=== PATIENT | female | born 1990 | race Caucasian/White ===

== ENCOUNTER → 2018-06-30 16:50 | Outpatient (CLI) | payer SELFPAY | PROVIDERS: Family Provider Family Medicine; PCP Family Medicine; Visit Provider Family Medicine | DX: Z01.419 Encounter for gynecological examination (general) (routine) without abnormal findings (principal) ==

== ENCOUNTER → 2019-04-01 08:29 | Outpatient (CLI) | payer OTHER, SELFPAY ==
[2019-04-01 08:40] LABS: Bacteria 0 SEEN /hpf (None Seen); Mucous, Urine 0 SEEN /hpf (<or=2+); Red Blood Cells-Urine 0 SEEN /hpf (0-5)
[2019-04-01 12:20] LABS: Absolute Lymphocyte Count 1.77 X10^3/uL (0.83-4.51); Absolute Neutrophil Count 7.3 X10^3/uL (2.0-7.7); Basophil# 0.05 X10^3/uL; Basophil% 0.5 % (0-1); Eosinophil# 0.12 X10^3/uL; Eosinophils% 1.2 % (0-5); Hematocrit 40.1 % (37-47); Hemoglobin 12.5 g/dL (12.0-15.0); Lymphocyte # 1.77 X10^3/ul (4.0); Mean Corp Hgb Conc 31.2 g/dL (32-36); Mean Corpuscular Hgb 22.5 pg (27.0-32.0); Mean Corpuscular Volume 72.1 fL (81-99); Mean Platelet Vol. 9.5 fl (6.2-12.0); Monocyte# 0.52 X10^3/uL; Monocyte% 5.3 % (0-10); NRBC Flagged by Analyzer 0 % (0-5); Neutrophil # 7.33 X10^3/uL (2.7-7.7); Neutrophil % 74.6 % (47-70); Platelet Count 555 K/mm3 (150-450); RBC Distribution Width CV 15.1 % (11.6-14.6); RBC Distribution Width SD 38.5 fl (35.1-43.9); Red Blood Count 5.56 M/mm3 (4.2-5.4); White Blood Count 9.8 K/mm3 (4.4-11.0)
[2019-04-01 13:34] LABS: Color, Urine Yellow (Yellow); Glucose, Dipstick Normal (Normal); Ketone-Dipstick Negative (Negative); Leukocyte Esterase-Dipstick 25 /ul (Negative); Nitrite-Dipstick Negative (Negative); Occult Blood-Urine 10 /ul (Negative); Protein-Dipstick Negative (Negative); Urine Bilirubin Dipstick Negative (Negative); Urine Clarity Clear (Clear); Urine Urobilinogen Normal (Normal)
[2019-04-01 13:39] LABS: Internal QC Validated? YES +Cl - CLEAR BKGD; Pregnancy, Urine Negative Negative; Squamous Epithelial Cells - UA 0-5 SEEN /hpf (5-10); White Blood Cells 0-5 SEEN /hpf (0-5)
== END ==
PROVIDERS: Family Provider Family Medicine; PCP Family Medicine; Visit Provider Family Medicine
DX: N93.9 Abnormal uterine and vaginal bleeding, unspecified (principal); R10.31 Right lower quadrant pain
CPT/HCPCS: 36415; 81001; 81025; 85025

== ENCOUNTER → 2020-06-27 08:46 | Outpatient (CLI) | payer BC, SELFPAY ==
[2020-06-27 13:05] LABS: ALB/GLOB Ratio 0.6 RATIO (0.9-2.4); AST(SGOT) 14 U/L (15-37); Alanine Aminotransfer ALT/SGPT 22 U/L (13-56); Albumin, Serum 3.1 g/dL (3.2-5.0); Alkaline Phosphatase 99 U/L (45-117); Anion Gap 7 (5-15); BUN 11 mg/dL (7-18); BUN/Creat Ratio 13.9 RATIO (10-20); Calcium,Total 8.8 mg/dL (8.5-10.1); Chloride 108 mmol/L (98-107); Cholesterol 195 mg/dL (200); Creatinine, Serum 0.79 mg/dL (0.55-1.02); EST Glomerular Filtration Rate 90 mL/min (>60); Est Glom Filt Rate - Afr Amer 109 mL/min (>60); Globulin 4.9 g/dL (2.2-4.2); Glucose 77 mg/dL (74-106); High Density Lipoprotein 46 mg/dL; Potassium 3.7 mmol/L (3.5-5.1); Sodium Level 139 mmol/L (136-145); Triglycerides 134 mg/dL; Very Low Density Lipoprotein 27 mg/dL (5-40)
[2020-06-27 13:18] LABS: Vitamin D,25 Hydroxy 30.5 ng/mL
== END ==
PROVIDERS: PCP Family Medicine; Visit Provider Family Medicine
DX: Z00.00 Encounter for general adult medical examination without abnormal findings (principal); E55.9 Vitamin D deficiency, unspecified
CPT/HCPCS: 36415; 80053; 80061; 82306

== ENCOUNTER → 2021-01-31 16:02 | Outpatient (CLI) | payer BC, SELFPAY | PROVIDERS: PCP Family Medicine; Referring Provider Family Medicine; Visit Provider Family Medicine | DX: Z20.828 Contact with and (suspected) exposure to other viral communicable diseases (principal) | CPT/HCPCS: 87635; U0005; U0003 ==

== ENCOUNTER → 2023-05-27 | Outpatient (CLI) | payer OTHER, SELFPAY ==
[2023-05-27 12:19] LABS: Absolute Lymphocyte Count 2.38 X10^3/uL (0.83-4.51); Absolute Neutrophil Count 5.7 X10^3/uL (2.0-7.7); Basophil# 0.05 X10^3/uL; Basophil% 0.6 % (0-1); Eosinophil# 0.09 X10^3/uL; Hematocrit 41.2 % (37-47); Hemoglobin 13.3 g/dL (12.0-15.0); Lymphocyte # 2.38 X10^3/ul (0.83-4.51); Lymphocyte % 26.4 % (19-41); Mean Corp Hgb Conc 32.3 g/dL (32-36); Mean Corpuscular Hgb 25.8 pg (27.0-32.0); Mean Platelet Vol. 8.9 fl (6.2-12.0); Monocyte% 7.8 % (0-10); NRBC Flagged by Analyzer 0 % (0-5); Neutrophil # 5.74 X10^3/uL (2.7-7.7); Neutrophil % 63.8 % (47-70); Platelet Count 464 K/mm3 (150-450); RBC Distribution Width CV 13.2 % (11.6-14.6); RBC Distribution Width SD 38.1 fl (35.1-43.9); Red Blood Count 5.15 M/mm3 (4.2-5.4)
[2023-05-27 12:56] LABS: ALB/GLOB Ratio 0.7 RATIO (0.9-2.4); AST(SGOT) 27 U/L (15-37); Alanine Aminotransfer ALT/SGPT 40 U/L (13-56); Albumin, Serum 3.3 g/dL (3.2-5.0); Alkaline Phosphatase 118 U/L (45-117); Anion Gap 7 (5-15); BUN 9 mg/dL (7-18); BUN/Creat Ratio 13.7 RATIO (10-20); Calcium,Total 9.2 mg/dL (8.5-10.1); Chloride 106 mmol/L (98-107); Creatinine, Serum 0.66 mg/dL (0.55-1.02); EST Glomerular Filtration Rate 110 mL/min (>60); Est Glom Filt Rate - Afr Amer 133 mL/min (>60); Globulin 4.7 g/dL (2.2-4.2); Glucose 86 mg/dL (74-106); Sodium Level 138 mmol/L (136-145)
== END | disposition home or self-care (01) ==
PROVIDERS: PCP Family Medicine; Visit Provider Family Medicine
DX: R19.7 Diarrhea, unspecified (principal); R10.9 Unspecified abdominal pain
CPT/HCPCS: 36415; 80053; 85025; 86140

== ENCOUNTER → 2023-05-28 | Outpatient (CLI) | payer OTHER, SELFPAY ==
--- OUTSIDE RECORDS SUMMARY | 2023-05-28 09:52 | XMS RPT_ITS | CCD ---
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 Name Role Phone Nicole Espino Primary Care Provider DARRON RAY Referring Unavailable NICOLE ESPINO Primary Care Unavailable NICOLE ESPINO Primary Care Unavailable DARRON RAY Attending Unavailable Nicole Espino DO Primary Care Provider NCIOLE ESPINO Primary Care Unavailable NICOLE ESPINO Primary Care Unavailable Allergies Allergy Classification Reported Allergen(s) Allergy Type Date of Onset Reaction(s) Facility (1 source) Peanut-Containi ng Drug Products Propensity to adverse reactions to drug 9 [place], [place] (5 sources) Adhesive Tape; Translations: [ADHESIVE TAPE (ROSINS)] Allergy to substance 3 Rash [facility] (5 sources) walnut allergenic extract; Translations: [WALNUT] Drug Allergy 2 Other: See Comments [facility] Work Phone: Medications Current Medications Medication Drug Class(es) Dates Sig (Normalized) Sig (Original) amoxicillin 500 mg oral capsule (3 sources) Penicillin-class Antibacterial Start: 06-06-2022 End: 06-16-2022 take 1 capsule by mouth twice daily amoxicillin (POLYMOX, AMOXIL) 500 mg capsule Indications: Strep throat Take 1 capsule by mouth twice daily for 10 days. 20 capsule 0 06/06/2022 06/16/2022 Active Completed/Discontinued Medications Medication Drug Class(es) Dates Sig (Normalized) Sig (Original) 21 day ethinyl estradiol 0.692220 mg/hr / etonogestrel 0.005 mg/hr vaginal system (8 sources) Progestin, Estrogen Etonogestrel -Ethinyl Estradiol 0.12-0.015 mg/24 hr vaginal ring Use 1 Each vaginally as directed. Insert vaginally and leave in place for 3 consecutive weeks, then remove for 1 week. 0 Active Problems Active Problems Problem Classification Problem Date Documented Date Episodic/Chronic Inflammation; infection of eye (except that caused by tuberculosis or sexually transmitteddisease) (1 source) Conjunctivitis of right eye; Translations: [Unspecified conjunctivitis] Episodic Nausea and vomiting (1 source) Diarrhea and vomiting; Translations: [Vomiting, unspecified] 05-18-2023 Episodic Other injuries and conditions due to external causes (2 sources) Injury of head; Translations: [Unspecified injury of head, initial encounter] Episodic Other injuries and conditions due to external causes (2 sources) Unspecified injury of head, initial encounter; Translations: [Unspecified injury of head, initial encounter] Onset: 08-15-2022 Episodic Other skin disorders (1 source) Eruption; Translations: [Rash and other nonspecific skin eruption] 05-18-2023 Episodic Other upper respiratory infections (2 sources) Streptococcal sore throat; Translations: [Streptococcal pharyngitis] Episodic Sprains and strains (1 source) Strain of muscle and/or tendon of lower leg; Translations: [Strain of adductor julien muscle, right, initial encounter] Episodic Past or Other Problems Problem Classification Problem Date Documented Da te Episodic/Chronic Other non-traumatic joint disorders (4 sources) Pain in lower limb; Translations: [Pain in unspecified knee] Onset: 08-28-2011 08-28-2011 Episodic Results Test Name Value Interpretation Reference Range Facil ity Vital Signs Date Time Vital Sign Value Performing Clinician Facility 05-18-2023 12:00-0500 Body height 175.3 cm Leidy Dee PA-C Work Phone: [facility] 05-18-2023 12:00-0500 Body temperature 98.29 [degF] Liedy Dee PA-C Work Phone: [facility] 05-18-2023 12:00-0500 Body weight 135.8 kg Leidy Dee PA-C Work Phone: [facility] 05-18-2023 12:00-0500 Diastolic blood pressure 104 mm[Hg] Leidy Dee PA-C Work Phone: [facility] 05-18-2023 12:00-0500 Heart rate 113 /min Leidy Dee PA-C Work Phone: [facility] 05-18-2023 12:00-0500 Respiratory rate 18 /min Leidy Dee PA-C Work Phone: [facility] 05-18-2023 12:00-0500 SaO2% (BldA) [Mass fraction] 98 % Leidy Dee PA-C Work Phone: [facility] 05-18-2023 12:00-0500 Systolic blood pressure 141 mm[Hg] Leidy Dee PA-C Work Phone: [facility] 08-15-2022 20:27-0400 Diastolic blood pressure 94 mm[Hg] Darron Ray MD Work Phone: [facility] 08-15-2022 20:27-0400 Heart rate 79 /min Darron Ray MD Work Phone: [facility] 08-15-2022 20:27-0400 Respiratory rate 15 /min Darron Ray MD Work Phone: [facility] 08-15-2022 20:27-0400 SaO2% (BldA) [Mass fraction] 100 % Darron Ray MD Work Phone: [facility] 08-15-2022 20:27-0400 Systolic blood pressure 147 mm[Hg] Darron Ray MD Work Phone: [facility] 08-15-2022 18:51-0400 Body height 175.3 cm Darron Ray MD Work Phone: [facility] 08-15-2022 18:51-0400 Body mass index (BMI) [Ratio] 40.02 kg/m2 Darron Ray MD Work Phone: [facility] 08-15-2022 18:51-0400 Body temperature 98.4 [degF] Darron Ray MD Work Phone: [facility] 08-15-2022 18:51-0400 Body weight 122.92 kg Darron Ray MD Work Phone: [facility] 06-06-2022 17:59-0500 Body temperature 100.4 [degF] Chery Ball BANK CONSULTANT.LABORATORY ANIMAL FACILITY SUPERVISOR Work Phone: [facility] 06-06-2022 17:59-0500 Body weight 132 kg Chery Ball BANK CONSULTANT.LABORATORY ANIMAL FACILITY SUPERVISOR Work Phone: [facility] 06-06-2022 17:59-0500 Diastolic blood pressure 94 mm[Hg] Chery Ball BANK CONSULTANT.LABORATORY ANIMAL FACILITY SUPERVISOR Work Phone: [facility] 06-06-2022 17:59-0500 Heart rate 122 /min Chery Ball BANK CONSULTANT.LABORATORY ANIMAL FACILITY SUPERVISOR Work Phone: [facility] 06-06-2022 17:59-0500 SaO2% (BldA) [Mass fraction] 98 % Chery Ball BANK CONSULTANT.LABORATORY ANIMAL FACILITY SUPERVISOR Work Phone: [facility] 06-06-2022 17:59-0500 Systolic blood pressure 159 mm[Hg] Chery Ball BANK CONSULTANT.LABORATORY ANIMAL FACILITY SUPERVISOR Work Phone: [facility] 04-07-2022 09:29-0500 Body height 175.3 cm Soledad Syed BANK CONSULTANT.LABORATORY ANIMAL FACILITY SUPERVISOR Work Phone: [facility] 04-07-2022 09:29-0500 Body temperature 97.7 [degF] Soledad Syed BANK CONSULTANT.LABORATORY ANIMAL FACILITY SUPERVISOR Work Phone: [facility] 04-07-2022 09:29-0500 Body weight 138.8 kg Soledad Syed BANK CONSULTANT.LABORATORY ANIMAL FACILITY SUPERVISOR Work Phone: [facility] 04-07-2022 09:29-0500 Diastolic blood pressure 76 mm[Hg] Soledad Syed BANK CONSULTANT.LABORATORY ANIMAL FACILITY SUPERVISOR Work Phone: [facility] 04-07-2022 09:29-0500 Heart rate 114 /min Soledad Syed BANK CONSULTANT.LABORATORY ANIMAL FACILITY SUPERVISOR Work Phone: [facility] 04-07-2022 09:29-0500 Respiratory rate 18 /min Soledad Seyd BANK CONSULTANT.LABORATORY ANIMAL FACILITY SUPERVISOR Work Phone: [facility] 04-07-2022 09:29-0500 SaO2% (BldA) [Mass fraction] 100 % Soledad Syed BANK CONSULTANT.LABORATORY ANIMAL FACILITY SUPERVISOR Work Phone: [facility] 04-07-2022 09:29-0500 Systolic blood pressure 129 mm[Hg] Soledad Seyd BANK CONSULTANT.LABORATORY ANIMAL FACILITY SUPERVISOR Work Phone: [facility] 02-06-2022 18:11-0400 Body height 175.3 cm Dasha Slabaugh PA-C Work Phone: [facility] 02-06-2022 18:11-0400 Body weight 138.8 kg Dasha Slabaugh PA-C Work Phone: [facility] 02-06-2022 18:11-0400 Diastolic blood pressure 101 mm[Hg] Dasha Slabaugh PA-C Work Phone: [facility] 02-06-2022 18:11-0400 Heart rate 101 /min Dasha Slabaugh PA-C Work Phone: [facility] 02-06-2022 18:11-0400 Respiratory rate 16 /min Dasha Slabaugh PA-C Work Phone: [facility] 02-06-2022 18:11-0400 SaO2% (BldA) [Mass fraction] 99 % Dasha Slabaugh PA-C Work Phone: [facility] 02-06-2022 18:11-0400 Systolic blood pressure 123 mm[Hg] Dasha Slabaugh PA-C Work Phone: [facility] 01-18-2019 16:52-0400 BP Diastolic 80 mm[Hg] [facility] [place] 01-18-2019 16:52-0400 BP Systolic 117 mm[Hg] [facility] [place] 01-18-2019 16:52-0400 Pulse (Heart Rate) 68 /min [facility] [place] 09-15-2019 16:52-0400 [facility] 16:52-0400 Respiratory Rate 14 /[facility] 01-18-2019 15:48-0400 Body Temperature 97.9 [degF] [facility] 01-18-2019 15:48-0400 Body weight 127.91 [facility] Encounters Encounter Date Encounter Type Care Provider Facility Start: 05-18-2023 End: 05-18-2023 ambulatory [facility] Facility:[facility] Start: 05-18-2023 End: 05-18-2023 Patient encounter procedure Leidy Dee PA-C Work Phone: [facility] Procedures Date Procedure Procedure Detail Performing Clinician Start: 08-15-2022 Ct head/brain w/o contrast material Darron Ray MD Work Phone: Start: 06-06-2022 STREP A MOLECULAR (POC) [facility] Provider Start: 04-07-2022 STREP A MOLECULAR (POC) [facility] Provider Start: 01-18-2019 Radex hip unilateral with pelvis 2-3 views [facility] Carlos Alberto Work Phone: Plan of Treatment Date Care Activity Detail Author Start: 2039 Zoster Vaccines (1 of 2) Zoste r Vaccines (1 of 2) [facility] Start: 05-06-2023 Depression Assessment Depression Ass essment [facility] Start: 01-04-2023 Covid-19 Vaccine ( season) Covid-19 Vaccine ( season) [facility] Start: 01-04-2023 Influenza vaccination [facility] Start: 05-06-2022 DEPRESSION ASSESSMENT DEPRESSION ASS ESSMENT [facility] Start: 01-04-2022 Influenza vaccination INFLUENZA (#1) [facility] Start: 05-06-2021 DEPRESSION ASSESSMENT DEPRESSION ASS ESSMENT [facility] Start: 03-24-2021 COVID-19 VACCINE (3 - Booster for Pfizer series) COVID-19 VACCINE (3 - Booster for Pfizer series) [facility] Start: 2019 HPV TESTING HPV TESTING [facility] Start: 2019 Screening for malign ant neoplasm of cervix [facility] Start: 01-04-2019 Influenza vaccination Flu vaccine (# 1) [place], [place] Start: 07-29-2015 PAP TESTING PAP TESTING [facility] Start: 07-29-2015 Screening for malign ant neoplasm of cervix Pap Testing [facility] Start: 2010 Screening for malign ant neoplasm of cervix Pap Smear [facility] Start: 2008 Urine microalbumin profile DTAP,TDAP,TD (1 - Tdap) [facility] Start: 2007 HEPATITIS C SCREENING HEPATITIS C [facility] Start: 2007 Hepatitis C screening Hepatitis C [facility] Start: 2007 HIV SCREENING HIV SCREENING [facility] Start: 2007 HIV screening HIV Screening [facility] Start: 02-06-2002 Varicella vaccination Varicell a Vaccines (1 of 2 - 2-dose childhood series) [facility] Start: 2000 DTaP/Tdap/Td Vaccine s (5 - Tdap) DTaP/Tdap/Td Vaccines (5 - Tdap) [facility] Start: 2000 Urine microalbumin profile DTaP,Tdap,Td Vaccine (5 - Tdap) [facility] Start: 1989 HEPATITIS B (1 of 3 - 3-dose series) HEPATITIS B (1 of 3 - 3-dose series) [facility] Start: 1989 Hepatitis B Vaccine (1 of 3 - 3-dose series) Hepatitis B Vaccine (1 of 3 - 3-dose series) [facility] Start: 1989 Hepatitis B Vaccines (1 of 3 - 3-dose series) Hepatitis B Vaccines (1 of 3 - 3-dose series) [facility] Start: 1989 HIV screening HIV Screening [facility]usto Payers Date Payer Category Payer Unknown [id number] 2022 Worker's Compensation LATOYA STODDARD [employer] [id number] 2022-[place] [address] Worker's Comp [id number] 2021 Unknown [id number] 2021 Unknown [id number] Social History Date Type Detail Facility Start: 03-16-2011 End: 01-18-2019 Tobacco smoking status NHIS Never smoker [facility] Work Phone: Start: 01-18-2019 End: 04-13-2020 Alcohol intake Not Currently [facility] Start: 1990 Sex Assigned At Not on file [facility] Start: 03-16-2011 Tobacco use and exposure Smokeless tobacco non-user [facility] Work Phone: Start: 03-03-2019 End: 05-18-2023 Alcohol intake Current drinker of alcohol (finding) [facility] Start: 09-30-2012 History SDOH Alcohol Comment rare [facility] Start: 01-27-2022 End: 08-15-2022 Exposure to SARS-CoV-2 (event) Not sure [facility] Start: 08-15-2022 Alcohol intake Ex-drinker (finding) [facility] Start: 04-13-2020 End: 05-18-2023 History of Social function [facility] National Score (1-100), lower number is lower risk Not on file [facility] Clinical Notes 08-28-2011 to 05-18-2023 Leidy Dee PA-C - 05/18/2023 11:59 AM Lorrie Stephens RN - 08/15/2022 8:27 PM Evita Stephens RN - 08/15/2022 8:27 PM Facundo Ray MD - 08/15/2022 6:43 PM EDTPatient Instructions Note Date & Type Note Facility 05-18-2023 Note HNO ID: [id number] Author: LEIDY DEE PA-C Service: ? Author Type: Physician Escalator Installer Type: Progress Notes Filed: 05/18/2023 12:23 Note Text: Nahed Holloway is a 32 year old female with a complaint of rash on abdomen x 4 days. Red bumps, last a few days, then resolve on their own. Getting new spots. One on back of left thigh and two on back. Was in hot tub 2-3 days before rash began. Not itchy. Painful when she touches the lesions. Notes epigastric pain that began about 4 days ago as well. Was coming and going, worse after eating. Yesterday had vomiting and diarrhea. Epigastric pain resolved. Last episode of vomiting 1 am today, last episode of diarrhea 8 am today. No longer nauseated. Feels fine otherwise. Denies fever, chills, body aches, sore throat, cough. Doesn't feel sick. REVIEW OF SYSTEMS See HPI, otherwise unremarkable. No past medical history on file. PAST SURGICAL HISTORY Procedure Laterality Date APPENDECTOMY 2011 APPENDECTOMY HX PAST SURGICAL HISTORY OF joshua eye surgery for lazy eye FAMILY HISTORY Problem Relation Age of Onset Hypertension Mother Hypertension Father Social History Tobacco Use Smoking status: Never Smokeless tobacco: Never Substance Use Topics Alcohol use: Yes Comment: rare Drug use: No PHYSICAL EXAMINATION: Vitals: BP 141/104 (BP Site: Left Arm, BP Position: Sitting, BP Cuff Size: Large Adult) Pulse 113 Temp 36.8 ?C (98.3 ?F) (Left Tympanic) Resp 18 Ht 175.3 cm (5' 9 ) Wt 135.8 kg (299 lb 6.2 oz) LMP 10/01/2018 (Exact Date) SpO2 98% BMI 44.21 kg/m? General Appearance: Well appearing, alert, in no acute distress, well-hydrated, well nourished.. Skin: few erythematous papules on trunk, one on back of left leg, appears to be folliculitis. Oropharynx: Lips, mucosa, and tongue normal, teeth and gums normal, oropharynx normal. Neck: Supple, no adenopathy Lungs: Lungs clear to auscultation. No wheezing, rhonchi, rales.. Heart: RRR without murmur, gallop, or rubs. No ectopy. Abdomen: Abdomen soft, non-tender. No masses, organomegaly. ASSESSMENT: DIAGNOSIS: (R21) Skin rash (primary encounter diagnosis) (R11.10, R19.7) Vomiting and diarrhea PLAN: ASSESSMENT/PLAN: 1. Skin rash - ICD9: 782.1, ICD10: R21 (primary diagnosis) ?hot tub folliculitis, mupirocin. Follow up if rash persists. 2. Vomiting and diarrhea - ICD9: 787.03, 787.91, ICD10: R11.10, R19.7 Resolved. Pt states goes not feel sick. Follow up for new, worsening or persistent sx. Pt in agreement with the plan and verbalized understanding. Leidy Dee PA-C [facility] 05-18-2023 History of Presen t illness Narrative Nahed Holloway is a 32 year old female with a complaint of rash on abdomen x 4 days. Red bumps, last a few days, then resolve on their own. Getting new spots. One on back of left thigh and two on back. Was in hot tub 2-3 days before rash began. Not itchy. Painful when she touches the lesions. Notes epigastric pain that began about 4 days ago as well. Was coming and going, worse after eating. Yesterday had vomiting and diarrhea. Epigastric pain resolved. Last episode of vomiting 1 am today, last episode of diarrhea 8 am today. No longer nauseated. Feels fine otherwise. Denies fever, chills, body aches, sore throat, cough. Doesn't feel sick. REVIEW OF SYSTEMS See HPI, otherwise unremarkable. No past medical history on file. PAST SURGICAL HISTORY Procedure Laterality Date APPENDECTOMY 2011 APPENDECTOMY HX PAST SURGICAL HISTORY OF joshua eye surgery for lazy eye FAMILY HISTORY Problem Relation Age of Onset Hypertension Mother Hypertension Father Social History Tobacco Use Smoking status: Never Smokeless tobacco: Never Substance Use Topics Alcohol use: Yes Comment: rare Drug use: No PHYSICAL EXAMINATION: Vitals: BP 141/104 (BP Site: Left Arm, BP Position: Sitting, BP Cuff Size: Large Adult) Pulse 113 Temp 36.8 C (98.3 F) (Left Tympanic) Resp 18 Ht 175.3 cm (5' 9 ) Wt 135.8 kg (299 lb 6.2 oz) LMP 10/01/2018 (Exact Date) SpO2 98% BMI 44.21 kg/m General Appearance: Well appearing, alert, in no acute distress, well-hydrated, well nourished.. Skin: few erythematous papules on trunk, one on back of left leg, appears to be folliculitis. Oropharynx: Lips, mucosa, and tongue normal, teeth and gums normal, oropharynx normal. Neck: Supple, no adenopathy Lungs: Lungs clear to auscultation. No wheezing, rhonchi, rales.. Heart: RRR without murmur, gallop, or rubs. No ectopy. Abdomen: Abdomen soft, non-tender. No masses, organomegaly. ASSESSMENT: DIAGNOSIS: (R21) Skin rash (primary encounter diagnosis) (R11.10, R19.7) Vomiting and diarrhea PLAN: ASSESSMENT/PLAN: 1. Skin rash - ICD9: 782.1, ICD10: R21 (primary diagnosis) ?hot tub folliculitis, mupirocin. Follow up if rash persists. 2. Vomiting and diarrhea - ICD9: 787.03, 787.91, ICD10: R11.10, R19.7 Resolved. Pt states goes not feel sick. Follow up for new, worsening or persistent sx. Pt in agreement with the plan and verbalized understanding. Leidy Dee PA-C documented in this encounter [facility] 08-15-2022 Emergency department Note Discharge instructions, follow up care, and pain management discussed with patient. All questions answered, there are no further questions at this time. RN reviewed concussion signs and symptoms with patient and friend bedside. Patient ambulated off the unit independently at discharge. Kizzy Stephens RN 08/15/222026 [facility] 08-15-2022 Emergency department Note Discharge instructions, follow up care, and pain management discussed with patient. All questions answered, there are no further questions at this time. RN reviewed concussion signs and symptoms with patient and friend bedside. Patient ambulated off the unit independently at discharge. Kizzy Stephens RN 08/15/222026 EMERGENCY DEPARTMENT ENCOUNTER Pt Name: Nahed Holloway Birthdate 1990 Date of evaluation: 08/15/2022 ED Provider: Darron Ray MD CHIEF COMPLAINT Chief Complaint Patient presents with Head Injury HISTORY OF PRESENT ILLNESS (Location/Symptom, Timing/Onset, Context/Setting, Quality, Duration, Modifying Factors, Severity) Note limiting factors. I wore appropriate PPE for the entirety of this encounter. HPI Nahed Holloway is a 32 y.o. female who presents to the emergency department with chief complaint of head injury. 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 She did not pass out or fall. Not on thinners. Denies any focal weakness numbness tingling. Her significant other reports that her speech has been slurred and not making sense and she states she is very fatigued and has a severe diffuse headache. No vomiting no seizures. No reported gait disturbance. Nursing Notes were reviewed. Limitations to history: None Outside historians: None REVIEW OF SYSTEMS Review of Systems Constitutional: Negative for chills and fever. HENT: Negative for ear pain and sore throat. Eyes: Negative for pain and visual disturbance. Respiratory: Negative for cough and shortness of breath. Cardiovascular: Negative for chest pain and palpitations. Gastrointestinal: Negative for abdominal pain and vomiting. Genitourinary: Negative for dysuria and hematuria. Musculoskeletal: Negative for arthralgias and back pain. Skin: Negative for color change and rash. Neurological: Positive for speech difficulty and headaches. Negative for seizures and syncope. All other systems reviewed and are negative. Pertinent positives and negatives as per HPI. PAST MEDICAL HISTORY History reviewed. No pertinent past medical history. SURGICAL HISTORY Past Surgical History: Procedure Laterality Date APPENDECTOMY EYE SURGERY CURRENT MEDICATIONS Previous Medications ETONOGESTREL-ETHINYL ESTRADIOL (NUVARING) 0.12-0.015 MG/24HR VAGINAL RING Insert 1 Ring into the vagina every 28 (twenty-eight) days. Insert vaginally and leave in place for 3 consecutive weeks, then remove for 1 week. ALLERGIES Patient has no known allergies. FAMILY HISTORY No family history on file. SOCIAL HISTORY Social History Socioeconomic History Marital status: Single Tobacco Use Smoking status: Never Substance and Sexual Activity Alcohol use: Not Currently Drug use: Never SCREENINGS PHYSICAL EXAM ED Triage Vitals [08/15/22 1851] Temp Heart Rate Resp BP 36.9 C (98.4 F) 78 14 (!) 156/100 SpO2 Temp Source Heart Rate Source Patient Position 100 % Oral -- -- BP Location FiO2 (%) -- -- Physical Exam Vitals and nursing note reviewed. Constitutional: General: She is not in acute distress. Appearance: She is well-developed. She is not ill-appearing, toxic-appearing or diaphoretic. HENT: Head: Normocephalic and atraumatic. Nose: No septal deviation. Right Nostril: No septal hematoma. Left Nostril: No septal hematoma. Mouth/Throat: Mouth: Mucous membranes are moist. Pharynx: Oropharynx is clear. Eyes: General: No visual field deficit or scleral icterus. Extraocular Movements: Extraocular movements intact. Conjunctiva/sclera: Conjunctivae normal. Pupils: Pupils are equal, round, and reactive to light. Cardiovascular: Rate and Rhythm: Normal rate and regular rhythm. Heart sounds: No murmur heard. Pulmonary: Effort: Pulmonary effort is normal. No respiratory distress. Breath sounds: Normal breath sounds. Abdominal: Palpations: Abdomen is soft. Tenderness: There is no abdominal tenderness. Musculoskeletal: General: No swelling. Cervical back: Normal range of motion and neck supple. No rigidity. Skin: General: Skin is warm and dry. Capillary Refill: Capillary refill takes less than 2 seconds. Neurological: General: No focal deficit present. Mental Status: She is alert and oriented to person, place, and time. GCS: GCS eye subscore is 4. GCS verbal subscore is 5. GCS motor subscore is 6. Cranial Nerves: No cranial nerve deficit, dysarthria or facial asymmetry. Sensory: Sensation is intact. No sensory deficit. Motor: No weakness. Coordination: Jbqovv-[id number]-Ewodia Test normal. Gait: Gait normal. Psychiatric: Mood and Affect: Mood normal. DIAGNOSTIC RESULTS Procedures/EKG: EKG was reviewed by myself. Physician EKG interpretation can be found in [facility] RADIOLOGY (Per Emergency Physician): Interpretation per the Radiologist below, if available at the time of this note: CT head wo IV contrast Final Result 1. No acute intracranial findings. Report Dictated on Electronically Signed By: You Rodriguez Electronically Signed Date/Time: 08/15/2022 7:55 PM EDT ED BEDSIDE ULTRASOUND: Performed by ED Physician - none LABS: Labs Reviewed - No data to display All other labs were within normal range or not returned as of this dictation. EMERGENCY DEPARTMENT COURSE and DIFFERENTIAL DIAGNOSIS/MDM: Vitals: Vitals: 08/15/22 1851 BP: (!) 156/100 Pulse: 78 Resp: 14 Temp: 36.9 C (98.4 F) TempSrc: Oral SpO2: 100% Weight: 123 kg (271 lb) Height: 1.753 m (5' 9 ) 32-year-old female here after head injury without loss of consciousness complaining of severe headache and reported slurred speech per the . Vitals show mild hypertension. Not on blood thinners. Differential includes head injury, concussion, intracranial bleed. Discussed low likelihood of intracranial bleed with the patient and the significant other however their main concern is her trouble with speech. Do not believe this is an acute stroke. She has normal speech in the room. Discussed I believe it is not necessary to obtain a CT of the head but they would like this to be done. Diagnoses as of 08/15/22 2017 Head injury, initial encounter The patient presented with chief complaint of head injury. The differential diagnosis associated with this patient's presentation includes as above. Our workup consisted of ordering/reviewing: Above. Patient is in agreement with this plan. Medications - No data to display REVAL: CT brain negative. Patient updated and discharge instructions provided stable for discharge Worker's Compensation paperwork filled out. Return precautions given. CRITICAL CARE TIME None CONSULTS: None PROCEDURES: Unless otherwise noted below, none Procedures Patients symptoms are consistent with sepsis, severe sepsis, or septic shock (If yes use .sepsiscoremeasure ): no FINAL IMPRESSION 1. Head injury, initial encounter DISPOSITION Discharge 08/15/2022 08:13:39 PM PATIENT REFERRED TO: Nicole Espino [address] [place] [phone] Schedule an appointment as soon as possible for a visit DISCHARGE MEDICATIONS: New Prescriptions No medications on file (Comment: Please note this report has been produced using speech recognition software and may contain errors related to that system including errors in grammar, punctuation, and spelling, as well as words and phrases that may be inappropriate. If there are any questions or concerns please feel free to contact the dictating provider for clarification.) Darron Ray MD (electronically signed) Emergency Medicine Provider Darron Ray MD 08/15/222016 Steady gait to room 5. States about 4 hours ago was holding a child that was having a tantrum and the child's head hit her in the nose. Pt states she jerked her head after getting hit in nose and hit back of head against a wall. No LOC. States has pain to face and right side of head. Intact MSPs x 4, GCS 15. Works at [employer] documented in this encounter [facility] 08-15-2022 Emergency department Triage note Steady gait to room 5. States about 4 hours ago was holding a child that was having a tantrum and the child's head hit her in the nose. Pt states she jerked her head after getting hit in nose and hit back of head against a wall. No LOC. States has pain to face and right side of head. Intact MSPs x 4, GCS 15. Works at [employer] [facility] 08-15-2022 Physician Emergency department Note EMERGENCY DEPARTMENT ENCOUNTER Pt Name: Nahed Holloway Birthdate 1990 Date of evaluation: 08/15/2022 ED Provider: Darron Ray MD CHIEF COMPLAINT Chief Complaint Patient presents with Head Injury HISTORY OF PRESENT ILLNESS (Location/Symptom, Timing/Onset, Context/Setting, Quality, Duration, Modifying Factors, Severity) Note limiting factors. I wore appropriate PPE for the entirety of this encounter. HPI Nahed Holloway is a 32 y.o. female who presents to the emergency department with chief complaint of head injury. 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 She did not pass out or fall. Not on thinners. Denies any focal weakness numbness tingling. Her significant other reports that her speech has been slurred and not making sense and she states she is very fatigued and has a severe diffuse headache. No vomiting no seizures. No reported gait disturbance. Nursing Notes were reviewed. Limitations to history: None Outside historians: None REVIEW OF SYSTEMS Review of Systems Constitutional: Negative for chills and fever. HENT: Negative for ear pain and sore throat. Eyes: Negative for pain and visual disturbance. Respiratory: Negative for cough and shortness of breath. Cardiovascular: Negative for chest pain and palpitations. Gastrointestinal: Negative for abdominal pain and vomiting. Genitourinary: Negative for dysuria and hematuria. Musculoskeletal: Negative for arthralgias and back pain. Skin: Negative for color change and rash. Neurological: Positive for speech difficulty and headaches. Negative for seizures and syncope. All other systems reviewed and are negative. Pertinent positives and negatives as per HPI. PAST MEDICAL HISTORY History reviewed. No pertinent past medical history. SURGICAL HISTORY Past Surgical History: Procedure Laterality Date APPENDECTOMY EYE SURGERY CURRENT MEDICATIONS Previous Medications ETONOGESTREL-ETHINYL ESTRADIOL (NUVARING) 0.12-0.015 MG/24HR VAGINAL RING Insert 1 Ring into the vagina every 28 (twenty-eight) days. Insert vaginally and leave in place for 3 consecutive weeks, then remove for 1 week. ALLERGIES Patient has no known allergies. FAMILY HISTORY No family history on file. SOCIAL HISTORY Social History Socioeconomic History Marital status: Single Tobacco Use Smoking status: Never Substance and Sexual Activity Alcohol use: Not Currently Drug use: Never SCREENINGS PHYSICAL EXAM ED Triage Vitals [08/15/22 1851] Temp Heart Rate Resp BP 36.9 C (98.4 F) 78 14 (!) 156/100 SpO2 Temp Source Heart Rate Source Patient Position 100 % Oral -- -- BP Location FiO2 (%) -- -- Physical Exam Vitals and nursing note reviewed. Constitutional: General: She is not in acute distress. Appearance: She is well-developed. She is not ill-appearing, toxic-appearing or diaphoretic. HENT: Head: Normocephalic and atraumatic. Nose: No septal deviation. Right Nostril: No septal hematoma. Left Nostril: No septal hematoma. Mouth/Throat: Mouth: Mucous membranes are moist. Pharynx: Oropharynx is clear. Eyes: General: No visual field deficit or scleral icterus. Extraocular Movements: Extraocular movements intact. Conjunctiva/sclera: Conjunctivae normal. Pupils: Pupils are equal, round, and reactive to light. Cardiovascular: Rate and Rhythm: Normal rate and regular rhythm. Heart sounds: No murmur heard. Pulmonary: Effort: Pulmonary effort is normal. No respiratory distress. Breath sounds: Normal breath sounds. Abdominal: Palpations: Abdomen is soft. Tenderness: There is no abdominal tenderness. Musculoskeletal: General: No swelling. Cervical back: Normal range of motion and neck supple. No rigidity. Skin: General: Skin is warm and dry. Capillary Refill: Capillary refill takes less than 2 seconds. Neurological: General: No focal deficit present. Mental Status: She is alert and oriented to person, place, and time. GCS: GCS eye subscore is 4. GCS verbal subscore is 5. GCS motor subscore is 6. Cranial Nerves: No cranial nerve deficit, dysarthria or facial asymmetry. Sensory: Sensation is intact. No sensory deficit. Motor: No weakness. Coordination: Xdolxt-Piwp-Mwqddb Test normal. Gait: Gait normal. Psychiatric: Mood and Affect: Mood normal. DIAGNOSTIC RESULTS Procedures/EKG: EKG was reviewed by myself. Physician EKG interpretation can be found in [facility] RADIOLOGY (Per Emergency Physician): Interpretation per the Radiologist below, if available at the time of this note: CT head wo IV contrast Final Result 1. No acute intracranial findings. Report Dictated on Electronically Signed By: You Rodriguez Electronically Signed Date/Time: 08/15/2022 7:55 PM EDT ED BEDSIDE ULTRASOUND: Performed by ED Physician - none LABS: Labs Reviewed - No data to display All other labs were within normal range or not returned as of this dictation. EMERGENCY DEPARTMENT COURSE and DIFFERENTIAL DIAGNOSIS/MDM: Vitals: Vitals: 08/15/22 1851 BP: (!) 156/100 Pulse: 78 Resp: 14 Temp: 36.9 C (98.4 F) TempSrc: Oral SpO2: 100% Weight: 123 kg (271 lb) Height: 1.753 m (5' 9 ) 32-year-old female here after head injury without loss of consciousness complaining of severe headache and reported slurred speech per the . Vitals show mild hypertension. Not on blood thinners. Differential includes head injury, concussion, intracranial bleed. Discussed low likelihood of intracranial bleed with the patient and the significant other however their main concern is her trouble with speech. Do not believe this is an acute stroke. She has normal speech in the room. Discussed I believe it is not necessary to obtain a CT of the head but they would like this to be done. Diagnoses as of 08/15/22 2017 Head injury, initial encounter The patient presented with chief complaint of head injury. The differential diagnosis associated with this patient's presentation includes as above. Our workup consisted of ordering/reviewing: Above. Patient is in agreement with this plan. Medications - No data to display REVAL: CT brain negative. Patient updated and discharge instructions provided stable for discharge Worker's Compensation paperwork filled out. Return precautions given. CRITICAL CARE TIME None CONSULTS: None PROCEDURES: Unless otherwise noted below, none Procedures Patients symptoms are consistent with sepsis, severe sepsis, or septic shock (If yes use .sepsiscoremeasure ): no FINAL IMPRESSION 1. Head injury, initial encounter DISPOSITION Discharge 08/15/2022 08:13:39 PM PATIENT REFERRED TO: Nicole Jim Srinivas [address] [facility] [phone] Schedule an appointment as soon as possible for a visit DISCHARGE MEDICATIONS: New Prescriptions No medications on file (Comment: Please note this report has been produced using speech recognition software and may contain errors related to that system including errors in grammar, punctuation, and spelling, as well as words and phrases that may be inappropriate. If there are any questions or concerns please feel free to contact the dictating provider for clarification.) Darron Ray MD (electronically signed) Emergency Medicine Provider Darron Ray MD 08/15/222016 [place] Phone: 06-06-2022 Note HNO ID: [id number] Author: Chery Montes De Oca APRN.LABORATORY [employer]IMAL [employer]ACILITY SUPERVISOR Service: ? Author Type: Nurse Practitioner Type: Progress Notes Filed: 06/06/2022 6:21 PM Note Text: This note was created using NoteWriter. Subjective Nahed Holloway is a 31 year old female. 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 ALLERGIES Tape [Adhesive Tape* Rash [place] Other: See Comments Comment:Burning in mouth Family History Reviewed Including Cardiac Diseases, Psychiatric Diseases, AND Substance Abuse Problem: Hypertension Relation: Mother Age of Onset: (Not Specified) Problem: Hypertension Relation: Father Age of Onset: (Not Specified) Social History Tobacco Use Smoking status: Never Smokeless tobacco: Never Alcohol use: Yes Comment: rare Drug use: No Review of Systems Constitutional: Positive for fever. Negative for chills. HENT: Positive for sore throat. Negative for congestion, ear pain and rhinorrhea. Respiratory: Negative for cough. Cardiovascular: Negative for chest pain. Musculoskeletal: Positive for myalgias. Allergic/Immunologic: Negative for immunocompromised state. Hematological: Negative for adenopathy. Objective Wt 132 kg (291 lb) LMP 10/01/2018 (Exact Date) BMI 42.97 kg/m? Physical Exam Vitals and nursing note reviewed. HENT: Right Ear: Tympanic membrane and ear canal normal. Left Ear: Tympanic membrane and ear canal normal. Nose: Nose normal. Mouth/Throat: Pharynx: Uvula midline. Cardiovascular: Rate and Rhythm: Normal rate and regular rhythm. Heart sounds: Normal heart sounds. Pulmonary: Effort: Pulmonary effort is normal. Breath sounds: Normal breath sounds. Lymphadenopathy: Cervical: No cervical adenopathy. Skin: General: Skin is warm and dry. Neurological: Mental Status: She is alert and oriented to person, place, and time. Assessment and Plan ASSESSMENT/PLAN: 1. Strep throat - ICD9: 034.0, ICD10: J02.0 - suspect strep - Rapid Strep positive in the office today - Discussed supportive care treatment with fluids, rest and analgesia. - AMOXICILLIN 500 MG CAPSULE Chery Montes De Oca APRN.CNP Medical Decision Making: Problems: Moderate: New problem with uncertain prognosis Data: Unique test(s) ordered: 1 Risk: Moderate: Drug management Medical Decision Making Level: 4 - Moderate This patient encounter involved the screening or treatment of novel coronavirus infection (COVID-19). [facility] 06-06-2022 Instructions Chery Montes De Oca APRN.CNP - 06/06/2022 6:18 PM EST [facility] PATIENT INFO PHARYNGITIS OVERVIEW A sore throat (pharyngitis) is a common problem, and usually is caused by a viral or bacterial infection. Sore throat usually resolves on its own without complications in adults, although it is important to know when to seek medical attention. Viruses can cause a sore throat and other upper respiratory infections, such as the common cold. Sore throat caused by a virus is not treated with antibiotics, but instead may be treated with rest, pain medication, and other therapies aimed at relieving symptoms. Strep throat is a particular kind of pharyngitis that is caused by a bacterium known as group A streptococcus (GAS). Strep throat is treated with a course of antibiotics. SORE THROAT SYMPTOMS Viral pharyngitis - Most people with a sore throat have a virus. The most common viruses are those that cause upper respiratory infections, such as the common cold. Symptoms of a viral infection can include: A runny or congested nose Irritation or redness of the eyes Cough, hoarseness, or soreness in the roof of the mouth Some viruses cause a fever and can make you feel quite ill. Strep throat - Approximately 10 percent of adults with a sore throat have strep throat. Signs and symptoms of strep throat include the following: Pain in the throat Fever (temperature greater than 100.4 F or 38 C) Enlarged lymph glands in the neck No cough, runny nose, or irritation/redness of the eyes When to seek urgent help - See your doctor or nurse immediately if you have a sore throat along with any of the following: Difficulty breathing Skin rash Drooling because you cannot swallow Swelling of the neck or tongue Stiff neck or difficulty opening the mouth SORE THROAT DIAGNOSIS Most people with a sore throat get better without treatment. There is no specific treatment for a sore throat caused by usual cold viruses. Is it strep or not? - A combination of symptoms (fever, enlarged glands in the neck, white patches on your tonsils, and no cough) can help in determining if you have strep. If you have two or more symptoms, a rapid test or throat culture may be done. People with fewer than two symptoms usually do not need testing or treatment for strep throat. Rapid test - The rapid test determines if there are streptococcus bacteria on a throat swab. The test can be done in a clinician's office and the results are available within a few minutes. The test is accurate in most cases, although a small percentage of tests are falsely negative (the bacteria are present but the test is negative). Strep Confirmatory Test - involves swabbing the throat, sending the swab to a laboratory, and waiting 24 to 48 hours for the results. These Strep PCR tests are slightly more accurate than the rapid test. TREATMENT OF SORE THROAT Sore throat treatment - Antibiotics do not help throat pain caused by a virus and are not recommended. Sore throat caused by viral infections usually lasts four to five days. During this time, treatments to reduce pain may be helpful. Several therapies can help to relieve throat pain. Pain medication - You can treat your throat pain with a mild pain reliever such as acetaminophen (Tylenol ) or a non -steroidal anti-inflammatory agent such as ibuprofen or naproxen (Motrin or Aleve ). Oral rinses - Salt water gargles are an effective treatment for throat pain. It is not clear that salt water works to relieve pain, but it is unlikely to be harmful. Most recipes suggest 1/4 to 1/2 teaspoon of salt per one cup (8 ounces) of warm water. Sprays - Sprays containing topical anesthetics ( benzocaine, phenol) are available to treat sore throat. However, such sprays are no more effective than sucking on hard candy. Lozenges - A variety of lozenges (cough drops) are available to treat throat pain or relieve dryness. However, it is not clear that lozenges work any better than other forms of hard candy, which are generally less expensive. Other treatments - Other treatments that may help with throat pain include increase fluid intake and rest, sipping warm beverages (eg, honey or lemon tea, chicken soup), cold beverages, or eating cold or frozen desserts (eg, ice cream, popsicles).Replace your toothbrush, it may be harboring germs. Until the illness is resolved, do not share anything by mouth. Strep throat - Penicillin, or an antibiotic related to penicillin, is the treatment of choice for strep throat. A one time injection of penicillin is also available. People who are allergic to penicillin are given an alternate antibiotic. It is important to finish the entire course of treatment to completely eliminate the infection. If symptoms do not begin to improve or worsen by three days of antibiotic treatment, you should see your primary care provider. Return to work/school - If you have been diagnosed with strep throat, stay home from work or school until you have completed 24 hours of antibiotics. Within 24 hours of beginning antibiotic treatment, you will feel better and will be less contagious. If you have a sore throat (not diagnosed as strep), you may participate in your usual activities as soon as you feel well. What to do if symptoms don't improve:- If symptoms do not begin to improve within 5 to 7 days you should see your primary care provider. documented in this encounter [facility] 06-06-2022 History of Presen t illness Narrative This note was created using [employer] acquired by [employer]. Subjective Nahed Holloway is a 31 year old female. 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 ALLERGIES Tape [Adhesive Tape* Rash [place] Other: See Comments Comment:Burning in mouth Family History Reviewed Including Cardiac Diseases, Psychiatric Diseases, & Substance Abuse Problem: Hypertension Relation: Mother Age of Onset: (Not Specified) Problem: Hypertension Relation: Father Age of Onset: (Not Specified) Social History Tobacco Use Smoking status: Never Smokeless tobacco: Never Alcohol use: Yes Comment: rare Drug use: No Review of Systems Constitutional: Positive for fever. Negative for chills. HENT: Positive for sore throat. Negative for congestion, ear pain and rhinorrhea. Respiratory: Negative for cough. Cardiovascular: Negative for chest pain. Musculoskeletal: Positive for myalgias. Allergic/Immunologic: Negative for immunocompromised state. Hematological: Negative for adenopathy. Objective Wt 132 kg (291 lb) LMP 10/01/2018 (Exact Date) BMI 42.97 kg/m Physical Exam Vitals and nursing note reviewed. HENT: Right Ear: Tympanic membrane and ear canal normal. Left Ear: Tympanic membrane and ear canal normal. Nose: Nose normal. Mouth/Throat: Pharynx: Uvula midline. Cardiovascular: Rate and Rhythm: Normal rate and regular rhythm. Heart sounds: Normal heart sounds. Pulmonary: Effort: Pulmonary effort is normal. Breath sounds: Normal breath sounds. Lymphadenopathy: Cervical: No cervical adenopathy. Skin: General: Skin is warm and dry. Neurological: Mental Status: She is alert and oriented to person, place, and time. Assessment and Plan ASSESSMENT/PLAN: 1. Strep throat - ICD9: 034.0, ICD10: J02.0 - suspect strep - Rapid Strep positive in the office today - Discussed supportive care treatment with fluids, rest and analgesia. - AMOXICILLIN 500 MG CAPSULE Chery Montes De Oca APRN.CNP Medical Decision Making: Problems: Moderate: New problem with uncertain prognosis Data: Unique test(s) ordered: 1 Risk: Moderate: Drug management Medical Decision Making Level: 4 - Moderate This patient encounter involved the screening or treatment of novel coronavirus infection (COVID-19). documented in this encounter [facility] 04-07-2022 Miscellaneous Notes Addended by: SOLEDAD SYED on: 04/07/2022 10:18 AM Modules accepted: Orders documented in this encounter [facility] 04-07-2022 History of Presen t illness Narrative This note was created using [employer]dressr. Subjective Nahed Holloway is a 31 year old female. HPI by patient: Nahed Holloway is a 31 year old presenting to the office with the complaint of viral symptoms. Started yesterday. Associated symptoms include sore throat, fevers, chills, nausea, vomiting, and body aches. Denies diarrhea, cough, congestion, shortness of breath, and headache. Vaccinated for influenza: none. Covid Immunization Dates Overdue - COVID-19 VACCINE (3 - Booster for Pfizer series) Overdue since 03/24/2021 01/27/2021 Outside Immunization: COVID-19, mRNA, LNP-S, PF, 30 mcg/0.3 mL dose 01/06/2021 Outside Immunization: COVID-19, mRNA, LNP-S, PF, 30 mcg/0.3 mL dose Personal history of Covid: none. Flu/RSV contacts: none. Strep contacts: none. Sick contacts: none. Covid + contacts: none. Travel in the last 14 days: none. Smoking history/second hand smoke: none. OTC tylenol. No antibiotic use in the last 60 days. ALLERGIES Tape [Adhesive Tape* Rash [place] Other: See Comments Comment:Burning in mouth Family History Reviewed Including Cardiac Diseases, Psychiatric Diseases, & Substance Abuse Problem: Hypertension Relation: Mother Age of Onset: (Not Specified) Problem: Hypertension Relation: Father Age of Onset: (Not Specified) Social History Tobacco Use Smoking status: Never Smokeless tobacco: Never Alcohol use: Yes Comment: rare Drug use: No Active Ambulatory Problems Pain in joint, lower leg Date Noted: 08/28/2011 Resolved Ambulatory Problems Pain in joint, shoulder region Date Noted: 08/28/2011 No Additional Past Medical History Review of Systems Constitutional: Positive for chills and fever. HENT: Positive for ear pain (right) and sore throat. Eyes: Negative. Respiratory: Negative. Cardiovascular: Negative. Gastrointestinal: Positive for nausea and vomiting. Negative for diarrhea. Endocrine: Negative. Genitourinary: Negative. Musculoskeletal: Positive for myalgias (unsure if from working out.). Skin: Negative. Neurological: Negative. Hematological: Negative. Objective BP 129/76 Pulse 114 Temp 36.5 C (97.7 F) (Temporal) Resp 18 Ht 175.3 cm (5' 9 ) Wt (!) 138.8 kg (306 lb) LMP 10/01/2018 (Exact Date) SpO2 100% BMI 45.19 kg/m Physical Exam Vitals reviewed. Constitutional: General: She is not in acute distress. Appearance: She is not ill-appearing, toxic-appearing or diaphoretic. HENT: Head: Normocephalic and atraumatic. Right Ear: Tympanic membrane, ear canal and external ear normal. Left Ear: Tympanic membrane, ear canal and external ear normal. Nose: Nose normal. Right Sinus: No maxillary sinus tenderness or frontal sinus tenderness. Left Sinus: No maxillary sinus tenderness or frontal sinus tenderness. Mouth/Throat: Mouth: Mucous membranes are moist. Pharynx: Oropharynx is clear. Posterior oropharyngeal erythema present. No oropharyngeal exudate. Tonsils: Tonsillar exudate present. 1+ on the right. 1+ on the left. Cardiovascular: Rate and Rhythm: Normal rate and regular rhythm. Pulmonary: Effort: Pulmonary effort is normal. Breath sounds: Normal breath sounds. Lymphadenopathy: Head: Right side of head: No submandibular or tonsillar adenopathy. Left side of head: No submandibular or tonsillar adenopathy. Cervical: Cervical adenopathy present. Right cervical: Superficial cervical adenopathy present. Left cervical: Superficial cervical adenopathy present. Psychiatric: Behavior: Behavior is cooperative. Assessment and Plan (J02.0) Strep throat (primary encounter diagnosis) Plan: amoxicillin (AMOXIL) 400 mg/5 mL suspension Education on viral vs bacterial infections. Most viral infections will last 10 days, sometimes 14. It is possible to have back to back viral infections. An antibiotic will not treat a virus. -Positive strep in office. Will rx amoxicillin 2 times/day for 10 days, contagious for 24 hours and new tooth brush in 48 hours. Consider viral testing with new onset of symptoms. -Drink lots of fluids and get plenty of rest. Gargle with salt water 3 times/day. -Vaporizers, cool mist humidifiers, warm showers, and warm fluids help open respiratory and sinus passages. Clean humidifiers daily. -OTC tylenol/ibuprofen as directed on the bottle. -Make follow up with primary care for monitoring and resolution in symptoms. -Signs that warrant an ER evaluation: Sudden change/worsening in condition, lethargy, signs of dehydration, fever greater than 102 F that is not responding to Tylenol or ibuprofen (Motrin, Advil), drooling, difficulty swallowing, difficulty breathing, shortness of breath, chest pain, evidence of airway compromise (tripod position, neck extension, retractions), seizures, changes in mental status, or other concerns. The patient will pursue further outpatient evaluation with the primary care physician or another Urgent Care/Express Care as outlined in the after visit summary. The patient is agreeable to this plan of care and follow-up instructions have been explained in detail. The patient has received these instructions in written format and have expressed an understanding of the after visit summary. Medical Decision Making: Level: 3 - Low I spent a total of 20 minutes on the date of the service which included preparing to see the patient, [id number] patient care, completing clinical documentation, obtaining and/or reviewing separately obtained history, performing a medically appropriate examination, counseling and educating the patient/family/caregiver, and ordering medications, tests, or procedures. This patient encounter involved the screening or treatment of novel coronavirus infection (COVID-19). documented in this encounter [facility] 04-07-2022 Instructions Soledad Syed APRN.CNP - 04/07/2022 9:30 AM EST (J02.0) Strep throat (primary encounter diagnosis) Plan: amoxicillin (AMOXIL) 400 mg/5 mL suspension Education on viral vs bacterial infections. Most viral infections will last 10 days, sometimes 14. It is possible to have back to back viral infections. An antibiotic will not treat a virus. -Positive strep in office. Will rx amoxicillin 2 times/day for 10 days, contagious for 24 hours and new tooth brush in 48 hours. Consider viral testing with new onset of symptoms. -Drink lots of fluids and get plenty of rest. Gargle with salt water 3 times/day. -Vaporizers, cool mist humidifiers, warm showers, and warm fluids help open respiratory and sinus passages. Clean humidifiers daily. -OTC tylenol/ibuprofen as directed on the bottle. -Make follow up with primary care for monitoring and resolution in symptoms. -Signs that warrant an ER evaluation: Sudden change/worsening in condition, lethargy, signs of dehydration, fever greater than 102 F that is not responding to Tylenol or ibuprofen (Motrin, Advil), drooling, difficulty swallowing, difficulty breathing, shortness of breath, chest pain, evidence of airway compromise (tripod position, neck extension, retractions), seizures, changes in mental status, or other concerns. documented in this encounter [facility] 02-06-2022 Instructions Dasha Blevins PA-C - 02/06/2022 6:20 PM EDT ASSESSMENT/PLAN: 1. Conjunctivitis of right eye, unspecified conjunctivitis type - CIPROFLOXACIN 0.3 % EYE DROPS - Wash hands frequently. - Do not itch or touch eyes. - Use paper towels to wash eyes, and then dispose of after using. - Wash all linens (wash cloths) after each use. Do not share linens.. - Keep out contacts until symptoms have been gone for 3 days, and then start with a new pair.. - Recommend that if you wear eye make-up, you throw away everything you have used recently and buy new. - To remove crusting, wash eyes with no tears baby shampoo.. - Apply warm compresses to sore eyes/eyelids and then wash, 3x daily. Call PCP if sx worsen or no better. If you get eye pain or vision changes- go to ER If symptoms worsen, or new symptoms develop go to ER. If you have worsening of breathing or breathing changes- go to ER. If you have persistent fever unrelieved by Tylenol/Motrin- go to the ER. Follow up as needed. Pt agreeable with plan and verbalized understanding. Barriers to learning: none. Dasha Blevins PA-C documented in this encounter [facility] 02-06-2022 History of Presen t illness Narrative 02/06/2022 Patient presents with: Eye Problem: Red eye, started this am. SUBJECTIVE: This is a 31 year old that is here today here for right red eye with itching, watering, and gritty feeling today. No overt eye pain. She does wear contacts. No vision changes or eye pain. No concern for foreign object or trauma. No itchy or watery eyes. No other allergy or sinus symptoms. Denies fever, chills, sweats, or fatigue. Patient denies wheezing, shortness of breath, increased WOB, or chest pain. No other URI or sick symptoms. Pain on scale of 0-10 with 0 being no pain and 10 being greatest pain: 0 Nothing makes the symptoms better. Nothing makes them worse. Self-treatment:. none The severity is mild and the symptoms are not improving. The patient did not have a similar problem in the last 3 months. The patient did not take any antibiotics in the last 3 months. Barriers to learning: none. Reviewed meds, OTCs, herbals or supplements. Reviewed allergies, medications, social history, and past medical history. No past medical history on file. ALLERGIES Tape [Adhesive Tape (Rosins)] and [place] MEDICATIONS Current Outpatient Medications Medication Sig Etonogestrel-Ethinyl Estradiol 0.12-0.015 mg/24 hr vaginal ring Use 1 Each vaginally as directed. Insert vaginally and leave in place for 3 consecutive weeks, then remove for 1 week. No current facility-administered medications for this visit. Medications and allergies reviewed by this provider SOCIAL HISTORY Social History Tobacco Use Smoking status: Never Smokeless tobacco: Never Substance Use Topics Alcohol use: Yes Comment: rare Drug use: No REVIEW OF SYSTEMS Review of Systems ROS: constitutional-neg, HENT-neg, Eyes- eye complaint, heart-neg, respiratory-neg, skin-neg, lymph-neg, neuro- neg, Allergy- neg- All systems neg except as noted above in HPI. OBJECTIVE: Ht 175.3 cm (5' 9 ) Wt (!) 138.8 kg (306 lb) LMP 10/01/2018 (Exact Date) BMI 45.19 kg/m . Vital signs reviewed by this provider. Physical Exam Vitals reviewed. Constitutional: General: She is not in acute distress. Appearance: Normal appearance. She is well-developed and normal weight. She is not ill-appearing, toxic-appearing or diaphoretic. HENT: Head: Normocephalic and atraumatic. No right periorbital erythema or left periorbital erythema. Salivary Glands: Right salivary gland is not diffusely enlarged or tender. Left salivary gland is not diffusely enlarged or tender. Right Ear: Tympanic membrane, ear canal and external ear normal. Left Ear: Tympanic membrane, ear canal and external ear normal. Nose: Nose normal. No congestion or rhinorrhea. Right Sinus: No maxillary sinus tenderness or frontal sinus tenderness. Left Sinus: No maxillary sinus tenderness or frontal sinus tenderness. Mouth/Throat: Lips: No lesions. Mouth: Mucous membranes are moist. No oral lesions. Dentition: No gum lesions. Tongue: No lesions. Tongue does not deviate from midline. Palate: No mass and lesions. Pharynx: Oropharynx is clear. No pharyngeal swelling, oropharyngeal exudate, posterior oropharyngeal erythema or uvula swelling. Tonsils: No tonsillar exudate or tonsillar abscesses. Eyes: General: Lids are normal. No scleral icterus. Right eye: No discharge. Left eye: No discharge. Extraocular Movements: Extraocular movements intact. Conjunctiva/sclera: Right eye: Right conjunctiva is injected. No chemosis, exudate or hemorrhage. Pupils: Pupils are equal, round, and reactive to light. Cardiovascular: Rate and Rhythm: Normal rate and regular rhythm. Heart sounds: Normal heart sounds. Pulmonary: Effort: Pulmonary effort is normal. Breath sounds: Normal breath sounds and air entry. Musculoskeletal: Cervical back: Full passive range of motion without pain. No spinous process tenderness or muscular tenderness. Lymphadenopathy: Head: Right side of head: No submental, submandibular, tonsillar, preauricular or posterior auricular adenopathy. Left side of head: No submental, submandibular, tonsillar, preauricular or posterior auricular adenopathy. Cervical: No cervical adenopathy. Skin: General: Skin is warm. Capillary Refill: Capillary refill takes less than 2 seconds. Findings: No rash. Neurological: General: No focal deficit present. Mental Status: She is alert and oriented to person, place, and time. Cranial Nerves: No facial asymmetry. Psychiatric: Attention and Perception: Attention normal. Behavior: Behavior is cooperative. ASSESSMENT/PLAN: 1. Conjunctivitis of right eye, unspecified conjunctivitis type - ICD9: 372.30, ICD10: H10.9 - CIPROFLOXACIN 0.3 % EYE DROPS - Wash hands frequently. - Do not itch or touch eyes. - Use paper towels to wash eyes, and then dispose of after using. - Wash all linens (wash cloths) after each use. Do not share linens.. - Keep out contacts until symptoms have been gone for 3 days, and then start with a new pair.. - Recommend that if you wear eye make-up, you throw away everything you have used recently and buy new. - To remove crusting, wash eyes with no tears baby shampoo.. - Apply warm compresses to sore eyes/eyelids and then wash, 3x daily. Call PCP if sx worsen or no better. If you get eye pain or vision changes- go to ER If symptoms worsen, or new symptoms develop go to ER. If you have worsening of breathing or breathing changes- go to ER. If you have persistent fever unrelieved by Tylenol/Motrin- go to the ER. Follow up as needed. Pt agreeable with plan and verbalized understanding. Barriers to learning: none. Dasha Blevins PA-C Medical Decision Making: Problems: Moderate: Acute illness with systemic symptoms Risk: Low: Low risk from testing/treatment Moderate: Drug management Medical Decision Making Level: 4 - Moderate I spent a total of 20 minutes on the date of the service which included preparing to see the patient, [id number] patient care, completing clinical documentation, performing a medically appropriate examination, counseling and educating the patient/family/caregiver, and ordering medications, tests, or procedures. documented in this encounter [facility] documented as of this encounter (statuses as of 02/06/2022) [facility] History of Past illness Narrative* Problem Noted Date Resolved Date Pain in joint, shoulder region 08/28/2011 0 08/28/2011 documented as of this encounter (statuses as of 04/07/2022) [facility] History of Past illness Narrative* Problem Noted Date Resolved Date Pain in joint, shoulder region 08/28/2011 0 08/28/2011 documented as of this encounter (statuses as of 06/07/2022) [facility] History of Past illness Narrative* Problem Noted Date Diagnosed Date Resolved Date Pain in joint, shoulder region 08/28/2011 08/28/2011 documented as of this encounter (statuses as of 05/18/2023) [facility] Diagnosis Conjunctivitis of right eye, unspecified conjunctivitis type- Primary documented in this encounter [facility] note* Diagnosis Strep throat- Primary Streptococcal sore throat documented in this encounter [facility] note* Diagnosis Strep throat- Primary Streptococcal sore throat documented in this encounter [facility] note* Diagnosis Head injury, initial encounter- Primary [facility]* Diagnosis Skin rash- Primary Rash and other nonspecific skin eruption Vomiting and diarrhea Vomiting alone [facility] Attachments The following attachments cannot be sent through Care Everywhere. * Minor Head Injury, [facility] ED ([place]) [facility] * Attachments The following attachments cannot be sent through Care Everywhere. * Groin Strain ([place]uvian) documented in this encounter Assessments Diagnosis Strain of adductor julien muscle, right, initial encounter- Primary Summary Purpose Family History No Family History Records FoundNo Family History Records FoundNo Family History Records Found Advance Directives No Advanced Directives Records FoundNo Advanced Directives Records FoundNo Advanced Directives Records Found Additional Source Comments Reason for Visit (unrecogniz ed section and content) Reason Comments Eye Problem Red eye, started thi s am. Reason Comments Sore Throat Sore throat started yesterday and spiked a fever Reason Comments Viral Syndrome Sxs strep throat con cern has a temp, 99.0 and 100.2, is very cold throat hurts runny nose aches in hip and lower back. Reason Comments Head Injury Reason Comments Rash Bumps that started o n abdomen and then possible on leg, stomach pain, diarrhea, vomiting, pt felt cold last night, sharp pain in MUQ of abdomen that will come & goes, INFORMATION SOURCE (unrecogn ized section and content) DATE CREATED AUTHOR AUTHOR'S ORGANIZ ATION 08/18/2022 [facility] DATE CREATED AUTHOR AUTHOR'S ORGANIZ ATION 05/19/2023 [facility] Source Comments (unrecognize d section and content) In the event this informatio n is protected by the Federal Confidentiality of Alcohol and Drug Abuse Patient Records regulations: The Federal rules restrict any use of the information to criminally investigate or prosecute any alcohol or drug abuse patient.[facility] event this information is protected by the Federal Confidentiality of Alcohol and Drug Abuse Patient Records regulations: The Federal rules restrict any use of the information to criminally investigate or prosecute any alcohol or drug abuse patient.[facility] the event this information is protected by the Federal Confidentiality of Alcohol and Drug Abuse Patient Records regulations: The Federal rules restrict any use of the information to criminally investigate or prosecute any alcohol or drug abuse patient.[facility] the event this information is protected by the Federal Confidentiality of Alcohol and Drug Abuse Patient Records regulations: The Federal rules restrict any use of the information to criminally investigate or prosecute any alcohol or drug abuse patient.[facility] Teams (unrecognized sec tion and content) [employer] Relationship Specialty Start Date End Date Nicole Espino DO [address] [place] [address] PCP - General Family Medicine 08/21/17 [employer] Dispatcher Relationship Specialty Start Date End Date Nicole Espino DO [address] [place] [address] PCP - General Family Medicine 08/21/17 [employer] Dispatcher Relationship Specialty Start Date End Date Nicole Espino [address] [place] [address] PCP - General 01/18/19 [employer] Dispatcher Relationship Specialty Start Date End Date Nicole Espino [address] [place] [address] PCP - General 01/18/19 [employer] Dispatcher Relationship Specialty Start Date End Date Nicole Espino [address] [place] [address] PCP - General Family Medicine 08/21/17 FOR RECORDS PERTAINING TO PATIENTS WHO ARE OR HAVE BEEN ENROLLED IN A CHEMICAL DEPENDENCY/SUBSTANCEABUSE PROGRAM, SOME INFORMATION MAY BE OMITTED. This clinical summary was aggregated from multiple sources. Caution should be exercised in using it in the provision of clinical care. This summary normalizes information from multiple sources, and as a consequence, information in this document may materially change the coding, format and clinical context of patient data. In addition, data may be omitted in some cases. CLINICAL DECISIONS SHOULD BE BASED ON THE PRIMARY CLINICAL RECORDS. [facility] provides no warranty or guarantee of the accuracy or completeness of information in this document.
== END | disposition home or self-care (01) ==
LOC: LABSPEC 09:24
PROVIDERS: PCP Family Medicine; Visit Provider Family Medicine
DX: R19.7 Diarrhea, unspecified (principal); R10.9 Unspecified abdominal pain
CPT/HCPCS: 83630; 87177; 87209; 87493; 87506

== ENCOUNTER → 2023-06-21 | Outpatient (CLI) | payer OTHER, SELFPAY ==
--- OUTSIDE RECORDS SUMMARY | 2023-06-21 09:37 | XMS RPT_ITS | CCD ---
Author Name Unknown Address [address] [place] [address] Organization [facility] Care Team Providers Care Central Supply Supervisor Name Role Phone Nicole Espino Primary Care Provider DARRON RAY Referring Unavailable NICOLE ESPINO Primary Care Unavailable NICOLE ESPINO Primary Care Unavailable DARRON RAY Attending Unavailable Nicole Espino DO Primary Care Provider NICOLE ESPINO Primary Care Unavailable NICOLE ESPINO Primary Care Unavailable Allergies Allergy Classification Reported Allergen(s) Allergy Type Date of Onset Reaction(s) Facility (1 source) Peanut-Containi ng Drug Products Propensity to adverse reactions to drug 9 [place], [place] (5 sources) Adhesive Tape; Translations: [ADHESIVE TAPE (ROSINS)] Allergy to substance 3 Rash [facility] (5 sources) walnut allergenic extract; Translations: [WALNUT] Drug Allergy 2 Other: See Comments [facility] Work Phone: Medications Current Medications Medication Drug [...] (Normalized) Sig (Original) 21 day ethinyl estradiol 0.903742 mg/hr / etonogestrel 0.005 mg/hr vaginal system [...] 175.3 cm Leidy Dee PA-C Work Phone: [facility] 05-18-2023 12:00-0500 Body temperature 98.29 [degF] Leidy Dee PA-C Work Phone: [facility] 05-18-2023 12:00-0500 Body weight 135.8 kg Leidy Dee PA-C Work Phone: [facility] 05-18-2023 12:00-0500 Diastolic blood pressure 104 mm[Hg] Leidy Dee PA-C Work Phone: [facility] 05-18-2023 12:00-0500 Heart rate 113 /min Leidy Dee PA-C Work Phone: [facility] 05-18-2023 12:00-0500 Respiratory rate 18 /min Leidy Dee PA-C Work Phone: [facility] 05-18-2023 12:00-0500 SaO2% (BldA) [Mass fraction] 98 % Leidy Dee PA-C Work Phone: [facility] 05-18-2023 12:00-0500 Systolic blood pressure 141 mm[Hg] Leidy Dee PA-C Work Phone: [facility] 08-15-2022 20:27-0400 Diastolic blood pressure 94 mm[Hg] Darron Ray MD Work Phone: [facility] 08-15-2022 20:27-0400 Heart rate 79 /min Darron Ray MD Work Phone: [facility] 08-15-2022 20:27-0400 Respiratory rate 15 /min Darron Ray MD Work Phone: [facility] [employer] 08-15-2022 20:27-0400 SaO2% (BldA) [Mass fraction] 100 % Darron Ray MD Work Phone: [facility] [employer] 08-15-2022 20:27-0400 Systolic blood pressure 147 mm[Hg] Darron Ray MD Work Phone: [facility] 08-15-2022 18:51-0400 Body height 175.3 cm Darron Ray MD Work Phone: [facility] [employer] 08-15-2022 18:51-0400 Body mass index (BMI) [Ratio] 40.02 kg/m2 Darron Ray MD Work Phone: [facility] [employer] 08-15-2022 18:51-0400 Body temperature 98.4 [degF] Darron Ray MD Work Phone: [facility] 08-15-2022 18:51-0400 Body weight 122.92 kg Darron Ray MD Work Phone: [facility] 06-06-2022 17:59-0500 Body temperature 100.4 [degF] Chery Ball TECHNOLOGY STRATEGIST.FLAGGER Work Phone: [facility] 06-06-2022 17:59-0500 Body weight 132 kg Chery Ball TECHNOLOGY STRATEGIST.FLAGGER Work Phone: [facility] 06-06-2022 17:59-0500 Diastolic blood pressure 94 mm[Hg] Chery Ball TECHNOLOGY STRATEGIST.FLAGGER Work Phone: [facility] 06-06-2022 17:59-0500 Heart rate 122 /min Chery Ball TECHNOLOGY STRATEGIST.FLAGGER Work Phone: [facility] 06-06-2022 17:59-0500 SaO2% (BldA) [Mass fraction] 98 % Chery Ball TECHNOLOGY STRATEGIST.FLAGGER Work Phone: [facility] 06-06-2022 17:59-0500 Systolic blood pressure 159 mm[Hg] Chery Ball TECHNOLOGY STRATEGIST.FLAGGER Work Phone: [facility] 04-07-2022 09:29-0500 Body height 175.3 cm Soledad Syed TECHNOLOGY STRATEGIST.FLAGGER Work Phone: [facility] 04-07-2022 09:29-0500 Body temperature 97.7 [degF] Soledad Syed TECHNOLOGY STRATEGIST.FLAGGER Work Phone: [facility] 04-07-2022 09:29-0500 Body weight 138.8 kg Soledad Syed TECHNOLOGY STRATEGIST.FLAGGER Work Phone: [facility] 04-07-2022 09:29-0500 Diastolic blood pressure 76 mm[Hg] Soledad Syed TECHNOLOGY STRATEGIST.FLAGGER Work Phone: [facility] 04-07-2022 09:29-0500 Heart rate 114 /min Soledad Syed TECHNOLOGY STRATEGIST.FLAGGER Work Phone: [facility] 04-07-2022 09:29-0500 Respiratory rate 18 /min Soledad Syed TECHNOLOGY STRATEGIST.FLAGGER Work Phone: [facility] 04-07-2022 09:29-0500 SaO2% (BldA) [Mass fraction] 100 % Soledad Syed TECHNOLOGY STRATEGIST.FLAGGER Work Phone: [facility] 04-07-2022 09:29-0500 Systolic blood pressure 129 mm[Hg] Soledad Syed TECHNOLOGY STRATEGIST.FLAGGER Work Phone: [facility] 02-06-2022 18:11-0400 Body height 175.3 cm Dasha Slabaugh PA-C Work Phone: [facility] 02-06-2022 18:11-0400 Body weight 138.8 kg Dasha Slabaugh PA-C Work Phone: [facility] 02-06-2022 18:11-0400 Diastolic blood pressure 101 mm[Hg] Dasha Slabaugh PA-C Work Phone: [facility] 02-06-2022 18:11-0400 Heart rate 101 /min Dasha Slabaugh PA-C Work Phone: [facility] 02-06-2022 18:11-0400 Respiratory rate 16 /min Dasha Slabaugh PA-C Work Phone: [facility] 02-06-2022 18:11-0400 SaO2% (BldA) [Mass fraction] 99 % Dasha Slabaugh PA-C Work Phone: [facility] 02-06-2022 18:11-0400 Systolic blood pressure 123 mm[Hg] Dasha Slabaugh PA-C Work Phone: [facility] 01-18-2019 16:52-0400 BP Diastolic 80 mm[Hg] [facility] 01-18-2019 16:52-0400 BP Systolic 117 mm[Hg] [facility] 01-18-2019 16:52-0400 Pulse (Heart Rate) 68 /min [facility] 09-15-2019 16:52-0400 Pulse Oximetry 99 % [facility] 01-18-2019 16:52-0400 Respiratory Rate 14 /min [facility] 01-18-2019 15:48-0400 Body Temperature 97.9 [degF] [facility] 01-18-2019 15:48-0400 Body weight 127.91 kg [facility] Encounters Encounter Date Encounter Type Care Provider Facility Start: 05-18-2023 End: 05-18-2023 ambulatory [facility] Facility:[facility] Start: 05-18-2023 End: 05-18-2023 Patient encounter procedure Leidy Dee PA-C Work Phone: [facility] Procedures Date Procedure Procedure [...] 2) Zoste r Vaccines (1 of 2) [facility] Start: 05-06-2023 Depression Assessment Depression Ass essment [facility] Start: 01-04-2023 Covid-19 Vaccine ( season) Covid-19 Vaccine ( season) [facility] Start: 01-04-2023 Influenza vaccination [facility] Start: 05-06-2022 DEPRESSION ASSESSMENT DEPRESSION ASS ESSMENT [facility] Start: 01-04-2022 Influenza vaccination INFLUENZA (#1) [facility] Start: 05-06-2021 DEPRESSION ASSESSMENT DEPRESSION ASS ESSMENT [facility] Start: 03-24-2021 COVID-19 VACCINE (3 - Booster for Pfizer series) COVID-19 VACCINE (3 - Booster for Pfizer series) [facility] Start: 2019 HPV TESTING HPV TESTING [facility] Start: 2019 Screening for malign ant neoplasm of cervix [facility] Start: 01-04-2019 Influenza vaccination Flu vaccine (# 1) [place], [place] Start: 07-29-2015 PAP TESTING PAP TESTING [facility] Start: 07-29-2015 Screening for malign ant neoplasm of cervix Pap Testing [facility] Start: 2010 Screening for malign ant neoplasm of cervix Pap Smear [facility] Start: 2008 Urine microalbumin profile DTAP,TDAP,TD (1 - Tdap) [facility] Start: 2007 HEPATITIS C SCREENING HEPATITIS C [facility] Start: 2007 Hepatitis C screening Hepatitis C [facility] Start: 2007 HIV SCREENING HIV SCREENING [facility] Start: 2007 HIV screening HIV Screening [facility] Start: 02-06-2002 Varicella vaccination Varicell a Vaccines (1 of 2 - 2-dose childhood series) [facility] Start: 2000 DTaP/Tdap/Td Vaccine s (5 - Tdap) DTaP/Tdap/Td Vaccines (5 - Tdap) [facility] Start: 2000 Urine microalbumin profile DTaP,Tdap,Td Vaccine (5 - Tdap) [facility] Start: 1989 HEPATITIS B (1 of 3 - 3-dose series) HEPATITIS B (1 of 3 - 3-dose series) [facility] Start: 1989 Hepatitis B Vaccine (1 of 3 - 3-dose series) Hepatitis B Vaccine (1 of 3 - 3-dose series) [facility] Start: 1989 Hepatitis B Vaccines (1 of 3 - 3-dose series) Hepatitis B Vaccines (1 of 3 - 3-dose series) [facility] Start: 1989 HIV screening HIV Screening [facility] Payers Date Payer Category Payer Unknown [id number] 2022 Worker's Compensation [employer]OYA STODD[employer] [facility] [id number] 2022-[place] [address] Worker's Comp [id number] 2021 Unknown [id number] 2021 Unknown [id number] Social History Date Type Detail Facility Start: 03-16-2011 End: 01-18-2019 Tobacco smoking status NHIS Never smoker [facility] Work Phone: Start: 01-18-2019 End: 04-13-2020 Alcohol intake Not Currently [facility] Start: 1989 Sex Assigned At Not on file [facility] Start: 03-16-2011 Tobacco use and exposure Smokeless tobacco non-user [facility] Work Phone: Start: 03-03-2019 End: 05-18-2023 Alcohol intake Current drinker of alcohol (finding) [facility] Start: 09-30-2012 History SDOH Alcohol Comment rare [facility] Start: 01-27-2022 End: 08-15-2022 Exposure to SARS-CoV-2 (event) Not sure [facility] Start: 08-15-2022 Alcohol intake Ex-drinker (finding) [facility] Start: 04-13-2020 End: 05-18-2023 History of Social function [facility] National Score (1-100), lower number is lower risk Not on file [facility] Clinical Notes 08-28-2011 to 05-18-2023 Leidy Dee PA-C - 05/18/2023 11:59 AM Lorrie Stephens RN - 08/15/2022 8:27 PM Evita Stephens RN - 08/15/2022 8:27 PM Facundo Ray MD - 08/15/2022 6:43 PM EDTPatient Instructions Note Date & Type Note Facility 05-18-2023 Note HNO ID: [id number] Author: LEIDY DEE PA-C Service: ? Author Type: Physician Frame Expander Type: Progress Notes Filed: 05/18/2023 12:23 Note [...] plan and verbalized understanding. Leidy Dee PA-C [facility] 05-18-2023 History of Presen t illness Narrative [...] Leidy Dee PA-C documented in this encounter [facility] 08-15-2022 Emergency department Note Discharge instructions, follow up care, and pain management discussed with patient. All questions answered, there are no further questions at this time. RN reviewed concussion signs and symptoms with patient and friend bedside. Patient ambulated off the unit independently at discharge. Kizzy Stephens RN 08/15/222026 [facility] 08-15-2022 Emergency department Note Discharge instructions, follow [...] No sensory deficit. Motor: No weakness. Coordination: Xgrxmt-Jcqp-Wxhzre Test normal. Gait: Gait normal. Psychiatric: Mood [...] 08:13:39 PM PATIENT REFERRED TO: Nicole Espino [address] [place] [phone] Schedule an appointment as soon as possible [...] MSPs x 4, GCS 15. Works at [employer] documented in this encounter [facility] 08-15-2022 Emergency department Triage note Steady gait [...] x 4, GCS 15. Works at [employer] [facility] 08-15-2022 Physician Emergency department Note EMERGENCY DEPARTMENT [...] No sensory deficit. Motor: No weakness. Coordination: Hohyvx-Btuq-Mrzsnx Test normal. Gait: Gait normal. Psychiatric: Mood [...] PATIENT REFERRED TO: Nicole Jim Srinivas [address] [facility] [phone] Schedule an appointment as soon as possible [...] Emergency Medicine Provider Darron Ray MD 08/15/222016 [employer] Phone: 06-06-2022 Note HNO ID: [id number] Author: Chery Montes De Oca APRN.FLAGGER Service: ? Author Type: Nurse Practitioner Type: [...] 60 days. ALLERGIES Tape [Adhesive Tape* Rash [place] Other: See Comments Comment:Burning in mouth Family [...] or treatment of novel coronavirus infection (COVID-19). [facility] 06-06-2022 Instructions Chery Montes De Oca APRN.CNP [...] primary care provider. documented in this encounter [facility] 06-06-2022 History of Presen t illness Narrative This note was created using [employer]. Subjective Nahed Holloway is a 31 year [...] 60 days. ALLERGIES Tape [Adhesive Tape* Rash [place] Other: See Comments Comment:Burning in mouth Family [...] coronavirus infection (COVID-19). documented in this encounter [facility] 04-07-2022 Miscellaneous Notes Addended by: SOLEDAD SYED on: 04/07/2022 10:18 AM Modules accepted: Orders documented in this encounter [facility] 04-07-2022 History of Presen t illness Narrative This note was created using [employer]. Subjective Nahed Holloway is a 31 year [...] 60 days. ALLERGIES Tape [Adhesive Tape* Rash [place] Other: See Comments Comment:Burning in mouth Family [...] which included preparing to see the patient, hjxl-fj-foeo patient care, completing clinical documentation, obtaining and/or reviewing separately obtained history, performing a medically appropriate examination, counseling and educating the patient/family/caregiver, and ordering medications, tests, or procedures. This patient encounter involved the screening or treatment of novel coronavirus infection (COVID-19). documented in this encounter [facility] 04-07-2022 Instructions Soledad Syed APRN.CNP - 04/07/2022 [...] or other concerns. documented in this encounter [facility] 02-06-2022 Instructions Dasha Blevins PA-C - 02/06/2022 [...] Dasha Blevins PA-C documented in this encounter [facility] 02-06-2022 History of Presen t illness Narrative [...] file. ALLERGIES Tape [Adhesive Tape (Rosins)] and [place] MEDICATIONS Current Outpatient Medications Medication Sig Etonogestrel-Ethinyl [...] which included preparing to see the patient, hptj-ki-cpcv patient care, completing clinical documentation, performing a medically appropriate examination, counseling and educating the patient/family/caregiver, and ordering medications, tests, or procedures. documented in this encounter [facility] documented as of this encounter (statuses as of 02/06/2022) [facility]04-24-2012 History of Past illness Narrative* Problem Noted Date Resolved Date Pain in joint, shoulder region 08/28/2011 0 08/28/2011 documented as of this encounter (statuses as of 04/07/2022) [facility] History of Past illness Narrative* Problem Noted Date Resolved Date Pain in joint, shoulder region 08/28/2011 0 08/28/2011 documented as of this encounter (statuses as of 06/07/2022) [facility] History of Past illness Narrative* Problem Noted Date Diagnosed Date Resolved Date Pain in joint, shoulder region 08/28/2011 08/28/2011 documented as of this encounter (statuses as of 05/18/2023) [facility] Diagnosis Conjunctivitis of right eye, unspecified conjunctivitis type- Primary documented in this encounter [facility] note* Diagnosis Strep throat- Primary Streptococcal sore throat documented in this encounter [facility] note* Diagnosis Strep throat- Primary Streptococcal sore throat documented in this encounter [facility] note* Diagnosis Head injury, initial encounter- Primary [facility]* Diagnosis Skin rash- Primary Rash and other nonspecific skin eruption Vomiting and diarrhea Vomiting alone [facility] Attachments The following attachments cannot be sent through Care Everywhere. * Minor Head Injury, Adult ED ([place]) [facility] * Attachments The following attachments cannot be sent through Care Everywhere. * Groin Strain ([place]) documented in this encounter Assessments Diagnosis Strain [...] DATE CREATED AUTHOR AUTHOR'S ORGANIZ ATION 08/18/2022 [facility] DATE CREATED AUTHOR AUTHOR'S ORGANIZ ATION 05/19/2023 [facility] Source Comments (unrecognize d section and content) In the event this informatio n is protected by the Federal Confidentiality of Alcohol and Drug Abuse Patient Records regulations: The Federal rules restrict any use of the information to criminally investigate or prosecute any alcohol or drug abuse patient.[facility] the event this information is protected by the Federal Confidentiality of Alcohol and Drug Abuse Patient Records regulations: The Federal rules restrict any use of the information to criminally investigate or prosecute any alcohol or drug abuse patient.[facility] the event this information is protected by the Federal Confidentiality of Alcohol and Drug Abuse Patient Records regulations: The Federal rules restrict any use of the information to criminally investigate or prosecute any alcohol or drug abuse patient.[facility] the event this information is protected by the Federal Confidentiality of Alcohol and Drug Abuse Patient Records regulations: The Federal rules restrict any use of the information to criminally investigate or prosecute any alcohol or drug abuse patient.[facility] Teams (unrecognized sec tion and content) Central Supply Supervisor Relationship Specialty Start Date End Date Nicole Espino DO [address] [place] [address] PCP - General Family Medicine 08/21/17 Central Supply Supervisor Relationship Specialty Start Date End Date Nicole Espino DO [address] [place] [address] PCP - General Family Medicine 08/21/17 Central Supply Supervisor Relationship Specialty Start Date End Date Nicole Espino [address] [place] [address] PCP - General 01/18/19 Central Supply Supervisor Relationship Specialty Start Date End Date Nicole Espino [address] [place] [address] PCP - General 01/18/19 Central Supply Supervisor Relationship Specialty Start Date End Date Nicole Espino [address] [place] [address] PCP - General Family Medicine [...] BE BASED ON THE PRIMARY CLINICAL RECORDS. [facility]. provides no warranty or guarantee of the accuracy or completeness of information in this document.
[2023-06-21 10:06] LABS: Absolute Lymphocyte Count 2.18 X10^3/uL (0.83-4.51); Absolute Neutrophil Count 4.9 X10^3/uL (2.0-7.7); Basophil# 0.06 X10^3/uL; Basophil% 0.8 % (0-1); Eosinophil# 0.15 X10^3/uL; Eosinophils% 1.9 % (0-5); Hematocrit 41.7 % (37-47); Hemoglobin 13.5 g/dL (12.0-15.0); Lymphocyte # 2.18 X10^3/ul (0.83-4.51); Lymphocyte % 27.7 % (19-41); Mean Corp Hgb Conc 32.4 g/dL (32-36); Mean Corpuscular Volume 80.3 fL (81-99); Mean Platelet Vol. 8.7 fl (6.2-12.0); Monocyte# 0.52 X10^3/uL; Monocyte% 6.6 % (0-10); NRBC Flagged by Analyzer 0 % (0-5); Neutrophil # 4.91 X10^3/uL (2.7-7.7); Neutrophil % 62.5 % (47-70); Platelet Count 482 K/mm3 (150-450); RBC Distribution Width SD 37.7 fl (35.1-43.9); Red Blood Count 5.19 M/mm3 (4.2-5.4); White Blood Count 7.9 K/mm3 (4.4-11.0)
[2023-06-21 11:02] LABS: ALB/GLOB Ratio 0.7 RATIO (0.9-2.4); AST(SGOT) 20 U/L (15-37); Alanine Aminotransfer ALT/SGPT 23 U/L (13-56); Albumin, Serum 3.2 g/dL (3.2-5.0); Alkaline Phosphatase 89 U/L (45-117); Anion Gap 4 (5-15); BUN 11 mg/dL (7-18); BUN/Creat Ratio 16.2 RATIO (10-20); Calcium,Total 9.2 mg/dL (8.5-10.1); Chloride 111 mmol/L (98-107); Cholesterol 199 mg/dL (200); Creatinine, Serum 0.68 mg/dL (0.55-1.02); EST Glomerular Filtration Rate 106 mL/min (>60); Est Glom Filt Rate - Afr Amer 128 mL/min (>60); Globulin 4.7 g/dL (2.2-4.2); Glucose 84 mg/dL (74-106); High Density Lipoprotein 44 mg/dL; Potassium 3.8 mmol/L (3.5-5.1); Protein, Total 7.9 g/dL (6.4-8.2); Sodium Level 140 mmol/L (136-145); Triglycerides 156 mg/dL; Very Low Density Lipoprotein 31 mg/dL (5-40)
== END | disposition home or self-care (01) ==
LOC: MTLAB 09:04
PROVIDERS: PCP Family Medicine; Referring Provider Family Medicine; Visit Provider Family Medicine
DX: Z00.00 Encounter for general adult medical examination without abnormal findings (principal)
CPT/HCPCS: 36415; 80053; 80061; 85025

== ENCOUNTER → 2023-07-10 | Outpatient (CLI) | payer OTHER, SELFPAY ==
--- NOTE | 2023-07-10 12:38 | RAD_ITS ---
INDICATION: LUMBAR BACK PAIN EXAMINATION/TECHNIQUE: X-RAY - XR Spine Lumbar Min 4 Views COMPARISON: No relevant prior comparison study available FINDINGS: VERTEBRAE: Preserved vertebral body height. No fracture. No spondylolisthesis. Preservation of the normal lumbar lordosis. No substantial scoliosis. DISCS: Moderate narrowing of L3-L4 disc space. INCLUDED ABDOMEN: Included bowel gas pattern is non-obstructive. RAD/L/S Spine Min 4 Views IMPRESSION: Narrowing of L3-L4 disc space. Electronically Signed: Heriberto Perea MD at 14:42 EST ,
[2023-07-10 15:54] LABS: Erythrocyte Sedimentation Rate 14 mm/hr (0-30)
[2023-07-10 15:57] LABS: Absolute Neutrophil Count 7.4 X10^3/uL (2.0-7.7); Basophil# 0.06 X10^3/uL; Basophil% 0.5 % (0-1); Eosinophil# 0.18 X10^3/uL; Eosinophils% 1.6 % (0-5); Hematocrit 40.9 % (37-47); Hemoglobin 12.9 g/dL (12.0-15.0); Lymphocyte % 26.9 % (19-41); Mean Corp Hgb Conc 31.5 g/dL (32-36); Mean Corpuscular Hgb 25.3 pg (27.0-32.0); Mean Corpuscular Volume 80.4 fL (81-99); Mean Platelet Vol. 8.8 fl (6.2-12.0); Monocyte# 0.69 X10^3/uL; NRBC Flagged by Analyzer 0 % (0-5); Neutrophil % 64.1 % (47-70); Platelet Count 502 K/mm3 (150-450); RBC Distribution Width SD 37.2 fl (35.1-43.9); Red Blood Count 5.09 M/mm3 (4.2-5.4); White Blood Count 11.5 K/mm3 (4.4-11.0)
[2023-07-10 16:09] LABS: Ferritin 46 ng/mL (8-252); Iron 73 ug/dL (50-170)
[2023-07-12 08:54] LABS: Pathologist Review Reviewed
== END | disposition home or self-care (01) ==
PROVIDERS: PCP Family Medicine; Referring Provider Nurse Practitioner Family; Visit Provider Nurse Practitioner Family
DX: D75.839 Thrombocytosis, unspecified (principal); M54.50 Low back pain, unspecified
CPT/HCPCS: 36415; 72110; 81270; 82728; 83540; 85025; 85652; 86140

== ENCOUNTER → 2023-07-31 | Outpatient (CLI) | payer OTHER, SELFPAY ==
[2023-07-31 10:43] LABS: Absolute Lymphocyte Count 2.67 X10^3/uL (0.83-4.51); Absolute Neutrophil Count 4.6 X10^3/uL (2.0-7.7); Basophil# 0.05 X10^3/uL; Basophil% 0.6 % (0-1); Eosinophil# 0.19 X10^3/uL; Eosinophils% 2.4 % (0-5); Hematocrit 41.6 % (37-47); Hemoglobin 13.7 g/dL (12.0-15.0); Lymphocyte # 2.67 X10^3/ul (0.83-4.51); Mean Corp Hgb Conc 32.9 g/dL (32-36); Mean Corpuscular Hgb 26.2 pg (27.0-32.0); Mean Corpuscular Volume 79.7 fL (81-99); Mean Platelet Vol. 8.9 fl (6.2-12.0); Monocyte% 6.2 % (0-10); NRBC Flagged by Analyzer 0 % (0-5); Neutrophil # 4.62 X10^3/uL (2.7-7.7); Neutrophil % 57.2 % (47-70); Platelet Count 550 K/mm3 (150-450); RBC Distribution Width SD 36.7 fl (35.1-43.9); Red Blood Count 5.22 M/mm3 (4.2-5.4); White Blood Count 8.1 K/mm3 (4.4-11.0)
[2023-07-31 10:54] LABS: Erythrocyte Sedimentation Rate 30 mm/hr (0-30)
[2023-07-31 11:03] LABS: Rheumatoid Factor < 10.0 IU/mL (<15)
[2023-07-31 15:10] LABS: Xtra Tube EP Lab EXTRA TUBE
[2023-08-01 14:09] LABS: ANTINUCLEAR ANTIBODIES DIRECT Negative (Negative)
[2023-08-12 18:07] LABS: CCP IgG Antibodies 6 units (0-19); HLA B27 Negative (.)
== END | disposition home or self-care (01) ==
LOC: MTLAB 07:08
PROVIDERS: PCP Family Medicine; Referring Provider Family Medicine; Visit Provider Family Medicine
DX: M54.9 Dorsalgia, unspecified (principal); R79.82 Elevated C-reactive protein (CRP)
CPT/HCPCS: 36415; 81374; 85025; 85652; 86038; 86140; 86200; 86225; 86235; 86431

== ENCOUNTER → 2023-12-13 | Outpatient (CLI) | payer OTHER, SELFPAY ==
--- NOTE | 2023-12-13 12:39 | VDLE_ITS ---
Reason For Study: Pain RLE RIGHT LEFT CFV is compressible, spontaneous, phasic, CFV is compressible, spontaneous, phasic, competent and demonstrates normal competent, and demonstrates normal augmentation. augmentation. FV is compressible, spontaneous, phasic, competent and demonstrates normal augmentation. POP V is compressible, spontaneous, phasic, competent and demonstrates normal augmentation. T/P Trunk is compressible. PTV is compressible. RT PerV is compressible. Rt GSV at the knee, Rt SSV, and Rt Varicosity at prox posterior calf are dilated and NON COMPRESSIBLE consistent with acute SVT. Procedure This is a venous duplex using B-mode, color flow and spectral Doppler. Exam performed in department. A preliminary report was called and/or faxed to Dasha Smith NP. VL/Venous Duplex US, Unilateral Interpretation Summary Acute superficial vein thrombosis is noted in the right great saphenous vein at the knee, small saphenous vein, and calf varicosities. Deep veins of the right lower extremity are patent and compressible segmentally . There is no evidence of right lower extremity deep vein thrombosis. Ordering Physician: Dasha Smith Referring Physician: Flex Espino Performed By: Dasha Mireles, RDCS, RVT
== END | disposition home or self-care (01) ==
LOC: CVS 12:36
PROVIDERS: PCP Family Medicine; Referring Provider Nurse Practitioner Family; Visit Provider Nurse Practitioner Family
DX: M79.604 Pain in right leg (principal)
CPT/HCPCS: 93971

== ENCOUNTER → 2024-08-18 | Outpatient (CLI) | payer OTHER, SELFPAY ==
--- NOTE | 2024-08-18 13:40 | VDLE_ITS ---
Reason For Study Reason For Study: RLE PAin RIGHT LEFT GSV is normal. CFV is compressible, spontaneous, phasic, competent, CFV is compressible, spontaneous, phasic, competent and demonstrates normal augmentation. and demonstrates normal augmentation. FV is compressible, spontaneous, phasic, competent and demonstrates normal augmentation. POP V is compressible, spontaneous, phasic, competent and demonstrates normal augmentation. T/P Trunk is compressible. PTV is compressible. RT PerV is compressible. Procedure This is a venous duplex using B-mode, color flow and spectral Doppler. Exam performed in department. The exam was diagnostic. A preliminary report was called and/or faxed to Dr. Gardner office. VL/Venous Duplex US, Unilateral Interpretation Summary Deep veins of the right lower extremity are patent and compressible segmentally . There is no evidence of right lower extremity deep vein thrombosis. The right great saphenous vein appears patent a nd compressible segmentally. Ordering Physician: Flex Espino Referring Physician: Flex Espino Performed By: Lewis Daniel, BRYCE
== END | disposition home or self-care (01) ==
LOC: CVS 13:38
PROVIDERS: PCP Family Medicine; Referring Provider Family Medicine; Visit Provider Family Medicine
DX: M79.661 Pain in right lower leg (principal)
CPT/HCPCS: 93971

== ENCOUNTER → 2025-02-06 | Outpatient (CLI) | payer OTHER, SELFPAY ==
--- OUTSIDE RECORDS SUMMARY | 2025-02-06 09:06 | XMS RPT_ITS | CCD ---
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 Name Role Phone Nicole Barrientos A Primary Care Provider DARRON RAY Referring Unavailable FLOYD, NICOLE Primary Care Unavailable FLOYD, NICOLE Primary Care Unavailable DARRON RAY Attending Unavailable Floyd BARAHONA, Nicole A Primary Care Provider NICOLE BARRIENTOS A Primary Care Unavailable FLOYD, NICOLE A Primary Care Unavailable ZEYNEP LANCE Attending Unavailable FLOYD, NICOLE A Primary Care Unavailable Floyd BARAHONA, Nicole A Primary Care Provider NICOLE BARRIENTOS A Primary Care Unavailable CAMRYN LEÓN Attending Unavailable FLOYD, NICOLE A Primary Care Unavailable GIORGIO ROCHA Referring Unavailable FLOYD, NICOLE A Primary Care Unavailable GIORGIO ROCHA Attending Unavailable FLOYD, NICOLE A Primary Care Unavailable CAMRYN LEÓN Referring Unavailable FLOYD, NICOLE A Primary Care Unavailable FLOYD, NICOLE A Primary Care Unavailable FloydDr. Nicole mclaughlin DO Primary Care Provider Dr. Nicole Barrientos DO Attending Provider Dr. Nicole Barrientos DO Referring Provider Dr. Skyler Fajardo MD Attending Provider Nicole Barrientos Referring Unavailable Floyd, Nicole Attending Unavailable Floyd, Nicole Primary Care Unavailable Floyd, Nicole Primary Care Unavailable Jean-Paul Smith Referring Unavailable Jean-Paul Smith Attending Unavailable Floyd, Nicole Referring Unavailable Floyd, Nicole Primary Care Unavailable Skyler Fajardo Attending Unavailable Floyd, Nicole Primary Care Unavailable Skyler Fajardo Attending Unavailable Jean-Paul Smith Referring Unavailable Allergies Allergy Classification Reported Allergen(s) Allergy Type Date of Onset Reaction(s) Facility (1 source) Peanut-Containi ng Drug Products Propensity to adverse reactions to drug 9 [place], [place] (17 sources) Adhesive Tape; Translations: [ADHESIVE TAPE (ROSINS)] Allergy to substance 3 Rash [facility] (17 sources) walnut allergenic extract; Translations: [WALNUT] Drug Allergy 2 Other: See Comments [facility] Work Phone: (13 sources) tree nut, unspecified; Translations: [TREE NUTS] Propensity to adverse reactions to drug 4 Swelling [facility] (1 source) Adhesive Tape Drug allergy (disorder) 2 [facility] Repository Medications Current Medications Medication Drug Class(es) Dates Sig (Normalized) Sig (Original) amoxicillin 500 mg oral capsule (3 sources) Penicillin-class Antibacterial Start: 06-06-2022 End: 06-16-2022 take 1 capsule by mouth twice daily amoxicillin (POLYMOX, AMOXIL) 500 mg capsule Indications: Strep throat Take 1 capsule by mouth twice daily for 10 days. 20 capsule 0 06/06/2022 06/16/2022 Active Start: 04-07-2022 End: 04-17-2022 take 10 mL by mouth twice daily amoxicillin (AMOXIL) 250 mg/5 mL suspension Indications: Strep throat Take 10 mL by mouth twice daily for 10 days. 200 mL 0 04/07/2022 04/17/2022 Active Start: 04-07-2022 End: 04-07-2022 take 6.5 mL by mouth twice daily amoxicillin (AMOXIL) 400 mg/5 mL suspension Indications: Strep throat Take 6.5 mL by mouth twice daily for 10 days. 130 mL 0 04/07/2022 04/07/2022 Discontinued (Course of therapy completed) Comment on above: Take 6.5 mL by mouth twice daily for 10 days. Take 10 mL by mouth twice daily for 10 days. Take 1 capsule by [facility] twice daily for 10 days. cetirizine hydrochloride 10 mg oral tablet (1 source) Histamine-1 Receptor Antagonist take 1 tablet by mouth once daily cetirizine (ZYRTEC) 10 MG tablet Take 10 mg by mouth daily 0 Active cholecalciferol 0.125 mg oral capsule (5 sources) Vitamin D Start: take 1 capsule by mouth once daily Cholecalciferol (Vitamin D3) 5,000 UNIT capsule Active 5000 U PO DAILY September 11, 2014 12:00am ciprofloxacin 3 mg/ml ophthalmic solution (1 source) Quinolone Antimicrobial Start: End: take 1-2 drop(s) into the eye(s) every two hours, then take 1-2 drop(s) into the eye(s) every four hours ciprofloxacin HCl (CILOXAN) 0.3 % ophthalmic solution Indications: Conjunctivitis of right eye, unspecified conjunctivitis type Use 1-2 drops inside right lower eyelid(s) every 2 hours while awake for 2 days, then 1-2 drops every 4 hours for next 5 days. 2.5 mL 0 02/06/2022 02/13/2022 Active Comment on above: Use 1-2 drops inside right lower eyelid(s) every 2 hours while awake for 2 days, then 1-2 drops every 4 hours for next 5 days. cyclobenzaprine hydrochloride 10 mg oral tablet (1 source) Muscle Relaxant Start: End: take 1 tablet by mouth every eight hours as needed cyclobenzaprine (FLEXERIL) 10 mg tablet Take 1 tablet by mouth three times a day as needed for muscle spasm. 90 tablet 0 07/26/2023 08/25/2023 Active Comment on above: Take 1 tablet by [facility] three times a day as needed for muscle spasm. ENILLORING 0.12-0.015 mg/24 hr vaginal ring (7 sources) ENILLORING 0.12- 0.015 mg/24 hr vaginal ring Use 1 Each vaginally as directed. Active ENILLORING 0.12- 0.015 mg/24 hr vaginal ring Use 1 Each vaginally as directed. 0 Active fluticasone propionate 0.05 mg/actuat metered dose nasal spray (4 sources) Corticosteroid Start: 03-26-2024 take 2 spray(s) nasal route once daily fluticasone (FLONASE) 50 mcg/actuation nasal spray Indications: Eustachian tube dysfunction, bilateral Use 2 Sprays in each nostril once daily. 15.8 mL 03/26/2024 Active hydrocortisone 10 mg/ml / neomycin 3.5 mg/ml / polymyxin b 30726 unt/ml otic suspension (2 sources) Aminoglycoside Antibacterial, Polymyxin-class Antibacterial, Corticosteroid Start: 03-26-2024 End: 03-31-2024 neomycin-polymyxin- hydrocortisone (CORTISPORIN) 3.5-10,000-1 mg/mL-unit/mL-% otic suspension Indications: Irritation of external ear canal, bilateral Use 3 Drops in the left ear three times a day for 5 days. 5 mL 03/26/2024 03/31/2024 Active ibuprofen 600 mg oral tablet (1 source) Nonsteroidal Anti-inflammatory Drug Start: 01-18-2019 take 1 tablet by mouth every six hours as needed for pain ibuprofen (IBU) 600 MG tablet Take 1 tablet by mouth every 6 hours as needed for Pain 30 tablet 0 01/18/2019 Active mupirocin 0.02 mg/mg topical ointment (1 source) RNA Synthetase Inhibitor Antibacterial Start: 05-18-2023 End: 05-23-2023 mupirocin (BACTROBAN) 2 % ointment Apply 1 application to affected area three times a day for 5 days. 30 g 0 05/18/2023 05/23/2023 Active Comment on above: Apply 1 application to affected area three times a day for 5 days. naproxen 500 mg oral tablet (7 sources) Nonsteroidal Anti-inflammatory Drug Start: 12-13-2023 take 1 tablet by mouth twice daily at mealtime naproxen (NAPROSYN) 500 mg tablet Take 500 mg by mouth two times a day with meals. 12/13/2023 Active ofloxacin 3 mg/ml ophthalmic solution (2 sources) Quinolone Antimicrobial Start: 03-26-2024 End: 04-02-2024 take 2 drop(s) into the eye(s) three times daily ofloxacin (OCUFLOX) 0.3 % ophthalmic solution Indications: Acute bacterial conjunctivitis of right eye Use 2 Drops in the right eye three times a day for 7 days. 5 mL 03/26/2024 04/02/2024 Active Completed/Discontinued Medications Medication Drug Class(es) Dates Sig (Normalized) Sig (Original) 21 day ethinyl estradiol 0.650470 mg/hr / etonogestrel 0.005 mg/hr vaginal system (8 sources) Progestin, Estrogen Etonogestrel -Ethinyl Estradiol 0.12-0.015 mg/24 hr vaginal ring Use 1 Each vaginally as directed. Insert vaginally and leave in place for 3 consecutive weeks, then remove for 1 week. 0 Active etonogestrel-eth inyl estradiol (Nuvaring) 0.12-0.015 MG/24HR vaginal ring Insert 1 Ring into the vagina every 28 (twenty-eight) days. Insert vaginally and leave in place for 3 consecutive weeks, then remove for 1 week. 0 Active Comment on above: Use 1 Each vaginally as directed. Insert vaginally and leave in place for 3 consecutive weeks, then remove for 1 week. gabapentin 300 mg oral capsule (5 sources) Anti-epileptic Agent Start: End: 4 take 1 capsule by mouth three times daily gabapentin (NEURONTIN) 300 mg capsule Take 1 capsule by mouth three times a day for 30 days. 90 capsule 07/26/2023 03/26/2024 Discontinued Comment on above: Take 1 capsule by mo ut three times a day for 30 days. Problems Active Problems Problem Classification Problem Date Documented Date Episodic/Chronic Inflammation; infection of eye (except that caused by tuberculosis or sexually transmitteddisease) (2 sources) Conjunctivitis of right eye; Translations: [Unspecified conjunctivitis] Episodic Nausea and vomiting (1 source) Diarrhea and vomiting; Translations: [Vomiting, unspecified] 05-18-2023 Episodic Neoplasms of unspecified nature or uncertain behavior (1 source) Thrombocytosis; Translations: [Thrombocytosis] Onset: 12-20-2023 Chronic Neoplasms of unspecified nature or uncertain behavior (2 sources) Thrombocytosis; Translations: [Thrombocytosis] 12-20-2023 Episodic Other connective tissue disease (1 source) Pain in right lower leg; Translations: [Pain in right lower leg] Onset: 08-22-2024 Episodic Other ear and sense organ disorders (1 source) Irritation of ear; Translations: [Other specified disorders of external ear, bilateral] 03-26-2024 Episodic Other injuries and conditions due to [...] eruption] 05-18-2023 Episodic Other upper respiratory infections (3 sources) Streptococcal sore throat; Translations: [Streptococcal pharyngitis] Episodic Otitis media and related conditions (2 sources) Dysfunction of bilateral eustachian tubes; Translations: [Unspecified Eustachian tube disorder, bilateral] 03-26-2024 Episodic Residual codes; unclassified (1 source) Family history of malignant neoplasm of ovary; Translations: [Family history of malignant neoplasm of ovary] 12-20-2023 Episodic Spondylosis; intervertebral disc disorders; other back problems (2 sources) Low back pain; Translations: [Lumbar pain] 07-23-2023 Episodic Sprains and strains (1 source) Strain of muscle and/or tendon of lower leg; Translations: [Strain of adductor julien muscle, right, initial encounter] Episodic Unclassified (1 source) Lumbar pain; Translations: [Lumbar pain] Onset: 07-26-2023 Unclassified (1 source) Acute low back pain, unspecified back pain laterality, unspecified whether sciatica present; Translations: [Acute low back pain, unspecified back pain laterality, unspecified whether sciatica present] Onset: 07-18-2023 Past or Other Problems Problem Classification Problem Date Documented Da te Episodic/Chronic Other connective tissue disease (1 source) Pain in right leg; Translations: [Pain in right leg] Onset: 01-08-2024 Episodic Other non-traumatic joint disorders (15 sources) Pain in lower limb; Translations: [Pain in unspecified knee] Onset: 08-28-2011 08-28-2011 Episodic Other non-traumatic joint disorders (9 sources) Shoulder joint pain; Translations: [Pain in unspecified shoulder] Onset: 08-28-2011 Resolved: 08-28-2011 08-28-2011 Episodic Results Test Name Value Interpretation Reference Range Facility Venous duplex ultrasound rep ortOrdered By: Skyler Fajardo on 08-19-2024 US Vein [facility] [address] [place] [address] Venous Duplex US, Unilateral 08/18/24 1354 MR#: [id number] Acct: [id number] Name: MANUELSIMEON Rep #:[id number] : 1990 34 From: Skyler Carbone Attending Dr: Dr. Nicole Barrientos, Status: REG CLI Ordering Dr: Nicole Barrientos DO Date: 0 08/18/24 Location: [facility] Sex: F C Admitted: Reason For Study Reason For Study: RLE PAin RIGHT LEFT GSV is normal. CFV is compressible, spontaneous, phasic, competent, CFV is compressible, spontaneous, phasic, competent and demonstrates normal augmentation. and demonstrates normal augmentation. FV is compressible, spontaneous, phasic, competent and demonstrates normal augmentation. POP V is compressible, spontaneous, phasic, competent and demonstrates normal augmentation. T/P Trunk is compressible. PTV is compressible. RT PerV is compressible. Procedure This is a venous duplex using B-mode, color flow and spectral Doppler. Exam performed in department. The exam was diagnostic. A preliminary report was called and/or faxed to Dr. Gardner office. VL/Venous Duplex US, Unilateral Interpretation Summary Deep veins of the right lower extremity are patent and compressible segmentally.There is no evidence of right lower extremity deep vein thrombosis. The right great saphenous vein appears patent and compressible segmentally. Ordering Physician: Nicole Barrientos Referring Physician: Nicole Barrientos Performed By: Lewis Daniel, RVT 08/19/24 0749 Date _ Skyler Fajardo MD CC: Dr. Nicole Barrientos DO ~ Date Dictated: 08/18/24 1354 Date Transcribed: 08/19/24 0749 Residential Real Estate Agent: Signed [facility] Work Phone: Venous Duplex US, Unilateral on 08-18-2024 Venous Duplex US, Unilateral [facility] [address] [place] [address] Venous Duplex US, Unilateral 08/18/24 2571 MR#: [id number] Acct: [id number] Name: NAHED JACKSON Rep #: [id number] : 1990 34 From: Skyler Fajardo MD Attending Dr: Dr. Nicole Barrientos, Status: REG CLI Ordering Dr: Nicole Barrientos DO Date: 08/18/24 Location: [facility] Sex: F C Admitted: Reason For Study Reason For Study: RLE PAin RIGHT LEFT GSV is normal. CFV is compressible, spontaneous, phasic, competent, CFV is compressible, spontaneous, phasic, competent and demonstrates normal augmentation. and demonstrates normal augmentation. FV is compressible, spontaneous, phasic, competent and demonstrates normal augmentation. POP V is compressible, spontaneous, phasic, competent and demonstrates normal augmentation. T/P Trunk is compressible. PTV is compressible. RT PerV is compressible. Procedure This is a venous duplex using B-mode, color flow and spectral Doppler. Exam performed in department. The exam was diagnostic. A preliminary report was called and/or faxed to Dr. Gardner office. VL/Venous Duplex US, Unilateral Interpretation Summary Deep veins of the right lower extremity are patent and compressible segmentally. There is no evidence of right lower extremity deep vein thrombosis. The right great saphenous vein appears patent and compressible segmentally. Ordering Physician: Nicole Barrientos Referring Physician: Nicole Barrientos Performed By: Lewis Daniel, RVT 08/19/24 0749 Date Skyler Fajardo MD CC: Dr. Nicole Barrientos, DO Date Dictated: 08/18/24 1354 Date Transcribed: 08/19/24 0749 Residential Real Estate Agent: Signed [facility] CNOVon 08-14-2024 OV Office Visit ([facility] ) NAHED JACKSON ([id number]) 1990 F Date Time Provider Department 08/14/24 11:35 AM JEAN-PAUL SMITH During your visit today, we recorded the following information about you: Temperature Pulse Respiration Blood pressure 97 degrees 81/minute 16/minute 138/92 Weight 145.8 kg Jean-Paul Smith PA-C 08/14/2024 1:31 PM Signed [facility] Subjective Nahed Jackson is a 34 year old female. Patient presents with: Sore Throat: Sore throat, congestion, fatigue Surgical mask and gloves worn for all in-person care. 08/14/2024 Patient presents with: Sore Throat: Sore throat, congestion, fatigue The patient is 34 year old here for acute onset URI symptoms x 2 days. HPI per the patient. The patient complains of cough and sinus congestion/pressure/drainag e x 2 days. Right ear feels full and pressure. HAs crackling sounds. NO ear pain. Denies fever, chills, sweats, body aches, or fatigue. Patient denies wheezing, shortness of breath, increased WOB, or chest pain. No n/v/d, NESS, or rash. Reviewed outpt charts- h/o thrombocytosis and back pain COVID exposure: none Influenza exposure: none RSV exposure: none Covid Immunization Dates Current Care Gaps Covid-19 Vaccine ( season) Overdue since 01/05/2024 01/27/2021 Outside Immunization: COVID-19, mRNA, LNP-S, PF, 30 mcg/0.3 mL dose 01/06/2021 Outside Immunization: COVID-19, mRNA, LNP-S, PF, 30 mcg/0.3 mL dose COVID vaccine this year: none Influenza vaccine this year: none RSV vaccine this year: none Asthma: none Pneumonia: none Tobacco: none Pain on scale of 0-10 with 0 being no pain and 10 being greatest pain: 0 Nothing makes the symptoms better. Nothing makes them worse. Self-treatment:. -none The severity is mild and the symptoms are not improving. The patient did not have a similar problem in the last 3 months. The patient did not take any antibiotics in the last 3 months. Barriers to learning: none. Reviewed meds, OTCs, herbals or supplements. Reviewed allergies, medications, social history, and past medical history. PAST MEDICAL HISTORY Diagnosis Date Phlebitis 12/2023 ALLERGIES Tape [Adhesive Tape (Rosins)], Tree Nuts, and [place] MEDICATIONS Current Outpatient Medications Medication Sig fluticasone (FLONASE) 50 mcg/actuation nasal spray Use 2 Sprays in each nostril once daily. ENILLORING 0.12-0.015 mg/24 hr vaginal ring Use 1 Each vaginally as directed. naproxen (NAPROSYN) 500 mg tablet Take 500 mg by mouth two times a day with meals. No current facility-administered medications for this visit. Medications and allergies reviewed by this provider. SOCIAL HISTORY Social History Tobacco Use Smoking status: Never Smokeless tobacco: Never Vaping Use Vaping status: Never Used Substance Use Topics Alcohol use: Yes Comment: rare Drug use: No Review of Systems Constitutional: Negative. HENT: Positive for congestion, postnasal drip, rhinorrhea, sinus pressure and sore throat. Eyes: Negative. Respiratory: Positive for cough. Cardiovascular: Negative. Gastrointestinal: Negative. Endocrine: Negative. Genitourinary: Negative. Musculoskeletal: Negative. Skin: Negative. Allergic/Immunologic: Negative. Neurological: Negative. Hematological: Negative. Psychiatric/Behavioral: Negative. All other systems reviewed and are negative. Objective BP 138/92 Pulse 81 Temp 36.1 ?C (97 ?F) Resp 16 Wt (!) 145.8 kg (321 lb 8.7 oz) LMP 01/16/2018 (Approximate) SpO2 99% BMI 48.59 kg/m? Physical Exam Vitals reviewed. Constitutional: General: She is not in acute distress. Appearance: Normal appearance. She is well-developed and normal weight. She is not ill-appearing, toxic-appearing or diaphoretic. HENT: Head: Normocephalic and atraumatic. No right periorbital erythema or left periorbital erythema. Salivary Glands: Right salivary gland is not diffusely enlarged or tender. Left salivary gland is not diffusely enlarged or tender. Right Ear: Ear canal and external ear normal. A middle ear effusion is present. Left Ear: Tympanic membrane, ear canal and external ear normal. Nose: Congestion and rhinorrhea present. Rhinorrhea is clear. Right Sinus: No maxillary sinus tenderness or frontal sinus tenderness. Left Sinus: No maxillary sinus tenderness or frontal sinus tenderness. Mouth/Throat: Lips: [place]. No lesions. Mouth: Mucous membranes are moist. No oral lesions. Dentition: No gum lesions. Tongue: No lesions. Tongue does not deviate from midline. Palate: No mass and lesions. Pharynx: Oropharynx is clear. No pharyngeal swelling, oropharyngeal exudate, posterior oropharyngeal erythema or uvula swelling. Tonsils: No tonsillar exudate or tonsillar abscesses. Eyes: General: Lids are normal. No scleral icterus. Right eye: No d (more content not included)... Normal [facility] STREP A MOLECULAR (POC)on Procedural Control Valid [facility] Strep A (POCT) Negative Negative [facility] CBC W Auto Differential pane l (Bld)on 07-03-2024 Basophils (Bld) [#/Vol] 0.05 10*3/uL Normal <0.11 [facility] Comment on above: Order Comment: Speci men Type: BLOOD SPECIMEN Ordering Facility: [facility] Address: [address] [place] [address] Performed By: #### 5 0190-8, 2276-4, 1987-09 #### [facility] CLIA [id number] [address] [place] [address] [place] [address] [place] Basophils/100 WBC (Bld) 0.5 % Normal [facility] Comment on above: Order Comment: Speci men Type: BLOOD SPECIMEN Ordering Facility: [facility] Address: [address] [place] [address] Performed By: #### 5 0190-8, 2275-08, 1987-09 #### [facility] CLIA [id number] [address] [place] [address] [place] Differential cell count method Nom (Bld) Auto Normal [facility] Comment on above: Order Comment: Speci men Type: BLOOD SPECIMEN Ordering Facility: [facility] Address: [address] [place] [address] Performed By: #### 5 0190-8, 2275-08, 1987-09 #### [facility] CLIA [id number] [address] [place] [address] [place] Eosinophils (Bld) [#/Vol] 0.17 10*3/uL Normal <0.46 [facility] Comment on above: Order Comment: Speci men Type: BLOOD SPECIMEN Ordering Facility: [facility] Address: [address] [place] [address] Performed By: #### 5 0190-8, 2275-08, 1987-09 #### [facility] CLIA [id number] [address] [place] [address] [place] Eosinophils/100 WBC (Bld) 1.7 % Normal [facility] Comment on above: Order Comment: Speci men Type: BLOOD SPECIMEN Ordering Facility: [facility] Address: [address] [place] [address] Performed By: #### 5 0190-8, 2275-08, 1987-09 #### [facility] CLIA [id number] [address] [place] [address] [place] Erythrocyte distribution width (RBC) [Ratio] 13.1 % Normal 11.5-15.0 [facility] Comment on above: Order Comment: Speci men Type: BLOOD SPECIMEN Ordering Facility: [facility] Address: [address] [place] [address] Performed By: #### 5 0190-8, 2275-08, 1987-09 #### [facility] CLIA [id number] [address] [place] [address] [place] Hematocrit (Bld) [Volume fraction] 40.3 % Normal 36.0-46.0 [facility] Comment on above: Order Comment: Speci men Type: BLOOD SPECIMEN Ordering Facility: [facility] Address: [address] [place] [address] Performed By: #### 5 0190-8, 2275-08, 1987-09 #### [facility] CLIA [id number] [address] [place] [address] [place] Hemoglobin (Bld) [Mass/Vol] 13.5 g/dL Normal 11.5-15.5 [facility] Comment on above: Order Comment: Speci men Type: BLOOD SPECIMEN Ordering Facility: [facility] Address: [address] [place] [address] Performed By: #### 5 0190-8, 2275-08, 1987-09 #### [facility] CLIA [id number] [address] [place] [address] [place] Immature granulocytes (Bld) [#/Vol] 0.05 10*3/uL Normal <0.10 [facility] Comment on above: Order Comment: Speci men Type: BLOOD SPECIMEN Ordering Facility: [facility] Address: [address] [place] [address] Performed By: #### 5 0190-8, 2275-08, 1987-09 #### [facility] CLIA [id number] [address] [place] [address] [place] Immature granulocytes/100 WBC (Bld) 0.5 % Normal [facility] Comment on above: Order Comment: Speci men Type: BLOOD SPECIMEN Ordering Facility: [facility] Address: [address] [place] [address] Performed By: #### 5 01908, 2275-08, 1987-09 #### [facility] CLIA [id number] [address] [place] [address] [place] Lymphocytes (Bld) [#/Vol] 3.73 10*3/uL Normal 1.00-4.00 [facility] Comment on above: Order Comment: Speci men Type: BLOOD SPECIMEN Ordering Facility: [facility] Address: [address] [place] [address] Performed By: #### 5 0190-8, 2275-08, 1987-09 #### [facility] CLIA [id number] [address] [place] [address] [place] Lymphocytes/100 WBC (Bld) 37.4 % Normal [facility] Comment on above: Order Comment: Speci men Type: BLOOD SPECIMEN Ordering Facility: [facility] Address: [address] [place] [address] Performed By: #### 5 019-8, 2275-08, 1987-09 #### [facility] CLIA [id number] [address] [place] [address] [place] MCH (RBC) [Entitic mass] 26.2 pg Normal 26.0-34.0 [facility] Comment on above: Order Comment: Speci men Type: BLOOD SPECIMEN Ordering Facility: [facility] Address: [address] [place] [address] Performed By: #### 5 0190-8, 2275-08, 1987-09 #### [facility] CLIA [id number] [address] [place] [address] [place] MCHC (RBC) [Mass/Vol] 33.5 g/dL Normal 30.5-36.0 [facility] Comment on above: Order Comment: Speci men Type: BLOOD SPECIMEN Ordering Facility: [facility] Address: [address] [place] [address] Performed By: #### 5 0190-8, 2275-08, 1987-09 #### [facility] CLIA [id number] [address] [place] [address] [place] MCV (RBC) [Entitic vol] 78.3 fL Low 80.0-100.0 [facility] Comment on above: Order Comment: Speci men Type: BLOOD SPECIMEN Ordering Facility: [facility] Address: [address] [place] [address] Performed By: #### 5 0190-8, 2275-08, 1987-09 #### [facility] CLIA [id number] [address] [place] [address] [place] Monocytes (Bld) [#/Vol] 0.58 10*3/uL Normal <0.87 [facility] Comment on above: Order Comment: Speci men Type: BLOOD SPECIMEN Ordering Facility: [facility] Address: [address] [place] [address] Performed By: #### 5 0190-8, 2275-08, 1987-09 #### [facility] CLIA [id number] [address] [place] [address] [place] Monocytes/100 WBC (Bld) 5.8 % Normal [facility] Comment on above: Order Comment: Speci men Type: BLOOD SPECIMEN Ordering Facility: [facility] Address: [address] [place] [address] Performed By: #### 5 0190-8, 2275-08, 1987-09 #### [facility] CLIA [id number] [address] [place] [address] [place] Neutrophils (Bld) [#/Vol] 5.38 10*3/uL Normal 1.45-7.50 [facility] Comment on above: Order Comment: Speci men Type: BLOOD SPECIMEN Ordering Facility: [facility] Address: [address] [place] [address] Performed By: #### 5 0190-8, 2275-08, 1987-09 #### [facility] CLIA [id number] [address] [place] [address] [place] Neutrophils/100 WBC (Bld) 54.1 % Normal [facility] Comment on above: Order Comment: Speci men Type: BLOOD SPECIMEN Ordering Facility: [facility] Address: [address] [place] [address] Performed By: #### 5 0190-8, 2275-08, 1987-09 #### [facility] CLIA [id number] [address] [place] [address] [place] Nucleated RBC (Bld) [#/Vol] 10*3/uL Normal <0.01 [facility] Comment on above: Order Comment: Speci men Type: BLOOD SPECIMEN Ordering Facility: [facility] Address: [address] [place] [address] Performed By: #### 5 0190-8, 2275-08, 1987-09 #### [facility] CLIA [id number] [address] [place] [address] [place] Nucleated RBC/100 WBC (Bld) [Ratio] 0.0 /100 WBC Normal [facility] Comment on above: Order Comment: Speci men Type: BLOOD SPECIMEN Ordering Facility: [facility] Address: [address] [place] [address] Performed By: #### 5 0190-8, 2275-08, 1987-09 #### [facility] CLIA [id number] [address] [place] [address] [place] Platelet mean volume (Bld) [Entitic vol] 8.4 fL Low 9.0-12.7 [facility] Comment on above: Order Comment: Speci men Type: BLOOD SPECIMEN Ordering Facility: [facility] Address: [address] [place] [address] Performed By: #### 5 0190-8, 2275-08, 1987-09 #### [facility] CLIA [id number] [address] [id number] [address] [place] Platelets (Bld) [#/Vol] 440 10*3/uL High 150-400 [facility] Comment on above: Order Comment: Speci men Type: BLOOD SPECIMEN Ordering Facility: [facility] Address: [address] [place] [address] Performed By: #### 5 0190-8, 2275-08, 1987-09 #### [facility] CLIA [id number] [address] [place] [address] [place] RBC (Bld) [#/Vol] 5.15 10*6/uL Normal 3.90-5.20 [facility] Comment on above: Order Comment: Speci men Type: BLOOD SPECIMEN Ordering Facility: [facility] Address: [address] [place] [address] Performed By: #### 5 0190-8, 2275-08, 1987-09 #### [facility] CLIA [id number] [address] [place] [address] [place] WBC (Bld) [#/Vol] 9.96 10*3/uL Normal 3.70-11.00 [facility] Comment on above: Order Comment: Speci men Type: BLOOD SPECIMEN Ordering Facility: [facility] Address: [address] [place] [address] Performed By: #### 5 0190-8, 2275-08, 1987-09 #### [facility] CLIA [id number] [address] [place] [address] [place] CNOVon 03-26-2024 CNOV Office Visit ([facility]ALKWA ) NAHED JACKSON ([id number]) 1990 F Date Time Provider Department 03/26/24 4:40 PM JEAN-PAUL SMITH [place]ALKWA During your visit today, we recorded the following information about you: Temperature Pulse Blood pressure Weight 97.4 degrees 89/minute 149/110 143.5 kg Jean-Paul Smith PA-C 03/26/2024 5:13 PM Signed 03/26/2024 Patient presents with: Eye Problem: Every morning she wakes up and there is eye discharge and this morning she woke up with eye mated shut. Ear Problem: Pain and itching sometimes. SUBJECTIVE: This is a 33 year old that is here today here for several concerns. HPI per patient. Right injected eye with matting and thick discharge x 3-4 days. The eye has been matted shut in the mornings. She does wear contacts. No vision changes or eye pain. No concern for foreign object or trauma. No itchy or watery eyes. 2. She has had bilateral ear pressure and ache off and on for about a month. Comes and goes. She is on Zyrtec for allergies. No ear drainage, ringing, vertigo, or dizziness. Denies cough, sinusitis, sore throat, or other URI/sick symptoms. Denies fever, chills, sweats, or fatigue. Patient denies wheezing, shortness of breath, increased WOB, or chest pain. 3. Bilateral ear canals have been very itchy for about a week. No h/o eczema. No recent swimming. Pain on scale of 0-10 with 0 being no pain and 10 being greatest pain: 0 Nothing makes the symptoms better. Nothing makes them worse. Self-treatment:. Zyrtec The severity is mild and the symptoms are not improving. The patient did not have a similar problem in the last 3 months. The patient did not take any antibiotics in the last 3 months. Barriers to learning: none. Reviewed meds, OTCs, herbals or supplements. Reviewed allergies, medications, social history, and past medical history. PAST MEDICAL HISTORY Diagnosis Date Phlebitis 12/2023 ALLERGIES Tape [Adhesive Tape (Rosins)], Tree Nuts, and Weldon MEDICATIONS Current Outpatient Medications Medication Sig ENILLORING 0.12-0.015 mg/24 hr vaginal ring Use 1 Each vaginally as directed. naproxen (NAPROSYN) 500 mg tablet Take 500 mg by mouth two times a day with meals. fluticasone (FLONASE) 50 mcg/actuation nasal spray Use 2 Sprays in each nostril once daily. ofloxacin (OCUFLOX) 0.3 % ophthalmic solution Use 2 Drops in the right eye three times a day for 7 days. mfjywcsi-getdfznvn-nwkupfqg tisone (CORTISPORIN) 3.5-10,000-1 mg/mL-unit/mL-% otic suspension Use 3 Drops in the left ear three times a day for 5 days. gabapentin (NEURONTIN) 300 mg capsule Take 1 capsule by mouth three times a day for 30 days. No current facility-administered medications for this visit. Medications and allergies reviewed by this provider SOCIAL HISTORY Social History Tobacco Use Smoking status: Never Smokeless tobacco: Never Vaping Use Vaping status: Never Used Substance Use Topics Alcohol use: Yes Comment: rare Drug use: No REVIEW OF SYSTEMS Review of Systems Constitutional: Negative. HENT: Negative. Ear pressure Ear itching Eyes: Positive for discharge and redness. Negative for photophobia, pain, itching and visual disturbance. Respiratory: Negative. Cardiovascular: Negative. Gastrointestinal: Negative. Endocrine: Negative. Genitourinary: Negative. Musculoskeletal: Negative. Neurological: Negative. Hematological: Negative. Psychiatric/Behavioral: Negative. All other systems reviewed and are negative. OBJECTIVE: BP 149/110 Pulse 89 Temp 36.3 ?C (97.4 ?F) Wt (!) 143.5 kg (316 lb 4 oz) LMP 01/16/2018 (Approximate) SpO2 99% BMI 47.79 kg/m? . Vital signs reviewed by this provider. [...] not diffusely enlarged or tender. Right Ear: Ear canal and external ear normal. No laceration, drainage, swelling or tenderness. No middle ear effusion. There is no impacted cerumen. No foreign body. No mastoid tenderness. No PE tube. No hemotympanum. Tympanic membrane is not injected, scarred, perforated, erythematous, retracted or bulging. Left Ear: Ear canal and external ear normal. No laceration, drainage, swelling or tenderness. No middle ear effusion. There is no impacted cerumen. No foreign body. No mastoid tenderness. No PE tube. No hemotympanum. Tympanic membrane is not injected, scarred, perforated, erythematous, retracted or bulging. Ears: Comments: Bilateral ear canals have dry, flaky sk (more content not included)... Normal [facility] CNPNon 01-02-2024 CNPN Telephone (STARR) NAHED JACKSON ([id number]) 1990 F Date Time Provider Department 01/02/24 CAMRYN LEÓN During your visit today, we recorded the following information about you: Camryn León 01/02/2024 12:19 PM Signed Called patient to review labs. No answer. VM recording says Lotus so I did not leave details. PSR: can you please flip her video visit scheduled with Dr. Rocha to me for tomorrow? Thank you! Lizzy Hudson 01/02/2024 1:24 PM Signed Completed Allergies As of Date: 01/02/2024 Noted Allergy Reaction TAPE (ADHESIVE TAPE (ROSINS)) 11/22/2012 2 - Rash TREE NUTS 07/26/2023 7 - Swelling WALNUT 10/29/2011 14 - Other: See Comments Comments: Burning in mouth Date Reviewed: 12/20/2023 Reviewed by: Norris Torrez MA - Fully Assessed Prescriptions as of 01/13/2024 - ENILLORING 0.12-0.015 mg/24 hr vaginal ring Use 1 Each vaginally as directed. - naproxen (NAPROSYN) 500 mg tablet Take 500 mg by mouth two times a day with meals. - gabapentin (NEURONTIN) 300 mg capsule Take 1 capsule by mouth three times a day for 30 days. Problem List As Of Date 01/02/2024 Noted Resolved Pain in joint, shoulder region [M25.519] 08/28/2011 08/28/2011 Pain in joint, lower leg [M25.569] 08/28/2011 Encounter Status:Closed by CAMRYN LEÓN on 01/13/24 Normal [facility] C-REACTIVE PROTEINon 024 CRP [Mass/Vol] 1.7 mg/dL High NINF - 0.9 mg/dL [facility] CBC W Auto Differential pane l (Bld)on 12-20-2023 Basophils (Bld) [#/Vol] 0.06 10*3/uL [facility] Basophils/100 WBC (Bld) 0.7 % [facility] Differential cell count method Nom (Bld) Auto [facility] Eosinophils (Bld) [#/Vol] 0.10 10*3/uL [facility] Eosinophils/100 WBC (Bld) 1.1 % [facility] Erythrocyte distribution width (RBC) [Ratio] 13.7 % 11.5 - 15.0 % [facility] Hematocrit (Bld) [Volume fraction] 40.9 % 36.0 - 46.0 % [facility] Hemoglobin (Bld) [Mass/Vol] 13.3 g/dL 11.5 - 15.5 g/dL [facility] Immature granulocytes (Bld) [#/Vol] [facility] Immature granulocytes/100 WBC (Bld) 0.2 % [facility] Interpretation and review of laboratory results Abnormal [facility] Lymphocytes (Bld) [#/Vol] 3.48 10*3/uL [facility] Lymphocytes/100 WBC (Bld) 38.0 % [facility] MCH (RBC) [Entitic mass] 25.0 pg Low 26.0 - 34.0 pg [facility] MCHC (RBC) [Mass/Vol] 32.5 g/dL 30.5 - 36.0 g/dL [facility] MCV (RBC) [Entitic vol] 76.9 fL Low 80.0 - 100.0 fL [facility] Monocytes (Bld) [#/Vol] 0.57 10*3/uL [facility] Monocytes/100 WBC (Bld) 6.2 % [facility] Neutrophils (Bld) [#/Vol] 4.93 10*3/uL [facility] Neutrophils/100 WBC (Bld) 53.8 % [facility] Nucleated RBC (Bld) [#/Vol] NINF [facility] Nucleated RBC/100 WBC (Bld) [Ratio] 0.0 % /100 WBC [facility] Platelet mean volume (Bld) [Entitic vol] 8.4 fL Low 9.0 - 12.7 fL [facility] Platelets (Bld) [#/Vol] 466 10*3/uL High [facility] RBC (Bld) [#/Vol] 5.32 10*6/uL High 3.90 - 5.2 0 m/uL [facility] WBC (Bld) [#/Vol] 9.16 10*3/uL [facility] Basophils (Bld) [#/Vol] 0.06 10*3/uL Normal <0.11 [facility] Comment on above: Order Comment: Speci men Type: BLOOD SPECIMEN Ordering Facility: [facility] Address: [address] [place] [address] Performed By: #### 5 7021-8 #### [facility] CLIA [id number] [address] [place] [address] [place] Basophils/100 WBC (Bld) 0.7 % Normal [facility] Comment on above: Order Comment: Speci men Type: BLOOD SPECIMEN Ordering Facility: [facility] Address: [address] [place] [address] Performed By: #### 5 7021-8 #### [facility] CLIA [id number] [address] [place] [address] [place] Differential cell count method Nom (Bld) Auto Normal [facility] Comment on above: Order Comment: Speci men Type: BLOOD SPECIMEN Ordering Facility: [facility] Address: [address] [place] [address] Performed By: #### 5 7021-8 #### [facility] CLIA [id number] [address] [place] [address] [place] Eosinophils (Bld) [#/Vol] 0.10 10*3/uL Normal <0.46 [facility] Comment on above: Order Comment: Speci men Type: BLOOD SPECIMEN Ordering Facility: [facility] Address: [address] [place] [address] Performed By: #### 5 7021-8 #### [facility] CLIA [id number] [address] [place] [address] [place] Eosinophils/100 WBC (Bld) 1.1 % Normal [facility] Comment on above: Order Comment: Speci men Type: BLOOD SPECIMEN Ordering Facility: [facility] Address: [address] [place] [address] Performed By: #### 5 7021-8 #### [facility] CLIA [id number] [address] [place] [address] [place] Erythrocyte distribution width (RBC) [Ratio] 13.7 % Normal 11.5-15.0 [facility] Comment on above: Order Comment: Speci men Type: BLOOD SPECIMEN Ordering Facility: [facility] Address: [address] [place] [address] Performed By: #### 5 7021-8 #### [facility] CLIA [id number] [address] [place] [address] [place] Hematocrit (Bld) [Volume fraction] 40.9 % Normal 36.0-46.0 [facility] Comment on above: Order Comment: Speci men Type: BLOOD SPECIMEN Ordering Facility: [facility] Address: [address] [place] [address] Performed By: #### 5 7021-8 #### [facility] CLIA [id number] [address] [place] [address] [place] Hemoglobin (Bld) [Mass/Vol] 13.3 g/dL Normal 11.5-15.5 [facility] Comment on above: Order Comment: Speci men Type: BLOOD SPECIMEN Ordering Facility: [facility] Address: [address] [place] [address] Performed By: #### 5 7021-8 #### [facility] CLIA [id number] [address] [place] [address] [place] Immature granulocytes (Bld) [#/Vol] 10*3/uL Normal <0.10 [facility] Comment on above: Order Comment: Speci men Type: BLOOD SPECIMEN Ordering Facility: [facility] Address: [address] [place] [address] Performed By: #### 5 7021-8 #### [facility] CLIA [id number] [address] [place] [address] [place] Immature granulocytes/100 WBC (Bld) 0.2 % Normal [facility] Comment on above: Order Comment: Speci men Type: BLOOD SPECIMEN Ordering Facility: [facility] Address: [address] [place] [address] Performed By: #### 5 7021-8 #### [facility] CLIA [id number] [address] [place] [address] [place] Lymphocytes (Bld) [#/Vol] 3.48 10*3/uL Normal 1.00-4.00 [facility] Comment on above: Order Comment: Speci men Type: BLOOD SPECIMEN Ordering Facility: [facility] Address: [address] [place] [address] Performed By: #### 5 7021-8 #### [facility] CLIA [id number] [address] [place] [address] [place] Lymphocytes/100 WBC (Bld) 38.0 % Normal [facility] Comment on above: Order Comment: Speci men Type: BLOOD SPECIMEN Ordering Facility: [facility] Address: [address] [place] [address] Performed By: #### 5 7021-8 #### [facility] CLIA [id number] [address] [place] [address] [place] MCH (RBC) [Entitic mass] 25.0 pg Low 26.0-34.0 [facility] Comment on above: Order Comment: Speci men Type: BLOOD SPECIMEN Ordering Facility: [facility] Address: [address] [place] [address] Performed By: #### 5 7021-8 #### [id number] [address] [place] [address] [place] MCHC (RBC) [Mass/Vol] 32.5 g/dL Normal 30.5-36.0 [facility] Comment on above: Order Comment: Speci men Type: BLOOD SPECIMEN Ordering Facility: [facility] Address: [address] [place] [address] Performed By: #### 5 7021-8 #### [id number] [address] [place] [address] [place] MCV (RBC) [Entitic vol] 76.9 fL Low 80.0-100.0 [facility] Comment on above: Order Comment: Speci men Type: BLOOD SPECIMEN Ordering Facility: [facility] Address: [address] [place] [address] Performed By: #### 5 7021-8 #### [facility] [id number] [address] [place] [address] [place] Monocytes (Bld) [#/Vol] 0.57 10*3/uL Normal <0.87 [facility] Comment on above: Order Comment: Speci men Type: BLOOD SPECIMEN Ordering Facility: [facility] Address: [address] [place] [address] Performed By: #### 5 7021-8 #### [id number] [address] [place] [address] [place] Monocytes/100 WBC (Bld) 6.2 % Normal [facility] Comment on above: Order Comment: Speci men Type: BLOOD SPECIMEN Ordering Facility: [facility] Address: [facility] [place] [address] Performed By: #### 5 7021-8 #### [facility] CLIA [id number] [address] [place] [address] [place] Neutrophils (Bld) [#/Vol] 4.93 10*3/uL Normal 1.45-7.50 [facility] Comment on above: Order Comment: Speci men Type: BLOOD SPECIMEN Ordering Facility: [facility] Address: [address] [place] [address] Performed By: #### 5 7021-8 #### [facility] CLIA [id number] [address] [place] [address] [place] Neutrophils/100 WBC (Bld) 53.8 % Normal [facility] Comment on above: Order Comment: Speci men Type: BLOOD SPECIMEN Ordering Facility: [facility] Address: [address] [place] [address] Performed By: #### 5 7021-8 #### [facility] CLIA [id number] [address] [place] [address] [place] Nucleated RBC (Bld) [#/Vol] 10*3/uL Normal <0.01 [facility] Comment on above: Order Comment: Speci men Type: BLOOD SPECIMEN Ordering Facility: [facility] Address: [address] [place] [address] Performed By: #### 5 7021-8 #### [facility] CLIA [id number] [address] [place] [address] [place] Nucleated RBC/100 WBC (Bld) [Ratio] 0.0 /100 WBC Normal [facility] Comment on above: Order Comment: Speci men Type: BLOOD SPECIMEN Ordering Facility: [facility] Address: [address] [place] [address] Performed By: #### 5 7021-8 #### [facility] CLIA [id number] [address] [place] [address] [place] Platelet mean volume (Bld) [Entitic vol] 8.4 fL Low 9.0-12.7 [facility] Comment on above: Order Comment: Speci men Type: BLOOD SPECIMEN Ordering Facility: [facility] Address: [address] [place] [address] Performed By: #### 5 7021-8 #### [facility] CLIA [id number] [address] [place] [address] [place] Platelets (Bld) [#/Vol] 466 10*3/uL High 150-400 [facility] Comment on above: Order Comment: Speci men Type: BLOOD SPECIMEN Ordering Facility: [facility] Address: [address] [place] [address] Performed By: #### 5 7021-8 #### [facility] CLIA [id number] [address] [place] [address] [place] RBC (Bld) [#/Vol] 5.32 10*6/uL High 3.90-5.20 [facility] Comment on above: Order Comment: Speci men Type: BLOOD SPECIMEN Ordering Facility: [facility] Address: [address] [place], [place] [address] Performed By: #### 5 7021-8 #### [facility] CLIA [id number] [address] [place] [address] [place] WBC (Bld) [#/Vol] 9.16 10*3/uL Normal 3.70-11.00 [facility] Comment on above: Order Comment: Speci men Type: BLOOD SPECIMEN Ordering Facility: [facility] Address: [address] [place], [place] [address] Performed By: #### 5 7021-8 #### [facility] CLIA [id number] [place] [address] [place] CNOVSPon 12-20-2023 CNOVSP Visit (SP) Office (H EMAWS) NAHED JACKSON ([id number]) 1990 F Date Time Provider Department 12/20/23 10:30 AM GIORGIO ROCHA During your visit today, we recorded the following information about you: Temperature Pulse Blood pressure Weight 98.2 degrees 81/minute 141/90 142.9 kg Height 1.733 m Giorgio Rocha MD 12/20/2023 12:33 PM Signed HISTORY OF PRESENT ILLNESS: Nahed Jackson is a 33 year old female referred for evaluation of thrombocytosis. Looking back, this has been present from at least 2012. Labs reviewed from July 2023, CRP up to 44 when she was having acute back issues. Platelets in 500 range, iron studies nroaml Jak2 was negative Periods are irregular, light Recent right calf pain, US done shows superficial phlebitis. Attributed to how she sits at work. We note family history of ovarian cancer CLINICAL IMPRESSION: Mild thrombocytosis, chronic fairly stable RECOMMENDATION/PLAN: 1. Will check full myeloproliferative panel, also full iron panel 2. We can follow up by phone in 2 weeks 3. Referral to medical genetics given second degree relative with ovarian cancer Written and verbal health teaching given to patient, patient verbalizes understanding and agrees with treatment plan. PAST MEDICAL HISTORY 12/2023: Phlebitis PAST SURGICAL HISTORY 05/06/2010: APPENDECTOMY No date: APPENDECTOMY HX 1994: PAST SURGICAL HISTORY OF Comment: joshua eye surgery for lazy eye FAMILY HISTORY Problem Relation Age of Onset Hypertension Mother Hypertension Father Heart Attack Maternal Grandfather Ovarian cancer Paternal Grandmother Alzheimer's Disease Paternal Grandfather Parkinson?s Disease Paternal Grandfather Social History Tobacco Use Smoking status: Never Smokeless tobacco: Never Vaping Use Vaping Use: Never used Substance Use Topics Alcohol use: Yes Comment: rare Drug use: No ALLERGIES: ALLERGIES Allergen Reactions Tape [Adhesive Tape* Rash Tree Nuts Swelling Weldon Other: See Comments Burning in mouth CURRENT OUTPATIENT MEDICATIONS: ENILLORING 0.12-0.015 mg/24 hr vaginal ring Use 1 Each vaginally as directed. naproxen (NAPROSYN) 500 mg tablet Take 500 mg by mouth two times a day with meals. gabapentin (NEURONTIN) 300 mg capsule Take 1 capsule by mouth three times a day for 30 days. REVIEW OF SYSTEMS: GENERAL: No fever, night sweats, weight loss or malaise. All other reviewed and negative other than HPI. PHYSICAL EXAMINATION: VITAL SIGNS: BP 141/90 Pulse 81 Temp (Src) 98.2 (Temporal) Ht 5' 8.209 (1.73m) Wt 315 lb (142.9kg) SpO2 98% LMP 01/16/2018 BMI 47.58 kg/(m2). GENERAL APPEARANCE: Well appearing, in no acute distress, alert and oriented x3, well-hydrated, well nourished. I spent a total of 30 minutes on the date of the service which included preparing to see the patient, [id number] patient care, completing clinical documentation, obtaining and/or reviewing separately obtained history, counseling and educating the patient/family/caregiver, ordering medications, tests, or procedures, independently interpreting results (not separately reported), and communicating results to the patient/family/caregiver. Electronically Signed: Giorgio Rocha MD December 20, 2023 10:37 AM Allergies As of Date: 12/20/2023 Noted Allergy Reaction TAPE (ADHESIVE TAPE (ROSINS)) 11/22/2012 2 - Rash TREE NUTS 07/26/2023 7 - Swelling WALNUT 10/29/2011 14 - Other: See Comments Comments: Burning in mouth Date Reviewed: 12/20/2023 Reviewed by: Norris Torrez MA - Fully Assessed Reason for Visit: New Patient [172] Primary Visit Diagnosis:Thrombocytosis [D75.839] Other Visit Diagnosis:Family history of ovarian cancer [Z80.41] Order(s):MYELOPROLIFERATIVE NEOPLASM PANEL BLOOD [SQMPNP] Order #: [id number] FUTURE COMPLETE BLOOD COUNT AND DIFFERENTIAL [SQCBCDIF] Order #: [id number] FUTURE FERRITIN [SQFERR] Order #: [id number] FUTURE IRON AND TIBC [SQIRON] Order #: [id number] FUTURE C-REACTIVE PROTEIN [SQCRP] Order #: [id number] FUTURE CONSULT TO MEDICAL GENETICS - CANCER [6741974] Order #: [id number]: 1 FUTURE Follow-up and Disposition History for Encounter Date Provider Department Center 12/20/2023 [id number], DREW HEMHARDIK [place] Prescriptions as of 12/20/2023 - ENILLORING 0.12-0.015 mg/24 hr vaginal ring Use 1 Each vaginally as directed. - naproxen (NAPROSYN) 500 mg tablet Take 500 mg by mouth two times a day with meals. - gabapentin (NEURONTIN) 300 mg capsule Take 1 capsule by mouth three times a day for 30 days. Problem List As Of Date 12/20/2023 Noted Resolved Pain in joint, shoulder region [M25.519] 08/28/2011 08/28/2011 Pain in joint, lower leg [M25.569] 08/28/2011 Encounter Status:Closed by GIORGIO ROCHA on 12/20/23 Normal [facility] CRP SerPl-ncon 12-20-2023 CRP [Mass/Vol] 1.7 mg/dL High <0.9 [facility] Comment on above: Order Comment: Speci men Type: BLOOD SPECIMEN Ordering Facility: [facility] Address: [address] [place] [address] Performed By: #### 5 0190-8, 2275-08, 1987-09 #### [facility] CLIA [id number] [address] [place] [address] [place] FERRITINon 12-20-2023 Ferritin [Mass/Vol] 35.3 ng/mL 14.7 - 205.1 ng/mL [facility] Ferritin SerPl-mCncon 2023 Ferritin [Mass/Vol] 35.3 ng/mL Normal 14.7-205.1 [facility] Comment on above: Order Comment: Speci men Type: BLOOD SPECIMEN Ordering Facility: [facility] Address: [address] [place] [address] Performed By: #### 5 0190-8, 2275-08, 1987-09 #### [facility] CLIA [id number] [address] [place], [place] [id number] [place] Ferritin [Mass/Vol]on 2023 Interpretation and review of laboratory results Normal [facility] Iron and Iron binding capaci ty panelon 12-20-2023 Iron [Mass/Vol] 100 ug/dL 41 - 186 ug/dL [facility] Iron binding capacity [Mass/Vol] 468 ug/dL High 232 - 386 ug/dL [facility] Iron/TIBC [Molar ratio] 21.4 % 15.0 - 57.0 % [facility] Iron [Mass/Vol] 100 ug/dL Normal 41-186 [facility] Comment on above: Order Comment: Speci men Type: BLOOD SPECIMEN Ordering Facility: [facility] Address: [address] [place] [address] Performed By: #### 5 0190-8, 2275-08, 1987-09 #### [facility] CLIA [id number] [address] [place] [address] [place] Iron binding capacity [Mass/Vol] 468 ug/dL High 232-386 [facility] Comment on above: Order Comment: Speci men Type: BLOOD SPECIMEN Ordering Facility: [facility] Address: [address] [place] [address] Performed By: #### 5 0190-8, 2275-08, 1987-09 #### [facility] CLIA [id number] [address] [place] [address] [place] Iron/TIBC [Molar ratio] 21.4 % Normal 15.0-57.0 [facility] Comment on above: Order Comment: Speci men Type: BLOOD SPECIMEN Ordering Facility: [facility] Address: [address] [place] [address] Performed By: #### 5 0190-8, 2275-08, 1987-09 #### [facility] CLIA [id number] [address] [id number] [address] [place] MYELOPROLIFERATIVE NEOPLASM PANEL BLOOD 12-20-2023 MYELOPROLIFERATIVE NEOPLASM PNL PERIPHERAL BLOOD Normal [facility] Comment on above: Order Comment: Speci men Type: BLOOD SPECIMEN Ordering Facility: [facility] Address: [address] [id number] Result Comment: Myel oproliferative Neoplasm Panel Laboratory Accession Number: [id number] Sample Type: Peripheral Blood Result: CALR - No variant detected (Reference sequence: [id number]). JAK2 - No variant detected (Reference sequence: [id number]). MPL - No variant detected (Reference sequence: [id number]). Interpretation: No variants were identified in CALR exon 9, JAK2 exons 12-16 or MPL exons 10 and 11. This result does not exclude the possibility of a myeloproliferative neoplasm. If clinically indicated, additional testing for a broader panel of myeloid neoplasm-associated mutations (i.e., Hematologic Neoplasms NGS panel) may be helpful to further assess for clonal hematopoiesis. Methodology: Genomic DNA extracted from blood or bone marrow was subject to an amplicon based method to enrich for CALR exon 9, JAK2 exons 12-16 and MPL exons 10 and 11, including the flanking canonical splicing sites. Pair-end DNA sequencing was performed on the Illumina instrument ([place], [place]). A customized bioinformatic pipeline was used to align the sequencing reads to the reference human genome (GRCh37/hg19). Benign common polymorphisms are not reported. Limitations: Sequence changes outside the analyzed regions, including intronic, noncoding, and splice-site variants, will not be identified by this test. The lower limit of detection of this assay is approximately 1% allele proportion for the JAK2 V617F, JAK2 exon 12, CALR Type 1 (p.G419Gkz00, c.1099_1150del) and Type 2 (p.Q636Bjg66, c.1154_1155insTTGTC), MPL W515 variants and approximately 5% allele proportion for all other variants. Variants below these limits of detection may be reported at the discretion of the molecular pathology professional staff if the technical quality of the sequencing is sufficient at that location and the call is unequivocal. Common germline polymorphisms are considered to represent wild type sequence and are not included in this report. The presence of nucleotide polymorphisms or variants at the annealing sites of the primers used in amplification and sequencing may cause allele drop-outs, hence a false negative result is possible. Disclaimer: This test was developed and its performance characteristics determined by [facility]'s Emeterio Rodriguez [facility] [place] ([facility]). It has not been cleared or approved by the FDA. [facility] is regulated under CLIA as certified to perform high- complexity testing. This test is used for clinical purposes. It should not be regarded as investigational or for research. Testing and interpretation performed at [facility], [address] [place] [address]. CLIA Number: [id number] References: 1) Ned DA, Ernestine A, Hari R, Alan J, Semaj MJ, Saira Concepcion MM, et al. The 2016 revision to the World Health Organization (WHO) classification of myeloid neoplasms and acute leukemia. Blood 2016;127: 2391-405. 2) NCCN Guidelines, Myeloproliferative Neoplasms, Version 2.2018. 3) Rinku K, Osmany HUGHES. Genomics of Myeloproliferative Neoplasms. J Clin Oncol. 2017 Jul 20;35(9):947-954. As reviewed by Maki Acuña, PhD, FACMG Performed By: #### M PNP #### [id number] [address] [place] [address] [place] No Panel Informationon 12-19 Interpretation and review of laboratory results Abnormal [facility] CNPAngela 12-17-2023 [facility] MANUELNAHED Kati ([id number]) 1990 F Date Time Provider Department 12/17/23 GIORGIO ROCHA During your visit today, we recorded the following information about you: Lizzy Kramer 12/18/2023 8:24 AM Signed Unable to schedule due to patient at work. Patient is able to talk after 4. Needs scheduled with next new Alexandreaefren or Mahinsolomonjevon [employer]ONE CLEANER/THROMBOCYTOPENIA/Valerie Pisano 12/19/2023 4:33 PM Signed Spoke with patient and scheduled for tomorrow. Valerie Vargas Allergies As of Date: 12/17/2023 Noted Allergy Reaction TAPE (ADHESIVE TAPE (ROSINS)) 11/22/2012 2 - Rash TREE NUTS 07/26/2023 7 - Swelling WALNUT 10/29/2011 14 - Other: See Comments Comments: Burning in mouth Date Reviewed: 07/26/2023 Reviewed by: Jannie Chan, RN - Fully Assessed Reason for Visit: Appointment [186] Prescriptions as of 12/19/2023 - gabapentin (NEURONTIN) 300 mg capsule Take 1 capsule by mouth three times a day for 30 days. Problem List As Of Date 12/17/2023 Noted Resolved Pain in joint, shoulder region [M25.519] 08/28/2011 08/28/2011 Pain in joint, lower leg [M25.569] 08/28/2011 Encounter Status:Closed by VALERIE VARGAS on 12/19/23 Normal [facility] Venous Duplex US, Unilateral on 12-13-2023 Venous Duplex US, Unilateral [facility] [address] [place] [address] Venous Duplex US, Unilateral 12/13/23 1241 MR#: [id number] Acct: [id number] Name: NAHED JACKSON Rep #: [id number] : 1990 33 From: Skyler Fajardo MD Attending Dr: Jean-Paul Smith NP-C Status: REG CL I Ordering Dr: Jean-Paul Smith NP-C Date: 12/13/23 Location: [facility] Sex: F C Admitted: Reason For Study: Pain RLE RIGHT LEFT CFV is compressible, spontaneous, phasic, CFV is compressible, spontaneous, phasic, competent and demonstrates normal competent, and demonstrates normal augmentation. augmentation. FV is compressible, spontaneous, phasic, competent and demonstrates normal augmentation. POP V is compressible, spontaneous, phasic, competent and demonstrates normal augmentation. T/P Trunk is compressible. PTV is compressible. RT PerV is compressible. Rt GSV at the knee, Rt SSV, and Rt Varicosity at prox posterior calf are dilated and NON COMPRESSIBLE consistent with acute SVT. Procedure This is a venous duplex using B-mode, color flow and spectral Doppler. Exam performed in department. A preliminary report was called and/or faxed to Jean-Paul Smith NP. VL/Venous Duplex US, Unilateral Interpretation Summary Acute superficial vein thrombosis is noted in the right great saphenous vein at the knee, small saphenous vein, and calf varicosities. Deep veins of the right lower extremity are patent and compressible segmentally. There is no evidence of right lower extremity deep vein thrombosis. Ordering Physician: Jean-Paul Smith Referring Physician: Nicole Barrientos Performed By: Jean-Paul Mireles, RDCS, RVT 12/16/23 1350 Date Skyler Fajardo MD CC: CARB[employer]ATING [employer] CLEANER-C Jean-Paul Smith; Dr. Nicole Barrientos DO Date Dictated: 12/13/23 1241 Date Transcribed: 12/16/23 1350 Residential Real Estate Agent: Signed Normal [facility] Absolute lymphocyte countOrd ered By: Nicole Barrientos on 07-31-2023 Lymphocytes Auto (Unsp spec) [#/Vol] 2.67 10*3/uL 0.83-4.51 [facility] Automated lymphocyte count a s percentage of total leukocytesOrdered By: Nicole Barrientos on 07-31-2023 Lymphocytes/100 WBC Auto (Unsp spec) 33.0 % 19-41 [facility] Basophil percentageOrdered B y: Nicole Barrientos on 07-31-2023 Basophil percentage < 10.0 IU/mL <15 [facility] Basophils/100 WBC (Bld) 0.6 % 0-1 [facility] Eosinophils/100 WBC (Bld) 2.4 % 0-5 [facility] Hemoglobin (Bld) [Mass/Vol] 13.7 g/dL 12.0-15.0 [facility] Monocytes/100 WBC (Bld) 6.2 % 0-10 [facility] Neutrophils (Bld) [#/Vol] 4.6 10*3/uL 2.0-7.7 [facility] Neutrophils/100 WBC (Bld) 57.2 % 47-70 [facility] WBC (Bld) [#/Vol] 8.1 10*3/uL 4.4-11.0 [facility] Determination of erythrocyte mean corpuscular volume (MCV)Ordered By: Nicole Barrientos on 07-31-2023 MCV (RBC) [Entitic vol] 79.7 fL 81-99 [facility] Erythrocyte distribution wid th ratioOrdered By: Nicole Barrientos on 07-31-2023 Erythrocyte distribution width (RBC) [Ratio] 13.0 % 11.6-14.6 [facility] Erythrocyte distribution wid th standard deviationOrdered By: Nicole Barrientos on 07-31-2023 Erythrocyte distribution width (RBC) [Entitic vol] 36.7 fL 35.1-43.9 [facility] Erythrocyte sedimentation ra teOrdered By: Nicole Barrientos on 07-31-2023 ESR (Bld) [Velocity] 30 mm/h 0-30 [facility] Hematocrit Auto (Bld) [Volum e fraction]Ordered By: Nicole Barrientos on 07-31-2023 Hematocrit (Bld) [Volume fraction] 41.6 % 37-47 [facility] Immature granulocytes/100 WB C Auto (Bld)Ordered By: Nicole Barrientos on 07-31-2023 Immature granulocytes/100 WBC (Bld) 0.600 % 0.0-0.9 [facility] Comment on above: IG% - Immature Granu locytes (promyelocytes, myelocytes and metamyelocytes) > 1% indicates that a LEFT SHIFT is Present. Laboratory - Hematology and Cell countsOrdered By: Nicole Barrientos on 07-31-2023 MCH (RBC) [Entitic mass] 26.2 pg 27.0-32.0 [facility] MCHC (RBC) [Mass/Vol] 32.9 g/dL 32-36 [facility] Nucleated RBC/100 WBC (Bld) [Ratio] 0 % 0-5 [facility] Platelet mean volume (Bld) [Entitic vol] 8.9 fL 6.2-12.0 [facility] Platelets (Bld) [#/Vol] 550 10*3/uL 150-450 [facility] No Panel InformationOrdered By: Nicole Barrientos on 07-31-2023 Anti-Nuclear Antibody Screen Negative Negative [facility] Comment on above: Performed at: [employer] [facility] [place] [id number] Director: Bruce Joshi PhD, Phone: [phone] C-Reactive Protein Extended Range 17.40 mg/L 0.0-3.0 [facility] Comment on above: C-Reactive Protein ( CRP) provides useful information for thediagnosis, therapy and monitoring of inflammatory processesand associated diseases. For the evaluation of Relative Riskfor Cardiovascular Disease, a High Sensitivity CRP (HSCRP)should be ordered. Centromere B Antibody Not Reportable [facility] EDWINA-1 Antibody Not Reportable [facility] WELD FITTER Antibody Not Reportable [facility] SM Antibody Not Reportable [facility] SS-A/Ro IgG Antibody Not Reportable [facility] SS-B/La IgG Antibody Not Reportable [facility] RBC Auto (Bld) [#/Vol]Ordere d By: Nicole Barrientos on 07-31-2023 RBC (Bld) [#/Vol] 5.22 10*6/uL 4.2-5.4 [facility] Serum DNA double strand anti body assay (units/volume)Ordered By: Nicole Barrientos on 07-31-2023 DNA double strand Ab Qn (S) Not Reportable [facility] Serum Scl-70 antibody assay (units/volume)Ordered By: Nicole Barrientos on 07-31-2023 SCL-70 extractable nuclear Ab Qn (S) Not Reportable [facility] XR Lumbar spine Views W flex ion and W extensionon 07-31-2023 IMPRESSION: Mild levoscoliosis. Residential Real Estate Agent: LOKI Transcribe Date/Time: Jul 31 2023 7:12A Dictated by : NINA GARCÍA MD This examination was interpreted and the report reviewed and electronically signed by: NINA GARCÍA MD on Jul 31 2023 7:14AM EST [facility] * * *Final Report* * * DATE OF EXAM: Jul 26 2023 10:41AM ATX 5231 - XR LUMBAR 4V AP/LAT/ FLEX/EXT / PROCEDURE REASON: Lumbar pain * * * * Physician Interpretation * * * * EXAM TITLE: XR LUMBAR 4V AP/LAT/ FLEX/EXT DATE: 07/26/2023 COMPARISON: None. CLINICAL INDICATION/HISTORY: Low back pain extending down the legs TECHNIQUE: Upright AP, neutral lateral, flexion lateral and extension lateral views FINDINGS: Mild levo scoliosis. No spondylolisthesis is present. The vertebral bodies are normal in height without fracture or compression deformity. No significant degenerative spondylosis. Normal sacroiliac joints. [facility] * * *Final Report* * * DATE OF EXAM: Jul 26 2023 10:41AM ATX 5231 - XR LUMBAR 4V AP/LAT/ FLEX/EXT / PROCEDURE REASON: Lumbar pain * * * * Physician Interpretation * * * * EXAM TITLE: XR LUMBAR 4V AP/LAT/ FLEX/EXT DATE: 07/26/2023 COMPARISON: None. CLINICAL INDICATION/HISTORY: Low back pain extending down the legs TECHNIQUE: Upright AP, neutral lateral, flexion lateral and extension lateral views FINDINGS: Mild levo scoliosis. No spondylolisthesis is present. The vertebral bodies are normal in height without fracture or compression deformity. No significant degenerative spondylosis. Normal sacroiliac joints. IMPRESSION IMPRESSION: Mild levoscoliosis. Residential Real Estate Agent: [facility] Transcribe Date/Time: Jul 31 2023 7:12A Dictated by : NINA GARCÍA MD This examination was interpreted and the report reviewed and electronically signed by: NINA GARCÍA MD on Jul 31 2023 7:14AM [facility] XR Lumbar spine Views W flex ion and W extensionOrdered By: [facility] Provider on 07-31-2023 [facility] CNOVon 07-26-2023 CNOV Office Visit (AMY Islas) NAHED JACKSON ([id number]) 1990 F Date Time Provider Department 07/26/23 10:30 AM ZEYNEP LANCE During your visit today, we recorded the following information about you: Pulse Respiration Blood pressure Weight 114/minute 20/minute 153/110 139.7 kg Height 1.753 m Zeynep Lance MD 07/26/2023 11:14 AM Signed NEUROSURGERY CONSULT NOTE Zeynep Lance MD Date of visit: July 26, 2023 Patient Name: Ms.Mary Kati Jackson Date of : 1990 Current Age: [age] year old Sex: female MRN/E# [id number] Chief Complaint: Low back pain HISTORY OF PRESENT ILLNESS : The patient is a 33 year old female with no relevant past medical history who is referred by [facility] for neurosurgical evaluation. The patient presented to [facility] on 07/18/2023 with complaints of a 3 week history of low back pain that began when she bent over. She had taken Tramadol, muscle relaxants, and Prednisone for pain with minimal relief. Denied incontinence, saddle anesthesia, and weakness. Patient reported that she had recently had x-rays per her PCP and no acute injuries were noted. She reported that she had plans to start working with PT. She was instructed to follow up outpatient with neurosurgery and her PCP. She was discharged instable condition. She presents today with x-ray imaging. She states that a few weeks ago, she bent over and began experiencing severe low back pain. Her pain radiates to her left groin and left anterior thigh. She states that she had one episode in which she was experiencing pain in her right groin and anterior thigh as well. Denies numbness, tingling, incontinence, falls. She reports subjective weakness in her bilateral hip flexors. Her biggest complaint is of her low back pain. She has taken multiple oral medications without relief. She is set to start physical therapy next week. She presents today for image review, evaluation and plan of care. Symptoms: Low back pain greater than leg pain intermittent radicular pain in the anterior thigh bilaterally left greater than right DERMATOMAL DISTRIBUTION: Right: L3 Left: L3 PREVIOUS CONSERVATIVE TREATMENTS: Naproxen Prednisone Tramadol Muscle Relaxants PREVIOUS SURGERY: None Surgical Risk Factors: Smoking Status: no Diabetic: No Antiplatelet/anticoagulant: no Alcohol: rare BMI: 45.63 PAIN EVALUATION 07/26/2023 1047 Pain Level: 9 Pain Location: Back-Lower Description: Aching Duration Units: Weeks Frequency: Continuous Intervention/Comfort measure: Relaxation;Reposition History reviewed. No pertinent past medical history. PAST SURGICAL HISTORY Procedure Laterality Date APPENDECTOMY 2011 APPENDECTOMY HX PAST SURGICAL HISTORY OF joshua eye surgery for lazy eye FAMILY HISTORY Problem Relation Age of Onset Hypertension Mother Hypertension Father ALLERGIES Allergen Reactions Tape [Adhesive Tape* Rash Tree Nuts Swelling [place] Other: See Comments Burning in mouth No current outpatient medications on file. No current facility-administered medications for this visit. REVIEW OF SYSTEMS Review of Systems Constitutional: Negative for chills, diaphoresis and fever. HENT: Negative for sinus pressure, sinus pain and trouble swallowing. Eyes: Negative for pain, redness and visual disturbance. Respiratory: Negative for cough, shortness of breath and wheezing. Cardiovascular: Negative for chest pain, palpitations and leg swelling. Gastrointestinal: Negative for constipation, diarrhea and nausea. Endocrine: Negative for cold intolerance and heat intolerance. Genitourinary: Negative for difficulty urinating, frequency and urgency. Musculoskeletal: Positive for back pain. Negative for gait problem and neck pain. Skin: Negative for color change, pallor and rash. Allergic/Immunologic: Negative for environmental allergies, food allergies and immunocompromised state. Neurological: Negative for weakness, numbness and headaches. Hematological: Does not bruise/bleed easily. Psychiatric/Behavioral: Negative for agitation, behavioral problems and confusion. OBJECTIVE: BP 153/110 Pulse 114 Resp 20 Ht 5' 9 (1.75m) Wt 308 lb (139.7kg) SpO2 99% LMP 01/16/2018 BMI 45.46 kg/(m2). PHYSICAL EXAM: Alert and oriented x3 No acute distress Follows commands in all extremities Sensation intact to light touch No Shelton's, clonus, and negative babinski Able to ambulate without assistance Positive leg raise test on the left side No SI tenderness Negative Jovan's Normal gait STRENGTH: Upper Extremity Strength Exam Right Left Elbow Flexion 5/5 5/5 Elbow Extension 5/5 5/5 Finger Flexion 5/5 5/5 Finger Extension 5/5 5/5 Finger Abduction 5/5 5/5 Lower Extremity Strength Exam Right Left Hip Flexion 5/5 5/5 Knee Flexion 5/5 5/5 Knee Extension 5/5 5/5 (more content not included)... Normal [facility] XR LUMBAR 4V AP/LAT/ FLEX/EX Ton 07-26-2023 XR LUMBAR 4V AP/LAT/ FLEX/EXT * * *Final Report* * * DATE OF EXAM: Jul 26 2023 10:41AM ATX [id number] - XR LUMBAR 4V AP/LAT/ FLEX/EXT / PROCEDURE REASON: Lumbar pain * * * * Physician Interpretation * * * * EXAM TITLE: XR LUMBAR 4V AP/LAT/ FLEX/EXT DATE: 07/26/2023 COMPARISON: None. CLINICAL INDICATION/HISTORY: Low back pain extending down the legs TECHNIQUE: Upright AP, neutral lateral, flexion lateral and extension lateral views FINDINGS: Mild levo scoliosis. No spondylolisthesis is present. The vertebral bodies are normal in height without fracture or compression deformity. No significant degenerative spondylosis. Normal sacroiliac joints. IMPRESSION: Mild levoscoliosis. Residential Real Estate Agent: PSCB Transcribe Date/Time: Jul 31 2023 7:12A Dictated by : NINA GARCÍA MD This examination was interpreted and the report reviewed and electronically signed by: NINA GARCÍA MD on Jul 31 2023 7:14AM EST [id number] Normal [facility] XR Lumbar spine Views W flex ion and W extensionon 07-26-2023 Radiology Study observation (narrative) [facility] ED NOTEon 07-18-2023 ED NOTE HNO ID: [id number] Author: JAROD TORRES RN Service: Emergency Medicine Author Type: Registered Nurse Type: ED Notes Filed: 07/18/2023 12:16 Note Text: Patient presents to the ED with increased LBP over 3 weeks. Patient has been seen 3 times for the pain. She was taking Flexeril (finished) and still taking Mobic. She is crying with pain, and unable to sit. Xrays have been done. Pain is mid to left lower back with some pain radiating to the front left thigh. Denies numbness/tingling. No loss of bowel or bladder control. Normal [facility] ED PROV NOTEon 07-18-2023 ED PROV NOTE HNO ID: [id number] Author: ALLYSSA MOLINA PA-C Service: Emergency Medicine Author Type: Physician [employer] Type: ED Provider Notes Filed: 07/18/2023 17:31 Note Text: ED Provider Note Patient Name: Nahed Jackson : 1990 SERVICE DATE: 07/18/23 History Patient presents with: Low Back Pain HPI 33-year-old female presents with low back pain x 2 weeks. The patient states that the pain started 3 weeks ago after she bent over. States the pain is on both sides of her lower back, aching in nature and worse with movement and certain positions. She states that she was on a course of prednisone, tramadol, muscle relaxers but did not have significant improvement with any of these medications. She also has been taking Mobic. She had x-rays of the lower done by her PCP that did not show any significant findings per patient. The patient denies any bowel or bladder incontinence, saddle anesthesias, unexplained fever, history of spine surgery/injection, chronic steroid use, personal history of malignancy, numbness, tingling, weakness, or IV drug use. History reviewed. No pertinent past medical history. PAST SURGICAL HISTORY Procedure Laterality Date APPENDECTOMY 2011 APPENDECTOMY HX PAST SURGICAL HISTORY OF joshua eye surgery for lazy eye FAMILY HISTORY Problem Relation Age of Onset Hypertension Mother Hypertension Father Social History Tobacco Use Smoking status: Never Smokeless tobacco: Never Substance and Sexual Activity Alcohol use: Yes Comment: rare Drug use: No Sexual activity: Not on file ALLERGIES Allergen Reactions Tape [Adhesive Tape* Rash Weldon Other: See Comments Burning in mouth Review of Systems Constitutional: Negative for appetite change, chills and fever. Respiratory: Negative for cough and shortness of breath. Cardiovascular: Negative for chest pain and leg swelling. Gastrointestinal: Negative for abdominal pain, diarrhea, nausea and vomiting. Genitourinary: Negative for dysuria, frequency, hematuria and urgency. Musculoskeletal: Positive for back pain. Negative for arthralgias, myalgias, neck pain and neck stiffness. Neurological: Negative for dizziness, syncope, weakness, light-headedness, numbness and headaches. All other systems reviewed and are negative. Physical Exam Vitals [07/18/23 1216] BP Pulse Temp Temp src Resp SpO2 Weight Height (!) 146/119 (!) 113 36.4 ?C (97.5 ?F) Temporal 22 99 % (!) 140.2 kg (309 lb) -- Physical Exam Vitals and nursing note reviewed. Constitutional: General: She is not in acute distress. Appearance: Normal appearance. She is well-developed. She is not ill-appearing or toxic-appearing. HENT: Head: Normocephalic and atraumatic. Right Ear: External ear normal. Left Ear: External ear normal. Nose: Nose normal. Mouth/Throat: Mouth: Mucous membranes are moist. Eyes: Conjunctiva/sclera: Conjunctivae normal. Pupils: Pupils are equal, round, and reactive to light. Cardiovascular: Rate and Rhythm: Normal rate and regular rhythm. Pulses: Normal pulses. Dorsalis pedis pulses are 2+ on the right side and 2+ on the left side. Posterior tibial pulses are 2+ on the right side and 2+ on the left side. Heart sounds: Normal heart sounds. No murmur heard. Pulmonary: Effort: Pulmonary effort is normal. No respiratory distress. Breath sounds: Normal breath sounds. No stridor. No wheezing, rhonchi or rales. Abdominal: General: There is no distension. Palpations: Abdomen is soft. Tenderness: There is no abdominal tenderness. Musculoskeletal: General: No deformity. Normal range of motion. Cervical back: Normal, normal range of motion and neck supple. No tenderness or bony tenderness. Normal range of motion. Thoracic back: Normal. No bony tenderness. Normal range of motion. Right lower leg: No edema. Left lower leg: No edema. Comments: paraspinal tenderness over the lumbar region. No midline tenderness or skin changes. BUE and BLE strength 5/5. No foot drop. Peripheral pulses and distal sensation intact. DTRs intact. Gait steady. Skin: General: Skin is warm and dry. Capillary Refill: Capillary refill takes less than 2 seconds. Neurological: General: No focal deficit present. Mental Status: She is alert and oriented to person, place, and time. Gait: Gait normal. Psychiatric: Mood and Affect: Mood normal. Behavior: Behavior normal. Thought Content: Thought content normal. Judgment: Judgment normal. Diagnostic Testing ED Labs Ordered and Reviewed - No data to display Procedures ED Course / Clinical Impression Pt presents with low back pain. Per patient she recently had negative imaging of her back and there was no new trauma to her spine. She has no midline tenderness over the spine on exam. She denies concern for . She was given Valium, lidocaine patch, Toradol with some improvement upon reevaluation. She was then given morphin (more content not included)... Normal [facility] Absolute lymphocyte countOrd ered By: Jean-Paul Smith on 07-10-2023 Lymphocytes Auto (Unsp spec) [#/Vol] 3.10 10*3/uL 0.83-4.51 [facility] Automated lymphocyte count a s percentage of total leukocytesOrdered By: Jean-Paul Smith on 07-10-2023 Lymphocytes/100 WBC Auto (Unsp spec) 26.9 % 19-41 [facility] Basophil percentageOrdered B y: Jean-Paul Smith on 07-10-2023 Basophils/100 WBC (Bld) 0.5 % 0-1 [facility] Eosinophils/100 WBC (Bld) 1.6 % 0-5 [facility] Hemoglobin (Bld) [Mass/Vol] 12.9 g/dL 12.0-15.0 [facility] Monocytes/100 WBC (Bld) 6.0 % 0-10 [facility] Neutrophils (Bld) [#/Vol] 7.4 10*3/uL 2.0-7.7 [facility] Neutrophils/100 WBC (Bld) 64.1 % 47-70 [facility] WBC (Bld) [#/Vol] 11.5 10*3/uL 4.4-11.0 [facility] Determination of erythrocyte mean corpuscular volume (MCV)Ordered By: Jean-Paul Smith on 07-10-2023 MCV (RBC) [Entitic vol] 80.4 fL 81-99 [facility] Erythrocyte distribution wid th ratioOrdered By: [facility] on 07-10-2023 Erythrocyte distribution width (RBC) [Ratio] 13.0 % 11.6-14.6 [facility] Erythrocyte distribution wid th standard deviationOrdered By: Jean-Paulrivera Smith on 07-10-2023 Erythrocyte distribution width (RBC) [Entitic vol] 37.2 fL 35.1-43.9 [facility] Erythrocyte sedimentation ra teOrdered By: Jean-Paul Smith on 07-10-2023 ESR (Bld) [Velocity] 14 mm/h 0-30 [facility] Hematocrit Auto (Bld) [Volum e fraction]Ordered By: Jean-Paulrivera Smith on 07-10-2023 Hematocrit (Bld) [Volume fraction] 40.9 % 37-47 [facility] Immature granulocytes/100 WB C Auto (Bld)Ordered By: Hunt Luis on 07-10-2023 Immature granulocytes/100 WBC (Bld) 0.900 % 0.0-0.9 [facility] Comment on above: IG% - Immature Granu locytes (promyelocytes, myelocytes and metamyelocytes) > 1% indicates that a LEFT SHIFT is Present. Iron measurement (mass/mass) Ordered By: Jean-Paulrivera Smith on 07-10-2023 Iron (Unsp spec) [Mass/Mass] 73 ug/dL 50-170 [facility] Laboratory - Chemistry and C hemistry - challengeOrdered By: Hunt Luis on 07-10-2023 Ferritin [Mass/Vol] 46 ng/mL 8-252 [facility] Laboratory - Hematology and Cell countsOrdered By: Jean-Paulrivera Smith on 07-10-2023 MCH (RBC) [Entitic mass] 25.3 pg 27.0-32.0 [facility] MCHC (RBC) [Mass/Vol] 31.5 g/dL 32-36 [facility] Nucleated RBC/100 WBC (Bld) [Ratio] 0 % 0-5 [facility] Platelet mean volume (Bld) [Entitic vol] 8.8 fL 6.2-12.0 [facility] Platelets (Bld) [#/Vol] 502 10*3/uL 150-450 [facility] No Panel InformationOrdered By: Jean-Paul Smith on 07-10-2023 C-Reactive Protein Extended Range 44.60 mg/L 0.0-3.0 [facility] Comment on above: C-Reactive Protein ( CRP) provides useful information for thediagnosis, therapy and monitoring of inflammatory processesand associated diseases. For the evaluation of Relative Riskfor Cardiovascular Disease, a High Sensitivity CRP (HSCRP)should be ordered. JAK2 Mutation Comment . [facility] Comment on above: Technical Component performed at [facility] RTPProfessional Component performed by:Valentín Breen, PhD, FACMGDirector, Molecular [id number], [place] [phone] test was developed and its performance characteristicsdetermined by [employer]. It has not been cleared orapproved by the Food and Drug Administration.Performed at: [facility] [employer] [id number] [facility], [place], [place] [id number] Director: Froylan Belle [facility], Phone: [phone] at: [facility] [employer] [id number], [facility], [place] [id number] Director: pernell Belle [facility], Phone: [phone] JAK2 Mutation (PCR) Comment . [facility] Comment on above: Result: NEGATIVE for the JAK2 V617F mutation.Interpretation: The G to T nucleotide change encoding [id number] mutation was not detected. This result does not ruleout the presence of the JAK2 mutation at a level below thesensitivity of detection of this assay, or the presence ofother mutations within JAK2 not detected by this assay.This result does not rule out a diagnosis of polycythemiavera, essential thrombocythemia or idiopathicmyelofibrosis as the V617F mutation is not detected inall patients with these disorders. JAK2 V617F Reviewed By Comment . [facility] Comment on above: JAK2 is a cytoplasmi c tyrosine kinase with a villarreal role insignal transduction from multiple hematopoietic growthfactor receptors. A point mutation within exon 14 of theJAK2 gene ([id number]) encoding a valine to phenylalaninesubstitution at position 617 of the JAK2 protein (V617F)has been identified in most patients with polycythemiavera, and in about half of those with either essentialthrombocythemia or idiopathic myelofibrosis. The V617F hasalso been detected, although infrequently, in other myeloiddisorders such as chronic myelomonocytic leukemia andchronic neutrophilic luekemia. V617F is an acquiredmutation that alters a highly conserved valine present inthe negative regulatory JH2 domain of the JAK2 proteinand is predicted to dysregulate kinase activity.Methodology:Total genomic DNA was extracted and subjected to TaqManreal-time PCR amplification/detection. Two amplificationproducts per sample were monitored by real-time PCR usingprimers/probes specific to JAK2 wild type (WT) and QGD6bydeki V617F. The [employer] Absolute Quantitation softwarewill compare the patient specimen valuse to the standardcurves and generate percent values for wild type andmutant type. In vitro studies have indicated that thisassay has an analytical sensitivity of 1%.References:James EJ, Phil LM, Werner PJ, et al. Acquiredmutation of the tyrosine kinase JAK2 in humanmyeloproliferative disorders. Lancet. 2005 Jul 22;365(1478):6247-9846. Jesus C, Mayank V, Saira Borden GIACOMO. Aunique clonal JAK2 mutation leading to constitutivesignaling causes polycythaemia vera. Nature. 2005 Aug 31;434(1581):5165-4694.Gilberto R, Rain F, Diandra , et al. A ljgy-eh-akwaqvkd mutation of JAK2 in myeloproliferative disorders.N Engl J Med. 2005 Aug 31; 35217):8343-0692. RBC Auto (Bld) [#/Vol]Ordere d By: Jean-Paul Smith on 07-10-2023 RBC (Bld) [#/Vol] 5.09 10*6/uL 4.2-5.4 [facility] Review by pathologistOrdered By: Jean-Paul Smith on 07-10-2023 Pathologist review Isaac (Unsp spec) [Interp] Reviewed [facility] Comment on above: Previous reported re sult: Kim lopes Edited by: OCTAVIO on 07/12/23:0853Leukocytosis.Thrombocytosis.Clinical correlation necessary.Ant Babcock M.D. 07/12/23This case was reviewed with Dr. Nance who concurs with the above diagnosis. AMENDED REPORT 07/12/23 0853 PATH REV previously reported as: Kim lopes Absolute lymphocyte countOrd ered By: Nicole Barrientos on 06-21-2023 Lymphocytes Auto (Unsp spec) [#/Vol] 2.18 10*3/uL 0.83-4.51 [facility] Automated lymphocyte count a s percentage of total leukocytesOrdered By: Nicole Barrientos on 06-21-2023 Lymphocytes/100 WBC Auto (Unsp spec) 27.7 % 19-41 [facility] Basophil percentageOrdered B y: Nicole Barrientos on 06-21-2023 Basophils/100 WBC (Bld) 0.8 % 0-1 [facility] Bilirubin [Mass/Vol] 0.40 mg/dL 0.20-1.00 [facility] Comment on above: For patients on eltr ombopag therapy, use of Dimension [place] TBIL is not recommended. Chloride [Moles/Vol] 111 mmol/L 98-107 [facility] Cholesterol [Mass/Vol] 199 mg/dL <200 [facility] Comment on above: <200 mg/dL Desirable 200-240 mg/dL Borderline >240 mg/dL High Risk Eosinophils/100 WBC (Bld) 1.9 % 0-5 [facility] Glucose [Mass/Vol] 84 mg/dL 74-106 [facility] Hemoglobin (Bld) [Mass/Vol] 13.5 g/dL 12.0-15.0 [facility] Monocytes/100 WBC (Bld) 6.6 % 0-10 [facility] Neutrophils (Bld) [#/Vol] 4.9 10*3/uL 2.0-7.7 [facility] Neutrophils/100 WBC (Bld) 62.5 % 47-70 [facility] Potassium [Moles/Vol] 3.8 mmol/L 3.5-5.1 [facility] Protein [Mass/Vol] 7.9 g/dL 6.4-8.2 [facility] Sodium [Moles/Vol] 140 mmol/L 136-145 [facility] Triglyceride [Mass/Vol] 156 mg/dL <199 [facility] Comment on above: The drugs N-Acetylcy steine and Metamizole may falsely depress this assay.Serum Triglycerides Reference Interval Normal <150 mg/dL Borderline high 150 - 199 mg/dL High 200 - 499 mg/dL Very High > or = 500 mg/dL WBC (Bld) [#/Vol] 7.9 10*3/uL 4.4-11.0 [facility] Determination of erythrocyte mean corpuscular volume (MCV)Ordered By: Nicole Barrientos on 06-21-2023 MCV (RBC) [Entitic vol] 80.3 fL 81-99 [facility] Erythrocyte distribution wid th ratioOrdered By: Nicole Barrientos on 06-21-2023 Erythrocyte distribution width (RBC) [Ratio] 13.0 % 11.6-14.6 [facility] Erythrocyte distribution wid th standard deviationOrdered By: Nicole Barrientos on 06-21-2023 Erythrocyte distribution width (RBC) [Entitic vol] 37.7 fL 35.1-43.9 [facility] Hematocrit Auto (Bld) [Volum e fraction]Ordered By: Nicole Barrientos on 06-21-2023 Hematocrit (Bld) [Volume fraction] 41.7 % 37-47 [facility] Immature granulocytes/100 WB C Auto (Bld)Ordered By: Nicole Barrientos on 06-21-2023 Immature granulocytes/100 WBC (Bld) 0.500 % 0.0-0.9 [facility] Comment on above: IG% - Immature Granu locytes (promyelocytes, myelocytes and metamyelocytes) > 1% indicates that a LEFT SHIFT is Present. Laboratory - Chemistry and C hemistry - challengeOrdered By: Nicole Barrientos on 06-21-2023 Albumin/Globulin [Mass ratio] 0.7 {ratio} 0.9-2.4 [facility] ALP [Catalytic activity/Vol] 89 U/L 45-117 [facility] ALT [Catalytic activity/Vol] 23 U/L 13-56 [facility] Cholesterol in HDL [Mass/Vol] 44 mg/dL >40 [facility] Comment on above: The drugs N-Acetylcy steine and Metamizole may falsely depress this assay. Reference Range HDL <40 mg/dL Low HDL Cholesterol HDL >or= 60 mg/dL High HDL Cholesterol Cholesterol in LDL [Mass/Vol] 124 mg/dL 0-130 [facility] CO2 [Moles/Vol] 25.0 mmol/L 21.0-32.0 [facility] Globulin (S) [Mass/Vol] 4.7 g/dL 2.2-4.2 [facility] Urea nitrogen/Creatinine [Mass ratio] 16.2 mg/mg 10-20 [facility] Laboratory - Hematology and Cell countsOrdered By: Nicole Barrientos on 06-21-2023 MCH (RBC) [Entitic mass] 26.0 pg 27.0-32.0 [facility] MCHC (RBC) [Mass/Vol] 32.4 g/dL 32-36 [facility] Nucleated RBC/100 WBC (Bld) [Ratio] 0 % 0-5 [facility] Platelet mean volume (Bld) [Entitic vol] 8.7 fL 6.2-12.0 [facility] Platelets (Bld) [#/Vol] 482 10*3/uL 150-450 [facility] No Panel InformationOrdered By: Nicole Barrientos on 06-21-2023 Estimated GFR (MDRD) Amer 128 mL/min >60 [facility] Comment on above: GFR Calc Estimated GFR (MDRD) Non-Af Amer 106 mL/min >60 [facility] Comment on above: Non- GFR Calc VLDL Cholesterol 31 mg/dL 5-40 [facility] RBC Auto (Bld) [#/Vol]Ordere d By: Nicole Barrientos on 06-21-2023 RBC (Bld) [#/Vol] 5.19 10*6/uL 4.2-5.4 [facility] Serum or plasma calcium rosette urement (mass/volume)Ordered By: Nicole Barrientos on 06-21-2023 Calcium [Mass/Vol] 9.2 mg/dL 8.5-10.1 [facility] Serum or plasma creatinine m easurement (mass/volume)Ordered By: Nicole Barrientos on 06-21-2023 Creatinine [Mass/Vol] 0.68 mg/dL 0.55-1.02 [facility] Comment on above: The validity of the calculated GFR & GFRAA in patients over 70 years has not been determined. Clinical correlation is essential. Serum or plasma urea nitroge n measurement (mass/volume)Ordered By: Nicole Barrientos on 06-21-2023 Urea nitrogen [Mass/Vol] 11 mg/dL 7-18 [facility] Thin prep Papanicolaou smear with manual screeningOrdered By: Nicole Barrientos on 06-21-2023 Thin prep Papanicolaou smear with manual screening 3.2 g/dL 3.2-5.0 [facility] Thin prep Papanicolaou smear with manual screening 20 U/L 15-37 [facility] Thin prep Papanicolaou smear with manual screening 4 5-15 [facility] Clostridioides difficile nuc leic acid assay by PCROrdered By: Nicole Barrientos on 05-28-2023 C. difficile DNA JASMINA+probe Ql (Unsp spec) [facility] Ova and parasitesOrdered By: Nicole Barrientos on 05-28-2023 Ova and parasites identified LM Nom (Unsp spec) [facility] Ova and parasites identified LM Nom (Unsp spec) [facility] Stool enteric pathogen panel by probe and target amplification methodOrdered By: Nicole Barrientos on 05-28-2023 Gastrointestinal pathogens panel JASMINA+probe (Stl) [facility] Stool lactoferrin detection by immunoassayOrdered By: Nicole Barrientos on 05-28-2023 Lactoferrin IA Ql (Stl) [facility] Absolute lymphocyte countOrd ered By: Nicole Barrientos on 05-27-2023 Lymphocytes Auto (Unsp spec) [#/Vol] 2.38 10*3/uL 0.83-4.51 [facility] Automated lymphocyte count a s percentage of total leukocytesOrdered By: Nicole Barrientos on 05-27-2023 Lymphocytes/100 WBC Auto (Unsp spec) 26.4 % 19-41 [facility] Basophil percentageOrdered B y: Nicole Barrientos on 05-27-2023 Basophils/100 WBC (Bld) 0.6 % 0-1 [facility] Bilirubin [Mass/Vol] 0.30 mg/dL 0.20-1.00 [facility] Comment on above: For patients on eltr ombopag therapy, use of Dim[place] TBIL is not recommended. Chloride [Moles/Vol] 106 mmol/L 98-107 [facility] Eosinophils/100 WBC (Bld) 1.0 % 0-5 [facility] Glucose [Mass/Vol] 86 mg/dL 74-106 [facility] Hemoglobin (Bld) [Mass/Vol] 13.3 g/dL 12.0-15.0 [facility] Monocytes/100 WBC (Bld) 7.8 % 0-10 [facility] Neutrophils (Bld) [#/Vol] 5.7 10*3/uL 2.0-7.7 [facility] Neutrophils/100 WBC (Bld) 63.8 % 47-70 [facility] Potassium [Moles/Vol] 4.0 mmol/L 3.5-5.1 [facility] Protein [Mass/Vol] 8.0 g/dL 6.4-8.2 [facility] Sodium [Moles/Vol] 138 mmol/L 136-145 [facility] WBC (Bld) [#/Vol] 9.0 10*3/uL 4.4-11.0 [facility] Determination of erythrocyte mean corpuscular volume (MCV)Ordered By: Nicole Barrientos on 05-27-2023 MCV (RBC) [Entitic vol] 80.0 fL 81-99 [facility] Erythrocyte distribution wid th ratioOrdered By: Nicole Barrientos on 05-27-2023 Erythrocyte distribution width (RBC) [Ratio] 13.2 % 11.6-14.6 [facility] Erythrocyte distribution wid th standard deviationOrdered By: Nicole Barrientos on 05-27-2023 Erythrocyte distribution width (RBC) [Entitic vol] 38.1 fL 35.1-43.9 [facility] Hematocrit Auto (Bld) [Volum e fraction]Ordered By: Nicole Barrientos on 05-27-2023 Hematocrit (Bld) [Volume fraction] 41.2 % 37-47 [facility] Immature granulocytes/100 WB C Auto (Bld)Ordered By: Nicole Barrientos on 05-27-2023 Immature granulocytes/100 WBC (Bld) 0.400 % 0.0-0.9 [facility] Comment on above: IG% - Immature Granu locytes (promyelocytes, myelocytes and metamyelocytes) > 1% indicates that a LEFT SHIFT is Present. Laboratory - Chemistry and C hemistry - challengeOrdered By: Nicole Barrientos on 05-27-2023 Albumin/Globulin [Mass ratio] 0.7 {ratio} 0.9-2.4 [facility] ALP [Catalytic activity/Vol] 118 U/L 45-117 [facility] ALT [Catalytic activity/Vol] 40 U/L 13-56 [facility] CO2 [Moles/Vol] 25.0 mmol/L 21.0-32.0 [facility] Globulin (S) [Mass/Vol] 4.7 g/dL 2.2-4.2 [facility] Urea nitrogen/Creatinine [Mass ratio] 13.7 mg/mg 10-20 [facility] Laboratory - Hematology and Cell countsOrdered By: Nicole Barrientos on 05-27-2023 MCH (RBC) [Entitic mass] 25.8 pg 27.0-32.0 [facility] MCHC (RBC) [Mass/Vol] 32.3 g/dL 32-36 [facility] Nucleated RBC/100 WBC (Bld) [Ratio] 0 % 0-5 [facility] Platelets (Bld) [#/Vol] 464 10*3/uL 150-450 [facility] No Panel InformationOrdered By: Nicole Barrientos on 05-27-2023 C-Reactive Protein Extended Range 26.50 mg/L 0.0-3.0 [facility] Comment on above: C-Reactive Protein ( CRP) provides useful information for thediagnosis, therapy and monitoring of inflammatory processesand associated diseases. For the evaluation of Relative Riskfor Cardiovascular Disease, a High Sensitivity CRP (HSCRP)should be ordered. Estimated GFR (MDRD) Amer 133 mL/min >60 [facility] Comment on above: GFR Calc Estimated GFR (MDRD) Non-Af Amer 110 mL/min >60 [facility] Comment on above: Non- GFR Calc Platelet mean volume Estrada-Ec ker (Bld) [Entitic vol]Ordered By: Nicole Barrientos on 05-27-2023 Platelet mean volume (Bld) [Entitic vol] 8.9 fL 6.2-12.0 [facility] RBC Auto (Bld) [#/Vol]Ordere d By: Nicole Barrientos on 05-27-2023 RBC (Bld) [#/Vol] 5.15 10*6/uL 4.2-5.4 [facility] Serum or plasma calcium rosette urement (mass/volume)Ordered By: Nicole Barrientos on 05-27-2023 Calcium [Mass/Vol] 9.2 mg/dL 8.5-10.1 [facility] Serum or plasma creatinine m easurement (mass/volume)Ordered By: Nicole Barrientos on 05-27-2023 Creatinine [Mass/Vol] 0.66 mg/dL 0.55-1.02 [facility] Comment on above: The validity of the calculated GFR & GFRAA in patients over 70 years has not been determined. Clinical correlation is essential. Serum or plasma urea nitroge n measurement (mass/volume)Ordered By: Nicole Barrientos on 05-27-2023 Urea nitrogen [Mass/Vol] 9 mg/dL 7-18 [facility] Thin prep Papanicolaou smear with manual screeningOrdered By: Nicole Barrientos on 05-27-2023 Thin prep Papanicolaou smear with manual screening 3.3 g/dL 3.2-5.0 [facility] Thin prep Papanicolaou smear with manual screening 27 U/L 15-37 [facility] Thin prep Papanicolaou smear with manual screening 7 5-15 [facility] CT HEAD WO IV CONTRASTon CT HEAD WO IV CONTRAST [facility] 1990 [id number] Exam Date/Time: 08/15/2022 19:26 Procedure: CT HEAD WO IV CONTRAST Ordering Provider: RAY MICHAEL Reason For Exam: Headache, sudden, severe CT BRAIN WITHOUT CONTRAST CLINICAL INDICATION: Headache, sudden, severe TECHNIQUE: CT scan of the brain without IV contrast. Multiplanar reformations. Dose reduction was employed with automated exposure control. COMPARISON: None. FINDINGS: No apparent mass or mass effect, hemorrhage, midline shift or hydrocephalus. No evidence of acute cortical infarct. No abnormal, extra-axial fluid or air collection. Osseous calvarium grossly intact. Small mucus retention cyst(s) versus polyp(s) in the right frontal sinus. IMPRESSION: 1. No acute intracranial findings. Report Dictated on Electronically Signed By: You Rodriguez Electronically Signed Date/Time: 08/15/2022 7:55 PM EDT [facility] CT Head WO contraston 2022 1. No acute intracranial findings. Report Dictated on Electronically Signed By: You Rodriguez Electronically Signed Date/Time: 08/15/2022 7:55 PM EDT [facility] Patient Name: NAHED JACKSON : 1990 Exam Date/Time: 08/15/2022 19:26 Procedure: CT HEAD WO IV CONTRAST Ordering Provider: RAY MICHAEL Reason For Exam: Headache, sudden, severe CT BRAIN WITHOUT CONTRAST CLINICAL INDICATION: Headache, sudden, severe TECHNIQUE: CT scan of the brain without IV contrast. Multiplanar reformations. Dose reduction was employed with automated exposure control. COMPARISON: None. FINDINGS: No apparent mass or mass effect, hemorrhage, midline shift or hydrocephalus. No evidence of acute cortical infarct. No abnormal, extra-axial fluid or air collection. Osseous calvarium grossly intact. Small mucus retention cyst(s) versus polyp(s) in the right frontal sinus. [facility] You Rodriguez MD - 08/15/2022 Patient Name: NAHED JACKSON : 1990 Exam Date/Time: 08/15/2022 19:26 Procedure: CT HEAD WO IV CONTRAST Ordering Provider: RAY MICHAEL Reason For Exam: Headache, sudden, severe CT BRAIN WITHOUT CONTRAST CLINICAL INDICATION: Headache, sudden, severe TECHNIQUE: CT scan of the brain without IV contrast. Multiplanar reformations. Dose reduction was employed with automated exposure control. COMPARISON: None. FINDINGS: No apparent mass or mass effect, hemorrhage, midline shift or hydrocephalus. No evidence of acute cortical infarct. No abnormal, extra-axial fluid or air collection. Osseous calvarium grossly intact. Small mucus retention cyst(s) versus polyp(s) in the right frontal sinus. IMPRESSION: 1. No acute intracranial findings. Report Dictated on Electronically Signed By: You Rodriguez Electronically Signed Date/Time: 08/15/2022 7:55 PM EDT [facility] Radiology Study observation (narrative) [facility] CT Head WO contrastOrdered B y: You Rodriguez on 08-15-2022 [facility] [employer] Work Phone: ED Nursing Noteon 08-15-2022 ED Nursing Note Discharge instructio ns, follow up care, and pain management discussed with patient. All questions answered, there are no further questions at this time. RN reviewed concussion signs and symptoms with patient and friend bedside. Patient ambulated off the unit independently at discharge. Kizzy Stephens RN 08/15/222026 [facility] ED Nursing Note Steady gait to room 5. States about [...] MSPs x 4, GCS 15. Works at [employer] [facility] ED Provider Noteon 3 ED Provider Note EMERGENCY DEPARTMENT ENCOUNTER Pt Name: Nahed Jackson Birthdate 1990 Date of evaluation: 08/15/2022 ED Provider: Darron Ray MD CHIEF COMPLAINT Chief Complaint Patient presents with Head Injury HISTORY OF PRESENT ILLNESS (Location/Symptom, Timing/Onset, Context/Setting, Quality, Duration, Modifying Factors, Severity) Note limiting factors. I wore appropriate PPE for the entirety of this encounter. HPI Nahed Jackson is a 32 y.o. female who presents [...] 1851] Temp Heart Rate Resp BP 36.9 ?C (98.4 ?F) 78 14 (!) 156/100 SpO2 Temp Source [...] No sensory deficit. Motor: No weakness. Coordination: Mufqig-Maln-Mfocxp Test normal. Gait: Gait normal. Psychiatric: Mood and Affect: Mood normal. DIAGNOSTIC RESULTS Procedures/EKG: EKG was reviewed by myself. [facility] RAD[facility]Y (Per Emergency Physician): Interpretation per the Radiologist below, if available at the time of this note: CT head wo IV contrast Final Result 1. No acute intracranial findings. Report Dictated on Electronically Signed By: You Rodriguez Electronically Signed Date/Time: 08/15/2022 7:55 P (more content not included)... Normal [facility] STREP A MOLECULAR (POC)on Procedural Control Valid [facility] Strep A (POCT) Positive Abnormal Negative [facility] STREP A MOLECULAR (POC)on Procedural Control Valid [facility] Strep A (POCT) Positive Abnormal Negative [facility] CR Hip w/ Pelvis 2 or 3 View s Righton 01-18-2019 CR Hip w/ Pelvis 2 or 3 Views Right Patient Name: NAHED JACKSON Diagnostic Radiology Exam Date/Time 01/18/2019 16:37:59 EDT Exam CR Hip w/ Pelvis 2 or 3 Views Right n Ordering Physician ELDER ELIZABETH Accession Number [id number] CPT4 Codes 58228 () Reason For Exam gym injury Report HISTORY: Pain, degenerative injury A single AP view of the pelvis and two views of the right hip were obtained. Comparisons: None FINDINGS: No acute fracture is seen. There is no dislocation. The articulations are preserved. No focal soft swelling is appreciated. There is no radioopaque foreign body. IMPRESSION: No acute osseous abnormality or significant degenerative disease. Report Dictated on Final Dictating Physician: MD ISAIAH, CHARLOTTE Fernandez Signed Date and Time: 01/18/2019 5:35 pm Signed by: MD COLON TOM A Transcribed Date and Time: 01/18/2019 5:37 Normal [facility] XR HIP RIGHT (2-3 VIEWS)on 0 01-18-2019 Patient Name: NAHED JACKSON ---Diagnostic Radiology--- Exam Date/Time 01/18/2019 16:37:59 EDT Exam CR Hip w/ Pelvis 2 or 3 Views Right n Ordering Physician ELDER ELIZABETH Accession Number [id number] CPT4 Codes 84181 () Reason For Exam gym injury Report HISTORY: Pain, degenerative injury A single AP view of the pelvis and two views of the right hip were obtained. Comparisons: None FINDINGS: No acute fracture is seen. There is no dislocation. The articulations are preserved. No focal soft swelling is appreciated. There is no radioopaque foreign body. IMPRESSION: No acute osseous abnormality or significant degenerative disease. Report Dictated on --- Final --- Dictating Physician: MD COLON TOM A Signed Date and Time: 01/18/2019 5:35 pm Signed by: MD COLON TOM A Transcribed Date and Time: 01/18/2019 5:37 [facility] [place] [place] Shantanu, [facility] Incoming [facility] - 01/18/2019 5:37 PM EDT Patient Name: NAHED JACKSON ---Diagnostic Radiology--- Exam Date/Time 01/18/2019 16:37:59 EDT Exam CR Hip w/ Pelvis 2 or 3 Views Right n Ordering Physician ELDER ELIZABETH Accession Number [id number] CPT4 Codes 74613 () Reason For Exam gym injury Report HISTORY: Pain, degenerative injury A single AP view of the pelvis and two views of the right hip were obtained. Comparisons: None FINDINGS: No acute fracture is seen. There is no dislocation. The articulations are preserved. No focal soft swelling is appreciated. There is no radioopaque foreign body. IMPRESSION: No acute osseous abnormality or significant degenerative disease. Report Dictated on --- Final --- Dictating Physician: MD COLON TOM A Signed Date and Time: 01/18/2019 5:35 pm Signed by: MD COLON TOM A Transcribed Date and Time: 01/18/2019 5:37 [place], [place] Vital Signs Date Time Vital Sign Value Performing Clinician Facility 08-14-2024 11:59-0400 Body mass index (BMI) [Ratio] 48.59 kg/m2 Jean-Paul Slabaugh PA-C Work Phone: [facility] 08-14-2024 11:59-0400 Body temperature 97 [degF] Jean-Paul Slabaugh PA-C Work Phone: [facility] 08-14-2024 11:59-0400 Body weight 145.85 kg Jean-Paul Slabaugh PA-C Work Phone: [facility] 08-14-2024 11:59-0400 Diastolic blood pressure 92 mm[Hg] Jean-Paul Slabaugh PA-C Work Phone: [facility] 08-14-2024 11:59-0400 Heart rate 81 /min Jean-Paul Slabaugh PA-C Work Phone: [facility] 08-14-2024 11:59-0400 Respiratory rate 16 /min Jean-Paul Slabaugh PA-C Work Phone: [facility] 08-14-2024 11:59-0400 SaO2% (BldA) [Mass fraction] 99 % Jean-Paul Slabaugh PA-C Work Phone: [facility] 08-14-2024 11:59-0400 Systolic blood pressure 138 mm[Hg] Jean-Paul Slabaugh PA-C Work Phone: [facility] 03-26-2024 16:48-0500 Body mass index (BMI) [Ratio] 47.79 kg/m2 Jean-Paul Slabaugh PA-C Work Phone: [facility] 03-26-2024 16:48-0500 Body temperature 97.39 [degF] Jean-Paul Slabaugh PA-C Work Phone: [facility] 03-26-2024 16:48-0500 Body weight 143.45 kg Jean-Paulrivera Smith PA-C Work Phone: [facility] 03-26-2024 16:48-0500 Diastolic blood pressure 110 mm[Hg] Jean-Paulrivera Bishopgh PA-C Work Phone: [facility] 03-26-2024 16:48-0500 Heart rate 89 /min Jean-Paulrivera Meansaugeoffrey PA-C Work Phone: [facility] 03-26-2024 16:48-0500 SaO2% (BldA) [Mass fraction] 99 % Jean-Paulrivera Smith PA-C Work Phone: [facility] 03-26-2024 16:48-0500 Systolic blood pressure 149 mm[Hg] Jean-Paulrivera Smith PA-C Work Phone: [facility] 12-20-2023 10:24-0400 Body height 173.3 cm Giorgio Rocha MD Work Phone: [facility] 12-20-2023 10:24-0400 Body mass index (BMI) [Ratio] 47.6 kg/m2 Giorgio Rocha MD Work Phone: [facility] 12-20-2023 10:24-0400 Body temperature 98.2 [degF] Giorgio Rocha MD Work Phone: [facility] 12-20-2023 10:24-0400 Body weight 142.88 kg Giorgio Rocha MD Work Phone: [facility] 12-20-2023 10:24-0400 Diastolic blood pressure 90 mm[Hg] Giorgio Rocha MD Work Phone: [facility] 12-20-2023 10:24-0400 Heart rate 81 /min Giorgio Rocha MD Work Phone: [facility] 12-20-2023 10:24-0400 SaO2% (BldA) [Mass fraction] 98 % Giorgio Rocha MD Work Phone: [facility] 12-20-2023 10:24-0400 Systolic blood pressure 141 mm[Hg] Giorgio Rocha MD Work Phone: [facility] 07-26-2023 10:48-0400 Body height 175.3 cm Zeynep Lance MD Work Phone: [facility] 07-26-2023 10:48-0400 Body weight 139.71 kg Zeynep Lance MD Work Phone: [facility] 07-26-2023 10:48-0400 Diastolic blood pressure 110 mm[Hg] Zeynep Lance MD Work Phone: [facility] 07-26-2023 10:48-0400 Heart rate 114 /min Zeynep Lance MD Work Phone: [facility] 07-26-2023 10:48-0400 Respiratory rate 20 /min Zeynep Lance MD Work Phone: [facility] 07-26-2023 10:48-0400 SaO2% (BldA) [Mass fraction] 99 % Zeynep Lance MD Work Phone: [facility] 07-26-2023 10:48-0400 Systolic blood pressure 153 mm[Hg] Zeynep Lance MD Work Phone: [facility] 05-18-2023 12:00-0500 Body height 175.3 cm Leidy Almonte PA-C Work Phone: [facility] 05-18-2023 12:00-0500 Body temperature 98.29 [degF] Leidy GALLEGOSC Work Phone: [facility] 05-18-2023 12:00-0500 Body weight 135.8 kg Leidy Almonte PA-C Work Phone: [facility] 05-18-2023 12:00-0500 Diastolic blood pressure 104 mm[Hg] Leidy Almonte PA-C Work Phone: [facility] 05-18-2023 12:00-0500 Heart rate 113 /min Leidy Almonte PA-C Work Phone: [facility] 05-18-2023 12:00-0500 Respiratory rate 18 /min Leidy Almonte PA-C Work Phone: [facility] 05-18-2023 12:00-0500 SaO2% (BldA) [Mass fraction] 98 % Leidy Almonte PA-C Work Phone: [facility] 05-18-2023 12:00-0500 Systolic blood pressure 141 mm[Hg] Leidy Almonte PA-C Work Phone: [facility] 08-15-2022 20:27-0400 Diastolic blood pressure 94 mm[Hg] Darron Ray MD Work Phone: [facility] 08-15-2022 20:27-0400 Heart rate 79 /min Darron Ray MD Work Phone: [facility] 08-15-2022 20:27-0400 Respiratory rate 15 /min Darron Ray MD Work Phone: [facility] 08-15-2022 20:27-0400 SaO2% (BldA) [Mass fraction] 100 % Darron Ray MD Work Phone: [facility] 08-15-2022 20:27-0400 Systolic blood pressure 147 mm[Hg] Darron Ray MD Work Phone: [facility] 08-15-2022 18:51-0400 Body height 175.3 cm Darron Ray MD Work Phone: [facility] [employer] 08-15-2022 18:51-0400 Body mass index (BMI) [Ratio] 40.02 kg/m2 Darron Ray MD Work Phone: [facility] [employer] 08-15-2022 18:51-0400 Body temperature 98.4 [degF] Darron Ray MD Work Phone: [facility] [employer] 08-15-2022 18:51-0400 Body weight 122.92 kg Darron Ray MD Work Phone: [facility] 06-06-2022 17:59-0500 Body temperature 100.4 [degF] Chery Ball TRANSPORTATION MAINTENANCE SPECIALIST.FAMILY SERVICE AIDE Work Phone: [facility] 06-06-2022 17:59-0500 Body weight 132 kg Chery Ball TRANSPORTATION MAINTENANCE SPECIALIST.FAMILY SERVICE AIDE Work Phone: [facility] 06-06-2022 17:59-0500 Diastolic blood pressure 94 mm[Hg] Chery Ball TRANSPORTATION MAINTENANCE SPECIALIST.FAMILY SERVICE AIDE Work Phone: [facility] 06-06-2022 17:59-0500 Heart rate 122 /min Chery Ball TRANSPORTATION MAINTENANCE SPECIALIST.FAMILY SERVICE AIDE Work Phone: [facility] 06-06-2022 17:59-0500 SaO2% (BldA) [Mass fraction] 98 % Chery Ball TRANSPORTATION MAINTENANCE SPECIALIST.FAMILY SERVICE AIDE Work Phone: [facility] 06-06-2022 17:59-0500 Systolic blood pressure 159 mm[Hg] Chery Ball TRANSPORTATION MAINTENANCE SPECIALIST.FAMILY SERVICE AIDE Work Phone: [facility] 04-07-2022 09:29-0500 Body height 175.3 cm Soledad Menendez TRANSPORTATION MAINTENANCE SPECIALIST.FAMILY SERVICE AIDE Work Phone: [facility] 04-07-2022 09:29-0500 Body temperature 97.7 [degF] Soledad Menendez TRANSPORTATION MAINTENANCE SPECIALIST.FAMILY SERVICE AIDE Work Phone: [facility] 04-07-2022 09:29-0500 Body weight 138.8 kg Soledad Menendez TRANSPORTATION MAINTENANCE SPECIALIST.FAMILY SERVICE AIDE Work Phone: [facility] 04-07-2022 09:29-0500 Diastolic blood pressure 76 mm[Hg] Soledad Menendez TRANSPORTATION MAINTENANCE SPECIALIST.FAMILY SERVICE AIDE Work Phone: [facility] 04-07-2022 09:29-0500 Heart rate 114 /min Soledad Menendez TRANSPORTATION MAINTENANCE SPECIALIST.FAMILY SERVICE AIDE Work Phone: [facility] 04-07-2022 09:29-0500 Respiratory rate 18 /min Soledad Menendez TRANSPORTATION MAINTENANCE SPECIALIST.FAMILY SERVICE AIDE Work Phone: [facility] 04-07-2022 09:29-0500 SaO2% (BldA) [Mass fraction] 100 % Soledad Menendez TRANSPORTATION MAINTENANCE SPECIALIST.FAMILY SERVICE AIDE Work Phone: [facility] 04-07-2022 09:29-0500 Systolic blood pressure 129 mm[Hg] Soledad Menendez TRANSPORTATION MAINTENANCE SPECIALIST.FAMILY SERVICE AIDE Work Phone: [facility] 02-06-2022 18:11-0400 Body height 175.3 cm Jean-Paul Slabaugh PA-C Work Phone: [facility] 02-06-2022 18:11-0400 Body weight 138.8 kg Jean-Paul Slabaugh PA-C Work Phone: [facility] 02-06-2022 18:11-0400 Diastolic blood pressure 101 mm[Hg] Jean-Paul Slabaugh PA-C Work Phone: [facility] 02-06-2022 18:11-0400 Heart rate 101 /min Jean-Paul Slabaugh PA-C Work Phone: [facility] 02-06-2022 18:11-0400 Respiratory rate 16 /min Jean-Paul Slabaugh PA-C Work Phone: [facility] 02-06-2022 18:11-0400 SaO2% (BldA) [Mass fraction] 99 % Jean-Paul Slabaugh PA-C Work Phone: [facility] 02-06-2022 18:11-0400 Systolic blood pressure 123 mm[Hg] Jean-Paul Slabaugh PA-C Work Phone: [facility] 01-18-2019 16:52-0400 BP Diastolic 80 mm[Hg] [employer] [facility] [place] 01-18-2019 16:52-0400 BP Systolic 117 mm[Hg] Elder [facility] [place] 01-18-2019 16:52-0400 Pulse (Heart Rate) 68 /min Elder [facility] [place] 01-18-2019 16:52-0400 Pulse Oximetry 99 % [employer] [facility] [place] 01-18-2019 16:52-0400 Respiratory Rate 14 /min Elder House [facility], [place] 01-18-2019 15:48-0400 Body Temperature 97.9 [degF] [facility] [place] 01-18-2019 15:48-0400 Body weight 127.91 kg Elder House [facility], [place] Encounters Encounter Date Encounter Type Care Provider Facility Start: 08-18-2024 Non-patient / Non-visit Dr. Skyler hoyos MD -[facility] Start: 08-18-2024 End: 08-18-[address] Nicole Barrientos DO Work Phone: [facility] Work Phone: Start: 08-18-2024 End: 08-18-[address] Nicole Barrientos DO -Cardiovascular Services Work Phone: Start: 08-18-2024 End: 08-18-2024 ambulatory Nicole Barrientos Facility:[facility] Start: 08-14-2024 End: 08-14-2024 ambulatory HUNGRY HORSE Jim [facility] Facility:[facility] Start: 08-14-2024 End: 08-14-2024 Patient encounter procedure Jean-Paul Smith PA-C Work Phone: [facility] Comment on above: Viral URI with cough (Primary Dx); Acute effusion of right ear Start: 07-06-2024 End: 07-06-2024 E-mail encounter from caregiver Jeannine Gonzalez MS Work Phone: [facility] Start: 07-06-2024 End: 07-06-2024 Patient encounter procedure Jeannine Gonzalez MS Work Phone: [facility] Comment on above: Genetic counseling a ppointment Start: 07-03-2024 End: 07-03-2024 ambulatory CAMRYN LEÓN Facility:[facility] Start: 03-27-2024 End: 03-27-2024 E-mail encounter from caregiver Jeannine Gonzalez MS Work Phone: [facility] Start: 03-27-2024 End: 03-27-2024 Patient encounter procedure Jeannine Gonzalez MS Work Phone: [facility] Comment on above: Genetic counseling a ppointment Start: 03-26-2024 End: 03-26-2024 ambulatory [facility] Facility:[facility] Start: 03-26-2024 End: 03-26-2024 Office outpatient visit 15 minutes Jean-Paul Smith PA-C Work Phone: [facility] Comment on above: Acute bacterial conj unctivitis of right eye (Primary Dx); Eustachian tube dysfunction, bilateral; Irritation of external ear canal, bilateral Start: 01-03-2024 End: 01-03-2024 ambulatory Camryn León Work Phone: Hematology/Oncology Comment on above: Thrombocytosis (Prim beto Dx) Start: 01-03-2024 End: 01-03-2024 Telemedicine consultation with patient Camryn León Work Phone: Hematology/Oncology Start: 01-02-2024 End: 01-13-2024 Telephone encounter Camryn León Work Phone: Hematology/Oncology Start: 12-20-2023 End: 12-20-2023 ambulatory Giorgio Rocha MD Work Phone: Hematology/Oncology Comment on above: Thrombocytosis (Prim beto Dx); Family history of ovarian cancer Start: 12-20-2023 End: 12-20-2023 Patient encounter procedure Giorgio Rocha MD Work Phone: Hematology/Oncology Start: 12-17-2023 Telephone encounter Giorgio mcmahon MD Work Phone: Hematology/Oncology Comment on above: Appointment Start: 12-13-2023 ambulatory Nicole CaliFloyd [place] [facility] [place]: 12-13-2023 End: 12-13-2023 ambulatory [facility] Facility:[facility] Start: 07-31-2023 End: 07-31-2023 ambulatory [facility] Work Phone: Start: 07-31-2023 End: 07-31-2023 Patient encounter procedure [facility] Work Phone: Start: 07-26-2023 End: 07-26-2023 Patient encounter procedure Zeynep Lance MD Work Phone: [facility] Comment on above: Lumbar pain (Primary Dx) Refill Request Start: 07-26-2023 End: 07-26-2023 ambulatory [facility] Facility:[facility] Start: 07-26-2023 End: 07-26-2023 Subsequent hospital visit by physician Yung Chase [facility] Comment on above: Lumbar pain [M54.50] Start: 07-18-2023 End: 07-18-2023 Emergency department patient visit [facility] Facility:[facility] Start: 07-10-2023 End: 07-10-2023 ambulatory [facility] Work Phone: Start: 07-10-2023 End: 07-10-2023 [facility] Work [facility]: Start: 06-21-2023 End: 06-21-2023 ambulatory [facility] Work Phone: Start: 06-21-2023 End: 06-21-2023 Patient encounter procedure [facility] Work Phone: Start: 05-28-2023 End: 05-28-2023 ambulatory [facility] Work Phone: Start: 05-28-2023 End: 05-28-2023 Patient encounter procedure [facility] Work Phone: Start: 05-27-2023 End: 05-27-2023 [facility] Olimp[facility] Start: 05-18-2023 End: 05-18-2023 Patient encounter procedure Leidy Almonte PA-C Work Phone: [facility] Comment on above: Skin rash (Primary D x); Vomiting and diarrhea Start: 08-15-2022 End: 08-16-2022 Emergency department patient visit DARRON RAY [facility] Start: 08-15-2022 End: 08-15-2022 Subsequent hospital visit by physician [facility] [address] Exam Room [address] [facility] [address] Comment on above: Arrived Start: 08-15-2022 End: 08-15-2022 Emergency department patient visit Darron Ray MD Work Phone: [facility] Comment on above: Head injury, initial encounter (Primary Dx) Start: 06-06-2022 End: 06-06-2022 Office outpatient visit 10 minutes Chery Montes De Oca APRN.FAMILY SERVICE AIDE Work Phone: [facility] Comment on above: Strep throat (Primar y Dx) Start: 04-07-2022 End: 04-07-2022 Patient encounter procedure Soledad Menendez APRN.FAMILY SERVICE AIDE Work Phone: [facility] Comment on above: Strep throat (Primar y Dx) Start: 02-06-2022 End: 02-06-2022 Patient encounter procedure Jean-Paul Smith PA-C Work Phone: [facility] Comment on above: Conjunctivitis of ri ght eye, unspecified conjunctivitis type (Primary Dx) Start: 01-18-2019 End: 01-18-2019 Emergency department patient visit Elder Chip Carcamo [facility] Comment on above: Strain of adductor m agnus muscle, right, initial encounter (Primary Dx) Procedures Date Procedure Procedure Detail Performing Clinician Start: 08-14-2024 STREP A MOLECULAR (POC) [facility] Provider Start: 07-26-2023 Radex spine lumbosac ral minimum 4 views Zeynep Lance MD Work Phone: Start: 07-10-2023 X-ray of lumbosacral spine Start: 05-28-2023 Clostridium difficil e detection Start: 05-28-2023 Lactoferrin measurement Start: 05-28-2023 Nucleic acid assay Start: 05-28-2023 Ova OR parasites identification Start: 08-15-2022 Ct head/brain w/o co ntrast material Darron Ray MD Work Phone: Start: 06-06-2022 STREP A MOLECULAR (POC) [facility] Provider Start: 04-07-2022 STREP A MOLECULAR (POC) [facility] Provider Start: 01-18-2019 Radex hip unilateral with pelvis 2-3 views Elder Carcamo Work Phone: Plan of Treatment Date Care Activity Detail Author Start: 2039 Zoster Vaccines (1 of 2) Zoster Vaccines (1 of 2) [employer] Start: 03-24-2025 End: 03-24-2025 Patient encounter procedure [facility] Comment on above: Family history of ovarian cancer [Z80.41 ] Start: 07-03-2024 End: 10-02-2024 CBC W Auto Differential panel - Blood COMPLETE BLOOD COUNT AND DIFFERENTIAL Lab STAT Thrombocytosis Expected: 07/03/2024 (Approximate), Expires: 10/02/2024 [facility] Work Phone: Comment on above: Expected: 07/03/2024 (Approximate), Expi res: 10/02/2024 Start: 07-03-2024 End: 07-03-2024 ambulatory 07/03/2024 9:30 AM EST Results Only [facility] [address] [place] [address] [facility] Start: 01-05-2024 Covid-19 Vaccine ( season) Covid-19 Vaccine ( season) [facility] Start: 01-05-2024 Covid-19 Vaccine ( season) Covid-19 Vaccine ( season) [facility] Start: 01-05-2024 Influenza vaccination Influenza Vaccine (#1) [facility] Start: 01-03-2024 End: 01-03-2024 ambulatory 01/03/2024 12:10 PM EDT [facility] Hematology/Oncology [address] [place] [address] [place] [address] [place] [address] 2 [facility] OV/LABS 12/19* Hematology/Oncology Comment on above: 2 WK OV/LABS 12/19* Start: 12-20-2023 End: 03-20-2024 MYELOPROLIFERATIVE NEOPLASM PANEL BLOOD [facility] Work Phone: Comment on above: Expected: 12/20/2023, Expires: Start: 12-20-2023 End: 12-20-2023 ambulatory 12/20/2023 10:30 AM EDT Visit (SP) Office Hematology/Oncology [address] [place] [address] [place] [address] [place] [address] CARBONATING STONE CLEANER/THROMBOCYTOPENIA/DR. NICOLE BARRIENTOS* Hematology/Oncology Comment on above: CARBONATING STONE CLEANER/THROMBOCYTOPENIA/DR. NICOLE BARRIENTOS* Start: 07-10-2023 [facility] Start: 05-06-2023 Depression Assessment Depression Assessment [facility] Start: 01-04-2023 Covid-19 Vaccine ( season) Covid-19 Vaccine ( season) [facility] Start: 01-04-2023 Influenza vaccination [facility] Start: 05-06-2022 DEPRESSION ASSESSMENT DEPRESSION ASSESSMENT [facility] Start: 01-04-2022 Influenza vaccination INFLUENZA (#1) [facility] Start: 05-06-2021 DEPRESSION ASSESSMENT DEPRESSION ASSESSMENT [facility] Start: 03-24-2021 COVID-19 VACCINE (3 - Booster for Pfizer series) COVID-19 VACCINE (3 - Booster for Pfizer series) [facility] Start: 2019 HPV TESTING HPV TESTING [facility] Start: 2019 Screening for malignant neoplasm of cervix [facility] Start: 01-04-2019 Influenza vaccination Flu vaccine (#1) [facility] [place] Start: 07-29-2015 PAP TESTING PAP TESTING [facility] Start: 07-29-2015 Screening for malignant neoplasm of cervix Pap Testing [facility] Start: 07-28-2013 Screening for malignant neoplasm of cervix Cervical Cancer Screening [facility] Start: 2010 Screening for malignant neoplasm of cervix Pap Smear [facility] Start: 2008 Hepatitis B Vaccine (1 of 3 - 19+ 3-dose series) Hepatitis B Vaccine (1 of 3 - 19+ 3-dose series) [facility] Start: 2008 Urine microalbumin profile DTAP,TDAP,TD (1 - Tdap) [facility] Start: 2007 Anxiety Screening Anxiety Screening [facility] Start: 2007 Depression Screening Depression Screening [facility] Start: 2007 HEPATITIS C SCREENING HEPATITIS C SCREENING [facility] Start: 2007 Hepatitis C screening Hepatitis C Screening [facility] Start: 2007 HIV SCREENING HIV SCREENING [facility] Start: 2007 HIV screening HIV Screening [facility] Start: 02-06-2002 Varicella vaccination Varicella Vaccines (1 of 2 - 2-dose childhood series) [facility] Start: 2000 DTaP/Tdap/Td Vaccines (5 - Tdap) DTaP/Tdap/Td Vaccines (5 - Tdap) [facility] Start: 2000 Urine microalbumin profile DTaP,Tdap,Td Vaccine (5 - Tdap) [facility] Start: 1989 HEPATITIS B (1 of 3 - 3-dose series) HEPATITIS B (1 of 3 - 3-dose series) [facility] Start: 1989 Hepatitis B Vaccine (1 of 3 - 3-dose series) Hepatitis B Vaccine (1 of 3 - 3-dose series) [facility] Start: 1989 Hepatitis B Vaccines (1 of 3 - 3-dose series) Hepatitis B Vaccines (1 of 3 - 3-dose series) [facility] Start: 1989 HIV screening HIV Screening [facility] Cyclic citrullinated peptide IgG Ab [Units/volume] in Serum or Plasma [facility] HLA-B27 [Presence] b y JASMINA with probe detection [facility] JAK2 gene [id number] [Presence] in Blood or Tissue by Molecular genetics method [facility] Ova and parasites identified in Unspecified specimen by Light microscopy [facility] End: 08-21-2024 XR Lumbar spine Views W flexion and W extension XR LUMBAR MOTION 4V AP/LAT/ FLEX/EXT Radiology Routine Lumbar pain 1 Occurrences starting 07/23/2023 until 08/21/2024 [facility] Work Phone: Comment on above: 1 Occurrences starting 07/23/2023 until 08/21/2024 XR Lumbar spine View s W flexion and W extension XR LUMBAR MOTION 4V AP/LAT/ FLEX/EXT Radiology Routine Lumbar pain 07/26/2023 10:[address] [facility] Work Phone: Payers Date Payer Category Payer Self-pay [id number] 2022 Unknown [id number] 2022 Worker's Compensation [employer] [id number] 2022-[place] [address] Worker's Comp [id number] 2021 Private Health Insurance M[employer] SUP [employer] PPO [id number] 2021 Unknown [id number] 2021 Unknown [id number] Unknown ANTHEM [id number] [place] [id number] Unknown [facility] [id number] Unknown [id number] Unknown [id number] Unknown [id number] Unknown [id number] Social History Date Type Detail Facility Start: 09-11-2014 End: 01-18-2019 Tobacco smoking status NHIS Never smoker [facility] Work Phone: Start: 01-18-2019 End: 07-19-2023 Alcohol intake Not Currently [facility] Start: 1990 Sex Assigned At Not on file [place], [place] Start: 03-16-2011 Tobacco use and exposure Smokeless tobacco non-user [facility] Work Phone: Start: 03-03-2019 End: 12-20-2023 Alcohol intake Current drinker of alcohol (finding) [facility] Start: 09-30-2012 History SDOH Alcohol Comment rare [facility] Start: 01-27-2022 End: 08-15-2022 Exposure to SARS-CoV-2 (event) Not sure [facility] Start: 08-15-2022 Alcohol intake Ex-drinker (finding) [facility] Start: 05-18-2023 End: 07-19-2023 History of Social function [facility] National Score (1-100), lower number is lower risk Not on file [facility] Start: 09-11-2014 End: 09-11-2014 Tobacco smoking status NHIS Unknown if ever smoked [facility] Start: 1990 Sex Assigned At Female [facility] Start: 08-22-2024 Sex Female (finding) [facility] Functional Status Date Assessment Result Facility 05-10-2014 Are you deaf, or do you have serious difficulty hearing No 05/10/2014 9:29 AM Lizzy Bach MA No [facility] 05-10-2014 Are you blind, or do you have serious difficulty seeing, even when wearing glasses No 05/10/2014 9:29 AM Lizzy Bach MA No [facility] 05-10-2014 Do you have serious difficulty walking or climbing stairs No 05/10/2014 9:29 AM Lizzy Bach MA No [facility] 05-10-2014 Do you have difficul ty dressing or bathing No 05/10/2014 9:29 AM Lizzy Bach MA [facility] 05-10-2014 Because of a physica l, mental, or emotional condition, do you have difficulty doing errands alone such as visiting a physician's office or shopping No 05/10/2014 9:29 AM Lizzy Bach MA [facility] Mental Status Date Assessment Result Facility 05-10-2014 Because of a physica l, mental, or emotional condition, do you have serious difficulty concentrating, remembering, or making decisions No 05/10/2014 9:29 AM Lizzy Bach MA [facility] Clinical Notes 08-28-2011 to 08-14-2024 Patient InstructionsSJean-Paul warren PA-C - 08/14/2024 12:12 PM EDTPatient InstructionsSJean-Paul warren PA-C - 03/26/2024 4:56 PM Camryn Pratt - 01/03/2024 2:40 PM EDTPatient Instructions Note Date & Type Note Facility 08-14-2024 Instructions Jean-Paul Smith PA-C - 08/14/2024 12:14 PM EDT ASSESSMENT/PLAN: 1. Viral URI with cough - X 2 days 2. Acute effusion of right ear - - Continue Flonase and decongestants Discussed viral vs bacterial and no need for antibiotics at this time. Encourage fluids, rest. Zyrtec Tylenol and Motrin for pain and fever Saline Nasil spray, Neti Pot, vaporizer, Vicks. Try Cepocol lozenges or Chloraseptic throat spray. Warm salt water gargles. Cough and deep breath- 10x/hr while awake. May use OTC Mucinex (guaifenesin) as directed for cough Call PCP if sx worsen or no better. If symptoms worsen, or new symptoms develop go to ER. If you have worsening of breathing or breathing changes- go to ER. If you have persistent fever unrelieved by Tylenol/Motrin- go to the ER. Follow up as needed. Pt agreeable with plan. Barriers to learning: none. Jean-Paul Smith PA-C documented in this encounter [facility] 08-14-2024 Note HNO ID: [id number] Author: JEAN-PAUL SMITH PA-C Service: ? Author Type: Physician [employer] Type: Progress Notes Filed: 08/14/2024 13:31 Note Text: [facility] Subjective Nahed Jackson is a 34 year old female. Patient presents with: Sore Throat: Sore throat, congestion, fatigue Surgical mask and gloves worn for all in-person care. 08/14/2024 Patient presents with: Sore Throat: Sore throat, congestion, fatigue The patient is 34 year old here for acute onset URI symptoms x 2 days. HPI per the patient. The patient complains of cough and sinus congestion/pressure/drainage x 2 days. Right ear feels full and pressure. HAs crackling sounds. NO ear pain. Denies fever, chills, sweats, body aches, or fatigue. Patient denies wheezing, shortness of breath, increased WOB, or chest pain. No n/v/d, NESS, or rash. Reviewed outpt charts- h/o thrombocytosis and back pain COVID exposure: none Influenza exposure: none RSV exposure: none Covid Immunization Dates Current Care Gaps Covid-19 Vaccine ( season) Overdue since 01/05/2024 01/27/2021 Outside Immunization: COVID-19, mRNA, LNP-S, PF, 30 mcg/0.3 mL dose 01/06/2021 Outside Immunization: COVID-19, mRNA, LNP-S, PF, 30 mcg/0.3 mL dose COVID vaccine this year: none Influenza vaccine this year: none RSV vaccine this year: none Asthma: none Pneumonia: none Tobacco: none Pain on scale of 0-10 with 0 being no pain and 10 being greatest pain: 0 Nothing makes the symptoms better. Nothing makes them worse. Self-treatment:. -none The severity is mild and the symptoms are not improving. The patient did not have a similar problem in the last 3 months. The patient did not take any antibiotics in the last 3 months. Barriers to learning: none. Reviewed meds, OTCs, herbals or supplements. Reviewed allergies, medications, social history, and past medical history. PAST MEDICAL HISTORY Diagnosis Date Phlebitis 12/2023 ALLERGIES Tape [Adhesive Tape (Rosins)], Tree Nuts, and Weldon MEDICATIONS Current Outpatient Medications Medication Sig fluticasone (FLONASE) 50 mcg/actuation nasal spray Use 2 Sprays in each nostril once daily. ENILLORING 0.12-0.015 mg/24 hr vaginal ring Use 1 Each vaginally as directed. naproxen (NAPROSYN) 500 mg tablet Take 500 mg by mouth two times a day with meals. No current facility-administered medications for this visit. Medications and allergies reviewed by this provider. SOCIAL HISTORY Social History Tobacco Use Smoking status: Never Smokeless tobacco: Never Vaping Use Vaping status: Never Used Substance Use Topics Alcohol use: Yes Comment: rare Drug use: No Review of Systems Constitutional: Negative. HENT: Positive for congestion, postnasal drip, rhinorrhea, sinus pressure and sore throat. Eyes: Negative. Respiratory: Positive for cough. Cardiovascular: Negative. Gastrointestinal: Negative. Endocrine: Negative. Genitourinary: Negative. Musculoskeletal: Negative. Skin: Negative. Allergic/Immunologic: Negative. Neurological: Negative. Hematological: Negative. Psychiatric/Behavioral: Negative. All other systems reviewed and are negative. Objective BP 138/92 Pulse 81 Temp 36.1 ?C (97 ?F) Resp 16 Wt (!) 145.8 kg (321 lb 8.7 oz) LMP 01/16/2018 (Approximate) SpO2 99% BMI 48.59 kg/m? Physical Exam Vitals reviewed. Constitutional: General: She is not in acute distress. Appearance: Normal appearance. She is well-developed and normal weight. She is not ill-appearing, toxic-appearing or diaphoretic. HENT: Head: Normocephalic and atraumatic. No right periorbital erythema or left periorbital erythema. Salivary Glands: Right salivary gland is not diffusely enlarged or tender. Left salivary gland is not diffusely enlarged or tender. Right Ear: Ear canal and external ear normal. A middle ear effusion is present. Left Ear: Tympanic membrane, ear canal and external ear normal. Nose: Congestion and rhinorrhea present. Rhinorrhea is clear. Right Sinus: No maxillary sinus tenderness or frontal sinus tenderness. Left Sinus: No maxillary sinus tenderness or frontal sinus tenderness. Mouth/Throat: Lips: [place]. No lesions. Mouth: Mucous membranes are moist. [...] discharge. Extraocular Movements: Extraocular movements intact. Conjunctiva/sclera: Conjunctivae normal. Pupils: Pupils are equal, round, and reactive to light. Pupils are equal. Cardiovascular: Rate and Rhythm: Normal rate and regular rhythm. Heart sounds: No (more content not included)... [facility] 08-14-2024 History of Present illness Narrative Images from the original note were not included. [facility] Subjective Nahed Jackson is a 34 year old female. Patient presents with: Sore Throat: Sore throat, congestion, fatigue Surgical mask and gloves worn for all in-person care. 08/14/2024 Patient presents with: Sore Throat: Sore throat, congestion, fatigue The patient is 34 year old here for acute onset URI symptoms x 2 days. HPI per the patient. The patient complains of cough and sinus congestion/pressure/drainage x 2 days. Right ear feels full and pressure. HAs crackling sounds. NO ear pain. Denies fever, chills, sweats, body aches, or fatigue. Patient denies wheezing, shortness of breath, increased WOB, or chest pain. No n/v/d, NESS, or rash. Reviewed outpt charts- h/o thrombocytosis and back pain COVID exposure: none Influenza exposure: none RSV exposure: none Covid Immunization Dates Current Care Gaps Covid-19 Vaccine ( season) Overdue since 01/05/2024 01/27/2021 Outside Immunization: COVID-19, mRNA, LNP-S, PF, 30 mcg/0.3 mL dose 01/06/2021 Outside Immunization: COVID-19, mRNA, LNP-S, PF, 30 mcg/0.3 mL dose COVID vaccine this year: none Influenza vaccine this year: none RSV vaccine this year: none Asthma: none Pneumonia: none Tobacco: none Pain on scale of 0-10 with 0 being no pain and 10 being greatest pain: 0 Nothing makes the symptoms better. Nothing makes them worse. Self-treatment:. -none The severity is mild and the symptoms are not improving. The patient did not have a similar problem in the last 3 months. The patient did not take any antibiotics in the last 3 months. Barriers to learning: none. Reviewed meds, OTCs, herbals or supplements. Reviewed allergies, medications, social history, and past medical history. PAST MEDICAL HISTORY Diagnosis Date Phlebitis 12/2023 ALLERGIES Tape [Adhesive Tape (Rosins)], Tree Nuts, and Weldon MEDICATIONS Current Outpatient Medications Medication Sig fluticasone (FLONASE) 50 mcg/actuation nasal spray Use 2 Sprays in each nostril once daily. ENILLORING 0.12-0.015 mg/24 hr vaginal ring Use 1 Each vaginally as directed. naproxen (NAPROSYN) 500 mg tablet Take 500 mg by mouth two times a day with meals. No current facility-administered medications for this visit. Medications and allergies reviewed by this provider. SOCIAL HISTORY Social History Tobacco Use Smoking status: Never Smokeless tobacco: Never Vaping Use Vaping status: Never Used Substance Use Topics Alcohol use: Yes Comment: rare Drug use: No Review of Systems Constitutional: Negative. HENT: Positive for congestion, postnasal drip, rhinorrhea, sinus pressure and sore throat. Eyes: Negative. Respiratory: Positive for cough. Cardiovascular: Negative. Gastrointestinal: Negative. Endocrine: Negative. Genitourinary: Negative. Musculoskeletal: Negative. Skin: Negative. Allergic/Immunologic: Negative. Neurological: Negative. Hematological: Negative. Psychiatric/Behavioral: Negative. All other systems reviewed and are negative. Objective BP 138/92 Pulse 81 Temp 36.1 C (97 F) Resp 16 Wt (!) 145.8 kg (321 lb 8.7 oz) LMP 01/16/2018 (Approximate) SpO2 99% BMI 48.59 kg/m Physical Exam Vitals reviewed. Constitutional: General: [...] not diffusely enlarged or tender. Right Ear: Ear canal and external ear normal. A middle ear effusion is present. Left Ear: Tympanic membrane, ear canal and external ear normal. Nose: Congestion and rhinorrhea present. Rhinorrhea is clear. Right Sinus: No maxillary sinus tenderness or frontal sinus tenderness. Left Sinus: No maxillary sinus tenderness or frontal sinus tenderness. Mouth/Throat: Lips: [place]. No lesions. Mouth: Mucous membranes are moist. [...] discharge. Extraocular Movements: Extraocular movements intact. Conjunctiva/sclera: Conjunctivae normal. Pupils: Pupils are equal, round, and reactive to light. Pupils are equal. Cardiovascular: Rate and Rhythm: Normal rate and [...] normal. Behavior: Behavior is cooperative. ASSESSMENT/PLAN: 1. Viral URI with cough - ICD9: 465.9, ICD10: J06.9 (primary diagnosis) X 2 days - STREP A MOLECULAR- negative - Declines viral testing for COVID/flu/RSV 2. Acute effusion of right ear - ICD9: 381.00, ICD10: H65.191 - Continue Flonase and decongestants Discussed viral vs bacterial and no need for antibiotics at this time. Encourage fluids, rest. Zyrtec Tylenol and Motrin for pain and fever Saline Nasil spray, Neti Pot, vaporizer, Vicks. Try Cepocol lozenges or Chloraseptic throat spray. Warm salt water gargles. Cough and deep breath- 10x/hr while awake. May use OTC Mucinex (guaifenesin) as directed for cough Call PCP if sx worsen or no better. If symptoms worsen, or new symptoms develop go to ER. If you have worsening of breathing or breathing changes- go to ER. If you have persistent fever unrelieved by Tylenol/Motrin- go to the ER. Follow up as needed. Pt agreeable with plan. Barriers to learning: none. Jean-Paul Smith PA-C History and Record Review External record(s) reviewed: prior outpatient record. Findings from review of outpatient records: h/o thrombocytosis and back pain Differential Diagnoses - Viral URI with cough and congestion is more likely for the following reason(s): suggested by H&P - Right ear effusion is more likely for the following reason(s): suggested by H&P - Right otitis media is less likely for the following reason(s): H&P not suggestive - strep pharyngitis is less likely for the following reason(s): H&P not suggestive and laboratory studies not suggestive Additional Tests or Interventions The following testing was considered but ultimately not selected after discussion with patient/family: COVID/influenza/RSV The following medication(s) were considered but not ordered: prednisone Disposition The patient was discharged. OTC Medications were advised: Flonase Decongestants Zyrtec Tylenol and Motrin for pain and fever Saline Nasil spray, Neti Pot, vaporizer, Vicks. Try Cepocol lozenges or Chloraseptic throat spray. Warm salt water gargles. Cough and deep breath- 10x/hr while awake. May use OTC Mucinex (guaifenesin) as directed for cough Medical Decision Making: Problems: Moderate: New problem with uncertain prognosis Data: Unique source(s) for external note(s) reviewed: 1 Unique test result(s) reviewed: 1 Unique test(s) ordered: 1 Risk: Low: Low risk from testing/treatment Moderate: Drug management Medical Decision Making Level: 4 - Moderate I spent a total of 20 minutes on the date of the service which included preparing to see the patient, [id number] patient care, completing clinical documentation, obtaining and/or reviewing separately obtained history, performing a medically appropriate examination, counseling and educating the patient/family/caregiver, ordering medications, tests, or procedures, communicating with other HCPs (not separately reported), and communicating results to the patient/family/caregiver. documented in this encounter [facility] 03-26-2024 Instructions Jean-Paul Smith PA-C - 03/26/2024 4:57 PM EST ASSESSMENT/PLAN: 1. Acute bacterial conjunctivitis of right eye - - OFLOXACIN 0.3 % EYE DROPS 2. Eustachian tube dysfunction, bilateral - - Continue Zyrtec - FLUTICASONE PROPIONATE 50 MCG/ACTUATION NASAL SPRAY,SUSPENSION 3. Irritation of external ear canal, bilateral - I - [id number] 3.5 MG-10,000 UNIT/ML-1 % EAR DROPS,SUSP Discussed OTC: - Wash hands frequently. - Do not [...] and verbalized understanding. Barriers to learning: none. Jean-Paul Smith PA-C documented in this encounter [facility] 03-26-2024 Note HNO ID: [id number] Author: JEAN-PAUL SMITH PA-C Service: ? Author Type: Physician [employer] Type: Progress Notes Filed: 03/26/2024 17:13 Note Text: 03/26/2024 Patient presents with: Eye Problem: Every morning she wakes up and there is eye discharge and this morning she woke up with eye mated shut. Ear Problem: Pain and itching sometimes. SUBJECTIVE: This is a 33 year old that is here today here for several concerns. HPI per patient. Right injected eye with matting and thick discharge x 3-4 days. The eye has been matted shut in the mornings. She does wear contacts. No vision changes or eye pain. No concern for foreign object or trauma. No itchy or watery eyes. 2. She has had bilateral ear pressure and ache off and on for about a month. Comes and goes. She is on Zyrtec for allergies. No ear drainage, ringing, vertigo, or dizziness. Denies cough, sinusitis, sore throat, or other URI/sick symptoms. Denies fever, chills, sweats, or fatigue. Patient denies wheezing, shortness of breath, increased WOB, or chest pain. 3. Bilateral ear canals have been very itchy for about a week. No h/o eczema. No recent swimming. Pain on scale of 0-10 with 0 being no pain and 10 being greatest pain: 0 Nothing makes the symptoms better. Nothing makes them worse. Self-treatment:. Zyrtec The severity is mild and the symptoms are not improving. The patient did not have a similar problem in the last 3 months. The patient did not take any antibiotics in the last 3 months. Barriers to learning: none. Reviewed meds, OTCs, herbals or supplements. Reviewed allergies, medications, social history, and past medical history. PAST MEDICAL HISTORY Diagnosis Date Phlebitis 12/2023 ALLERGIES Tape [Adhesive Tape (Rosins)], Tree Nuts, and Weldon MEDICATIONS Current Outpatient Medications Medication Sig ENILLORING 0.12-0.015 mg/24 hr vaginal ring Use 1 Each vaginally as directed. naproxen (NAPROSYN) 500 mg tablet Take 500 mg by mouth two times a day with meals. fluticasone (FLONASE) 50 mcg/actuation nasal spray Use 2 Sprays in each nostril once daily. ofloxacin (OCUFLOX) 0.3 % ophthalmic solution Use 2 Drops in the right eye three times a day for 7 days. gppsmble-twqhaqnld-kpbgmvxobwwsib (CORTISPORIN) 3.5-10,000-1 mg/mL-unit/mL-% otic suspension Use 3 Drops in the left ear three times a day for 5 days. gabapentin (NEURONTIN) 300 mg capsule Take 1 capsule by mouth three times a day for 30 days. No current facility-administered medications for this visit. Medications and allergies reviewed by this provider SOCIAL HISTORY Social History Tobacco Use Smoking status: Never Smokeless tobacco: Never Vaping Use Vaping status: Never Used Substance Use Topics Alcohol use: Yes Comment: rare Drug use: No REVIEW OF SYSTEMS Review of Systems Constitutional: Negative. HENT: Negative. Ear pressure Ear itching Eyes: Positive for discharge and redness. Negative for photophobia, pain, itching and visual disturbance. Respiratory: Negative. Cardiovascular: Negative. Gastrointestinal: Negative. Endocrine: Negative. Genitourinary: Negative. Musculoskeletal: Negative. Neurological: Negative. Hematological: Negative. Psychiatric/Behavioral: Negative. All other systems reviewed and are negative. OBJECTIVE: BP 149/110 Pulse 89 Temp 36.3 ?C (97.4 ?F) Wt (!) 143.5 kg (316 lb 4 oz) LMP 01/16/2018 (Approximate) SpO2 99% BMI 47.79 kg/m? . Vital signs reviewed by this provider. [...] not diffusely enlarged or tender. Right Ear: Ear canal and external ear normal. No laceration, drainage, swelling or tenderness. No middle ear effusion. There is no impacted cerumen. No foreign body. No mastoid tenderness. No PE tube. No hemotympanum. Tympanic membrane is not injected, scarred, perforated, erythematous, retracted or bulging. Left Ear: Ear canal and external ear normal. No laceration, drainage, swelling or tenderness. No middle ear effusion. There is no impacted cerumen. No foreign body. No mastoid tenderness. No PE tube. No hemotympanum. Tympanic membrane is not injected, scarred, perforated, erythematous, retracted or bulging. Ears: Comments: Bilateral ear canals have dry, flaky skin. No tragus TTP or discomfort with manipulation of the auricle. Nose: Nose normal. No congestion or rhinorrhea. Right Sinus: No maxillary sinus tenderness or frontal sinus tenderness. Left Sinus: No maxillary sinus tenderness or frontal sinus tenderness. Mout (more content not included)... [facility] 03-26-2024 History of Present illness Narrative 03/26/2024 Patient presents with: Eye Problem: Every morning she wakes up and there is eye discharge and this morning she woke up with eye mated shut. Ear Problem: Pain and itching sometimes. SUBJECTIVE: This is a 33 year old that is here today here for several concerns. HPI per patient. Right injected eye with matting and thick discharge x 3-4 days. The eye has been matted shut in the mornings. She does wear contacts. No vision changes or eye pain. No concern for foreign object or trauma. No itchy or watery eyes. 2. She has had bilateral ear pressure and ache off and on for about a month. Comes and goes. She is on Zyrtec for allergies. No ear drainage, ringing, vertigo, or dizziness. Denies cough, sinusitis, sore throat, or other URI/sick symptoms. Denies fever, chills, sweats, or fatigue. Patient denies wheezing, shortness of breath, increased WOB, or chest pain. 3. Bilateral ear canals have been very itchy for about a week. No h/o eczema. No recent swimming. Pain on scale of 0-10 with 0 being no pain and 10 being greatest pain: 0 Nothing makes the symptoms better. Nothing makes them worse. Self-treatment:. Zyrtec The severity is mild and the symptoms are not improving. The patient did not have a similar problem in the last 3 months. The patient did not take any antibiotics in the last 3 months. Barriers to learning: none. Reviewed meds, OTCs, herbals or supplements. Reviewed allergies, medications, social history, and past medical history. PAST MEDICAL HISTORY Diagnosis Date Phlebitis 12/2023 ALLERGIES Tape [Adhesive Tape (Rosins)], Tree Nuts, and Weldon MEDICATIONS Current Outpatient Medications Medication Sig ENILLORING 0.12-0.015 mg/24 hr vaginal ring Use 1 Each vaginally as directed. naproxen (NAPROSYN) 500 mg tablet Take 500 mg by mouth two times a day with meals. fluticasone (FLONASE) 50 mcg/actuation nasal spray Use 2 Sprays in each nostril once daily. ofloxacin (OCUFLOX) 0.3 % ophthalmic solution Use 2 Drops in the right eye three times a day for 7 days. lavbrwgw-xrrowxpsh-nwnyiqjebmdykf (CORTISPORIN) 3.5-10,000-1 mg/mL-unit/mL-% otic suspension Use 3 Drops in the left ear three times a day for 5 days. gabapentin (NEURONTIN) 300 mg capsule Take 1 capsule by mouth three times a day for 30 days. No current facility-administered medications for this visit. Medications and allergies reviewed by this provider SOCIAL HISTORY Social History Tobacco Use Smoking status: Never Smokeless tobacco: Never Vaping Use Vaping status: Never Used Substance Use Topics Alcohol use: Yes Comment: rare Drug use: No REVIEW OF SYSTEMS Review of Systems Constitutional: Negative. HENT: Negative. Ear pressure Ear itching Eyes: Positive for discharge and redness. Negative for photophobia, pain, itching and visual disturbance. Respiratory: Negative. Cardiovascular: Negative. Gastrointestinal: Negative. Endocrine: Negative. Genitourinary: Negative. Musculoskeletal: Negative. Neurological: Negative. Hematological: Negative. Psychiatric/Behavioral: Negative. All other systems reviewed and are negative. OBJECTIVE: BP 149/110 Pulse 89 Temp 36.3 C (97.4 F) Wt (!) 143.5 kg (316 lb 4 oz) LMP 01/16/2018 (Approximate) SpO2 99% BMI 47.79 kg/m . Vital signs reviewed by this [...] not diffusely enlarged or tender. Right Ear: Ear canal and external ear normal. No laceration, drainage, swelling or tenderness. No middle ear effusion. There is no impacted cerumen. No foreign body. No mastoid tenderness. No PE tube. No hemotympanum. Tympanic membrane is not injected, scarred, perforated, erythematous, retracted or bulging. Left Ear: Ear canal and external ear normal. No laceration, drainage, swelling or tenderness. No middle ear effusion. There is no impacted cerumen. No foreign body. No mastoid tenderness. No PE tube. No hemotympanum. Tympanic membrane is not injected, scarred, perforated, erythematous, retracted or bulging. Ears: Comments: Bilateral ear canals have dry, flaky skin. No tragus TTP or discomfort with manipulation of the auricle. Nose: Nose normal. No congestion or rhinorrhea. Right Sinus: No maxillary sinus tenderness or frontal sinus tenderness. Left Sinus: No maxillary sinus tenderness or frontal sinus tenderness. Mouth/Throat: Lips: [place]. No lesions. Mouth: Mucous membranes are moist. No oral lesions. Dentition: No gum lesions. Tongue: No lesions. Tongue does not deviate from midline. Palate: No mass and lesions. Pharynx: Oropharynx is clear. No pharyngeal swelling, oropharyngeal exudate, posterior oropharyngeal erythema or uvula swelling. Tonsils: No tonsillar exudate or tonsillar abscesses. Eyes: General: Lids are normal. No scleral icterus. Right eye: No discharge or hordeolum. Left eye: No discharge or hordeolum. Extraocular Movements: Extraocular movements intact. Right eye: Normal extraocular motion and no nystagmus. Left eye: Normal extraocular motion and no nystagmus. Conjunctiva/sclera: Right eye: Right conjunctiva is injected. Exudate present. No chemosis or hemorrhage. Left eye: Left conjunctiva is not injected. No chemosis, exudate or hemorrhage. Pupils: Pupils are equal, round, and reactive to light. Pupils are equal. Comments: No periorbital erythema, edema, or TTP. No discomfort with EOMs. Cardiovascular: Rate and Rhythm: Normal rate and [...] normal. Behavior: Behavior is cooperative. ASSESSMENT/PLAN: 1. Acute bacterial conjunctivitis of right eye - ICD9: 372.03, ICD10: H10.31 (primary diagnosis) - OFLOXACIN 0.3 % EYE DROPS 2. Eustachian tube dysfunction, bilateral - ICD9: 381.81, ICD10: H69.93 Off and on ear pressure and aching - Continue Zyrtec - FLUTICASONE PROPIONATE 50 MCG/ACTUATION NASAL SPRAY,SUSPENSION 3. Irritation of external ear canal, bilateral - ICD9: 380.89, ICD10: H61.893 - IURQPAZN-AJZRULGDS-[id number] 3.5 MG-10,000 UNIT/ML-1 % EAR DROPS,SUSP Discussed viral vs bacterial since they have other URI symptoms. Will still cover with an antibiotic due to the thick drainage. Discussed prescribing above meds. Discussed OTC: - Wash hands frequently. - Do not [...] and verbalized understanding. Barriers to learning: none. Jean-Paul Smith PA-C Medical Decision Making: Problems: Low: 2+ self-limited or minor problems Moderate: New problem with uncertain prognosis Risk: Low: Low risk from testing/treatment Moderate: Drug management Medical Decision Making Level: 4 - Moderate I spent a total of 20 minutes on the date of the service which included preparing to see the patient, [id number] patient care, completing clinical documentation, obtaining and/or reviewing separately obtained history, performing a medically appropriate examination, counseling and educating the patient/family/caregiver, and ordering medications, tests, or procedures. documented in this encounter [facility] 01-03-2024 Note HNO ID: [id number] Author: CAMRYN LEÓN, ? Service: ? Author Type: Nurse Practitioner Type: Progress Notes Filed: 01/03/2024 14:54 Note Text: VIRTUAL VISIT PROGRESS NOTE This is a virtual visit using MyChart Zoom Video Visit. It required patient-provider interaction for the medical decision making as documented below. I have communicated my name and active licensure. The patient's identity and physical location were verified at the time of this visit. Either the patient or their legal automotive sales representative has been informed of the risks and benefits of -- and alternatives to -- treatment through a remote evaluation and consents to proceed with the evaluation remotely. HISTORY OF PRESENT ILLNESS: Nahed Jackson is a 33 year old female referred for evaluation of thrombocytosis. Looking back, this has been present from at least 2012. Labs reviewed from July 2023, CRP up to 44 when she was having acute back issues. Platelets in 500 range, iron studies nroaml Jak2 was negative Periods are irregular, light Recent right calf pain, US done shows superficial phlebitis. Attributed to how she sits at work. We note family history of ovarian cancer Interval Hx: Lotus presents today via video visit to review lab results. MPN panel negative. Discussed likely reactive. Non smoker, no known sleep apnea. No hx of DVT. Superficial phlebitis has improved. Does not currently take any supplements of vitamins. Repeat CBC in 6 months for stability HISTORY REVIEWED (electronic chart updated): PAST MEDICAL HISTORY 12/2023: Phlebitis PAST SURGICAL HISTORY 05/06/2010: APPENDECTOMY No date: APPENDECTOMY HX 1994: PAST SURGICAL HISTORY OF Comment: joshua eye surgery for lazy eye FAMILY HISTORY Problem Relation Age of Onset Hypertension Mother Hypertension Father Heart Attack Maternal Grandfather Ovarian cancer Paternal Grandmother Alzheimer's Disease Paternal Grandfather Parkinson?s Disease Paternal Grandfather Social History Tobacco Use Smoking status: Never Smokeless tobacco: Never Vaping Use Vaping status: Never Used Substance Use Topics Alcohol use: Yes Comment: rare Drug use: No Current Outpatient Medications Medication Sig ENILLORING 0.12-0.015 mg/24 hr vaginal ring Use 1 Each vaginally as directed. naproxen (NAPROSYN) 500 mg tablet Take 500 mg by mouth two times a day with meals. gabapentin (NEURONTIN) 300 mg capsule Take 1 capsule by mouth three times a day for 30 days. No current facility-administered medications for this visit. ALLERGIES Allergen Reactions Tape [Adhesive Tape* Rash Tree Nuts Swelling [place] Other: See Comments Burning in mouth REVIEW OF SYSTEMS: GENERAL: feeling well without fatigue, no fever RESPIRATORY: no cough, no wheezing or shortness of breath CARDIOVASCULAR: no chest pain, no palpitations HEMATOLOGY/LYMPHOLOGY: negative for prolonged bleeding, no swollen lymph nodes As noted in HPI PHYSICAL EXAMINATION: VIDEO EXAM: (if completed, performed via video enabled technology) No exam performed ASSESSMENT: (D75.839) Thrombocytosis (primary encounter diagnosis) PLAN: Likely reactive 2/2 to elevated BMI Repeat CBC in 6 months for stability Genetics follow up for family hx of ovarian ca Follow up in 1 year with CBC prior I spent a total of 20 minutes on the date of the service which included preparing to see the patient, [id number] patient care, completing clinical documentation, and obtaining and/or reviewing separately obtained history Camryn León APRN.FAMILY SERVICE AIDE Portions of this note including HPI, ROS, impression/plan may have been copied forward as to provide important historical information essential in contributing to medical decision making. Documentation has been reviewed and edited as necessary to support clinical decision making for today's visit and to reflect my own independent evaluation of this patient. [facility] 01-03-2024 History of Present illness Narrative VIRTUAL VISIT PROGRESS NOTE This is a virtual visit using Gifi Zoom Video Visit. It required patient-provider interaction for the medical decision making as documented below. I have communicated my name and active licensure. The patient's identity and physical location were verified at the time of this visit. Either the patient or their legal automotive sales representative has been informed of the risks and benefits of -- and alternatives to -- treatment through a remote evaluation and consents to proceed with the evaluation remotely. HISTORY OF PRESENT ILLNESS: Nahed Jackson is a 33 year old female referred for evaluation of thrombocytosis. Looking back, this has been present from at least 2012. Labs reviewed from July 2023, CRP up to 44 when she was having acute back issues. Platelets in 500 range, iron studies nroaml Jak2 was negative Periods are irregular, light Recent right calf pain, US done shows superficial phlebitis. Attributed to how she sits at work. We note family history of ovarian cancer Interval Hx: Lotus presents today via video visit to review lab results. MPN panel negative. Discussed likely reactive. Non smoker, no known sleep apnea. No hx of DVT. Superficial phlebitis has improved. Does not currently take any supplements of vitamins. Repeat CBC in 6 months for stability HISTORY REVIEWED (electronic chart updated): PAST MEDICAL HISTORY 12/2023: Phlebitis PAST SURGICAL HISTORY 05/06/2010: APPENDECTOMY No date: APPENDECTOMY HX 1994: PAST SURGICAL HISTORY OF Comment: joshua eye surgery for lazy eye FAMILY HISTORY Problem Relation Age of Onset Hypertension Mother Hypertension Father Heart Attack Maternal Grandfather Ovarian cancer Paternal Grandmother Alzheimer's Disease Paternal Grandfather Parkinson s Disease Paternal Grandfather Social History Tobacco Use Smoking status: Never Smokeless tobacco: Never Vaping Use Vaping status: Never Used Substance Use Topics Alcohol use: Yes Comment: rare Drug use: No Current Outpatient Medications Medication Sig ENILLORING 0.12-0.015 mg/24 hr vaginal ring Use 1 Each vaginally as directed. naproxen (NAPROSYN) 500 mg tablet Take 500 mg by mouth two times a day with meals. gabapentin (NEURONTIN) 300 mg capsule Take 1 capsule by mouth three times a day for 30 days. No current facility-administered medications for this visit. ALLERGIES Allergen Reactions Tape [Adhesive Tape* Rash Tree Nuts Swelling [place] Other: See Comments Burning in mouth REVIEW OF SYSTEMS: GENERAL: feeling well without fatigue, no fever RESPIRATORY: no cough, no wheezing or shortness of breath CARDIOVASCULAR: no chest pain, no palpitations HEMATOLOGY/LYMPHOLOGY: negative for prolonged bleeding, no swollen lymph nodes As noted in HPI PHYSICAL EXAMINATION: VIDEO EXAM: (if completed, performed via video enabled technology) No exam performed ASSESSMENT: (D75.839) Thrombocytosis (primary encounter diagnosis) PLAN: Likely reactive 2/2 to elevated BMI Repeat CBC in 6 months for stability Genetics follow up for family hx of ovarian ca Follow up in 1 year with CBC prior I spent a total of 20 minutes on the date of the service which included preparing to see the patient, iett-[id number] patient care, completing clinical documentation, and obtaining and/or reviewing separately obtained history Camryn León APRN.FAMILY SERVICE AIDE Portions of this note including HPI, ROS, impression/plan may have been copied forward as to provide important historical information essential in contributing to medical decision making. Documentation has been reviewed and edited as necessary to support clinical decision making for today's visit and to reflect my own independent evaluation of this patient. documented in this encounter [facility] 01-02-2024 Telephone encounter Note Completed [facility] Work Phone: 01-02-2024 Miscellaneous Notes Completed Images from the original note were not included. Called patient to review labs. No answer. VM recording says Lotus so I did not leave details. PSR: can you please flip her video visit scheduled with Dr. Rocha to me for tomorrow? Thank you! Camryn documented in this encounter [facility] 01-02-2024 Telephone encounter Note Images from the original note were not included. Called patient to review labs. No answer. VM recording says Lotus so I did not leave details. PSR: can you please flip her video visit scheduled with Dr. Rocha to me for tomorrow? Thank you! Camryn [facility] Work Phone: 12-20-2023 Note HNO ID: [id number] Author: GIORGIO ROCHA MD Service: ? Author Type: Physician Type: Progress Notes Filed: 12/20/2023 12:33 Note Text: HISTORY OF PRESENT ILLNESS: Nahed Jackson is a 33 year old female referred for evaluation of thrombocytosis. Looking back, this has been present from at least 2012. Labs reviewed from July 2023, CRP up to 44 when she was having acute back issues. Platelets in 500 range, iron studies nroaml Jak2 was negative Periods are irregular, light Recent right calf pain, US done shows superficial phlebitis. Attributed to how she sits at work. We note family history of ovarian cancer CLINICAL IMPRESSION: Mild thrombocytosis, chronic fairly stable RECOMMENDATION/PLAN: 1. Will check full myeloproliferative panel, also full iron panel 2. We can follow up by phone in 2 weeks 3. Referral to medical genetics given second degree relative with ovarian cancer Written and verbal health teaching given to patient, patient verbalizes understanding and agrees with treatment plan. PAST MEDICAL HISTORY 12/2023: Phlebitis PAST SURGICAL HISTORY 05/06/2010: APPENDECTOMY No date: APPENDECTOMY HX 1994: PAST SURGICAL HISTORY OF Comment: joshua eye surgery for lazy eye FAMILY HISTORY Problem Relation Age of Onset Hypertension Mother Hypertension Father Heart Attack Maternal Grandfather Ovarian cancer Paternal Grandmother Alzheimer's Disease Paternal Grandfather Parkinson?s Disease Paternal Grandfather Social History Tobacco Use Smoking status: Never Smokeless tobacco: Never Vaping Use Vaping Use: Never used Substance Use Topics Alcohol use: Yes Comment: rare Drug use: No ALLERGIES: ALLERGIES Allergen Reactions Tape [Adhesive Tape* Rash Tree Nuts Swelling [place] Other: See Comments Burning in mouth CURRENT OUTPATIENT MEDICATIONS: ENILLORING 0.12-0.015 mg/24 hr vaginal ring Use 1 Each vaginally as directed. naproxen (NAPROSYN) 500 mg tablet Take 500 mg by mouth two times a day with meals. gabapentin (NEURONTIN) 300 mg capsule Take 1 capsule by mouth three times a day for 30 days. REVIEW OF SYSTEMS: GENERAL: No fever, night sweats, weight loss or malaise. All other reviewed and negative other than HPI. PHYSICAL EXAMINATION: VITAL SIGNS: BP 141/90 Pulse 81 Temp (Src) 98.2 (Temporal) Ht 5' 8.209 (1.73m) Wt 315 lb (142.9kg) SpO2 98% LMP 01/16/2018 BMI 47.58 kg/(m2). GENERAL APPEARANCE: Well appearing, in no acute distress, alert and oriented x3, well-hydrated, well nourished. I spent a total of 30 minutes on the date of the service which included preparing to see the patient, [id number] patient care, completing clinical documentation, obtaining and/or reviewing separately obtained history, counseling and educating the patient/family/caregiver, ordering medications, tests, or procedures, independently interpreting results (not separately reported), and communicating results to the patient/family/caregiver. Electronically Signed: Giorgio Rocha MD December 20, 2023 10:37 AM [facility] 12-20-2023 History of Present illness Narrative HISTORY OF PRESENT ILLNESS: Nahed Jackson is a 33 year old female referred for evaluation of thrombocytosis. Looking back, this has been present from at least 2012. Labs reviewed from July 2023, CRP up to 44 when she was having acute back issues. Platelets in 500 range, iron studies nroaml Jak2 was negative Periods are irregular, light Recent right calf pain, US done shows superficial phlebitis. Attributed to how she sits at work. We note family history of ovarian cancer CLINICAL IMPRESSION: Mild thrombocytosis, chronic fairly stable RECOMMENDATION/PLAN: 1. Will check full myeloproliferative panel, also full iron panel 2. We can follow up by phone in 2 weeks 3. Referral to medical genetics given second degree relative with ovarian cancer Written and verbal health teaching given to patient, patient verbalizes understanding and agrees with treatment plan. PAST MEDICAL HISTORY 12/2023: Phlebitis PAST SURGICAL HISTORY 05/06/2010: APPENDECTOMY No date: APPENDECTOMY HX 1994: PAST SURGICAL HISTORY OF Comment: joshua eye surgery for lazy eye FAMILY HISTORY Problem Relation Age of Onset Hypertension Mother Hypertension Father Heart Attack Maternal Grandfather Ovarian cancer Paternal Grandmother Alzheimer's Disease Paternal Grandfather Parkinson s Disease Paternal Grandfather Social History Tobacco Use Smoking status: Never Smokeless tobacco: Never Vaping Use Vaping Use: Never used Substance Use Topics Alcohol use: Yes Comment: rare Drug use: No ALLERGIES: ALLERGIES Allergen Reactions Tape [Adhesive Tape* Rash Tree Nuts Swelling Weldon Other: See Comments Burning in mouth CURRENT OUTPATIENT MEDICATIONS: ENILLORING 0.12-0.015 mg/24 hr vaginal ring Use 1 Each vaginally as directed. naproxen (NAPROSYN) 500 mg tablet Take 500 mg by mouth two times a day with meals. gabapentin (NEURONTIN) 300 mg capsule Take 1 capsule by mouth three times a day for 30 days. REVIEW OF SYSTEMS: GENERAL: No fever, night sweats, weight loss or malaise. All other reviewed and negative other than HPI. PHYSICAL EXAMINATION: VITAL SIGNS: BP 141/90 Pulse 81 Temp (Src) 98.2 (Temporal) Ht 5' 8.209 (1.73m) Wt 315 lb (142.9kg) SpO2 98% LMP 01/16/2018 BMI 47.58 kg/(m^2). GENERAL APPEARANCE: Well appearing, in no acute distress, alert and oriented x3, well-hydrated, well nourished. I spent a total of 30 minutes on the date of the service which included preparing to see the patient, [id number] patient care, completing clinical documentation, obtaining and/or reviewing separately obtained history, counseling and educating the patient/family/caregiver, ordering medications, tests, or procedures, independently interpreting results (not separately reported), and communicating results to the patient/family/caregiver. Electronically Signed: Giorgio Rocha MD December 20, 2023 10:37 AM documented in this encounter [facility] 12-19-2023 Telephone encounter Note Spoke with patient and scheduled for tomorrow. Valerie Vargas [facility] 12-19-2023 Miscellaneous Notes Spoke with patient and scheduled for tomorrow. Valerie Vargas Unable to schedule due to patient at work. Patient is able to talk after 4. 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 NICOLE Kramer documented in this encounter [facility] 12-18-2023 Telephone encounter Note Unable to schedule due to patient at work. Patient is able to talk after 4. 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 NICOLE Kramer [facility] 07-26-2023 Note HNO ID: [id number] Author: ZEYNEP LANCE MD Service: ? Author Type: Physician Type: Progress Notes Filed: 07/26/2023 11:14 Note Text: NEUROSURGERY CONSULT NOTE Zeynep Lance MD Date of visit: July 26, 2023 Patient Name: Ms.Mary Kati Jackson Date of : 1990 Current Age: [age] year old Sex: female MRN/E# [id number] Chief Complaint: Low back pain HISTORY OF PRESENT ILLNESS : The patient is a 33 year old female with no relevant past medical history who is referred by [facility] for neurosurgical evaluation. The patient presented to [facility] on 07/18/2023 with complaints of a 3 week history of low back pain that began when she bent over. She had taken Tramadol, muscle relaxants, and Prednisone for pain with minimal relief. Denied incontinence, saddle anesthesia, and weakness. Patient reported that she had recently had x-rays per her PCP and no acute injuries were noted. She reported that she had plans to start working with PT. She was instructed to follow up outpatient with neurosurgery and her PCP. She was discharged instable condition. She presents today with x-ray imaging. She states that a few weeks ago, she bent over and began experiencing severe low back pain. Her pain radiates to her left groin and left anterior thigh. She states that she had one episode in which she was experiencing pain in her right groin and anterior thigh as well. Denies numbness, tingling, incontinence, falls. She reports subjective weakness in her bilateral hip flexors. Her biggest complaint is of her low back pain. She has taken multiple oral medications without relief. She is set to start physical therapy next week. She presents today for image review, evaluation and plan of care. Symptoms: Low back pain greater than leg pain intermittent radicular pain in the anterior thigh bilaterally left greater than right DERMATOMAL DISTRIBUTION: Right: L3 Left: L3 PREVIOUS CONSERVATIVE TREATMENTS: Naproxen Prednisone Tramadol Muscle Relaxants PREVIOUS SURGERY: None Surgical Risk Factors: Smoking Status: no Diabetic: No Antiplatelet/anticoagulant: no Alcohol: rare BMI: 45.63 PAIN EVALUATION 07/26/2023 1047 Pain Level: 9 Pain Location: Back-Lower Description: Aching Duration Units: Weeks Frequency: Continuous Intervention/Comfort measure: Relaxation;Reposition History reviewed. No pertinent past medical history. PAST SURGICAL HISTORY Procedure Laterality Date APPENDECTOMY 2011 APPENDECTOMY HX PAST SURGICAL HISTORY OF joshua eye surgery for lazy eye FAMILY HISTORY Problem Relation Age of Onset Hypertension Mother Hypertension Father ALLERGIES Allergen Reactions Tape [Adhesive Tape* Rash Tree Nuts Swelling Weldon Other: See Comments Burning in mouth No current outpatient medications on file. No current facility-administered medications for this visit. REVIEW OF SYSTEMS Review of Systems Constitutional: Negative for chills, diaphoresis and fever. HENT: Negative for sinus pressure, sinus pain and trouble swallowing. Eyes: Negative for pain, redness and visual disturbance. Respiratory: Negative for cough, shortness of breath and wheezing. Cardiovascular: Negative for chest pain, palpitations and leg swelling. Gastrointestinal: Negative for constipation, diarrhea and nausea. Endocrine: Negative for cold intolerance and heat intolerance. Genitourinary: Negative for difficulty urinating, frequency and urgency. Musculoskeletal: Positive for back pain. Negative for gait problem and neck pain. Skin: Negative for color change, pallor and rash. Allergic/Immunologic: Negative for environmental allergies, food allergies and immunocompromised state. Neurological: Negative for weakness, numbness and headaches. Hematological: Does not bruise/bleed easily. Psychiatric/Behavioral: Negative for agitation, behavioral problems and confusion. OBJECTIVE: BP 153/110 Pulse 114 Resp 20 Ht 5' 9 (1.75m) Wt 308 lb (139.7kg) SpO2 99% LMP 01/16/2018 BMI 45.46 kg/(m2). PHYSICAL EXAM: Alert and oriented x3 No acute distress Follows commands in all extremities Sensation intact to light touch No Shelton's, clonus, and negative babinski Able to ambulate without assistance Positive leg raise test on the left side No SI tenderness Negative Jovan's Normal gait STRENGTH: Upper Extremity Strength Exam Right Left Elbow Flexion 5/5 5/5 Elbow Extension 5/5 5/5 Finger Flexion 5/5 5/5 Finger Extension 5/5 5/5 Finger Abduction 5/5 5/5 Lower Extremity Strength Exam Right Left Hip Flexion 5/5 5/5 Knee Flexion 5/5 5/5 Knee Extension 5/5 5/5 Dorsiflexion 5/5 5/5 Plantarflexion 5/5 5/5 Reflexes: Reflexes Right Left Biceps C5-C6 +2 +2 Triceps C7-C8 +2 +2 Wrist C5-6 +2 +2 Patellar L3-4 +2 +2 Achilles L5-S1 +2 +2 Data Review IMAGING STUDIES: XR LUMBAR 4V AP/LAT/FLEX/EXT performed on . Findings were noted (more content not included)... [facility] 07-26-2023 Note HNO ID: [id number] Author: JUDSON ROUSE RT(R) Service: ? Author Type: Technologist Type: Progress Notes Filed: 07/26/2023 10:43 Note Text: Radiology Service Progress Note PATIENT NAME: Nahed Jackson DATE OF SERVICE: July 26, 2023 TIME: 10:43 AM PATIENT IDENTITY VERIFICATION COMPLETED USING TWO (2) IDENTIFIERS: Name and Date of confirmed by patient verbally. FALL SCREENING: Has the patient had 2 falls in the last year or 1 fall with injury or currently using an Ambulatory Assistive Device (Walker, Cane, Wheelchair, Crutches, etc.)? No PATIENT GENDER DATA: Female. status: : No status: NO. PATIENT RELEVANT IMPLANT DATA REVIEWED: Not Applicable PATIENT PRESENTS WITH AN IMPLANTABLE OR ATTACHED EXPERIMENTAL PSYCHOLOGIST: No RADIOLOGY DEPARTMENT: General X-ray: Exam(s) Completed: Spine X-Ray(s): Lumbar AP / LAT / L5-S1 / FLEX-EXT PERIPHERAL IV DATA: Not applicable SIGNED BY: RT Hollis(R) July 26, 2023 10:43 AM [facility] 07-26-2023 History of Present illness Narrative NEUROSURGERY CONSULT NOTE Zeynep Lance MD Date of visit: July 26, 2023 Patient Name: Ms.Mary Kati Jackson Date of : 1990 Current Age: [age] year old Sex: female MRN/E# [id number] Chief Complaint: Low back pain HISTORY OF PRESENT ILLNESS : The patient is a 33 year old female with no relevant past medical history who is referred by [facility] for neurosurgical evaluation. The patient presented to [facility] on 07/18/2023 with complaints of a 3 week history of low back pain that began when she bent over. She had taken Tramadol, muscle relaxants, and Prednisone for pain with minimal relief. Denied incontinence, saddle anesthesia, and weakness. Patient reported that she had recently had x-rays per her PCP and no acute injuries were noted. She reported that she had plans to start working with PT. She was instructed to follow up outpatient with neurosurgery and her PCP. She was discharged instable condition. She presents today with x-ray imaging. She states that a few weeks ago, she bent over and began experiencing severe low back pain. Her pain radiates to her left groin and left anterior thigh. She states that she had one episode in which she was experiencing pain in her right groin and anterior thigh as well. Denies numbness, tingling, incontinence, falls. She reports subjective weakness in her bilateral hip flexors. Her biggest complaint is of her low back pain. She has taken multiple oral medications without relief. She is set to start physical therapy next week. She presents today for image review, evaluation and plan of care. Symptoms: Low back pain greater than leg pain intermittent radicular pain in the anterior thigh bilaterally left greater than right DERMATOMAL DISTRIBUTION: Right: L3 Left: L3 PREVIOUS CONSERVATIVE TREATMENTS: Naproxen Prednisone Tramadol Muscle Relaxants PREVIOUS SURGERY: None Surgical Risk Factors: Smoking Status: no Diabetic: No Antiplatelet/anticoagulant: no Alcohol: rare BMI: 45.63 PAIN EVALUATION 07/26/2023 1047 Pain Level: 9 Pain Location: Back-Lower Description: Aching Duration Units: Weeks Frequency: Continuous Intervention/Comfort measure: Relaxation;Reposition History reviewed. No pertinent past medical history. PAST SURGICAL HISTORY Procedure Laterality Date APPENDECTOMY 2011 APPENDECTOMY HX PAST SURGICAL HISTORY OF joshua eye surgery for lazy eye FAMILY HISTORY Problem Relation Age of Onset Hypertension Mother Hypertension Father ALLERGIES Allergen Reactions Tape [Adhesive Tape* Rash Tree Nuts Swelling Weldon Other: See Comments Burning in mouth No current outpatient medications on file. No current facility-administered medications for this visit. REVIEW OF SYSTEMS Review of Systems Constitutional: Negative for chills, diaphoresis and fever. HENT: Negative for sinus pressure, sinus pain and trouble swallowing. Eyes: Negative for pain, redness and visual disturbance. Respiratory: Negative for cough, shortness of breath and wheezing. Cardiovascular: Negative for chest pain, palpitations and leg swelling. Gastrointestinal: Negative for constipation, diarrhea and nausea. Endocrine: Negative for cold intolerance and heat intolerance. Genitourinary: Negative for difficulty urinating, frequency and urgency. Musculoskeletal: Positive for back pain. Negative for gait problem and neck pain. Skin: Negative for color change, pallor and rash. Allergic/Immunologic: Negative for environmental allergies, food allergies and immunocompromised state. Neurological: Negative for weakness, numbness and headaches. Hematological: Does not bruise/bleed easily. Psychiatric/Behavioral: Negative for agitation, behavioral problems and confusion. OBJECTIVE: BP 153/110 Pulse 114 Resp 20 Ht 5' 9 (1.75m) Wt 308 lb (139.7kg) SpO2 99% LMP 01/16/2018 BMI 45.46 kg/(m^2). PHYSICAL EXAM: Alert and oriented x3 No acute distress Follows commands in all extremities Sensation intact to light touch No Shelton's, clonus, and negative babinski Able to ambulate without assistance Positive leg raise test on the left side No SI tenderness Negative Jovan's Normal gait STRENGTH: Upper Extremity Strength Exam Right Left Elbow Flexion 5/5 5/5 Elbow Extension 5/5 5/5 Finger Flexion 5/5 5/5 Finger Extension 5/5 5/5 Finger Abduction 5/5 5/5 Lower Extremity Strength Exam Right Left Hip Flexion 5/5 5/5 Knee Flexion 5/5 5/5 Knee Extension 5/5 5/5 Dorsiflexion 5/5 5/5 Plantarflexion 5/5 5/5 Reflexes: Reflexes Right Left Biceps C5-C6 +2 +2 Triceps C7-C8 +2 +2 Wrist C5-6 +2 +2 Patellar L3-4 +2 +2 Achilles L5-S1 +2 +2 Data Review IMAGING STUDIES: XR LUMBAR 4V AP/LAT/FLEX/EXT performed on . Findings were noted as: No dynamic instability noted ASSESSMENT/PLAN: 33-year-old female with 4 to 5-week history of low back pain with radicular symptoms which started after bending down to feed her cats. Patient has not engaged in mild conservative therapy in the form of multimodal pain medication management with minimal relief. Denies any bowel or bladder dysfunction or any focal neurological deficits. Her x-rays today show no dynamic instability. Her exam is likely worrisome for disc pathology given the radicular nature as well as the positive straight leg test. My recommendation at this point time is for the patient engage in physical therapy. A prescription was written for Flexeril and for gabapentin. Once physical therapy is completed patient will give us a call back to let us know how he is doing and at that point in time we will make a decision whether or not to proceed with continued conservative management were to order an MRI. Attribution: The following portions of the patient's history were reviewed, confirmed, and updated as necessary: allergies, current medications, past family history, past medical history, past social history, past surgical history, problem list, HPI, and ROS obtained by others. Some elements may be copied from a previous office note and have been reviewed/updated where appropriate. All portions reflect current medical decision making from today. The clinical and radiographic findings as well as the risks, benefits and alternatives of treatment have been reviewed in detail with the patient. Advised to call the office if symptoms worsen or new symptoms develop.Patient expressed understanding and is in agreement with plan. Zeynep Lance MD Department of Neurosurgery [facility] This note was partially generated using [employer] voice recognition system, and there may be some incorrect words, spellings, and punctuation that were not noted in checking the note before saving. documented in this encounter [facility] 07-26-2023 History of Present illness Narrative Radiology Service Progress Note PATIENT NAME: Nahed Jackson DATE OF SERVICE: July 26, 2023 TIME: 10:43 AM PATIENT IDENTITY VERIFICATION COMPLETED USING TWO (2) IDENTIFIERS: Name and Date of confirmed by patient verbally. FALL SCREENING: Has the patient had 2 falls in the last year or 1 fall with injury or currently using an Ambulatory Assistive Device (Walker, Cane, Wheelchair, Crutches, etc.)? No PATIENT GENDER DATA: Female. status: : No status: NO. PATIENT RELEVANT IMPLANT DATA REVIEWED: Not Applicable PATIENT PRESENTS WITH AN IMPLANTABLE OR ATTACHED EXPERIMENTAL PSYCHOLOGIST: No RADIOLOGY DEPARTMENT: General X-ray: Exam(s) Completed: Spine X-Ray(s): Lumbar AP / LAT / L5-S1 / FLEX-EXT PERIPHERAL IV DATA: Not applicable SIGNED BY: RT Hollis(R) July 26, 2023 10:43 AM documented in this encounter [facility] 05-18-2023 History of Present illness Narrative Nahed Jackson is a 32 year old female with [...] Tympanic) Resp 18 Ht 175.3 cm (5' 9) Wt 135.8 kg (299 lb 6.2 oz) [...] with the plan and verbalized understanding. Leidy Almonte PA-C documented in this encounter [facility] 08-15-2022 Emergency department Note Discharge instructions, follow up care, and pain management discussed with patient. All questions answered, there are no further questions at this time. RN reviewed concussion signs and symptoms with patient and friend bedside. Patient ambulated off the unit independently at discharge. Kizzy Stephens RN 08/15/222026 [facility] 08-15-2022 Emergency department Note Discharge instructions, follow up care, and pain management discussed with patient. All questions answered, there are no further questions at this time. RN reviewed concussion signs and symptoms with patient and friend bedside. Patient ambulated off the unit independently at discharge. Kizzy Stephens RN 08/15/222026 EMERGENCY DEPARTMENT ENCOUNTER Pt Name: Nahed Jackson Birthdate 1990 Date of evaluation: 08/15/2022 ED Provider: Darron Ray MD CHIEF COMPLAINT Chief Complaint Patient presents with Head Injury HISTORY OF PRESENT ILLNESS (Location/Symptom, Timing/Onset, Context/Setting, Quality, Duration, Modifying Factors, Severity) Note limiting factors. I wore appropriate PPE for the entirety of this encounter. HPI Nahed Jackson is a 32 y.o. female who presents [...] No sensory deficit. Motor: No weakness. Coordination: Fiftyl-Knbr-Shjueb Test normal. Gait: Gait normal. Psychiatric: Mood [...] kg (271 lb) Height: 1.753 m (5' 9) 32-year-old female here after head injury without [...] this to be done. Diagnoses as of 08/15/222016 Head injury, initial encounter The patient presented [...] sepsis, or septic shock (If yes use .sepsiscoremeasure): no FINAL IMPRESSION 1. Head injury, initial encounter DISPOSITION Discharge 08/15/2022 08:13:39 PM PATIENT REFERRED TO: Nicole Fernandez Floyd [address] [facility] [phone] Schedule an appointment as soon as possible [...] MSPs x 4, GCS 15. Works at [employer] documented in this encounter [facility] 08-15-2022 Emergency department Triage note Steady gait [...] MSPs x 4, GCS 15. Works at [employer] [facility] 08-15-2022 Physician Emergency department Note EMERGENCY DEPARTMENT ENCOUNTER Pt Name: Nahed Jackson Birthdate 1990 Date of evaluation: 08/15/2022 ED Provider: Darron Ray MD CHIEF COMPLAINT Chief Complaint Patient presents with Head Injury HISTORY OF PRESENT ILLNESS (Location/Symptom, Timing/Onset, Context/Setting, Quality, Duration, Modifying Factors, Severity) Note limiting factors. I wore appropriate PPE for the entirety of this encounter. HPI Nahed Jackson is a 32 y.o. female who presents [...] No sensory deficit. Motor: No weakness. Coordination: Xzalqn-Vrhq-Irelgb Test normal. Gait: Gait normal. Psychiatric: Mood and Affect: Mood normal. DIAGNOSTIC RESULTS Procedures/EKG: EKG was reviewed by myself. Physician EKG interpretation can be found in [facility] RADIOLOGY (Per Emergency Physician): Interpretation per the Radiologist below, if available at the time of this note: CT head wo IV contrast Final Result 1. No acute intracranial findings. Report Dictated on Workstation: [id number] Electronically Signed By: You Rodriguez Electronically Signed [...] kg (271 lb) Height: 1.753 m (5' 9) 32-year-old female here after head injury without [...] sepsis, or septic shock (If yes use .sepsiscoremeasure): no FINAL IMPRESSION 1. Head injury, initial encounter DISPOSITION Discharge 08/15/2022 08:13:39 PM PATIENT REFERRED TO: Nicole Barrientos [address] [facility] Emil Fernandez [facility] [phone] Schedule an appointment as soon as possible [...] signed) Emergency Medicine Provider Darron Ray MD 08/15/22 2017 [facility] Phone: 06-06-2022 Instructions Chery Montes De Oca APRN.FAMILY SERVICE AIDE - 06/06/2022 6:18 PM EST [facility] [...] primary care provider. documented in this encounter [facility] 06-06-2022 History of Present illness Narrative This note was created using NoteWriter. Subjective Nahed Jackson is a 31 year old female. HPI [...] 60 days. ALLERGIES Tape [Adhesive Tape* Rash Weldon Other: See Comments Comment:Burning in mouth Family [...] coronavirus infection (COVID-19). documented in this encounter [facility] 04-07-2022 Miscellaneous Notes Addended by: SOLEDAD MENENDEZ on: 04/07/2022 10:18 AM Modules accepted: Orders documented in this encounter [facility] 04-07-2022 History of Present illness Narrative This note was created using [employer]. Subjective Nahed Jackson is a 31 year old female. HPI by patient: Nahed Jackson is a 31 year old presenting to [...] 60 days. ALLERGIES Tape [Adhesive Tape* Rash Weldon Other: See Comments Comment:Burning in mouth Family [...] (Temporal) Resp 18 Ht 175.3 cm (5' 9) Wt (!) 138.8 kg (306 lb) LMP [...] which included preparing to see the patient, [id number] patient care, completing clinical documentation, obtaining and/or reviewing separately obtained history, performing a medically appropriate examination, counseling and educating the patient/family/caregiver, and ordering medications, tests, or procedures. This patient encounter involved the screening or treatment of novel coronavirus infection (COVID-19). documented in this encounter [facility] 04-07-2022 Instructions Soledad Menendez APRN.CNP - 04/07/2022 9:30 AM EST (J02.0) [...] or other concerns. documented in this encounter [facility] 02-06-2022 Instructions Jean-Paul Smith PA-C - 02/06/2022 6:20 PM EDT ASSESSMENT/PLAN: [...] and verbalized understanding. Barriers to learning: none. Jean-Paul Smith PA-C documented in this encounter [facility] 02-06-2022 History of Present illness Narrative 02/06/2022 Patient presents with: Eye [...] file. ALLERGIES Tape [Adhesive Tape (Rosins)] and [place] MEDICATIONS Current Outpatient Medications Medication Sig Etonogestrel-Ethinyl [...] in HPI. OBJECTIVE: Ht 175.3 cm (5' 9) Wt (!) 138.8 kg (306 lb) LMP [...] and verbalized understanding. Barriers to learning: none. Jean-Paul Smith PA-C Medical Decision Making: Problems: Moderate: Acute illness with systemic symptoms Risk: Low: Low risk from testing/treatment Moderate: Drug management Medical Decision Making Level: 4 - Moderate I spent a total of 20 minutes on the date of the service which included preparing to see the patient, [id number] patient care, completing clinical documentation, performing a medically appropriate examination, counseling and educating the patient/family/caregiver, and ordering medications, tests, or procedures. documented in this encounter [facility] 08-28-2011 History of Past i llness Narrative Problem Noted Date Resolved Date Pain in joint, shoulder region 08/28/2011 0 08/28/2011 documented as of this encounter (statuses as of 02/06/2022) [facility]04-24-2012 History of Past illness Narrative* Problem Noted Date Resolved Date Pain in joint, shoulder region 08/28/2011 0 08/28/2011 documented as of this encounter (statuses as of 04/07/2022) [facility] History of Past illness Narrative* Problem Noted Date Resolved Date Pain in joint, shoulder region 08/28/2011 0 08/28/2011 documented as of this encounter (statuses as of 06/07/2022) [facility]04-[facility]2012 History of Past illness Narrative* Problem Noted Date Diagnosed Date Resolved Date Pain in joint, shoulder region 08/28/2011 08/28/2011 documented as of this encounter (statuses as of 05/18/2023) [facility] History of Past illness Narrative* Problem Noted Date Diagnosed Date Resolved Date Pain in joint, shoulder region 08/28/2011 08/28/2011 documented as of this encounter (statuses as of 07/26/2023) [facility] History of Past illness Narrative* Problem Noted Date Diagnosed Date Resolved Date Pain in joint, shoulder region 08/28/2011 08/28/2011 documented as of this encounter (statuses as of 07/26/2023) [facility] Diagnosis Conjunctivitis of right eye, unspecified conjunctivitis type- Primary [facility] Diagnosis Strep throat- Primary Streptococcal sore throat [facility] Diagnosis Strep throat- Primary Streptococcal sore throat [facility]* Diagnosis Head injury, initial encounter- Primary documented in this encounter [facility] note* Diagnosis Skin rash- Primary Rash and other nonspecific skin eruption Vomiting and diarrhea Vomiting alone documented in this encounter [facility] noteNo assessment information availableWBrecksville [facility] Work Phone: Evaluation note* Diagnosis Lumbar pain- Primary Lumbago documented in this encounter [facility] note* Diagnosis Thrombocytosis- Primary Essential thrombocythemia Family history of ovarian cancer Family history of malignant neoplasm of ovary documented in this encounter [facility] note* Diagnosis Thrombocytosis- Primary Essential thrombocythemia documented in this encounter [facility] note* Diagnosis Lumbar pain Lumbago documented in this encounter [facility] note* Diagnosis Acute bacterial conjunctivitis of right eye- Primary Eustachian tube dysfunction, bilateral Irritation of external ear canal, bilateral documented in this encounter [facility] note* Diagnosis Viral URI with cough- Primary Acute upper respiratory infections of unspecified site Acute effusion of right ear documented in this encounter [facility] Discharge instructions* Attachments The following attachments cannot be sent through Care Everywhere. * Minor Head Injury, Adult ED ([place]) [facility] Diagnostic Procedure Only (Routine) - Closed Specialty Diagnoses / Procedures Referred By Marisa t Referred To Contact XR IMAGING Diagnoses Lumbar pain Procedures XR LUMBAR MOTION 4V AP/LAT/ FLEX/EXT RADEX SPINE LUMBOSACRAL MINIMUM 4 VIEWS Zeynep Lance MD [address] [place] [address] [place] [address] Referral ID Status Reason Start Date Expiration Date V isits Requested Visits Authorized [id number] Closed Auto-Generate d Referral 07/23/2023 08/21/2024 1 1 [facility] for referral (narrative)* Diagnostic Procedure Only (Routine) - Closed Specialty Diagnoses / Procedures Referred By Marisa t Referred To Contact XR IMAGING Diagnoses Lumbar pain Procedures XR LUMBAR MOTION 4V AP/LAT/ FLEX/EXT RADEX SPINE LUMBOSACRAL MINIMUM 4 VIEWS Zeynep Lance MD [address] [place] [address] [place] [address] Referral ID Status Reason Start Date Expiration Date V isits Requested Visits Authorized [id number] Closed Auto-Generate d Referral 07/23/2023 08/21/2024 1 1 [facility] (narrative)No reason for referral information availableWBrecksville [facility] Work Phone: Reason for visit Narrative* Diagnostic Procedure Only (Routine) - Closed Specialty Diagnoses / Procedures Referred By Marisa gutierrez Referred To Contact XR IMAGING Diagnoses Lumbar pain Procedures XR LUMBAR MOTION 4V AP/LAT/ FLEX/EXT RADEX SPINE LUMBOSACRAL MINIMUM 4 VIEWS Zeynep Lance MD [address] [place] [address] [place] [address] Referral ID Status Reason Start Date Expiration Date V isits Requested Visits Authorized [id number] Closed Auto-Generate d Referral 07/23/2023 08/21/2024 1 1 [facility] Discharge Instructions * Attachments The following attachments cannot be sent through Care Everywhere. * Groin Strain (Jamaican) documented in this encounter Assessments Diagnosis Strain of adductor julien muscle, right, initial encounter- Primary Summary Purpose Family History No Family History Records FoundNo Family History Records FoundNo Family History Records FoundNo Family History Records FoundNo Family History Records Found Advance Directives No Advanced Directives Records Found Advance Directive Response Recorded Date/ Time Living Will No September 11, 2014 2: 34pm Power of Firer Automatic Stoker No September 11, 2014 2:34pm Advance Directive Response Recorded Date/ Time Living Will No September 11, 2014 3: 34pm Power of Firer Automatic Stoker No September 11, 2014 3:34pm Reason for Referral Specialty Diagnoses / Procedures Referred By Marisa gutierrez Referred To Contact Diagnoses Family history of ovarian cancer Procedures CONSULT TO MEDICAL GENETICS - CANCER MEDICAL GENETICS COUNSELING EACH [address] [place] [address] [place] [address] [employer] [place] [address] Referral ID Status Reason Start Date Expiration Date Visits Requested Visits Authorized [id number] Authorized PCP Requested Referral Auto-Generate d Referral 12/20/2023 12/19/2024 1 1 Chief Complaint and Reason for Visit Chief Complaint Admit Date RIGHT CALF PAIN (STAT) August 18, 2024 1:33pm Additional Source Comments Reason for Visit (unrecogniz ed section and content) Reason Comments Leg Pain pain from right groi n to knee medial frontal aspect right thigh after walking had done some rowing exercises this am but no pain at that time Reason Comments Eye Problem Red eye, started [...] of abdomen that will come & goes, Reason Comments New Patient Reason Onset Date Comments Refill Request 07/26/2023 Reason Comments Appointment Reason Comments Results Reason Comments Eye Problem Every morning she wa kes up and there is eye discharge and this morning she woke up with eye mated shut. Ear Problem Pain and itching lucho etimes. Reason Comments Sore Throat Sore throat, congest ion, fatigue INFORMATION SOURCE (unrecogn ized section and content) DATE CREATED AUTHOR 03/02/2019 [employer] DATE CREATED AUTHOR AUTHOR'S ORGANIZ ATION 08/18/2022 [facility] DATE CREATED AUTHOR AUTHOR'S ORGANIZ ATION 08/01/2023 [facility] DATE CREATED AUTHOR AUTHOR'S ORGANIZ ATION 08/16/2024 [facility] DATE CREATED AUTHOR AUTHOR'S ORGANIZ ATION [facility]/2024 [facility] Source Comments (unrecognize d section and content) In the event this informatio n is protected by the Federal Confidentiality of Alcohol and Drug Abuse Patient Records regulations: The Federal rules restrict any use of the information to criminally investigate or prosecute any alcohol or drug abuse patient.[facility] Center[facility] the event this information is protected by the Federal Confidentiality of Alcohol and Drug Abuse Patient Records regulations: The Federal rules restrict any use of the information to criminally investigate or prosecute any alcohol or drug abuse patient.[facility] CenterIn the event this information is protected by the Federal Confidentiality of Alcohol and Drug Abuse Patient Records regulations: The Federal rules restrict any use of the information to criminally investigate or prosecute any alcohol or drug abuse patient.[facility] CenterIn the event this information is protected by the Federal Confidentiality of Alcohol and Drug Abuse Patient Records regulations: The Federal rules restrict any use of the information to criminally investigate or prosecute any alcohol or drug abuse patient.[facility] CenterIn the event this information is protected by the Federal Confidentiality of Alcohol and Drug Abuse Patient Records regulations: The Federal rules restrict any use of the information to criminally investigate or prosecute any alcohol or drug abuse patient.[facility] CenterIn the event this information is protected by the Federal Confidentiality of Alcohol and Drug Abuse Patient Records regulations: The Federal rules restrict any use of the information to criminally investigate or prosecute any alcohol or drug abuse patient.[facility] CenterIn the event this information is protected by the Federal Confidentiality of Alcohol and Drug Abuse Patient Records regulations: The Federal rules restrict any use of the information to criminally investigate or prosecute any alcohol or drug abuse patient.[facility] CenterIn the event this information is protected by the Federal Confidentiality of Alcohol and Drug Abuse Patient Records regulations: The Federal rules restrict any use of the information to criminally investigate or prosecute any alcohol or drug abuse patient.[facility] CenterIn the event this information is protected by the Federal Confidentiality of Alcohol and Drug Abuse Patient Records regulations: The Federal rules restrict any use of the information to criminally investigate or prosecute any alcohol or drug abuse patient.[facility] CenterIn the event this information is protected by the Federal Confidentiality of Alcohol and Drug Abuse Patient Records regulations: The Federal rules restrict any use of the information to criminally investigate or prosecute any alcohol or drug abuse patient.[facility] CenterIn the event this information is protected by the Federal Confidentiality of Alcohol and Drug Abuse Patient Records regulations: The Federal rules restrict any use of the information to criminally investigate or prosecute any alcohol or drug abuse patient.[facility] CenterIn the event this information is protected by the Federal Confidentiality of Alcohol and Drug Abuse Patient Records regulations: The Federal rules restrict any use of the information to criminally investigate or prosecute any alcohol or drug abuse patient.[facility] CenterIn the event this information is protected by the Federal Confidentiality of Alcohol and Drug Abuse Patient Records regulations: The Federal rules restrict any use of the information to criminally investigate or prosecute any alcohol or drug abuse patient.[facility] CenterIn the event this information is protected by the Federal Confidentiality of Alcohol and Drug Abuse Patient Records regulations: The Federal rules restrict any use of the information to criminally investigate or prosecute any alcohol or drug abuse patient.[facility] CenterIn the event this information is protected by the Federal Confidentiality of Alcohol and Drug Abuse Patient Records regulations: The Federal rules restrict any use of the information to criminally investigate or prosecute any alcohol or drug abuse patient.[facility] Care Teams (unrecognized sec tion and content) Fertilizer Loader Relationship Specialty Start Date End Date Nicole Barrientos DO [address] [place] [address] PCP - General Family Medicine 08/21/17 Fertilizer Loader Relationship Specialty Start Date End Date Nicole Barrientos DO [address] [place], [place] [id number] PCP - General Family Medicine 08/21/17 Fertilizer Loader Relationship Specialty Start Date End Date Nicole Barrientos DO [address] [place], [place] [id number] PCP - General Family Medicine 08/21/17 Fertilizer Loader Relationship Specialty Start Date End Date FloydNicole carrillo [address] [place] [phone] PCP - General 01/18/19 Fertilizer Loader Relationship Specialty Start Date End Date Nicole Barrientos Jim [address] [place] [phone] PCP - General 01/18/19 Fertilizer Loader Relationship Specialty Start Date End Date Nicole Barrientos DO [address] [place] [address] PCP - General Family Medicine 08/21/17 Team Status: Active Member Role Status Dates Dr. Nicole Barrientos DO Family Provider Active Dr. Nicole Barrientos DO Primary Care Provider Active Team Status: Inactive Member Role Status Dates Dr. Nicole Barrientos DO Primary Care Provider, Attendin g Provider Active Team Status: Inactive Member Role Status Dates Dr. Nicole Barrientos DO Primary Care Prov ider, Attending Provider, Referring Provider Active Team Status: Inactive Member Role Status Dates Dr. Nicole Barrientos DO Primary Care Provider, Other Pr ovider Active Jean-Paul Smith NP-C Attending Provider, Referring Prov ider Active Fertilizer Loader Relationship Specialty Start Date End Date Nicole Barrientos DO [address] [place] [address] PCP - General Family Medicine 08/21/17 Fertilizer Loader Relationship Specialty Start Date End Date FloydNicole carrillo [address] [place] [address] PCP - General Family Medicine 08/21/17 Fertilizer Loader Relationship Specialty Start Date End Date FloydNicole carrillo [address] [place] [address] PCP - General Family Medicine 08/21/17 Fertilizer Loader Relationship Specialty Start Date End Date FloydNicole mclaughlin [address] [place] [address] PCP - General Family Medicine 08/21/17 Fertilizer Loader Relationship Specialty Start Date End Date Nicole BarrientosDO [address] [place] [address] PCP - General Family Medicine 08/21/17 Fertilizer Loader Relationship Specialty Start Date End Date Nicole Barrientos [address] [place] [address] PCP - General Family Medicine 08/21/17 Fertilizer Loader Relationship Specialty Start Date End Date FloydNicole carrilloDO [address] [place] [address] PCP - General Family Medicine 08/21/17 Team Status: Active Member Role Status Dates Dr. Nicole Barrientos DO Primary Care Provider Active Team Status: Inactive Member Role Status Dates Dr. Nicole Barrientos DO Primary Care Provider Active Start: August 18, 2024 End: August 18, 2024 Dr. Nicole Barrientos DO Attending Provider Active Start: August 18, 2024 End: August 18, 2024 Dr. Nicole Barrientos DO Referring Provider Active Start: August 18, 2024 End: August 18, 2024 Team Status: Active Member Role Status Dates Dr. Nicole Barrientos DO Primary Care Provider Active Start: August 18, 2024 Dr. Skyler Fajardo MD Attending Provider Active S tart: August 18, 2024 Goals (unrecognized section and content) Goals may be documented in a n alternate sectionGoals may be documented in an alternate sectionGoals may be documented in an alternate sectionGoals may be documented in an alternate sectionGoals may be documented in an alternate section FOR RECORDS PERTAINING TO PATIENTS WHO ARE [...] BE BASED ON THE PRIMARY CLINICAL RECORDS. [employer] [facility]. provides no warranty or guarantee of the accuracy or completeness of information in this document.
--- OUTSIDE RECORDS SUMMARY | 2025-02-06 09:06 | XMS RPT_ITS | CCD ---
Author Organization [facility] [employer] Care Team Providers Care Cheesemaker Helper Name Role Phone Nicole Barrientos A Primary Care Provider [phone] DARRON RAY Referring Unavailable FLOYD, NICOLE Primary [...] Propensity to adverse reactions to drug 9 [place], [place] (17 sources) Adhesive Tape; Translations: [ADHESIVE TAPE (ROSINS)] Allergy to substance 3 Rash [facility] (17 sources) walnut allergenic extract; Translations: [WALNUT] Drug Allergy 2 Other: See Comments [facility] Work Phone: (13 sources) tree nut, unspecified; Translations: [TREE NUTS] Propensity to adverse reactions to drug 4 Swelling [facility] (1 source) Adhesive Tape Drug allergy (disorder) 2 [facility] Repository Medications Current Medications Medication Drug [...] for 10 days. Take 1 capsule by [facility] twice daily for 10 days. cetirizine [...] / neomycin 3.5 mg/ml / polymyxin b 16469 unt/ml otic suspension (2 sources) Aminoglycoside Antibacterial, [...] (Normalized) Sig (Original) 21 day ethinyl estradiol 0.042764 mg/hr / etonogestrel 0.005 mg/hr vaginal system [...] By: Skyler Fajardo on 08-19-2024 US Vein [facility] [address] [place] [address] Venous Duplex US, Unilateral 08/18/24 1354 MR#: [id number] Acct: [id number] Name: MANUELSIMEON Rep #:[id number] : 1990 [...] Dictated: 08/18/24 1354 Date Transcribed: 08/19/24 0749 Coater Helper: Signed [facility] Work Phone: Venous Duplex US, Unilateral on 08-18-2024 Venous Duplex US, Unilateral [facility] [address] [place] [address] Venous Duplex US, Unilateral 08/18/24 7355 MR#: [id number] Acct: [id number] Name: NAHED JACKSON Rep #: [id number] : 1990 34 From: Skyler Fajardo MD [...] Dictated: 08/18/24 1354 Date Transcribed: 08/19/24 0749 Coater Helper: Signed [facility] CNOVon 08-14-2024 OV Office Visit (WALKWA ) NAHED JACKSON ([id number]) 1990 F Date Time Provider Department 08/14/24 [...] Tape [Adhesive Tape (Rosins)], Tree Nuts, and [place] MEDICATIONS Current Outpatient Medications Medication Sig fluticasone [...] tenderness or frontal sinus tenderness. Mouth/Throat: Lips: [place]. No lesions. Mouth: Mucous membranes are moist. [...] No d (more content not included)... Normal [facility] STREP A MOLECULAR (POC)on Procedural Control Valid [facility] Strep A (POCT) Negative Negative [facility] CBC W Auto Differential pane l (Bld)on 07-03-2024 Basophils (Bld) [#/Vol] 0.05 10*3/uL Normal <0.11 [facility] Comment on above: Order Comment: Speci men Type: BLOOD SPECIMEN Ordering Facility: [facility] Address: [address] [place] [address] Performed By: #### 5 0190-8, 2276-4, 1987-09 #### [facility] CLIA [id number] [address] [place] [address] [place] [address] [place] Basophils/100 WBC (Bld) 0.5 % Normal [facility] Comment on above: Order Comment: Speci men Type: BLOOD SPECIMEN Ordering Facility: [facility] Address: [address] [place] [address] Performed By: #### 5 0190-8, 2275-08, 1987-09 #### [facility] CLIA [id number] [address] [place] [address] [place] Differential cell count method Nom (Bld) Auto Normal [facility] Comment on above: Order Comment: Speci men Type: BLOOD SPECIMEN Ordering Facility: [facility] Address: [address] [place] [address] Performed By: #### 5 0190-8, 2275-08, 1987-09 #### [facility] CLIA [id number] [address] [place] [address] [place] Eosinophils (Bld) [#/Vol] 0.17 10*3/uL Normal <0.46 [facility] Comment on above: Order Comment: Speci men Type: BLOOD SPECIMEN Ordering Facility: [facility] Address: [address] [place] [address] Performed By: #### 5 0190-8, 2275-08, 1987-09 #### [facility] CLIA [id number] [address] [place] [address] [place] Eosinophils/100 WBC (Bld) 1.7 % Normal [facility] Comment on above: Order Comment: Speci men Type: BLOOD SPECIMEN Ordering Facility: [facility] Address: [address] [place] [address] Performed By: #### 5 0190-8, 2275-08, 1987-09 #### [facility] CLIA [id number] [address] [place] [address] [place] Erythrocyte distribution width (RBC) [Ratio] 13.1 % Normal 11.5-15.0 [facility] Comment on above: Order Comment: Speci men Type: BLOOD SPECIMEN Ordering Facility: [facility] Address: [address] [place] [address] Performed By: #### 5 0190-8, 2275-08, 1987-09 #### [facility] CLIA [id number] [address] [place] [address] [place] Hematocrit (Bld) [Volume fraction] 40.3 % Normal 36.0-46.0 [facility] Comment on above: Order Comment: Speci men Type: BLOOD SPECIMEN Ordering Facility: [facility] Address: [address] [place] [address] Performed By: #### 5 0190-8, 2275-08, 1987-09 #### [facility] CLIA [id number] [address] [place] [address] [place] Hemoglobin (Bld) [Mass/Vol] 13.5 g/dL Normal 11.5-15.5 [facility] Comment on above: Order Comment: Speci men Type: BLOOD SPECIMEN Ordering Facility: [facility] Address: [address] [place] [address] Performed By: #### 5 0190-8, 2275-08, 1987-09 #### [facility] CLIA [id number] [address] [place] [address] [place] Immature granulocytes (Bld) [#/Vol] 0.05 10*3/uL Normal <0.10 [facility] Comment on above: Order Comment: Speci men Type: BLOOD SPECIMEN Ordering Facility: [facility] Address: [address] [place] [address] Performed By: #### 5 0190-8, 2275-08, 1987-09 #### [facility] CLIA [id number] [address] [place] [address] [place] Immature granulocytes/100 WBC (Bld) 0.5 % Normal [facility] Comment on above: Order Comment: Speci men Type: BLOOD SPECIMEN Ordering Facility: [facility] Address: [address] [place] [address] Performed By: #### 5 01908, 2275-08, 1987-09 #### [facility] CLIA [id number] [address] [place] [address] [place] Lymphocytes (Bld) [#/Vol] 3.73 10*3/uL Normal 1.00-4.00 [facility] Comment on above: Order Comment: Speci men Type: BLOOD SPECIMEN Ordering Facility: [facility] Address: [address] [place] [address] Performed By: #### 5 0190-8, 2275-08, 1987-09 #### [facility] CLIA [id number] [address] [place] [address] [place] Lymphocytes/100 WBC (Bld) 37.4 % Normal [facility] Comment on above: Order Comment: Speci men Type: BLOOD SPECIMEN Ordering Facility: [facility] Address: [address] [place] [address] Performed By: #### 5 019-8, 2275-08, 1987-09 #### [facility] CLIA [id number] [address] [place] [address] [place] MCH (RBC) [Entitic mass] 26.2 pg Normal 26.0-34.0 [facility] Comment on above: Order Comment: Speci men Type: BLOOD SPECIMEN Ordering Facility: [facility] Address: [address] [place] [address] Performed By: #### 5 0190-8, 2275-08, 1987-09 #### [facility] CLIA [id number] [address] [place] [address] [place] MCHC (RBC) [Mass/Vol] 33.5 g/dL Normal 30.5-36.0 [facility] Comment on above: Order Comment: Speci men Type: BLOOD SPECIMEN Ordering Facility: [facility] Address: [address] [place] [address] Performed By: #### 5 0190-8, 2275-08, 1987-09 #### [facility] CLIA [id number] [address] [place] [address] [place] MCV (RBC) [Entitic vol] 78.3 fL Low 80.0-100.0 [facility] Comment on above: Order Comment: Speci men Type: BLOOD SPECIMEN Ordering Facility: [facility] Address: [address] [place] [address] Performed By: #### 5 0190-8, 2275-08, 1987-09 #### [facility] CLIA [id number] [address] [place] [address] [place] Monocytes (Bld) [#/Vol] 0.58 10*3/uL Normal <0.87 [facility] Comment on above: Order Comment: Speci men Type: BLOOD SPECIMEN Ordering Facility: [facility] Address: [address] [place] [address] Performed By: #### 5 0190-8, 2275-08, 1987-09 #### [facility] CLIA [id number] [address] [place] [address] [place] Monocytes/100 WBC (Bld) 5.8 % Normal [facility] Comment on above: Order Comment: Speci men Type: BLOOD SPECIMEN Ordering Facility: [facility] Address: [address] [place] [address] Performed By: #### 5 0190-8, 2275-08, 1987-09 #### [facility] CLIA [id number] [address] [place] [address] [place] Neutrophils (Bld) [#/Vol] 5.38 10*3/uL Normal 1.45-7.50 [facility] Comment on above: Order Comment: Speci men Type: BLOOD SPECIMEN Ordering Facility: [facility] Address: [address] [place] [address] Performed By: #### 5 0190-8, 2275-08, 1987-09 #### [facility] CLIA [id number] [address] [place] [address] [place] Neutrophils/100 WBC (Bld) 54.1 % Normal [facility] Comment on above: Order Comment: Speci men Type: BLOOD SPECIMEN Ordering Facility: [facility] Address: [address] [place] [address] Performed By: #### 5 0190-8, 2275-08, 1987-09 #### [facility] CLIA [id number] [address] [place] [address] [place] Nucleated RBC (Bld) [#/Vol] 10*3/uL Normal <0.01 [facility] Comment on above: Order Comment: Speci men Type: BLOOD SPECIMEN Ordering Facility: [facility] Address: [address] [place] [address] Performed By: #### 5 0190-8, 2275-08, 1987-09 #### [facility] CLIA [id number] [address] [place] [address] [place] Nucleated RBC/100 WBC (Bld) [Ratio] 0.0 /100 WBC Normal [facility] Comment on above: Order Comment: Speci men Type: BLOOD SPECIMEN Ordering Facility: [facility] Address: [address] [place] [address] Performed By: #### 5 0190-8, 2275-08, 1987-09 #### [facility] CLIA [id number] [address] [place] [address] [place] Platelet mean volume (Bld) [Entitic vol] 8.4 fL Low 9.0-12.7 [facility] Comment on above: Order Comment: Speci men Type: BLOOD SPECIMEN Ordering Facility: [facility] Address: [address] [place] [address] Performed By: #### 5 0190-8, 2275-08, 1987-09 #### [facility] CLIA [id number] [address] [id number] [address] [place] Platelets (Bld) [#/Vol] 440 10*3/uL High 150-400 [facility] Comment on above: Order Comment: Speci men Type: BLOOD SPECIMEN Ordering Facility: [facility] Address: [address] [place] [address] Performed By: #### 5 0190-8, 2275-08, 1987-09 #### [facility] CLIA [id number] [address] [place] [address] [place] RBC (Bld) [#/Vol] 5.15 10*6/uL Normal 3.90-5.20 [facility] Comment on above: Order Comment: Speci men Type: BLOOD SPECIMEN Ordering Facility: [facility] Address: [address] [place] [address] Performed By: #### 5 0190-8, 2275-08, 1987-09 #### [facility] CLIA [id number] [address] [place] [address] [place] WBC (Bld) [#/Vol] 9.96 10*3/uL Normal 3.70-11.00 [facility] Comment on above: Order Comment: Speci men Type: BLOOD SPECIMEN Ordering Facility: [facility] Address: [address] [place] [address] Performed By: #### 5 0190-8, 2275-08, 1987-09 #### [facility] CLIA [id number] [address] [place] [address] [place] CNOVon 03-26-2024 CNOV Office Visit (WALKWA ) NAHED JACKSON ([id number]) 1990 F Date Time Provider Department 03/26/24 [...] Tape [Adhesive Tape (Rosins)], Tree Nuts, and [place] MEDICATIONS Current Outpatient Medications Medication Sig ENILLORING [...] three times a day for 7 days. cjrxtlhm-lsyrptstj-ehhzgimk tisone (CORTISPORIN) 3.5-10,000-1 mg/mL-unit/mL-% otic suspension Use [...] flaky sk (more content not included)... Normal [facility] CNPNon 01-02-2024 CNPN Telephone (STARR) NAHED JACKSON ([id number]) 1990 F Date Time Provider Department 01/02/24 [...] Status:Closed by CAMRYN LEÓN on 01/13/24 Normal [facility] C-REACTIVE PROTEINon 024 CRP [Mass/Vol] 1.7 mg/dL High NINF - 0.9 mg/dL [facility] CBC W Auto Differential pane l (Bld)on 12-20-2023 Basophils (Bld) [#/Vol] 0.06 10*3/uL [facility] Basophils/100 WBC (Bld) 0.7 % [facility] Differential cell count method Nom (Bld) Auto [facility] Eosinophils (Bld) [#/Vol] 0.10 10*3/uL [facility] Eosinophils/100 WBC (Bld) 1.1 % [facility] Erythrocyte distribution width (RBC) [Ratio] 13.7 % 11.5 - 15.0 % [facility] Hematocrit (Bld) [Volume fraction] 40.9 % 36.0 - 46.0 % [facility] Hemoglobin (Bld) [Mass/Vol] 13.3 g/dL 11.5 - 15.5 g/dL [facility] Immature granulocytes (Bld) [#/Vol] [facility] Immature granulocytes/100 WBC (Bld) 0.2 % [facility] Interpretation and review of laboratory results Abnormal [facility] Lymphocytes (Bld) [#/Vol] 3.48 10*3/uL [facility] Lymphocytes/100 WBC (Bld) 38.0 % [facility] MCH (RBC) [Entitic mass] 25.0 pg Low 26.0 - 34.0 pg [facility] MCHC (RBC) [Mass/Vol] 32.5 g/dL 30.5 - 36.0 g/dL [facility] MCV (RBC) [Entitic vol] 76.9 fL Low 80.0 - 100.0 fL [facility] Monocytes (Bld) [#/Vol] 0.57 10*3/uL [facility] Monocytes/100 WBC (Bld) 6.2 % [facility] Neutrophils (Bld) [#/Vol] 4.93 10*3/uL [facility] Neutrophils/100 WBC (Bld) 53.8 % [facility] Nucleated RBC (Bld) [#/Vol] NINF [facility] Nucleated RBC/100 WBC (Bld) [Ratio] 0.0 % /100 WBC [facility] Platelet mean volume (Bld) [Entitic vol] 8.4 fL Low 9.0 - 12.7 fL [facility] Platelets (Bld) [#/Vol] 466 10*3/uL High [facility] RBC (Bld) [#/Vol] 5.32 10*6/uL High 3.90 - 5.2 0 m/uL [facility] WBC (Bld) [#/Vol] 9.16 10*3/uL [facility] Basophils (Bld) [#/Vol] 0.06 10*3/uL Normal <0.11 [facility] Comment on above: Order Comment: Speci men Type: BLOOD SPECIMEN Ordering Facility: [facility] Address: [address] [place] [address] Performed By: #### 5 7021-8 #### [facility] CLIA [id number] [address] [place] [address] [place] Basophils/100 WBC (Bld) 0.7 % Normal [facility] Comment on above: Order Comment: Speci men Type: BLOOD SPECIMEN Ordering Facility: [facility] Address: [address] [place] [address] Performed By: #### 5 7021-8 #### [facility] CLIA [id number] [address] [place] [address] [place] Differential cell count method Nom (Bld) Auto Normal [facility] Comment on above: Order Comment: Speci men Type: BLOOD SPECIMEN Ordering Facility: [facility] Address: [address] [place] [address] Performed By: #### 5 7021-8 #### [facility] CLIA [id number] [address] [place] [address] [place] Eosinophils (Bld) [#/Vol] 0.10 10*3/uL Normal <0.46 [facility] Comment on above: Order Comment: Speci men Type: BLOOD SPECIMEN Ordering Facility: [facility] Address: [address] [place] [address] Performed By: #### 5 7021-8 #### [facility] CLIA [id number] [address] [place] [address] [place] Eosinophils/100 WBC (Bld) 1.1 % Normal [facility] Comment on above: Order Comment: Speci men Type: BLOOD SPECIMEN Ordering Facility: [facility] Address: [address] [place] [address] Performed By: #### 5 7021-8 #### [facility] CLIA [id number] [address] [place] [address] [place] Erythrocyte distribution width (RBC) [Ratio] 13.7 % Normal 11.5-15.0 [facility] Comment on above: Order Comment: Speci men Type: BLOOD SPECIMEN Ordering Facility: [facility] Address: [address] [place] [address] Performed By: #### 5 7021-8 #### [facility] CLIA [id number] [address] [place] [address] [place] Hematocrit (Bld) [Volume fraction] 40.9 % Normal 36.0-46.0 [facility] Comment on above: Order Comment: Speci men Type: BLOOD SPECIMEN Ordering Facility: [facility] Address: [address] [place] [address] Performed By: #### 5 7021-8 #### [facility] CLIA [id number] [address] [place] [address] [place] Hemoglobin (Bld) [Mass/Vol] 13.3 g/dL Normal 11.5-15.5 [facility] Comment on above: Order Comment: Speci men Type: BLOOD SPECIMEN Ordering Facility: [facility] Address: [address] [place] [address] Performed By: #### 5 7021-8 #### [facility] CLIA [id number] [address] [place] [address] [place] Immature granulocytes (Bld) [#/Vol] 10*3/uL Normal <0.10 [facility] Comment on above: Order Comment: Speci men Type: BLOOD SPECIMEN Ordering Facility: [facility] Address: [address] [place] [address] Performed By: #### 5 7021-8 #### [facility] CLIA [id number] [address] [place] [address] [place] Immature granulocytes/100 WBC (Bld) 0.2 % Normal [facility] Comment on above: Order Comment: Speci men Type: BLOOD SPECIMEN Ordering Facility: [facility] Address: [address] [place] [address] Performed By: #### 5 7021-8 #### [facility] CLIA [id number] [address] [place] [address] [place] Lymphocytes (Bld) [#/Vol] 3.48 10*3/uL Normal 1.00-4.00 [facility] Comment on above: Order Comment: Speci men Type: BLOOD SPECIMEN Ordering Facility: [facility] Address: [address] [place] [address] Performed By: #### 5 7021-8 #### [facility] CLIA [id number] [address] [place] [address] [place] Lymphocytes/100 WBC (Bld) 38.0 % Normal [facility] Comment on above: Order Comment: Speci men Type: BLOOD SPECIMEN Ordering Facility: [facility] Address: [address] [place] [address] Performed By: #### 5 7021-8 #### [facility] CLIA [id number] [address] [place] [address] [place] MCH (RBC) [Entitic mass] 25.0 pg Low 26.0-34.0 [facility] Comment on above: Order Comment: Speci men Type: BLOOD SPECIMEN Ordering Facility: [facility] Address: [address] [place] [address] Performed By: #### 5 7021-8 #### [id number] [address] [place] [address] [place] MCHC (RBC) [Mass/Vol] 32.5 g/dL Normal 30.5-36.0 [facility] Comment on above: Order Comment: Speci men Type: BLOOD SPECIMEN Ordering Facility: [facility] Address: [address] [place] [address] Performed By: #### 5 7021-8 #### [facility] [id number] [address] [place] [address] [place] MCV (RBC) [Entitic vol] 76.9 fL Low 80.0-100.0 [facility] Comment on above: Order Comment: Speci men Type: BLOOD SPECIMEN Ordering Facility: [facility] Address: [address] [place] [address] Performed By: #### 5 7021-8 #### [facility] [id number] [address] [place] [address] [place] Monocytes (Bld) [#/Vol] 0.57 10*3/uL Normal <0.87 [facility] Comment on above: Order Comment: Speci men Type: BLOOD SPECIMEN Ordering Facility: [facility] Address: [address] [place] [address] Performed By: #### 5 7021-8 #### [facility] [id number] [address] [place] [address] [place] Monocytes/100 WBC (Bld) 6.2 % Normal [facility] Comment on above: Order Comment: Speci men Type: BLOOD SPECIMEN Ordering Facility: [facility] Address: [facility] [place] [address] Performed By: #### 5 7021-8 #### [facility] CLIA [id number] [address] [place] [address] [place] Neutrophils (Bld) [#/Vol] 4.93 10*3/uL Normal 1.45-7.50 [facility] Comment on above: Order Comment: Speci men Type: BLOOD SPECIMEN Ordering Facility: [facility] Address: [address] [place] [address] Performed By: #### 5 7021-8 #### [facility] CLIA [id number] [address] [place] [address] [place] Neutrophils/100 WBC (Bld) 53.8 % Normal [facility] Comment on above: Order Comment: Speci men Type: BLOOD SPECIMEN Ordering Facility: [facility] Address: [address] [place] [address] Performed By: #### 5 7021-8 #### [facility] CLIA [id number] [address] [place] [address] [place] Nucleated RBC (Bld) [#/Vol] 10*3/uL Normal <0.01 [facility] Comment on above: Order Comment: Speci men Type: BLOOD SPECIMEN Ordering Facility: [facility] Address: [address] [place] [address] Performed By: #### 5 7021-8 #### [facility] CLIA [id number] [address] [place] [address] [place] Nucleated RBC/100 WBC (Bld) [Ratio] 0.0 /100 WBC Normal [facility] Comment on above: Order Comment: Speci men Type: BLOOD SPECIMEN Ordering Facility: [facility] Address: [address] [place] [address] Performed By: #### 5 7021-8 #### [facility] CLIA [id number] [address] [place] [address] [place] Platelet mean volume (Bld) [Entitic vol] 8.4 fL Low 9.0-12.7 [facility] Comment on above: Order Comment: Speci men Type: BLOOD SPECIMEN Ordering Facility: [facility] Address: [address] [place] [address] Performed By: #### 5 7021-8 #### [facility] CLIA [id number] [address] [place] [address] [place] Platelets (Bld) [#/Vol] 466 10*3/uL High 150-400 [facility] Comment on above: Order Comment: Speci men Type: BLOOD SPECIMEN Ordering Facility: [facility] Address: [address] [place] [address] Performed By: #### 5 7021-8 #### [facility] CLIA [id number] [address] [place] [address] [place] RBC (Bld) [#/Vol] 5.32 10*6/uL High 3.90-5.20 [facility] Comment on above: Order Comment: Speci men Type: BLOOD SPECIMEN Ordering Facility: [facility] Address: [address] [place], [place] [address] Performed By: #### 5 7021-8 #### [facility] CLIA [id number] [address] [place] [address] [place] WBC (Bld) [#/Vol] 9.16 10*3/uL Normal 3.70-11.00 [facility] Comment on above: Order Comment: Speci men Type: BLOOD SPECIMEN Ordering Facility: [facility] Address: [address] [place], [place] [address] Performed By: #### 5 7021-8 #### [facility] CLIA [id number] [place] [address] [place] CNOVSPon 12-20-2023 CNOVSP Visit (SP) Office (H EMAWS) NAHED JACKSON ([id number]) 1990 F Date Time Provider Department 12/20/23 [...] Tape [Adhesive Tape* Rash Tree Nuts Swelling [place] Other: See Comments Burning in mouth CURRENT [...] which included preparing to see the patient, deet-zy-daxv patient care, completing clinical documentation, obtaining and/or [...] Order(s):MYELOPROLIFERATIVE NEOPLASM PANEL BLOOD [SQMPNP] Order #: [id number] FUTURE COMPLETE BLOOD COUNT AND DIFFERENTIAL [SQCBCDIF] Order #: [id number] FUTURE FERRITIN [SQFERR] Order #: [id number] FUTURE IRON AND TIBC [SQIRON] Order #: [id number] FUTURE C-REACTIVE PROTEIN [SQCRP] Order #: [id number] FUTURE CONSULT TO MEDICAL GENETICS - CANCER [[id number]] Order #: [id number]: 1 FUTURE Follow-up and Disposition History for Encounter Date Provider Department Center 12/20/2023 [id number], DREW HEMHARDIK [place] Prescriptions as of 12/20/2023 - ENILLORING [...] Status:Closed by GIORGIO ROCHA on 12/20/23 Normal [facility] CRP SerPl-ncon 12-20-2023 CRP [Mass/Vol] 1.7 mg/dL High <0.9 [facility] Comment on above: Order Comment: Speci men Type: BLOOD SPECIMEN Ordering Facility: [facility] Address: [address] [place] [address] Performed By: #### 5 0190-8, 2275-08, 1987-09 #### [facility] CLIA [id number] [address] [place] [address] [place] FERRITINon 12-20-2023 Ferritin [Mass/Vol] 35.3 ng/mL 14.7 - 205.1 ng/mL [facility] Ferritin SerPl-mCncon 2023 Ferritin [Mass/Vol] 35.3 ng/mL Normal 14.7-205.1 [facility] Comment on above: Order Comment: Speci men Type: BLOOD SPECIMEN Ordering Facility: [facility] Address: [address] [place] [address] Performed By: #### 5 0190-8, 2275-08, 1987-09 #### [facility] CLIA [id number] [address] [place], [place] [id number] [place] Ferritin [Mass/Vol]on 2023 Interpretation and review of laboratory results Normal [facility] Iron and Iron binding capaci ty panelon 12-20-2023 Iron [Mass/Vol] 100 ug/dL 41 - 186 ug/dL [facility] Iron binding capacity [Mass/Vol] 468 ug/dL High 232 - 386 ug/dL [facility] Iron/TIBC [Molar ratio] 21.4 % 15.0 - 57.0 % [facility] Iron [Mass/Vol] 100 ug/dL Normal 41-186 [facility] Comment on above: Order Comment: Speci men Type: BLOOD SPECIMEN Ordering Facility: [facility] Address: [address] [place] [address] Performed By: #### 5 0190-8, 2275-08, 1987-09 #### [facility] CLIA [id number] [address] [place] [address] [place] Iron binding capacity [Mass/Vol] 468 ug/dL High 232-386 [facility] Comment on above: Order Comment: Speci men Type: BLOOD SPECIMEN Ordering Facility: [facility] Address: [address] [place] [address] Performed By: #### 5 0190-8, 2275-08, 1987-09 #### [facility] CLIA [id number] [address] [place] [address] [place] Iron/TIBC [Molar ratio] 21.4 % Normal 15.0-57.0 [facility] Comment on above: Order Comment: Speci men Type: BLOOD SPECIMEN Ordering Facility: [facility] Address: [address] [place] [address] Performed By: #### 5 0190-8, 2275-08, 1987-09 #### [facility] CLIA [id number] [address] [id number] [address] [place] MYELOPROLIFERATIVE NEOPLASM PANEL BLOOD 12-20-2023 MYELOPROLIFERATIVE NEOPLASM PNL PERIPHERAL BLOOD Normal [facility] Comment on above: Order Comment: Speci men Type: BLOOD SPECIMEN Ordering Facility: [facility] Address: [address] [place] [id number] Result Comment: Myel oproliferative Neoplasm Panel Laboratory Accession Number: [id number] Sample Type: Peripheral Blood Result: CALR - [...] sequencing was performed on the Illumina instrument ([place] A customized bioinformatic pipeline was used [...] V617F, JAK2 exon 12, CALR Type 1 (p.L398Zns06, c.1099_1150del) and Type 2 (p.S488Mmo53, c.1154_1155insTTGTC), MPL W515 variants and approximately 5% [...] developed and its performance characteristics determined by [facility]'s Emeterio Rodriguez [facility] [place] ([facility]). It has not been cleared or approved by the FDA. [facility] is regulated under CLIA as certified to perform high- complexity testing. This test is used for clinical purposes. It should not be regarded as investigational or for research. Testing and interpretation performed at [facility], [address] [place] [address]. CLIA Number: [id number] References: 1) Ned DA, Ernestine A, Hari [...] Performed By: #### M PNP #### [id number] [address] [place] [address] [place] No Panel Informationon 12-19 Interpretation and review of laboratory results Abnormal [facility] CNPAngela [facility] MANUELNAHED Kati ([id number]) 1990 F Date Time Provider Department 12/17/23 GIORGIO ROCHA During your visit today, we recorded the following information about you: Lizzy Kramer 12/18/2023 8:24 AM Signed Unable to schedule due to patient at work. Patient is able to talk after 4. Needs scheduled with next new Alexandreaefren or Mahinsolomonjevon ROLLER MECHANIC/THROMBOCYTOPENIA/Valerie Pisano 12/19/2023 4:33 PM Signed Spoke with [...] Status:Closed by VALERIE VARGAS on 12/19/23 Normal [facility] Venous Duplex US, Unilateral on 12-13-2023 Venous Duplex US, Unilateral [facility] [address] [facility] [place] [address] Venous Duplex US, Unilateral 12/13/23 1241 MR#: [id number] Acct: [id number] Name: NAHED JACKSON Rep #: [id number] : 1990 33 From: Skyler Fajardo MD [...] 12/16/23 1350 Date Skyler Fajardo MD CC: ROLLER MECHANIC-C Jean-Paul Smith; Dr. Nicole Barrientos DO Date Dictated: 12/13/23 1241 Date Transcribed: 12/16/23 1350 Coater Helper: Signed Normal [facility] Absolute lymphocyte countOrd ered By: Nicole Barrientos on 07-31-2023 Lymphocytes Auto (Unsp spec) [#/Vol] 2.67 10*3/uL 0.83-4.51 [facility] Automated lymphocyte count a s percentage of total leukocytesOrdered By: Nicole Barrientos on 07-31-2023 Lymphocytes/100 WBC Auto (Unsp spec) 33.0 % 19-41 [facility] Basophil percentageOrdered B y: Nicole Barrientos on 07-31-2023 Basophil percentage < 10.0 IU/mL <15 [facility] Basophils/100 WBC (Bld) 0.6 % 0-1 [facility] Eosinophils/100 WBC (Bld) 2.4 % 0-5 [facility] Hemoglobin (Bld) [Mass/Vol] 13.7 g/dL 12.0-15.0 [facility] Monocytes/100 WBC (Bld) 6.2 % 0-10 [facility] Neutrophils (Bld) [#/Vol] 4.6 10*3/uL 2.0-7.7 [facility] Neutrophils/100 WBC (Bld) 57.2 % 47-70 [facility] WBC (Bld) [#/Vol] 8.1 10*3/uL 4.4-11.0 [facility] Determination of erythrocyte mean corpuscular volume (MCV)Ordered By: Nicole Barrientos on 07-31-2023 MCV (RBC) [Entitic vol] 79.7 fL 81-99 [facility] Erythrocyte distribution wid th ratioOrdered By: Nicole Barrientos on 07-31-2023 Erythrocyte distribution width (RBC) [Ratio] 13.0 % 11.6-14.6 [facility] Erythrocyte distribution wid th standard deviationOrdered By: Nicole Barrientos on 07-31-2023 Erythrocyte distribution width (RBC) [Entitic vol] 36.7 fL 35.1-43.9 [facility] Erythrocyte sedimentation ra teOrdered By: Nicole Barrientos on 07-31-2023 ESR (Bld) [Velocity] 30 mm/h 0-30 [facility] Hematocrit Auto (Bld) [Volum e fraction]Ordered By: Nicole Barrientos on 07-31-2023 Hematocrit (Bld) [Volume fraction] 41.6 % 37-47 [facility] Immature granulocytes/100 WB C Auto (Bld)Ordered By: Nicole Barrientos on 07-31-2023 Immature granulocytes/100 WBC (Bld) 0.600 % 0.0-0.9 [facility] Comment on above: IG% - Immature Granu locytes (promyelocytes, myelocytes and metamyelocytes) > 1% indicates that a LEFT SHIFT is Present. Laboratory - Hematology and Cell countsOrdered By: Nicole Barrientos on 07-31-2023 MCH (RBC) [Entitic mass] 26.2 pg 27.0-32.0 [facility] MCHC (RBC) [Mass/Vol] 32.9 g/dL 32-36 [facility] Nucleated RBC/100 WBC (Bld) [Ratio] 0 % 0-5 [facility] Platelet mean volume (Bld) [Entitic vol] 8.9 fL 6.2-12.0 [facility] Platelets (Bld) [#/Vol] 550 10*3/uL 150-450 [facility] No Panel InformationOrdered By: Nicole Barrientos on 07-31-2023 Anti-Nuclear Antibody Screen Negative Negative [facility] Comment on above: Performed at: [facility] [place] [id number] Director: Bruce Joshi PhD, Phone: [phone] C-Reactive Protein Extended Range 17.40 mg/L 0.0-3.0 [facility] Comment on above: C-Reactive Protein ( CRP) provides useful information for thediagnosis, therapy and monitoring of inflammatory processesand associated diseases. For the evaluation of Relative Riskfor Cardiovascular Disease, a High Sensitivity CRP (HSCRP)should be ordered. Centromere B Antibody Not Reportable [facility] EDWINA-1 Antibody Not Reportable [facility] VEGETABLE LOADER MACHINE OPERATOR Antibody Not Reportable [facility] SM Antibody Not Reportable [facility] SS-A/Ro IgG Antibody Not Reportable [facility] SS-B/La IgG Antibody Not Reportable [facility] RBC Auto (Bld) [#/Vol]Ordere d By: Nicole Barrientos on 07-31-2023 RBC (Bld) [#/Vol] 5.22 10*6/uL 4.2-5.4 [facility] Serum DNA double strand anti body assay (units/volume)Ordered By: Nicole Barrientos on 07-31-2023 DNA double strand Ab Qn (S) Not Reportable [facility] Serum Scl-70 antibody assay (units/volume)Ordered By: Nicole Barrientos on 07-31-2023 SCL-70 extractable nuclear Ab Qn (S) Not Reportable [facility] XR Lumbar spine Views W flex ion and W extensionon 07-31-2023 IMPRESSION: Mild levoscoliosis. Coater Helper: LOKI Transcribe Date/Time: Jul 31 2023 7:12A Dictated by : NINA GARCÍA MD This examination was interpreted and the report reviewed and electronically signed by: NINA GARCÍA MD on Jul 31 2023 7:14AM EST [facility] * * *Final Report* * [...] No significant degenerative spondylosis. Normal sacroiliac joints. [facility] * * *Final Report* * [...] Normal sacroiliac joints. IMPRESSION IMPRESSION: Mild levoscoliosis. Coater Helper: [facility] Transcribe Date/Time: Jul 31 2023 7:12A Dictated by : NINA GARCÍA MD This examination was interpreted and the report reviewed and electronically signed by: NINA GARCÍA MD on Jul 31 2023 7:14AM [facility] XR Lumbar spine Views W flex ion and W extensionOrdered By: Ccf Provider on 07-31-2023 [facility] CNOVon 07-26-2023 CNOV Office Visit (AMY Islas) NAHED JACKSON ([id number]) 1990 F Date Time Provider Department 07/26/23 [...] Age: [age] year old Sex: female MRN/E# [id number] Chief Complaint: Low back pain HISTORY OF PRESENT ILLNESS : The patient is a 33 year old female with no relevant past medical history who is referred by [facility] for neurosurgical evaluation. The patient presented to [facility] on 07/18/2023 with complaints of a [...] Tape [Adhesive Tape* Rash Tree Nuts Swelling [place] Other: See Comments Burning in mouth No [...] 5/5 5/5 (more content not included)... Normal [facility] XR LUMBAR 4V AP/LAT/ FLEX/EX Ton 07-26-2023 [...] spondylosis. Normal sacroiliac joints. IMPRESSION: Mild levoscoliosis. Coater Helper: PSCB Transcribe Date/Time: Jul 31 2023 7:12A Dictated by : NINA GARCÍA MD This examination was interpreted and the report reviewed and electronically signed by: NINA GARCÍA MD on Jul 31 2023 7:14AM EST [id number] Normal [facility] XR Lumbar spine Views W flex ion and W extensionon 07-26-2023 Radiology Study observation (narrative) [facility] ED NOTEon 07-18-2023 ED NOTE HNO ID: [id number] Author: JAROD TORRES RN Service: Emergency Medicine [...] loss of bowel or bladder control. Normal [facility] ED PROV NOTEon 07-18-2023 ED PROV NOTE HNO ID: [id number] Author: ALLYSSA MOLINA PA-C Service: Emergency Medicine Author Type: Physician Bioprocessing Manufacturing Technician Type: ED Provider Notes Filed: 07/18/2023 17:31 [...] ALLERGIES Allergen Reactions Tape [Adhesive Tape* Rash [place] Other: See Comments Burning in mouth Review [...] given morphin (more content not included)... Normal [facility] Absolute lymphocyte countOrd ered By: Jean-Paul Smith on 07-10-2023 Lymphocytes Auto (Unsp spec) [#/Vol] 3.10 10*3/uL 0.83-4.51 [facility] Automated lymphocyte count a s percentage of total leukocytesOrdered By: Jean-Paul Smith on 07-10-2023 Lymphocytes/100 WBC Auto (Unsp spec) 26.9 % 19-41 [facility] Basophil percentageOrdered B y: Jean-Paul Smith on 07-10-2023 Basophils/100 WBC (Bld) 0.5 % 0-1 [facility] Eosinophils/100 WBC (Bld) 1.6 % 0-5 [facility] Hemoglobin (Bld) [Mass/Vol] 12.9 g/dL 12.0-15.0 [facility] Monocytes/100 WBC (Bld) 6.0 % 0-10 [facility] Neutrophils (Bld) [#/Vol] 7.4 10*3/uL 2.0-7.7 [facility] Neutrophils/100 WBC (Bld) 64.1 % 47-70 [facility] WBC (Bld) [#/Vol] 11.5 10*3/uL 4.4-11.0 [facility] Determination of erythrocyte mean corpuscular volume (MCV)Ordered By: Jean-Paul Smith on 07-10-2023 MCV (RBC) [Entitic vol] 80.4 fL 81-99 [facility] Erythrocyte distribution wid th ratioOrdered By: [facility] Hospital[facility] on 07-10-2023 Erythrocyte distribution width (RBC) [Ratio] 13.0 % 11.6-14.6 [facility] Erythrocyte distribution wid th standard deviationOrdered By: Jean-Paulrivera Smith on 07-10-2023 Erythrocyte distribution width (RBC) [Entitic vol] 37.2 fL 35.1-43.9 [facility] Erythrocyte sedimentation ra teOrdered By: Jean-Paul Smith on 07-10-2023 ESR (Bld) [Velocity] 14 mm/h 0-30 [facility] Hematocrit Auto (Bld) [Volum e fraction]Ordered By: Jean-Paulrivera Smith on 07-10-2023 Hematocrit (Bld) [Volume fraction] 40.9 % 37-47 [facility] Immature granulocytes/100 WB C Auto (Bld)Ordered By: [place] Luis on 07-10-2023 Immature granulocytes/100 WBC (Bld) 0.900 % 0.0-0.9 [facility] Comment on above: IG% - Immature Granu locytes (promyelocytes, myelocytes and metamyelocytes) > 1% indicates that a LEFT SHIFT is Present. Iron measurement (mass/mass) Ordered By: Jean-Paulrivera Smith on 07-10-2023 Iron (Unsp spec) [Mass/Mass] 73 ug/dL 50-170 [facility] Laboratory - Chemistry and C hemistry - challengeOrdered By: [place] Luis on 07-10-2023 Ferritin [Mass/Vol] 46 ng/mL 8-252 [facility] Laboratory - Hematology and Cell countsOrdered By: Jean-Paulrivera Smith on 07-10-2023 MCH (RBC) [Entitic mass] 25.3 pg 27.0-32.0 [facility] MCHC (RBC) [Mass/Vol] 31.5 g/dL 32-36 [facility] Nucleated RBC/100 WBC (Bld) [Ratio] 0 % 0-5 [facility] Platelet mean volume (Bld) [Entitic vol] 8.8 fL 6.2-12.0 [facility] Platelets (Bld) [#/Vol] 502 10*3/uL 150-450 [facility] No Panel InformationOrdered By: Jean-Paul Smith on 07-10-2023 C-Reactive Protein Extended Range 44.60 mg/L 0.0-3.0 [facility] Comment on above: C-Reactive Protein ( CRP) provides useful information for thediagnosis, therapy and monitoring of inflammatory processesand associated diseases. For the evaluation of Relative Riskfor Cardiovascular Disease, a High Sensitivity CRP (HSCRP)should be ordered. JAK2 Mutation Comment . [facility] Comment on above: Technical Component performed at [facility] RTPProfessional Component performed by:Valentín Breen, PhD, FACMGDirector, Molecular [id number], [place] [phone] test was developed and its performance characteristicsdetermined by [employer]. It has not been cleared orapproved by the Food and Drug Administration.Performed at: [facility] [employer] [id number] [facility], [place], [place] [id number] Director: Froylan [facility], Phone: [phone] at: [facility] [employer] [id number] [employer], [facility], [place] [id number] Director: pernell [facility], Phone: [phone] JAK2 Mutation (PCR) Comment . [facility] Comment on above: Result: NEGATIVE for the JAK2 V617F mutation.Interpretation: The G to T nucleotide change encoding [id number] mutation was not detected. This result does [...] disorders. JAK2 V617F Reviewed By Comment . [facility] Comment on above: JAK2 is a cytoplasmi c tyrosine kinase with a villarreal role insignal transduction from multiple hematopoietic growthfactor receptors. A point mutation within exon 14 of theJAK2 gene (L6855Y) encoding a valine to phenylalaninesubstitution at position [...] specific to JAK2 wild type (WT) and [id number] V617F. The [employer] Absolute Quantitation softwarewill compare the patient specimen valuse to the standardcurves and generate percent values for wild type andmutant type. In vitro studies have indicated that thisassay has an analytical sensitivity of 1%.References:James EJ, Phil LM, Werner PJ, et al. Acquiredmutation of the tyrosine kinase JAK2 in humanmyeloproliferative disorders. Lancet. 2005 Jul 22;365(0232):0442-2908. Jesus C, Mayank V, Saira Borden GIACOMO. Aunique clonal JAK2 mutation leading to constitutivesignaling causes polycythaemia vera. Nature. 2005 Aug 31;434(8069):2040-2421.Gilberto R, Rain F, Diandra , et al. A veug-nf-xxlplvhv mutation of JAK2 in myeloproliferative disorders.N Engl J Med. 2005 Aug 31; 35217):5179-9240. RBC Auto (Bld) [#/Vol]Ordere d By: Jean-Paul Smith on 07-10-2023 RBC (Bld) [#/Vol] 5.09 10*6/uL 4.2-5.4 [facility] Review by pathologistOrdered By: Jean-Paul Smith on 07-10-2023 Pathologist review Isaac (Unsp spec) [Interp] Reviewed [facility] Comment on above: Previous reported re sult: Kim lopes Edited by: OCTAVIO on 07/12/23:0853Leukocytosis.Thrombocytosis.Clinical correlation necessary.Ant Babcock M.D. 07/12/23This case was reviewed with Dr. Nance who concurs with the above diagnosis. AMENDED REPORT 07/12/23 0853 PATH REV previously reported as: Kim lopes Absolute lymphocyte countOrd ered By: Nicole Barrientos on 06-21-2023 Lymphocytes Auto (Unsp spec) [#/Vol] 2.18 10*3/uL 0.83-4.51 [facility] Automated lymphocyte count a s percentage of total leukocytesOrdered By: Nicole Barrientos on 06-21-2023 Lymphocytes/100 WBC Auto (Unsp spec) 27.7 % 19-41 [facility] Basophil percentageOrdered B y: Nicole Barrientos on 06-21-2023 Basophils/100 WBC (Bld) 0.8 % 0-1 [facility] Bilirubin [Mass/Vol] 0.40 mg/dL 0.20-1.00 [facility] Comment on above: For patients on eltr ombopag therapy, use of Dimension [place] TBIL is not recommended. Chloride [Moles/Vol] 111 mmol/L 98-107 [facility] Cholesterol [Mass/Vol] 199 mg/dL <200 [facility] Comment on above: <200 mg/dL Desirable 200-240 mg/dL Borderline >240 mg/dL High Risk Eosinophils/100 WBC (Bld) 1.9 % 0-5 [facility] Glucose [Mass/Vol] 84 mg/dL 74-106 [facility] Hemoglobin (Bld) [Mass/Vol] 13.5 g/dL 12.0-15.0 [facility] Monocytes/100 WBC (Bld) 6.6 % 0-10 [facility] Neutrophils (Bld) [#/Vol] 4.9 10*3/uL 2.0-7.7 [facility] Neutrophils/100 WBC (Bld) 62.5 % 47-70 [facility] Potassium [Moles/Vol] 3.8 mmol/L 3.5-5.1 [facility] Protein [Mass/Vol] 7.9 g/dL 6.4-8.2 [facility] Sodium [Moles/Vol] 140 mmol/L 136-145 [facility] Triglyceride [Mass/Vol] 156 mg/dL <199 [facility] Comment on above: The drugs N-Acetylcy steine and Metamizole may falsely depress this assay.Serum Triglycerides Reference Interval Normal <150 mg/dL Borderline high 150 - 199 mg/dL High 200 - 499 mg/dL Very High > or = 500 mg/dL WBC (Bld) [#/Vol] 7.9 10*3/uL 4.4-11.0 [facility] Determination of erythrocyte mean corpuscular volume (MCV)Ordered By: Nicole Barrientos on 06-21-2023 MCV (RBC) [Entitic vol] 80.3 fL 81-99 [facility] Erythrocyte distribution wid th ratioOrdered By: Nicole Barrientos on 06-21-2023 Erythrocyte distribution width (RBC) [Ratio] 13.0 % 11.6-14.6 [facility] Erythrocyte distribution wid th standard deviationOrdered By: Nicole Barrientos on 06-21-2023 Erythrocyte distribution width (RBC) [Entitic vol] 37.7 fL 35.1-43.9 [facility] Hematocrit Auto (Bld) [Volum e fraction]Ordered By: Nicole Barrientos on 06-21-2023 Hematocrit (Bld) [Volume fraction] 41.7 % 37-47 [facility] Immature granulocytes/100 WB C Auto (Bld)Ordered By: Nicole Barrientos on 06-21-2023 Immature granulocytes/100 WBC (Bld) 0.500 % 0.0-0.9 [facility] Comment on above: IG% - Immature Granu locytes (promyelocytes, myelocytes and metamyelocytes) > 1% indicates that a LEFT SHIFT is Present. Laboratory - Chemistry and C hemistry - challengeOrdered By: Nicole Barrientos on 06-21-2023 Albumin/Globulin [Mass ratio] 0.7 {ratio} 0.9-2.4 [facility] ALP [Catalytic activity/Vol] 89 U/L 45-117 [facility] ALT [Catalytic activity/Vol] 23 U/L 13-56 [facility] Cholesterol in HDL [Mass/Vol] 44 mg/dL >40 [facility] Comment on above: The drugs N-Acetylcy steine and Metamizole may falsely depress this assay. Reference Range HDL <40 mg/dL Low HDL Cholesterol HDL >or= 60 mg/dL High HDL Cholesterol Cholesterol in LDL [Mass/Vol] 124 mg/dL 0-130 [facility] CO2 [Moles/Vol] 25.0 mmol/L 21.0-32.0 [facility] Globulin (S) [Mass/Vol] 4.7 g/dL 2.2-4.2 [facility] Urea nitrogen/Creatinine [Mass ratio] 16.2 mg/mg 10-20 [facility] Laboratory - Hematology and Cell countsOrdered By: Nicole Barrientos on 06-21-2023 MCH (RBC) [Entitic mass] 26.0 pg 27.0-32.0 [facility] MCHC (RBC) [Mass/Vol] 32.4 g/dL 32-36 [facility] Nucleated RBC/100 WBC (Bld) [Ratio] 0 % 0-5 [facility] Platelet mean volume (Bld) [Entitic vol] 8.7 fL 6.2-12.0 [facility] Platelets (Bld) [#/Vol] 482 10*3/uL 150-450 [facility] No Panel InformationOrdered By: Nicole Barrientos on 06-21-2023 Estimated GFR (MDRD) Amer 128 mL/min >60 [facility] Comment on above: GFR Calc Estimated GFR (MDRD) Non-Af Amer 106 mL/min >60 [facility] Comment on above: Non- GFR Calc VLDL Cholesterol 31 mg/dL 5-40 [facility] RBC Auto (Bld) [#/Vol]Ordere d By: Nicole Barrientos on 06-21-2023 RBC (Bld) [#/Vol] 5.19 10*6/uL 4.2-5.4 [facility] Serum or plasma calcium rosette urement (mass/volume)Ordered By: Nicole Barrientos on 06-21-2023 Calcium [Mass/Vol] 9.2 mg/dL 8.5-10.1 [facility] Serum or plasma creatinine m easurement (mass/volume)Ordered By: Nicole Barrientos on 06-21-2023 Creatinine [Mass/Vol] 0.68 mg/dL 0.55-1.02 [facility] Comment on above: The validity of the calculated GFR & GFRAA in patients over 70 years has not been determined. Clinical correlation is essential. Serum or plasma urea nitroge n measurement (mass/volume)Ordered By: Nicole Barrientos on 06-21-2023 Urea nitrogen [Mass/Vol] 11 mg/dL 7-18 [facility] Thin prep Papanicolaou smear with manual screeningOrdered By: Nicole Barrientos on 06-21-2023 Thin prep Papanicolaou smear with manual screening 3.2 g/dL 3.2-5.0 [facility] Thin prep Papanicolaou smear with manual screening 20 U/L 15-37 [facility] Thin prep Papanicolaou smear with manual screening 4 5-15 [facility] Clostridioides difficile nuc leic acid assay by PCROrdered By: Nicole Barrientos on 05-28-2023 C. difficile DNA JASMINA+probe Ql (Unsp spec) [facility] Ova and parasitesOrdered By: Nicole Barrientos on 05-28-2023 Ova and parasites identified LM Nom (Unsp spec) [facility] Ova and parasites identified LM Nom (Unsp spec) [facility] Stool enteric pathogen panel by probe and target amplification methodOrdered By: Nicole Barrientos on 05-28-2023 Gastrointestinal pathogens panel JASMINA+probe (Stl) [facility] Stool lactoferrin detection by immunoassayOrdered By: Nicole Brarientos on 05-28-2023 Lactoferrin IA Ql (Stl) [facility] Absolute lymphocyte countOrd ered By: Nicole Barrientos on 05-27-2023 Lymphocytes Auto (Unsp spec) [#/Vol] 2.38 10*3/uL 0.83-4.51 [facility] Automated lymphocyte count a s percentage of total leukocytesOrdered By: Nicole Barrientos on 05-27-2023 Lymphocytes/100 WBC Auto (Unsp spec) 26.4 % 19-41 [facility] Basophil percentageOrdered B y: Nicole Barrientos on 05-27-2023 Basophils/100 WBC (Bld) 0.6 % 0-1 [facility] Bilirubin [Mass/Vol] 0.30 mg/dL 0.20-1.00 [facility] Comment on above: For patients on eltr ombopag therapy, use of Dimension [place] TBIL is not recommended. Chloride [Moles/Vol] 106 mmol/L 98-107 [facility] Eosinophils/100 WBC (Bld) 1.0 % 0-5 [facility] Glucose [Mass/Vol] 86 mg/dL 74-106 [facility] Hemoglobin (Bld) [Mass/Vol] 13.3 g/dL 12.0-15.0 [facility] Monocytes/100 WBC (Bld) 7.8 % 0-10 [facility] Neutrophils (Bld) [#/Vol] 5.7 10*3/uL 2.0-7.7 [facility] Neutrophils/100 WBC (Bld) 63.8 % 47-70 [facility] Potassium [Moles/Vol] 4.0 mmol/L 3.5-5.1 [facility] Protein [Mass/Vol] 8.0 g/dL 6.4-8.2 [facility] Sodium [Moles/Vol] 138 mmol/L 136-145 [facility] WBC (Bld) [#/Vol] 9.0 10*3/uL 4.4-11.0 [facility] Determination of erythrocyte mean corpuscular volume (MCV)Ordered By: Nicole Barrientos on 05-27-2023 MCV (RBC) [Entitic vol] 80.0 fL 81-99 [facility] Erythrocyte distribution wid th ratioOrdered By: Nicole Barrientos on 05-27-2023 Erythrocyte distribution width (RBC) [Ratio] 13.2 % 11.6-14.6 [facility] Erythrocyte distribution wid th standard deviationOrdered By: Nicole Barrientos on 05-27-2023 Erythrocyte distribution width (RBC) [Entitic vol] 38.1 fL 35.1-43.9 [facility] Hematocrit Auto (Bld) [Volum e fraction]Ordered By: Nicole Barrientos on 05-27-2023 Hematocrit (Bld) [Volume fraction] 41.2 % 37-47 [facility] Immature granulocytes/100 WB C Auto (Bld)Ordered By: Nicole Barrientos on 05-27-2023 Immature granulocytes/100 WBC (Bld) 0.400 % 0.0-0.9 [facility] Comment on above: IG% - Immature Granu locytes (promyelocytes, myelocytes and metamyelocytes) > 1% indicates that a LEFT SHIFT is Present. Laboratory - Chemistry and C hemistry - challengeOrdered By: Nicole Barrientos on 05-27-2023 Albumin/Globulin [Mass ratio] 0.7 {ratio} 0.9-2.4 [facility] ALP [Catalytic activity/Vol] 118 U/L 45-117 [facility] ALT [Catalytic activity/Vol] 40 U/L 13-56 [facility] CO2 [Moles/Vol] 25.0 mmol/L 21.0-32.0 [facility] Globulin (S) [Mass/Vol] 4.7 g/dL 2.2-4.2 [facility] Urea nitrogen/Creatinine [Mass ratio] 13.7 mg/mg 10-20 [facility] Laboratory - Hematology and Cell countsOrdered By: Nicole Barrientos on 05-27-2023 MCH (RBC) [Entitic mass] 25.8 pg 27.0-32.0 [facility] MCHC (RBC) [Mass/Vol] 32.3 g/dL 32-36 [facility] Nucleated RBC/100 WBC (Bld) [Ratio] 0 % 0-5 [facility] Platelets (Bld) [#/Vol] 464 10*3/uL 150-450 [facility] No Panel InformationOrdered By: Nicole Barrientos on 05-27-2023 C-Reactive Protein Extended Range 26.50 mg/L 0.0-3.0 [facility] Comment on above: C-Reactive Protein ( CRP) provides useful information for thediagnosis, therapy and monitoring of inflammatory processesand associated diseases. For the evaluation of Relative Riskfor Cardiovascular Disease, a High Sensitivity CRP (HSCRP)should be ordered. Estimated GFR (MDRD) Amer 133 mL/min >60 [facility] Comment on above: GFR Calc Estimated GFR (MDRD) Non-Af Amer 110 mL/min >60 [facility] Comment on above: Non- GFR Calc Platelet mean volume Estrada-Ec ker (Bld) [Entitic vol]Ordered By: Nicole Barrientos on 05-27-2023 Platelet mean volume (Bld) [Entitic vol] 8.9 fL 6.2-12.0 [facility] RBC Auto (Bld) [#/Vol]Ordere d By: Nicole Barrientos on 05-27-2023 RBC (Bld) [#/Vol] 5.15 10*6/uL 4.2-5.4 [facility] [place] or plasma calcium rosette urement (mass/volume)Ordered By: Nicole Barrientos on 05-27-2023 Calcium [Mass/Vol] 9.2 mg/dL 8.5-10.1 [facility] Serum or plasma creatinine m easurement (mass/volume)Ordered By: Nicole Barrientos on 05-27-2023 Creatinine [Mass/Vol] 0.66 mg/dL 0.55-1.02 [facility] Comment on above: The validity of the calculated GFR & GFRAA in patients over 70 years has not been determined. Clinical correlation is essential. Serum or plasma urea nitroge n measurement (mass/volume)Ordered By: Nicole Barrientos on 05-27-2023 Urea nitrogen [Mass/Vol] 9 mg/dL 7-18 [facility] Thin prep Papanicolaou smear with manual screeningOrdered By: Nicole Barrientos on 05-27-2023 Thin prep Papanicolaou smear with manual screening 3.3 g/dL 3.2-5.0 [facility] Thin prep Papanicolaou smear with manual screening 27 U/L 15-37 [facility] Thin prep Papanicolaou smear with manual screening 7 5-[address] [facility] [address] HEAD WO IV CONTRASTon CT HEAD WO IV CONTRAST Patient Name: NAHED JACKSON : 1990 [id number] Exam Date/Time: 08/15/2022 19:26 Procedure: CT HEAD [...] Electronically Signed Date/Time: 08/15/2022 7:55 PM EDT [facility] CT Head WO contraston 2022 1. No acute intracranial findings. Report Dictated on Electronically Signed By: You Rodriguez Electronically Signed Date/Time: 08/15/2022 7:55 PM EDT [facility] Patient Name: NAHED JACKSON : 1990 [...] versus polyp(s) in the right frontal sinus. [facility] You Rodriguez MD - 08/15/2022 Patient [...] Electronically Signed Date/Time: 08/15/2022 7:55 PM EDT [facility] Radiology Study observation (narrative) [facility] CT Head WO contrastOrdered B y: You Rodriguez on 08-15-2022 [facility] Work Phone: ED Nursing Noteon 08-15-2022 ED Nursing Note Discharge instructio ns, follow up care, and pain management discussed with patient. All questions answered, there are no further questions at this time. RN reviewed concussion signs and symptoms with patient and friend bedside. Patient ambulated off the unit independently at discharge. Kizzy Stephens RN 08/15/222026 [facility] ED Nursing Note Steady gait to room [...] MSPs x 4, GCS 15. Works at [employer] in [place] [facility] ED Provider Noteon 3 ED Provider Note [...] No sensory deficit. Motor: No weakness. Coordination: Vgtdub-Vebp-Jnusvl Test normal. Gait: Gait normal. Psychiatric: Mood and Affect: Mood normal. DIAGNOSTIC RESULTS Procedures/EKG: EKG was reviewed by myself. [facility] RAD[facility]OLOGY (Per Emergency Physician): Interpretation per the Radiologist below, if available at the time of this note: CT head wo IV contrast Final Result 1. No acute intracranial findings. Report Dictated on Electronically Signed By: You Rodriguez Electronically Signed Date/Time: 08/15/2022 7:55 P (more content not included)... Normal [facility] STREP A MOLECULAR (POC)on Procedural Control Valid [facility] Strep A (POCT) Positive Abnormal Negative [facility] STREP A MOLECULAR (POC)on Procedural Control Valid [facility] Strep A (POCT) Positive Abnormal Negative [facility] CR Hip w/ Pelvis 2 or 3 View s Righton 01-18-2019 CR Hip w/ Pelvis 2 or 3 Views Right Patient Name: NAHED JACKSON Diagnostic Radiology Exam Date/Time 01/18/2019 16:37:59 EDT Exam CR Hip w/ Pelvis 2 or 3 Views Right n Ordering Physician ELDER ELIZABETH Accession Number [id number] CPT4 Codes 08557 () Reason For Exam gym injury Report [...] Transcribed Date and Time: 01/18/2019 5:37 Normal [facility] XR HIP RIGHT (2-3 VIEWS)on 0 01-18-2019 Patient Name: NAHED JACKSON ---Diagnostic Radiology--- Exam Date/Time 01/18/2019 16:37:59 EDT Exam CR Hip w/ Pelvis 2 or 3 Views Right n Ordering Physician ELDER ELIZABETH Accession Number [id number] CPT4 Codes 33020 () Reason For Exam gym injury Report [...] A Transcribed Date and Time: 01/18/2019 5:37 [facility] [place] [place] Sh[place], [facility] Incoming Radiology Results From [facility] - 01/18/2019 5:37 PM EDT Patient Name: NAHED JACKSON ---Diagnostic Radiology--- Exam Date/Time 01/18/2019 16:37:59 EDT Exam CR Hip w/ Pelvis 2 or 3 Views Right n Ordering Physician ELDER ELIZABETH Accession Number [id number] CPT4 Codes 68689 () Reason For Exam gym injury Report [...] A Transcribed Date and Time: 01/18/2019 5:37 [place], [place] Vital Signs Date Time Vital Sign Value Performing Clinician Facility 08-14-2024 11:59-0400 Body mass index (BMI) [Ratio] 48.59 kg/m2 Jean-Paul Slabaugh PA-C Work Phone: [facility] 08-14-2024 11:59-0400 Body temperature 97 [degF] Jean-Paul Slabaugh PA-C Work Phone: [facility] 08-14-2024 11:59-0400 Body weight 145.85 kg Jean-Paul Slabaugh PA-C Work Phone: [facility] 08-14-2024 11:59-0400 Diastolic blood pressure 92 mm[Hg] Jean-Paul Slabaugh PA-C Work Phone: [facility] 08-14-2024 11:59-0400 Heart rate 81 /min Jean-Paul Slabaugh PA-C Work Phone: [facility] 08-14-2024 11:59-0400 Respiratory rate 16 /min Jean-Paul Slabaugh PA-C Work Phone: [facility] 08-14-2024 11:59-0400 SaO2% (BldA) [Mass fraction] 99 % Jean-Paul Slabaugh PA-C Work Phone: [facility] 08-14-2024 11:59-0400 Systolic blood pressure 138 mm[Hg] Jean-Paul Slabaugh PA-C Work Phone: [facility] 03-26-2024 16:48-0500 Body mass index (BMI) [Ratio] 47.79 kg/m2 Jean-Paul Slabaugh PA-C Work Phone: [facility] 03-26-2024 16:48-0500 Body temperature 97.39 [degF] Jean-Paul Slabaugh PA-C Work Phone: [facility] 03-26-2024 16:48-0500 Body weight 143.45 kg Jean-Paulrivera Smith PA-C Work Phone: [facility] 03-26-2024 16:48-0500 Diastolic blood pressure 110 mm[Hg] Jean-Paulrivera Bishopgh PA-C Work Phone: [facility] 03-26-2024 16:48-0500 Heart rate 89 /min Jean-Paulrivera Meansaugeoffrey PA-C Work Phone: [facility] 03-26-2024 16:48-0500 SaO2% (BldA) [Mass fraction] 99 % Jean-Paulrivera Smith PA-C Work Phone: [facility] 03-26-2024 16:48-0500 Systolic blood pressure 149 mm[Hg] Jean-Paulrivera Smith PA-C Work Phone: [facility] 12-20-2023 10:24-0400 Body height 173.3 cm Giorgio Rocha MD Work Phone: [facility] 12-20-2023 10:24-0400 Body mass index (BMI) [Ratio] 47.6 kg/m2 Giorgio Rocha MD Work Phone: [facility] 12-20-2023 10:24-0400 Body temperature 98.2 [degF] Giorgio Rocha MD Work Phone: [facility] 12-20-2023 10:24-0400 Body weight 142.88 kg Giorgio Rocha MD Work Phone: [facility] 12-20-2023 10:24-0400 Diastolic blood pressure 90 mm[Hg] Giorgio Rocha MD Work Phone: [facility] 12-20-2023 10:24-0400 Heart rate 81 /min Giorgio Rocha MD Work Phone: [facility] 12-20-2023 10:24-0400 SaO2% (BldA) [Mass fraction] 98 % Giorgio Rocha MD Work Phone: [facility] 12-20-2023 10:24-0400 Systolic blood pressure 141 mm[Hg] Giorgio Rocha MD Work Phone: [facility] 07-26-2023 10:48-0400 Body height 175.3 cm Zeynep Lance MD Work Phone: [facility] 07-26-2023 10:48-0400 Body weight 139.71 kg Zeynep Lance MD Work Phone: [facility] 07-26-2023 10:48-0400 Diastolic blood pressure 110 mm[Hg] Zeynep Lance MD Work Phone: [facility] 07-26-2023 10:48-0400 Heart rate 114 /min Zeynep Lance MD Work Phone: [facility] 07-26-2023 10:48-0400 Respiratory rate 20 /min Zeynep Lance MD Work Phone: [facility] 07-26-2023 10:48-0400 SaO2% (BldA) [Mass fraction] 99 % Zeynep Lance MD Work Phone: [facility] 07-26-2023 10:48-0400 Systolic blood pressure 153 mm[Hg] Zeynep Lance MD Work Phone: [facility] 05-18-2023 12:00-0500 Body height 175.3 cm Leidy Almonte PA-C Work Phone: [facility] 05-18-2023 12:00-0500 Body temperature 98.29 [degF] Leidy GALLEGOSC Work Phone: [facility] 05-18-2023 12:00-0500 Body weight 135.8 kg Leidy Almonte PA-C Work Phone: [facility] 05-18-2023 12:00-0500 Diastolic blood pressure 104 mm[Hg] Leidy Almonte PA-C Work Phone: [facility] 05-18-2023 12:00-0500 Heart rate 113 /min Leidy Almonte PA-C Work Phone: [facility] 05-18-2023 12:00-0500 Respiratory rate 18 /min Leidy Almonte PA-C Work Phone: [facility] 05-18-2023 12:00-0500 SaO2% (BldA) [Mass fraction] 98 % Leidy Almonte PA-C Work Phone: [facility] 05-18-2023 12:00-0500 Systolic blood pressure 141 mm[Hg] Leidy Almonte PA-C Work Phone: [facility] 08-15-2022 20:27-0400 Diastolic blood pressure 94 mm[Hg] Darron Ray MD Work Phone: [facility] 08-15-2022 20:27-0400 Heart rate 79 /min Darron Ray MD Work Phone: [facility] 08-15-2022 20:27-0400 Respiratory rate 15 /min Darron Ray MD Work Phone: [facility] 08-15-2022 20:27-0400 SaO2% (BldA) [Mass fraction] 100 % Darron Ray MD Work Phone: [facility] 08-15-2022 20:27-0400 Systolic blood pressure 147 mm[Hg] Darron Ray MD Work Phone: [facility] 08-15-2022 18:51-0400 Body height 175.3 cm Darron Ray MD Work Phone: [facility] 08-15-2022 18:51-0400 Body mass index (BMI) [Ratio] 40.02 kg/m2 Darron Ray MD Work Phone: [facility] 08-15-2022 18:51-0400 Body temperature 98.4 [degF] Darron Ray MD Work Phone: [facility] 08-15-2022 18:51-0400 Body weight 122.92 kg Darron Ray MD Work Phone: [facility] 06-06-2022 17:59-0500 Body temperature 100.4 [degF] Chery Ball PROSTHETIC AIDE.TRANSMITTER OPERATOR Work Phone: [facility] 06-06-2022 17:59-0500 Body weight 132 kg Chery Ball PROSTHETIC AIDE.TRANSMITTER OPERATOR Work Phone: [facility] 06-06-2022 17:59-0500 Diastolic blood pressure 94 mm[Hg] Chery Ball PROSTHETIC AIDE.TRANSMITTER OPERATOR Work Phone: [facility] 06-06-2022 17:59-0500 Heart rate 122 /min Chery Ball PROSTHETIC AIDE.TRANSMITTER OPERATOR Work Phone: [facility] 06-06-2022 17:59-0500 SaO2% (BldA) [Mass fraction] 98 % Chery Ball PROSTHETIC AIDE.TRANSMITTER OPERATOR Work Phone: [facility] 06-06-2022 17:59-0500 Systolic blood pressure 159 mm[Hg] Chery Ball PROSTHETIC AIDE.TRANSMITTER OPERATOR Work Phone: [facility] 04-07-2022 09:29-0500 Body height 175.3 cm Soledad Menendez PROSTHETIC AIDE.TRANSMITTER OPERATOR Work Phone: [facility] 04-07-2022 09:29-0500 Body temperature 97.7 [degF] Soledad Menendez PROSTHETIC AIDE.TRANSMITTER OPERATOR Work Phone: [facility] 04-07-2022 09:29-0500 Body weight 138.8 kg Soledad Menendez PROSTHETIC AIDE.TRANSMITTER OPERATOR Work Phone: [facility] 04-07-2022 09:29-0500 Diastolic blood pressure 76 mm[Hg] Soledad Menendez PROSTHETIC AIDE.TRANSMITTER OPERATOR Work Phone: [facility] 04-07-2022 09:29-0500 Heart rate 114 /min Soledad Menendez PROSTHETIC AIDE.TRANSMITTER OPERATOR Work Phone: [facility] 04-07-2022 09:29-0500 Respiratory rate 18 /min Soledad Menendez PROSTHETIC AIDE.TRANSMITTER OPERATOR Work Phone: [facility] 04-07-2022 09:29-0500 SaO2% (BldA) [Mass fraction] 100 % Soledad Menendez PROSTHETIC AIDE.TRANSMITTER OPERATOR Work Phone: [facility] 04-07-2022 09:29-0500 Systolic blood pressure 129 mm[Hg] Soledad Menendez PROSTHETIC AIDE.TRANSMITTER OPERATOR Work Phone: [facility] 02-06-2022 18:11-0400 Body height 175.3 cm Jean-Paul Slabaugh PA-C Work Phone: [facility] 02-06-2022 18:11-0400 Body weight 138.8 kg Jean-Paul Slabaugh PA-C Work Phone: [facility] 02-06-2022 18:11-0400 Diastolic blood pressure 101 mm[Hg] Jean-Paul Slabaugh PA-C Work Phone: [facility] 02-06-2022 18:11-0400 Heart rate 101 /min Jean-Paul Slabaugh PA-C Work Phone: [facility] 02-06-2022 18:11-0400 Respiratory rate 16 /min Jean-Paul Slabaugh PA-C Work Phone: [facility] 02-06-2022 18:11-0400 SaO2% (BldA) [Mass fraction] 99 % Jean-Paul Slabaugh PA-C Work Phone: [facility] 02-06-2022 18:11-0400 Systolic blood pressure 123 mm[Hg] Jean-Paul Slabaugh PA-C Work Phone: [facility] 01-18-2019 16:52-0400 BP Diastolic 80 mm[Hg] [facility] [place] 01-18-2019 16:52-0400 BP Systolic 117 mm[Hg] [employer] [facility] [place] 01-18-2019 16:52-0400 Pulse (Heart Rate) 68 /min [employer] [facility] [place] 01-18-2019 16:52-0400 Pulse Oximetry 99 % [facility] 01-18-2019 16:52-0400 Respiratory Rate 14 /min [facility], [place] 01-18-2019 15:48-0400 Body Temperature 97.9 [degF] [facility], [place] 01-18-2019 15:48-0400 Body weight 127.91 kg [facility], [place] Encounters Encounter Date Encounter Type Care Provider Facility Start: 08-18-2024 Non-patient / Non-visit Dr. Skyler hoyos MD -[facility] Start: 08-18-2024 End: 08-18-[address] Nicole Barrientos DO Work Phone: [facility] Work Phone: Start: 08-18-2024 End: 08-18-[address] Nicole Barrientos DO -Cardiovascular Services Work Phone: Start: 08-18-2024 End: 08-18-2024 ambulatory Nicole Barrientos Facility:[facility] Start: 08-14-2024 End: 08-14-2024 ambulatory [facility] Facility:[facility] Start: 08-14-2024 End: 08-14-2024 Patient encounter procedure Jean-Paul Smith PA-C Work Phone: [facility] Comment on above: Viral URI with cough (Primary Dx); Acute effusion of right ear Start: 07-06-2024 End: 07-06-2024 E-mail encounter from caregiver Jeannine Gonzalez MS Work Phone: [facility] Start: 07-06-2024 End: 07-06-2024 Patient encounter procedure Jeannine Gonzalez MS Work Phone: [facility] Comment on above: Genetic counseling a ppointment Start: 07-03-2024 End: 07-03-2024 ambulatory CAMRYN LEÓN Facility:[facility] Start: 03-27-2024 End: 03-27-2024 E-mail encounter from caregiver Jeannine Gonzalez MS Work Phone: [facility] Start: 03-27-2024 End: 03-27-2024 Patient encounter procedure Jeannine Gonzalez MS Work Phone: [facility] Comment on above: Genetic counseling a ppointment Start: 03-26-2024 End: 03-26-2024 ambulatory [facility] Facility:[facility] Start: 03-26-2024 End: 03-26-2024 Office outpatient visit 15 minutes Jean-Paul Smiht PA-C Work Phone: [facility] Comment on above: Acute [...] Appointment Start: 12-13-2023 ambulatory Nicole CaliFloyd [facility] [facility] Start: 12-13-2023 End: 12-13-2023 ambulatory [facility] Facility:[facility] Start: 07-31-2023 End: 07-31-2023 ambulatory [facility] Work Phone: Start: 07-31-2023 End: 07-31-2023 Patient encounter procedure [facility] Work Phone: Start: 07-26-2023 End: 07-26-2023 Patient encounter procedure Zeynep Lance MD Work Phone: [facility] Comment on above: Lumbar pain (Primary Dx) Refill Request Start: 07-26-2023 End: 07-26-2023 ambulatory [facility] Facility:[facility] Start: 07-26-2023 End: 07-26-2023 Subsequent hospital visit by physician Yung Chase [facility] Comment on above: Lumbar pain [M54.50] Start: 07-18-2023 End: 07-18-2023 Emergency department patient visit [facility] Facility:[facility] Start: 07-10-2023 End: 07-10-2023 ambulatory [facility] Work Phone: Start: 07-10-2023 End: 07-10-2023 [facility]: Start: 06-21-2023 End: 06-21-2023 ambulatory [facility] Work Phone: Start: 06-21-2023 End: 06-21-2023 Patient encounter procedure [facility] Work Phone: Start: 05-28-2023 End: 05-28-2023 ambulatory [facility] Work Phone: Start: 05-28-2023 End: 05-28-2023 Patient encounter procedure [facility] Work Phone: Start: 05-27-2023 End: 05-27-2023 [facility] Start: 05-18-2023 End: 05-18-2023 Patient encounter procedure Leidy Almonte PA-C Work Phone: [facility] Comment on above: Skin rash (Primary D x); Vomiting and diarrhea Start: 08-15-2022 End: 08-16-2022 Emergency department patient visit DARRON RAY [facility] Start: 08-15-2022 End: 08-15-2022 Subsequent hospital visit by physician [facility] Exam Room [address] [facility] [address] Comment on above: Arrived Start: 08-15-2022 End: 08-15-2022 Emergency department patient visit Darron Ray MD Work Phone: [facility] Comment on above: Head injury, initial encounter (Primary Dx) Start: 06-06-2022 End: 06-06-2022 Office outpatient visit 10 minutes Chery Montes De Oca APRN.TRANSMITTER OPERATOR Work Phone: [facility] Comment on above: Strep throat (Primar y Dx) Start: 04-07-2022 End: 04-07-2022 Patient encounter procedure Soledad Menendez APRN.TRANSMITTER OPERATOR Work Phone: [facility] Comment on above: Strep throat (Primar y Dx) Start: 02-06-2022 End: 02-06-2022 Patient encounter procedure Jean-Paul Smith PA-C Work Phone: [facility] Comment on above: Conjunctivitis of ri ght eye, unspecified conjunctivitis type (Primary Dx) Start: 01-18-2019 End: 01-18-2019 Emergency department patient visit Elder Chip Carcamo [facility] Comment on above: Strain of adductor [...] of 2) Zoster Vaccines (1 of 2) [employer] [facility] Start: 03-24-2025 End: 03-24-2025 Patient encounter procedure [facility] Comment on above: Family history of ovarian cancer [Z80.41 ] Start: 07-03-2024 End: 10-02-2024 CBC W Auto Differential panel - Blood COMPLETE BLOOD COUNT AND DIFFERENTIAL Lab STAT Thrombocytosis Expected: 07/03/2024 (Approximate), Expires: 10/02/2024 [facility] Work Phone: Comment on above: Expected: 07/03/2024 (Approximate), Expi res: 10/02/2024 Start: 07-03-2024 End: 07-03-2024 ambulatory 07/03/2024 9:30 AM EST Results Only [facility] [address] [place] [address] [facility] Start: 01-05-2024 Covid-19 Vaccine ( season) Covid-19 Vaccine ( season) [facility] Start: 01-05-2024 Covid-19 Vaccine ( season) Covid-19 Vaccine ( season) [facility] Start: 01-05-2024 Influenza vaccination Influenza Vaccine (#1) [facility] Start: 01-03-2024 End: 01-03-2024 ambulatory 01/03/2024 12:10 PM EDT [facility] Hematology/Oncology [address] [place] [address] [place] [address] [place] [address] 2 [facility] OV/LABS 12/19* Hematology/Oncology Comment on above: 2 WK OV/LABS 12/19* Start: 12-20-2023 End: 03-20-2024 MYELOPROLIFERATIVE NEOPLASM PANEL BLOOD [facility] Work Phone: Comment on above: Expected: 12/20/2023, Expires: Start: 12-20-2023 End: 12-20-2023 ambulatory 12/20/2023 10:30 AM EDT Visit (SP) Office Hematology/Oncology [address] [place] [address] [place] [address] [place] [address] ROLLER MECHANIC/THROMBOCYTOPENIA/DR. NICOLE BARRIENTOS* Hematology/Oncology Comment on above: ROLLER MECHANIC/THROMBOCYTOPENIA/DR. NICOLE BARRIENTOS* Start: 07-10-2023 [facility] Start: 05-06-2023 Depression Assessment Depression Assessment [facility] Start: 01-04-2023 Covid-19 Vaccine ( season) Covid-19 Vaccine ( season) [facility] Start: 01-04-2023 Influenza vaccination [facility] Start: 05-06-2022 DEPRESSION ASSESSMENT DEPRESSION ASSESSMENT [facility] Start: 01-04-2022 Influenza vaccination INFLUENZA (#1) [facility] Start: 05-06-2021 DEPRESSION ASSESSMENT DEPRESSION ASSESSMENT [facility] Start: 03-24-2021 COVID-19 VACCINE (3 - Booster for Pfizer series) COVID-19 VACCINE (3 - Booster for Pfizer series) [facility] Start: 2019 HPV TESTING HPV TESTING [facility] Start: 2019 Screening for malignant neoplasm of cervix [facility] Start: 01-04-2019 Influenza vaccination Flu vaccine (#1) [facility] Start: 07-29-2015 PAP TESTING PAP TESTING [facility] Start: 07-29-2015 Screening for malignant neoplasm of cervix Pap Testing [facility] Start: 07-28-2013 Screening for malignant neoplasm of cervix Cervical Cancer Screening [facility] Start: 2010 Screening for malignant neoplasm of cervix Pap Smear [facility] Start: 2008 Hepatitis B Vaccine (1 of 3 - 19+ 3-dose series) Hepatitis B Vaccine (1 of 3 - 19+ 3-dose series) [facility] Start: 2008 Urine microalbumin profile DTAP,TDAP,TD (1 - Tdap) [facility] Start: 2007 Anxiety Screening Anxiety Screening [facility] Start: 2007 Depression Screening Depression Screening [facility] Start: 2007 HEPATITIS C SCREENING HEPATITIS C SCREENING [facility] Start: 2007 Hepatitis C screening Hepatitis C Screening [facility] Start: 2007 HIV SCREENING HIV SCREENING [facility] Start: 2007 HIV screening HIV Screening [facility] Start: 02-06-2002 Varicella vaccination Varicella Vaccines (1 of 2 - 2-dose childhood series) [facility] Start: 2000 DTaP/Tdap/Td Vaccines (5 - Tdap) DTaP/Tdap/Td Vaccines (5 - Tdap) [facility] Start: 2000 Urine microalbumin profile DTaP,Tdap,Td Vaccine (5 - Tdap) [facility] Start: 1989 HEPATITIS B (1 of 3 - 3-dose series) HEPATITIS B (1 of 3 - 3-dose series) [facility] Start: 1989 Hepatitis B Vaccine (1 of 3 - 3-dose series) Hepatitis B Vaccine (1 of 3 - 3-dose series) [facility] Start: 1989 Hepatitis B Vaccines (1 of 3 - 3-dose series) Hepatitis B Vaccines (1 of 3 - 3-dose series) [facility] Start: 1989 HIV screening HIV Screening [facility] Cyclic citrullinated peptide IgG Ab [Units/volume] in Serum or Plasma [facility] HLA-B27 [Presence] b y JASMINA with probe detection [facility] JAK2 gene p.[id number] e [Presence] in Blood or Tissue by Molecular genetics method [facility] Ova and parasites identified in Unspecified specimen by Light microscopy [facility] End: 08-21-2024 XR Lumbar spine Views W flexion and W extension XR LUMBAR MOTION 4V AP/LAT/ FLEX/EXT Radiology Routine Lumbar pain 1 Occurrences starting 07/23/2023 until 08/21/2024 [facility] Work Phone: Comment on above: 1 Occurrences starting 07/23/2023 until 08/21/2024 XR Lumbar spine View s W flexion and W extension XR LUMBAR MOTION 4V AP/LAT/ FLEX/EXT Radiology Routine Lumbar pain 07/26/2023 10:41 AM EDT [facility] Work Phone: Payers Date Payer Category Payer Self-pay [id number] 2022 Unknown [id number] 2022 Worker's Compensation [employer] O [employer]IC[employer]P [id number] 2022-[place] [address] Worker's Comp [id number] 2021 Private Health Insurance MMO SUP [employer] PPO [id number] 2021 Unknown [id number] 2021 Unknown [id number] Unknown ANTHEM [id number] [place] [address] [id number] Unknown [facility] [id number] Unknown [id number] Unknown [id number] Unknown [id number] Unknown [id number] Social History Date Type Detail Facility Start: 09-11-2014 End: 01-18-2019 Tobacco smoking status NHIS Never smoker [facility] Work Phone: Start: 01-18-2019 End: 07-19-2023 Alcohol intake Not Currently [facility] Start: 1990 Sex Assigned At Not on file [place], [place] Start: 03-16-2011 Tobacco use and exposure Smokeless tobacco non-user [facility] Work Phone: Start: 03-03-2019 End: 12-20-2023 Alcohol intake Current drinker of alcohol (finding) [facility] Start: 09-30-2012 History SDOH Alcohol Comment rare [facility] Start: 01-27-2022 End: 08-15-2022 Exposure to SARS-CoV-2 (event) Not sure [facility] Start: 08-15-2022 Alcohol intake Ex-drinker (finding) [facility] Start: 05-18-2023 End: 07-19-2023 History of Social function [facility] National Score (1-100), lower number is lower risk Not on file [facility] Start: 09-11-2014 End: 09-11-2014 Tobacco smoking status NHIS Unknown if ever smoked [facility] Start: 1990 Sex Assigned At Female [facility] Start: 08-22-2024 Sex Female (finding) [facility] Functional Status Date Assessment Result Facility 05-10-2014 Are you deaf, or do you have serious difficulty hearing No 05/10/2014 9:29 AM Lizzy Bach MA No [facility] 05-10-2014 Are you blind, or do you have serious difficulty seeing, even when wearing glasses No 05/10/2014 9:29 AM Lizzy Bach MA No [facility] 05-10-2014 Do you have serious difficulty walking or climbing stairs No 05/10/2014 9:29 AM Lizzy Bach MA No [facility] 05-10-2014 Do you have difficul ty dressing or bathing No 05/10/2014 9:29 AM Lizzy Bach MA [facility] 05-10-2014 Because of a physica l, mental, or emotional condition, do you have difficulty doing errands alone such as visiting a physician's office or shopping No 05/10/2014 9:29 AM Lizzy Bach MA [facility] Mental Status Date Assessment Result Facility 05-10-2014 Because of a physica l, mental, or emotional condition, do you have serious difficulty concentrating, remembering, or making decisions No 05/10/2014 9:29 AM Lizzy Bach MA [facility] Clinical Notes 08-28-2011 to 08-14-2024 Patient InstructionsSJean-Paul [...] Jean-Paul Smith PA-C documented in this encounter [facility] 08-14-2024 Note HNO ID: [id number] Author: JEAN-PAUL SMITH PA-C Service: ? Author Type: Physician Bioprocessing Manufacturing Technician Type: Progress Notes Filed: 08/14/2024 13:31 Note [...] Tape [Adhesive Tape (Rosins)], Tree Nuts, and [place] MEDICATIONS Current Outpatient Medications Medication Sig fluticasone [...] tenderness or frontal sinus tenderness. Mouth/Throat: Lips: [place]. No lesions. Mouth: Mucous membranes are moist. [...] Heart sounds: No (more content not included)... [facility] 08-14-2024 History of Present illness Narrative Images from the original note were not included. [facility] Subjective Nahed Jackson is a [...] Tape [Adhesive Tape (Rosins)], Tree Nuts, and [place] MEDICATIONS Current Outpatient Medications Medication Sig fluticasone [...] tenderness or frontal sinus tenderness. Mouth/Throat: Lips: [place]. No lesions. Mouth: Mucous membranes are moist. [...] which included preparing to see the patient, xhis-lp-ekev patient care, completing clinical documentation, obtaining and/or reviewing separately obtained history, performing a medically appropriate examination, counseling and educating the patient/family/caregiver, ordering medications, tests, or procedures, communicating with other HCPs (not separately reported), and communicating results to the patient/family/caregiver. documented in this encounter [facility] 03-26-2024 Instructions Jean-Paul Smith PA-C - 03/26/2024 4:57 PM EST ASSESSMENT/PLAN: 1. Acute bacterial conjunctivitis of right eye - - OFLOXACIN 0.3 % EYE DROPS 2. Eustachian tube dysfunction, bilateral - - Continue Zyrtec - FLUTICASONE PROPIONATE 50 MCG/ACTUATION NASAL SPRAY,SUSPENSION 3. Irritation of external ear canal, bilateral - I - DABGFQLA-RUISCXZOR-FUQWEMPTO 3.5 MG-10,000 UNIT/ML-1 % EAR DROPS,SUSP Discussed [...] Jean-Paul Smith PA-C documented in this encounter [facility] 03-26-2024 Note HNO ID: [id number] Author: JEAN-PAUL SMITH PA-C Service: ? Author Type: Physician Bioprocessing Manufacturing Technician Type: Progress Notes Filed: 03/26/2024 17:13 Note [...] Tape [Adhesive Tape (Rosins)], Tree Nuts, and [place] MEDICATIONS Current Outpatient Medications Medication Sig ENILLORING [...] three times a day for 7 days. xmkjzbju-avghodghw-gphnlphyybudqz (CORTISPORIN) 3.5-10,000-1 mg/mL-unit/mL-% otic suspension Use 3 [...] sinus tenderness. Mout (more content not included)... [facility] 03-26-2024 History of Present illness Narrative 03/26/2024 [...] Tape [Adhesive Tape (Rosins)], Tree Nuts, and [place] MEDICATIONS Current Outpatient Medications Medication Sig ENILLORING [...] three times a day for 7 days. ocbodcod-uhttwsexu-ztwodyasihsehd (CORTISPORIN) 3.5-10,000-1 mg/mL-unit/mL-% otic suspension Use 3 [...] tenderness or frontal sinus tenderness. Mouth/Throat: Lips: [place]. No lesions. Mouth: Mucous membranes are moist. [...] bilateral - ICD9: 380.89, ICD10: H61.893 - MMIDOXYX-AEYGFCOPG-TEPQXALNG 3.5 MG-10,000 UNIT/ML-1 % EAR DROPS,SUSP Discussed [...] which included preparing to see the patient, yqyv-rp-gojd patient care, completing clinical documentation, obtaining and/or reviewing separately obtained history, performing a medically appropriate examination, counseling and educating the patient/family/caregiver, and ordering medications, tests, or procedures. documented in this encounter [facility] 01-03-2024 Note HNO ID: [id number] Author: CAMRYN LEÓN, ? Service: ? Author [...] visit. Either the patient or their legal insurance verification representative has been informed of the risks [...] Tape [Adhesive Tape* Rash Tree Nuts Swelling [place] Other: See Comments Burning in mouth REVIEW [...] which included preparing to see the patient, gctq-kp-nxiq patient care, completing clinical documentation, and obtaining and/or reviewing separately obtained history Camryn León APRN.TRANSMITTER OPERATOR Portions of this note including HPI, ROS, impression/plan may have been copied forward as to provide important historical information essential in contributing to medical decision making. Documentation has been reviewed and edited as necessary to support clinical decision making for today's visit and to reflect my own independent evaluation of this patient. [facility] 01-03-2024 History of Present illness Narrative VIRTUAL VISIT PROGRESS NOTE This is a virtual visit using [employer] Zoom Video Visit. It required patient-provider interaction for the medical decision making as documented below. I have communicated my name and active licensure. The patient's identity and physical location were verified at the time of this visit. Either the patient or their legal insurance verification representative has been informed of the risks [...] Tape [Adhesive Tape* Rash Tree Nuts Swelling [place] Other: See Comments Burning in mouth REVIEW [...] which included preparing to see the patient, bpvg-gf-dhnv patient care, completing clinical documentation, and obtaining and/or reviewing separately obtained history Camryn León APRN.TRANSMITTER OPERATOR Portions of this note including HPI, ROS, impression/plan may have been copied forward as to provide important historical information essential in contributing to medical decision making. Documentation has been reviewed and edited as necessary to support clinical decision making for today's visit and to reflect my own independent evaluation of this patient. documented in this encounter [facility] 01-02-2024 Telephone encounter Note Completed [facility] Work Phone: 01-02-2024 Miscellaneous Notes Completed Images from the original note were not included. Called patient to review labs. No answer. VM recording says Lotus so I did not leave details. PSR: can you please flip her video visit scheduled with Dr. Rocha to me for tomorrow? Thank you! Camryn documented in this encounter [facility] 01-02-2024 Telephone encounter Note Images from the original note were not included. Called patient to review labs. No answer. VM recording says Lotus so I did not leave details. PSR: can you please flip her video visit scheduled with Dr. Rocha to me for tomorrow? Thank you! Camryn [facility] Work Phone: 12-20-2023 Note HNO ID: [id number] Author: GIORGIO ROCHA MD Service: ? Author [...] Tape [Adhesive Tape* Rash Tree Nuts Swelling [place] Other: See Comments Burning in mouth CURRENT [...] which included preparing to see the patient, tomb-kf-qmlr patient care, completing clinical documentation, obtaining and/or reviewing separately obtained history, counseling and educating the patient/family/caregiver, ordering medications, tests, or procedures, independently interpreting results (not separately reported), and communicating results to the patient/family/caregiver. Electronically Signed: Giorgio Rocha MD December 20, 2023 10:37 AM [facility] 12-20-2023 History of Present illness Narrative HISTORY [...] Tape [Adhesive Tape* Rash Tree Nuts Swelling [place] Other: See Comments Burning in mouth CURRENT [...] which included preparing to see the patient, rqbw-pj-hkrt patient care, completing clinical documentation, obtaining and/or reviewing separately obtained history, counseling and educating the patient/family/caregiver, ordering medications, tests, or procedures, independently interpreting results (not separately reported), and communicating results to the patient/family/caregiver. Electronically Signed: Giorgio Rocha MD December 20, 2023 10:37 AM documented in this encounter [facility] 12-19-2023 Telephone encounter Note Spoke with patient and scheduled for tomorrow. Valerie Vargas [facility] 12-19-2023 Miscellaneous Notes Spoke with patient and scheduled for tomorrow. Valerie Vargas Unable to schedule due to patient at work. Patient is able to talk after 4. Needs scheduled with next new Na or Luis ROLLER MECHANIC/THROMBOCYTOPENIA/DR. NICOLE Kramer documented in this encounter [facility] 12-18-2023 Telephone encounter Note Unable to schedule due to patient at work. Patient is able to talk after 4. Needs scheduled with next new Na or Luis ROLLER MECHANIC/THROMBOCYTOPENIA/DR. NICOLE Kramer [facility] 07-26-2023 Note HNO ID: [id number] Author: ZEYNEP LANCE MD Service: ? Author Type: Physician Type: Progress Notes Filed: 07/26/2023 11:14 Note Text: NEUROSURGERY CONSULT NOTE Zeynep Lance MD Date of visit: July 26, 2023 Patient Name: Ms.Mary Kati Jackson Date of : 1990 Current Age: [age] year old Sex: female MRN/E# [id number] Chief Complaint: Low back pain HISTORY OF PRESENT ILLNESS : The patient is a 33 year old female with no relevant past medical history who is referred by [facility] for neurosurgical evaluation. The patient presented to [facility] on 07/18/2023 with complaints of a [...] Tape [Adhesive Tape* Rash Tree Nuts Swelling [place] Other: See Comments Burning in mouth No [...] Findings were noted (more content not included)... [facility] 07-26-2023 Note HNO ID: [id number] Author: JUDSON ROUSE RT(R) Service: ? Author [...] PATIENT PRESENTS WITH AN IMPLANTABLE OR ATTACHED BANK VAULT CUSTODIAN: No RADIOLOGY DEPARTMENT: General X-ray: Exam(s) Completed: Spine X-Ray(s): Lumbar AP / LAT / L5-S1 / FLEX-EXT PERIPHERAL IV DATA: Not applicable SIGNED BY: RT Hollis(R) July 26, 2023 10:[address] [facility] 07-26-2023 History of Present illness Narrative NEUROSURGERY CONSULT NOTE Zeynep Lance MD Date of visit: July 26, 2023 Patient Name: Ms.Mary Kati Jackson Date of : 1990 Current Age: [age] year old Sex: female MRN/E# [id number] Chief Complaint: Low back pain HISTORY OF PRESENT ILLNESS : The patient is a 33 year old female with no relevant past medical history who is referred by [facility] for neurosurgical evaluation. The patient presented to [facility] on 07/18/2023 with complaints of a [...] Tape [Adhesive Tape* Rash Tree Nuts Swelling [place] Other: See Comments Burning in mouth No [...] plan. Zeynep Lance MD Department of Neurosurgery [facility] This note was partially generated using [employer] voice recognition system, and there may be some incorrect words, spellings, and punctuation that were not noted in checking the note before saving. documented in this encounter [facility] 07-26-2023 History of Present illness Narrative Radiology [...] PATIENT PRESENTS WITH AN IMPLANTABLE OR ATTACHED BANK VAULT CUSTODIAN: No RADIOLOGY DEPARTMENT: General X-ray: Exam(s) Completed: Spine X-Ray(s): Lumbar AP / LAT / L5-S1 / FLEX-EXT PERIPHERAL IV DATA: Not applicable SIGNED BY: RT Hollis(R) July 26, 2023 10:43 AM documented in this encounter [facility] 05-18-2023 History of Present illness Narrative Nahed [...] Leidy Almonte PA-C documented in this encounter [facility] 08-15-2022 Emergency department Note Discharge instructions, follow up care, and pain management discussed with patient. All questions answered, there are no further questions at this time. RN reviewed concussion signs and symptoms with patient and friend bedside. Patient ambulated off the unit independently at discharge. Kzizy Stephens RN 08/15/222026 [facility] 08-15-2022 Emergency department Note Discharge instructions, [...] No sensory deficit. Motor: No weakness. Coordination: Abhhfj-Oijk-Abhdut Test normal. Gait: Gait normal. Psychiatric: Mood [...] PATIENT REFERRED TO: Nicole Fernandez Floyd [address] [facility] Jim [facility] [phone] Schedule an appointment as soon as possible [...] MSPs x 4, GCS 15. Works at [employer] documented in this encounter [facility] 08-15-2022 Emergency department Triage note Steady gait [...] MSPs x 4, GCS 15. Works at [employer] [facility] 08-15-2022 Physician Emergency department Note EMERGENCY DEPARTMENT [...] No sensory deficit. Motor: No weakness. Coordination: Jkxszn-Oono-Mqzcic Test normal. Gait: Gait normal. Psychiatric: Mood [...] PM PATIENT REFERRED TO: Nicole Barrientos [address] Emil Fernandez [facility] [phone] Schedule an appointment as soon as possible [...] Medicine Provider Darron Ray MD 08/15/22 2017 [employer] Phone: 06-06-2022 Instructions Chery Montes De Oca APRN.TRANSMITTER OPERATOR - 06/06/2022 6:18 PM EST [facility] [...] primary care provider. documented in this encounter [facility] 06-06-2022 History of Present illness Narrative This [...] 60 days. ALLERGIES Tape [Adhesive Tape* Rash [place] Other: See Comments Comment:Burning in mouth Family [...] coronavirus infection (COVID-19). documented in this encounter [facility] 04-07-2022 Miscellaneous Notes Addended by: SOLEDAD MENENDEZ on: 04/07/2022 10:18 AM Modules accepted: Orders documented in this encounter [facility] 04-07-2022 History of Present illness Narrative This note was created using [employer]. Subjective Nahed Jackson is a 31 year [...] 60 days. ALLERGIES Tape [Adhesive Tape* Rash [place] Other: See Comments Comment:Burning in mouth Family [...] which included preparing to see the patient, tlbk-ws-wthv patient care, completing clinical documentation, obtaining and/or reviewing separately obtained history, performing a medically appropriate examination, counseling and educating the patient/family/caregiver, and ordering medications, tests, or procedures. This patient encounter involved the screening or treatment of novel coronavirus infection (COVID-19). documented in this encounter [facility] 04-07-2022 Instructions Soledad Menendez APRN.CNP - 04/07/2022 [...] or other concerns. documented in this encounter [facility] 02-06-2022 Instructions Jean-Paul Smith PA-C - 02/06/2022 [...] Jean-Paul Smith PA-C documented in this encounter [facility] 02-06-2022 History of Present illness Narrative 02/06/2022 [...] file. ALLERGIES Tape [Adhesive Tape (Rosins)] and [place] MEDICATIONS Current Outpatient Medications Medication Sig Etonogestrel-Ethinyl [...] which included preparing to see the patient, ecae-od-dhcz patient care, completing clinical documentation, performing a medically appropriate examination, counseling and educating the patient/family/caregiver, and ordering medications, tests, or procedures. documented in this encounter [facility] 08-28-2011 History of Past i llness Narrative Problem Noted Date Resolved Date Pain in joint, shoulder region 08/28/2011 0 08/28/2011 documented as of this encounter (statuses as of 02/06/2022) [facility] History of Past illness Narrative* Problem Noted Date Resolved Date Pain in joint, shoulder region 08/28/2011 0 08/28/2011 documented as of this encounter (statuses as of 04/07/2022) [facility] History of Past illness Narrative* Problem Noted Date Resolved Date Pain in joint, shoulder region 08/28/2011 0 08/28/2011 documented as of this encounter (statuses as of 06/07/2022) [facility] History of Past illness Narrative* Problem Noted Date Diagnosed Date Resolved Date Pain in joint, shoulder region 08/28/2011 08/28/2011 documented as of this encounter (statuses as of 05/18/2023) [facility] History of Past illness Narrative* Problem Noted Date Diagnosed Date Resolved Date Pain in joint, shoulder region 08/28/2011 08/28/2011 documented as of this encounter (statuses as of 07/26/2023) [facility] History of Past illness Narrative* Problem Noted Date Diagnosed Date Resolved Date Pain in joint, shoulder region 08/28/2011 08/28/2011 documented as of this encounter (statuses as of 07/26/2023) [facility] Diagnosis Conjunctivitis of right eye, unspecified conjunctivitis type- Primary [facility] Diagnosis Strep throat- Primary Streptococcal sore throat [facility]* Diagnosis Strep throat- Primary Streptococcal sore throat [facility]* Diagnosis Head injury, initial encounter- Primary documented in this encounter [facility] note* Diagnosis Skin rash- Primary Rash and other nonspecific skin eruption Vomiting and diarrhea Vomiting alone documented in this encounter [facility] noteNo assessment information availableWParkview Health Work Phone: Evaluation note* Diagnosis Lumbar pain- Primary Lumbago documented in this encounter [facility] note* Diagnosis Thrombocytosis- Primary Essential thrombocythemia Family history of ovarian cancer Family history of malignant neoplasm of ovary documented in this encounter [facility] note* Diagnosis Thrombocytosis- Primary Essential thrombocythemia documented in this encounter [facility] note* Diagnosis Lumbar pain Lumbago documented in this encounter [facility] note* Diagnosis Acute bacterial conjunctivitis of right eye- Primary Eustachian tube dysfunction, bilateral Irritation of external ear canal, bilateral documented in this encounter [facility] note* Diagnosis Viral URI with cough- Primary Acute upper respiratory infections of unspecified site Acute effusion of right ear documented in this encounter [facility] Discharge instructions* Attachments The following attachments cannot be sent through Care Everywhere. * Minor Head Injury, Adult ED ([place]) [facility] Diagnostic Procedure Only (Routine) - Closed Specialty Diagnoses / Procedures Referred By Marisa t Referred To Contact XR IMAGING Diagnoses Lumbar pain Procedures XR LUMBAR MOTION 4V AP/LAT/ FLEX/EXT RADEX SPINE LUMBOSACRAL MINIMUM 4 VIEWS Zeynep Lance MD [address] [place] [address] [place] [address] Referral ID Status Reason Start Date Expiration Date V isits Requested Visits Authorized [id number] Closed Auto-Generate d Referral 07/23/2023 08/21/2024 1 1 [facility] for referral (narrative)* Diagnostic Procedure Only (Routine) - Closed Specialty Diagnoses / Procedures Referred By Marisa t Referred To Contact XR IMAGING Diagnoses Lumbar pain Procedures XR LUMBAR MOTION 4V AP/LAT/ FLEX/EXT RADEX SPINE LUMBOSACRAL MINIMUM 4 VIEWS Zeynep Lance MD [address] [place] [address] [place] [address] Referral ID Status Reason Start Date Expiration Date V isits Requested Visits Authorized [id number] Closed Auto-Generate d Referral 07/23/2023 08/21/2024 1 1 [facility] ([facility])No reason for referral information availableWParkview Health Work Phone: Reason for visit Narrative* Diagnostic Procedure Only (Routine) - Closed Specialty Diagnoses / Procedures Referred By Marisa gutierrez Referred To Contact XR IMAGING Diagnoses Lumbar pain Procedures XR LUMBAR MOTION 4V AP/LAT/ FLEX/EXT RADEX SPINE LUMBOSACRAL MINIMUM 4 VIEWS Zeynep Lance MD [address] [place] [address] [place] [address] Referral ID Status Reason Start Date Expiration Date V isits Requested Visits Authorized [id number] Closed Auto-Generate d Referral 07/23/2023 08/21/2024 1 1 [facility] Discharge Instructions * Attachments The following attachments cannot be sent through Care Everywhere. * Groin Strain ([place]) documented in this encounter Assessments Diagnosis Strain of adductor julien muscle, right, initial encounter- Primary Summary Purpose Family History No Family History Records FoundNo Family History Records FoundNo Family History Records FoundNo Family History Records FoundNo Family History Records Found Advance Directives No Advanced Directives Records Found Advance Directive Response Recorded Date/ Time Living Will No September 11, 2014 2: 34pm Power of Scrap Metal Processing Worker No September 11, 2014 2:34pm Advance Directive Response Recorded Date/ Time Living Will No September 11, 2014 3: 34pm Power of Scrap Metal Processing Worker No September 11, 2014 3:34pm Reason for Referral Specialty Diagnoses / Procedures Referred By Marisa gutierrez Referred To Contact Diagnoses Family history of ovarian cancer Procedures CONSULT TO MEDICAL GENETICS - CANCER MEDICAL GENETICS COUNSELING EACH [address] [place] [address] [place] [address] [employer] [place] [address] Referral ID Status Reason Start Date Expiration Date Visits Requested Visits Authorized [id number] Authorized PCP Requested Referral Auto-Generate d Referral [...] section and content) DATE CREATED AUTHOR 03/02/2019 [facility] DATE CREATED AUTHOR AUTHOR'S ORGANIZ ATION 08/18/2022 [facility] DATE CREATED AUTHOR AUTHOR'S ORGANIZ ATION 08/01/2023 [facility] DATE CREATED AUTHOR AUTHOR'S ORGANIZ ATION 08/16/2024 [facility] DATE CREATED AUTHOR AUTHOR'S ORGANIZ ATION [facility]/20[facility] Source Comments (unrecognize d section and content) In the event this informatio n is protected by the Federal Confidentiality of Alcohol and Drug Abuse Patient Records regulations: The Federal rules restrict any use of the information to criminally investigate or prosecute any alcohol or drug abuse patient.[facility] Hospital[facility] the event this information is protected by the Federal Confidentiality of Alcohol and Drug Abuse Patient Records regulations: The Federal rules restrict any use of the information to criminally investigate or prosecute any alcohol or drug abuse patient.[facility] HospitalIn the event this information is protected by the Federal Confidentiality of Alcohol and Drug Abuse Patient Records regulations: The Federal rules restrict any use of the information to criminally investigate or prosecute any alcohol or drug abuse patient.[facility] HospitalIn the event this information is protected by the Federal Confidentiality of Alcohol and Drug Abuse Patient Records regulations: The Federal rules restrict any use of the information to criminally investigate or prosecute any alcohol or drug abuse patient.[facility] HospitalIn the event this information is protected by the Federal Confidentiality of Alcohol and Drug Abuse Patient Records regulations: The Federal rules restrict any use of the information to criminally investigate or prosecute any alcohol or drug abuse patient.[facility] HospitalIn the event this information is protected by the Federal Confidentiality of Alcohol and Drug Abuse Patient Records regulations: The Federal rules restrict any use of the information to criminally investigate or prosecute any alcohol or drug abuse patient.[facility] HospitalIn the event this information is protected by the Federal Confidentiality of Alcohol and Drug Abuse Patient Records regulations: The Federal rules restrict any use of the information to criminally investigate or prosecute any alcohol or drug abuse patient.[facility] HospitalIn the event this information is protected by the Federal Confidentiality of Alcohol and Drug Abuse Patient Records regulations: The Federal rules restrict any use of the information to criminally investigate or prosecute any alcohol or drug abuse patient.[facility] HospitalIn the event this information is protected by the Federal Confidentiality of Alcohol and Drug Abuse Patient Records regulations: The Federal rules restrict any use of the information to criminally investigate or prosecute any alcohol or drug abuse patient.[facility] HospitalIn the event this information is protected by the Federal Confidentiality of Alcohol and Drug Abuse Patient Records regulations: The Federal rules restrict any use of the information to criminally investigate or prosecute any alcohol or drug abuse patient.[facility] HospitalIn the event this information is protected by the Federal Confidentiality of Alcohol and Drug Abuse Patient Records regulations: The Federal rules restrict any use of the information to criminally investigate or prosecute any alcohol or drug abuse patient.[facility] HospitalIn the event this information is protected by the Federal Confidentiality of Alcohol and Drug Abuse Patient Records regulations: The Federal rules restrict any use of the information to criminally investigate or prosecute any alcohol or drug abuse patient.[facility] HospitalIn the event this information is protected by the Federal Confidentiality of Alcohol and Drug Abuse Patient Records regulations: The Federal rules restrict any use of the information to criminally investigate or prosecute any alcohol or drug abuse patient.[facility] HospitalIn the event this information is protected by the Federal Confidentiality of Alcohol and Drug Abuse Patient Records regulations: The Federal rules restrict any use of the information to criminally investigate or prosecute any alcohol or drug abuse patient.[facility] HospitalIn the event this information is protected by the Federal Confidentiality of Alcohol and Drug Abuse Patient Records regulations: The Federal rules restrict any use of the information to criminally investigate or prosecute any alcohol or drug abuse patient.[facility] Care Teams (unrecognized sec tion and content) Cheesemaker Helper Relationship Specialty Start Date End Date Nicole Barrientos DO [address] [address] PCP - General Family Medicine 08/21/17 Cheesemaker Helper Relationship Specialty Start Date End Date Nicole Barrientos DO [address] [place] [address] [place], [place] [id number] PCP - General Family Medicine 08/21/17 Cheesemaker Helper Relationship Specialty Start Date End Date Nicole Barrientos DO [address] [place] [address] [place], [place] [id number] PCP - General Family Medicine 08/21/17 Cheesemaker Helper Relationship Specialty Start Date End Date FloydNicole carrillo [address] [place] [phone] PCP - General 01/18/19 Cheesemaker Helper Relationship Specialty Start Date End Date Nicole Barrientos Jim [address] [place] [phone] PCP - General 01/18/19 Cheesemaker Helper Relationship Specialty Start Date End Date Nicole [...] NP-C Attending Provider, Referring Prov ider Active Cheesemaker Helper Relationship Specialty Start Date End Date Nicole Barrientos DO [address] [place] [address] PCP - General Family Medicine 08/21/17 Cheesemaker Helper Relationship Specialty Start Date End Date FloydNicole carrillo [address] [place] [address] PCP - General Family Medicine 08/21/17 Cheesemaker Helper Relationship Specialty Start Date End Date FloydNicole carrillo [address] [place] [address] PCP - General Family Medicine 08/21/17 Cheesemaker Helper Relationship Specialty Start Date End Date FloydNicole mclaughlin [address] [place] [address] PCP - General Family Medicine 08/21/17 Cheesemaker Helper Relationship Specialty Start Date End Date Nicole BarrientosDO [address] [place] [address] PCP - General Family Medicine 08/21/17 Cheesemaker Helper Relationship Specialty Start Date End Date Nicole Barrientos [address] [place] [address] PCP - General Family Medicine 08/21/17 Cheesemaker Helper Relationship Specialty Start Date End Date FloydNicole carrilloDO [address] [place] [address] PCP - General Family Medicine 08/21/17 Team [...] BE BASED ON THE PRIMARY CLINICAL RECORDS. [employer] [facility]. provides no warranty or guarantee of the accuracy or completeness of information in this document.
[2025-02-06 09:47] LABS: Hematocrit 39.9 % (37-47); Hemoglobin 13.8 g/dL (12.0-15.0); Immature Granulocytes Count 0.050 X10^3/uL (0.0-0.0); Mean Corp Hgb Conc 34.6 g/dL (32-36); Mean Corpuscular Volume 77.6 fL (81-99); Mean Platelet Vol. 8.7 fl (6.2-12.0); NRBC Flagged by Analyzer 0 % (0-5); Platelet Count 495 K/mm3 (150-450); RBC Distribution Width CV 12.7 % (11.6-14.6); RBC Distribution Width SD 35.6 fl (35.1-43.9); Red Blood Count 5.14 M/mm3 (4.2-5.4); White Blood Count 10.7 K/mm3 (4.4-11.0)
[2025-02-06 11:11] LABS: Cholesterol 199 mg/dL (<=200); Low Density Lipoprotein Calc. 123 mg/dL; Triglycerides 136 mg/dL; Very Low Density Lipoprotein 27 mg/dL (5-40); cholesterol:hdl ratio screen 4.10
[2025-02-06 11:17] LABS: AST(SGOT) 22 U/L (<=31); Alanine Aminotransfer ALT/SGPT 15 U/L (<=34); Albumin, Serum 3.9 g/dL (3.5-5.0); Alkaline Phosphatase 87 U/L (35-104); Anion Gap 12 (5-15); BUN 10 mg/dL (4-19); BUN/Creat Ratio 14.4 RATIO (10-20); Calcium,Total 9.0 mg/dL (7.6-11.0); Carbon Dioxide 20.2 mmol/L (21.0-32.0); Chloride 105 mmol/L (98-108); Globulin 3.4 g/dL (2.2-4.2); Glucose 92 mg/dL (70-99); Potassium 4.0 mmol/L (3.3-5.1)
== END | disposition home or self-care (01) ==
LOC: LAB 09:04
PROVIDERS: PCP Family Medicine; Referring Provider Family Medicine; Visit Provider Family Medicine
DX: Z00.00 Encounter for general adult medical examination without abnormal findings (principal)
CPT/HCPCS: 36415; 80053; 80061; 84443; 85025